=== PATIENT | female | born 1960 | race Caucasian/White ===

== ENCOUNTER 2019-05-24 13:00 | Day surgery (SDC) | payer OTHER, SELFPAY ==
--- NOTE | 2019-05-08 13:31 | PCM.HP.BLA ---
History and Physical Date of Admission: 05/24/19 HPI: The patient is a 58 year old female presenting for pre-operative visit. She is scheduled for?hysteroscopy D&C w/ possible polypectom, for?PMB and thickened endometrium on?05/24/19. ??Procedure discussed along with risks, benefits and complications. ?Other alternatives discussed for management. Consent form signed??Yes.? PAST MEDICAL HISTORY PAST MEDICAL HISTORY Diagnosis Date ? Female infertility of other specified origin ? ? 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 Hyperlipidemia LDL goal < 130 04/09/2014 ? Migraine, unspecified, with intractable migraine, so stated, without mention of status migrainosus ? ? Migraine ? Myalgia and myositis, unspecified ? ? Fibromyalgia (myalgia and myositis) ? Unspecified hemorrhoids without mention of complication ? ? Hemorrhoids ? ? PAST SURGICAL HISTORY PAST SURGICAL HISTORY Procedure Laterality Date ? APPENDECTOMY ? ? ? COLONOSCOP W/ OR W/O BRSH SPEC ? 02/05/2013 ? Colonoscopy ? HEMORRHOIDECTOMY,INT/EXT,COMPLX ? ? ? L'SCOPE DX W/WO BRUSHINGS/WASHINGS ? ? ? Laparoscopy, infertility ? REMOVE TONSILS/ADENOIDS,<12 Y/O ? ? ? REMV PILONIDAL LESION EXTENS ? ? ? Pilonidal cystectomy ? SIGMOIDOSCOPY FLEX DIAG ? 2002 ? Sigmoidoscopy, flexible ? ? CURRENT MEDICATIONS No current outpatient medications on file. ? No current facility-administered medications for this visit.? ? ALLERGIES:?Patient has no known allergies. ? PERSONAL HISTORY:? SOCIAL HISTORY Social History ? Tobacco Use ? Smoking status: Never Smoker ? Smokeless tobacco: Never Used Substance Use Topics ? Alcohol use: No ? Drug use: No ? FAMILY HISTORY:? FAMILY HISTORY FAMILY HISTORY Problem Relation Age of Onset ? Hypertension Mother ? ? Hypertension Father ? ? Colon Cancer Maternal Uncle ? ? Hypertension Maternal Grandfather ? ? Heart Maternal Grandfather ? ? other (Mitral Valve Prolapse) Other ?Mother and sister ? Hypertension Maternal Grandmother ? ? other (anorexia) Sister ? ? REVIEW OF SYMPTOMS: GENERAL: denies fevers or chills ENDOCRINOLOGY: has not been on steroids Cardiology : denies palpitations or chest pain Respiratory: denies SOB or cough Hematology: denies history of prolonged bleeding or easy bruising or VTE Allergy: Denies history of personal or family history of allergy to anesthesia ? ? PHYSICAL EXAMINATION: ? VITALS:?Last menstrual period 02/03/2011. ? GENERAL:??The patient is well nourished, well hydrated in no acute distress. ?, The patient is oriented to time, place, and person. NECK:?Supple. No lynphadenopathy, normal thyroid, no thyromegaly. LUNGS:?Clear to auscultation bilaterally. no wheezes, rhonchi or rales HEART:?Regular rate and rhythm, Normal heart sounds and No murmurs or gallops ? ? IMPRESSION:?PMB ? PLAN:??The risks/benefits/alternatives and personal involved for the planned?hysteroscopy D&C w/ possible polypectomy?were reviewed with the patient. Her questions were answered to her satisfaction and she desires to proceed. ?Consent was signed. ?I reviewed with her postop instructions and expectations. ? I have reviewed and updated past medical and surgical history, medications and allergies. This H&P was completed on 05/08/19 in my office.
[2019-05-24 13:29] VITALS: BP 158/85; PULSE 75; RESP 15; TEMP 37.1; O2SAT 98; BMI 32.2
[2019-05-24] MEDS: Lactated Ringers 1,000 ML 100 ML IV (13:44)
[2019-05-24] MEDS: Acetaminophen 500 MG Tablet 1000 MG PO (13:45)
[2019-05-24] MEDS: Ketorolac 30 MG/ML Syringe IV (13:45)
[2019-05-24 13:47] LABS: Hematocrit 42.6 % (37-47); Hemoglobin 13.7 g/dL (12.0-15.0); Mean Corp Hgb Conc 32.2 g/dL (32-36); Mean Corpuscular Volume 90.3 fL (81-99); Mean Platelet Vol. 10.4 fl (6.2-12.0); Platelet Count 233 K/mm3 (150-450); RBC Distribution Width CV 13.2 % (11.6-14.6); Red Blood Count 4.72 M/mm3 (4.2-5.4)
--- NOTE | 2019-05-24 14:55 | EMB_PTH ---
PATIENT: FRANCISCO J PERKINS LOC: [facility] U#:[id number] AGE/SX: 58/F ROOM: RE05/24/[address]: Dr. Zohreh Dumont MD : [id number] BED: DIS: 05/24/2019 SPEC #: [id number] RECD: 05/25/19 09:37 STATUS: ANTONIO REYesika #: [id number] GARFIELD: 05/24/19 14:[address]: Zohreh Dumont DEPT: SURGICAL PATHOLOGY RECD BY: Laurel Barron ENTERED: 05/25/19 10:44 SP TYPE: ENDOM BX/C OT DR: Dr. Kavon Jeff III, MD Tissues: Endometrium, NOS Procedures: Surgery Specimen Level IV HEADER OPERATION: Hysteroscopy, D & C Symphion with polyp resection PRE-OP DIAGNOSIS: Postmenopausal bleeding TISSUE SUBMITTED: Endometrial curettings MICROSCOPIC DIAGNOSIS Endometrium, curettings: Inactive endometrium with focal cystic change. Fragments of myometrium suggestive of adenomyosis. Rare fragments of benign lower uterine endometrium and endocervix. See comment. AM:levi 05/28/19 COMMENT The majority of the specimen consists of myometrial tissue. Clinical correlation is suggested. MICROSCOPIC DESCRIPTION Slides are reviewed. GROSS DESCRIPTION Received in fixative is one container labeled with the patient's name and designated endometrial curettings. The specimen consists of multiple irregular fragments of pink-vanegas soft tissue that in aggregate measure 2.5 x 1 x 0.1 cm. The specimen is totally submitted in one cassette. / AM:levi 05/25/19 TC:5 CPT: 83848
[2019-05-24] MEDS: Lubricating Jelly 60 GM Tube 30 GM TOPICAL (16:00)
--- NOTE | 2019-05-24 16:06 | DCINST_ITS ---
Discharge Diet: No Restrictions Discharge Activity: Return to Normal Activity, May Shower, May Take a Tub Bath - in 2 weeks. May resume sexual activity in: 2 weeks Call your doctor if your incision/area has: Continuous Slow Oozing, Sudden Increased Bleeding, Foul Smelling Discharge Call your doctor if you observe: Fever of 101 or Higher, Using more than one pad per hour Allergies/Adverse Reactions: Allergies No Known Allergies Allergy (Verified 05/24/19 13:29) Medications to take at Discharge NK 05/17/19 Primary Care Physician: Kavon Jeff III, MD [Primary Care Provider] - Test Results: Test results from this visit will be discussed in further detail at your follow- up appointment, if applicable. Please Follow Up With: Zohreh Dumont MD - [phone] When: in 2-4 weeks as needed
--- NOTE | 2019-05-24 16:07 | PCM.OPRPT ---
Report of Operation Date of Procedure: 05/24/19 Pre-Operative Diagnosis: PMB, thickened endometrium Post-Operative Diagnosis: same Surgery/Procedure Performed:: hsyteroscopy D&C w/ symphion device Description of Surgical Findings:: atrophic endometrium, normal cervix and vagina underwriting analyst: None Type of Anesthesia:: MAC/Supplemental/Local Anesthesiologist: Rodrick Bell Special Medications: none Specimen's removed: endometrial curettings Drains: none Estimated Blood Loss (mL): 10 Fluids Replaced: 900 cc LR Description of Procedure: The patient was taken to the OR where she was prepped and draped in dorsal lithotomy position. The weighted speculum was placed in the vagina and the anterior lip of the cervix was grasped with a single-tooth tenaculum. A paracervical block was administered with 1% lidocaine with 1-100,000 epinephrine solution. The cervix was dilated serially with Hegar dilators. The 5mm hysteroscope was placed into the uterine cavity and the above findings were noted. Bilateral tubal ostia were identified. The SYmphion device was used to do a visual d&C of the entire cavity. The instruments were removed from the vagina. The specimen was handed off and sent to pathology. All sponge and needle counts were correct. Vaginal sweep was performed by me. The patient was awakened and taken to the recovery room in stable condition. Hysteroscopic calculated fluid deficit of 350 cc of normal saline Findings: Endometrial cavity: Normal, no fibroids or polyps noted Cervix: Normal Vagina: Normal Grafts/Implants Used: none - Complications none - Admit VTE Documentation VTE Present on Admission: No VTE Mechan Device Prophylaxis: SCD's VTE Pharm Prophylaxis ordered?: No Reason prophylaxis not ordered:: Procedure Not Indicated
[2019-05-24 16:10] VITALS: BP 117/76; BP 158/85; PULSE 100; RESP 16; TEMP 36.8; O2SAT 92
[2019-05-24 16:15] VITALS: BP 132/91; BP 158/85; PULSE 88; RESP 18; O2SAT 93
[2019-05-24 16:20] VITALS: BP 152/98; BP 158/85; PULSE 84; RESP 16; O2SAT 93
[2019-05-24 16:25] VITALS: BP 157/88; BP 158/85; PULSE 84; RESP 18; TEMP 36.7
[2019-05-24 17:03] VITALS: BP 152/83; BP 158/85; PULSE 72; RESP 16; TEMP 36.4; O2SAT 96
== END 2019-05-24 17:21 | disposition home or self-care (01) ==
LOC: SDC 13:02 → AC 13:04
PROVIDERS: Family Provider Family Medicine; PCP Family Medicine; Referring Provider Obstetrics & Gynecology; Visit Provider Obstetrics & Gynecology
PROC: 0UB98ZZ Excision of Uterus, Via Natural or Artificial Opening Endoscopic (ICD-10-PCS; CPT 58558; principal; 2019-05-24 14:40)
DX: N95.0 Postmenopausal bleeding (principal); R93.89 Abnormal findings on diagnostic imaging of other specified body structures; N85.8 Other specified noninflammatory disorders of uterus; N97.9 Female infertility, unspecified; E78.5 Hyperlipidemia, unspecified; M79.7 Fibromyalgia; K64.9 Unspecified hemorrhoids
CPT/HCPCS: 58558; 36415; 85027; 88305; J7120; J2405

== ENCOUNTER → 2025-02-01 | Outpatient (CLI) | payer MEDICARE, OTHER, SELFPAY ==
--- NOTE | 2025-02-01 07:27 | CT_ITS ---
PROCEDURE: EXTREMITY LOWER WITHOUT CONTRA 02/01/2025 REASON FOR EXAM: UNILATERAL PRIMARY OSTEOARTHRITIS, LEFT KNEE TECHNIQUE: Procedure Code: CTELWO Modality: CT Procedure: EXTREMITY LOWER WITHOUT CONTRA Coronal and Sagittal reconstruction series were provided. One or more dose reduction techniques were used (e.g., Automated exposure control, adjustment of the mA and/or kV according to patient size, use of iterative reconstruction technique. RADIATION DOSE SUMMARY: CTDlvol: 56 mGy DLP: 1229.81 mGycm COMPARISON: None FINDINGS: Bones: Bone mineralization is preserved. There is no acute fracture of the knee hip or ankle. No destructive bone lesion appreciated. Joints: Left hip: No fracture. No dislocation. Joint spaces preserved. Subtle osteophytes present off the superior acetabulum. No effusion Left knee: Small suprapatellar joint effusion. Tricompartmental osteoarthritis. Narrowing of the medial compartment of the knee with subchondral sclerosis and marginal osteophytes. Osteophytes off the tibial spines and lateral femoral condyle and lateral tibial plateau. Osteophytic spurs present in the patellofemoral compartment with diffuse joint space narrowing. No dislocation or loose body. Left ankle: Old fracture through the left medial condyle. No acute fracture. Ankle mortise is preserved. Mild osteoarthritic changes. No joint effusion. The subtalar joint is normal. Enthesopathy of the insertion of the Achilles tendon. Calcaneal spurs. Soft Tissues: No abnormality of the soft tissues. CT/Extremity Lower without Contra IMPRESSION: Degenerative changes of the left knee and ankle as described above. No acute fracture. Reading Location: [id number]
== END | disposition home or self-care (01) ==
LOC: CT 07:27
PROVIDERS: PCP Family Medicine; Referring Provider Student in an Organized Health Care Education/Training Program; Visit Provider Student in an Organized Health Care Education/Training Program
DX: M25.569 Pain in unspecified knee (principal); G89.29 Other chronic pain
CPT/HCPCS: 73700

== ENCOUNTER 2025-02-28 13:57 | Observation (INO) | payer MEDICARE, OTHER, SELFPAY ==
--- NOTE | 2025-02-01 07:42 | EKG12_ITS ---
Test Reason : PREOP Blood Pressure : */* mmHG Vent. Rate : 75 BPM Atrial Rate : 75 BPM P-R Int : 148 ms QRS Dur : 74 ms QT Int : 396 ms P-R-T Axes : 20 -18 0 degrees QTcB Int : 442 ms Normal sinus rhythm Voltage criteria for left ventricular hypertrophy Abnormal ECG When compared with ECG of 01-Apr-2003 08:33, No significant change was found Confirmed by JUANA WALTER, SHYANN ([id number]), web editor STEPHAN KEITH ([id number]) on 02/04/2025 8:40:36 AM Referred By: Ciro Aguayo Confirmed By: SHYANN ARIAS MD
[2025-02-01 09:19] LABS: Hematocrit 40.6 % (37-47); Hemoglobin 13.5 g/dL (12.0-15.0); Immature Granulocytes Count 0.030 X10^3/uL (0.0-0.0); Mean Corp Hgb Conc 33.3 g/dL (32-36); Mean Corpuscular Volume 90.8 fL (81-99); Mean Platelet Vol. 10.6 fl (6.2-12.0); NRBC Flagged by Analyzer 0 % (0-5); Platelet Count 222 K/mm3 (150-450); RBC Distribution Width CV 13.2 % (11.6-14.6); RBC Distribution Width SD 43.8 fl (35.1-43.9); Red Blood Count 4.47 M/mm3 (4.2-5.4); White Blood Count 6.1 K/mm3 (4.4-11.0)
[2025-02-01 09:40] LABS: Magnesium 2.3 mg/dL (1.5-2.2)
[2025-02-01 09:44] LABS: Anion Gap 10 (5-15); BUN 24 mg/dL (4-19); BUN/Creat Ratio 20.7 RATIO (10-20); Calcium,Total 9.5 mg/dL (7.6-11.0); Carbon Dioxide 25.9 mmol/L (21.0-32.0); Chloride 104 mmol/L (98-108); Glucose 106 mg/dL (70-99); Potassium 4.6 mmol/L (3.3-5.1)
--- NOTE | 2025-02-04 16:16 | PAT.ANE_ITS ---
Pre-Assessment Diagnosis/Proposed Procedure Planned Operative Procedure(s): ROBOTIC ASSISTED LEFT TOTAL KNEE ARTHROPLASTY Anesthesia History Anesthesia History - convalescent sitter: Anesthesia History - convalescent sitter Hx Hospitalization No 01/31/25 13:59 Any Problems With Anesthesia No 01/31/25 13:59 Cholinesterase deficiency No 01/31/25 13:59 You/Your Family Experience No 01/31/25 13:59 fever (hyperthermia) with Relationship Recent Exposure to Contagious No 05/24/19 13:29 Disease Does patient have nerve No 01/31/25 13:59 stimulator Patient instructed to have device shut off --Does patient have Pacemaker or ICD? When Was Last Pacemaker Check QUESTION #4 FULL TEXT: You/Your Family Experience fever (hyperthermia) with Anesthesia Last Oral Intake Last Oral intake: Last Oral Intake NPO since Meds taken in AM with sips of water? Meds patient instructed to take am of surgery PONV PONV - convalescent sitter: PONV - convalescent sitter Female Yes 01/31/25 13:59 HX of Motion Sickness No 01/31/25 13:59 HX of N/V After Surgery No 01/31/25 13:59 Non-Smoker Yes 01/31/25 13:59 Duration of Surgery greater Yes 01/31/25 13:59 than 60 minutes Number of Risk Factors 3 01/31/25 13:59 PONV Score Moderate Risk 01/31/25 13:59 Respiratory Assessment Respiratory Assessment - convalescent sitter: Respiratory Tract Infection Hx - convalescent sitter Hx Respiratory Tract Infection No 01/31/25 13:59 STOP Sleep Apnea STOP Sleep Apnea - convalescent sitter: STOP Sleep Apnea - convalescent sitter Hx Hypertension Yes: CONTROLLED WITH 01/31/25 13:59 Hx Sleep Apnea No 01/31/25 13:59 CPAP BIPAP Do you snore loudly (louder Yes 01/31/25 13:59 than talking or can be heard Do you often feel tired/ No 01/31/25 13:59 fatigued/ sleepy during daytime? Has anyone observed you stop No 01/31/25 13:59 breathing during sleep? STOP Results Positive 01/31/25 13:59 QUESTION #5 FULL TEXT : Do you snore loudly (louder than talking or can be heard through closed doors)? 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 Specify any problems Hx of Preganancy in last 3 No 01/31/25 13:59 Months Nurse Filling Out Transfusion DSCHRIBER 01/31/25 13:59 & Questions: Date: 01/31/25 01/31/25 13:59 Time: 14:04 01/31/25 13:59 Patient unable to answer at this time (ie. confused, unrespo /Reproduction History /Reproductive History - convalescent sitter: /Reproductive Hx- convalescent sitter Hx Now No 01/31/25 13:59 Gestational Age (in weeks): EDC: Hx Hx Para Hx Section SAB No 01/31/25 13:59 PFSH Medical History (Updated 01/31/25 @ 14:08 by Latha Niño) Wears glasses Post-menopausal Arthritis High cholesterol Migraine headache Non-smoker History of pain when walking Hypertension Home Medications ?Medication ?Instructions ?Recorded ?Last Taken ?Type atorvastatin 20 mg tablet 20 mg PO QHS 01/31/25 Unknow n History losartan 100 mg tablet 100 mg PO DAILY 01/31/25 Unk nown History Allergy/AdvReac Type Severity Reaction Status Date / Time lisinopril AdvReac Mild Other Verified 01/31/25 13:57 Surgical History (Updated 01/31/25 @ 14:14 by Latha Niño) History of hysteroscopy Hx of colonoscopy Hx of hemorrhoidectomy Hx of appendectomy Hx of tonsillectomy Social History Smoking Status: Never smoker Audit: Pertinent Findings Pertinent Findings EKG Perinent findings: EKG 02/01/2025. Normal sinus rhythm. Recommendation Anesthesia Recommendation Anesthesia recommendation: OPTIMIZED for anesthesia
[2025-02-28] VITALS (13 sets, daily range): BP systolic 98–139; BP diastolic 55–88; PULSE 74–103; RESP 16–18; TEMP 36.3–37.1; O2SAT 92–100; BMI 32.3
[2025-02-28] MEDS: LR 1,000 ML - BOLUS PREOP 999 ML IV (11:02)
[2025-02-28] MEDS: Magnesium 1 GM over 15 mins IV (11:03)
--- NOTE | 2025-02-28 11:30 | PCM.PRE.AN2 ---
ASA Classification* ASA Classification ASA Classification: 2 Assessment & Plan Anesthesia* Anesthesia Assessment Anesthesia Assessment: Discussed sedation and/or anesthesia options, risks, benefits, and alternatives with patient/parents/legal guardian/POA. Questions invited. The patient/parents/legal guardian/POA seems to understand and agrees to proceed with anesthesia plan. Reviewed the physical assessment, medical history, allergy history and patient home medications list prior to surgery/procedure/anesthetic and documented any changes. Performed airway and anesthesia risk assessments. Anesthesia Type Anesthesia Type: Spinal and Block (Patient was consented for postop adductor canal block.) History Source History Obtained from:: Patient and Chart Anesthesia Focused Assessment* Temperature: 98.8 F Pulse Rate: 103 Blood Pressure: 137/88 Respiratory Rate: 18 Pulse Ox: 98 Oxygen Delivery Method: Room Air Airway Assessment Mouth opens: >3 cm Mallampati Score: III Teeth Condition: Caps/Crowns (Patient has couple crowns. They are tight.) Neck Range of motion (ROM): Full ROM Labs Anesthesia Preop lab: CBC WBC, (4.4-11.0) 6.1 K/mm3 02/01/25, 08:19 RBC, (4.2-5.4) 4.47 M/mm3 02/01/25, 08:19 Hgb, (12.0-15.0) 13.5 g/dL 02/01/25, 08:19 Hct, (37-47) 40.6 % 02/01/25, 08:19 Plt Count, (150-450) 222 K/mm3 02/01/25, 08:19 CHEMISTRY Potassium, (3.3-5.1) 4.6 mmol/L 02/01/25, 08:19 Sodium, (133-145) 140 mmol/L 02/01/25, 08:19 Magnesium, (1.5-2.2) 2.3 mg/dL H 02/01/25, 08:19 BUN, (4-19) 24 mg/dL H 02/01/25, 08:19 Creatinine, (0.70-1.20) 1.14 mg/dL 02/01/25, 08:19 Glucose, (70-99) 106 mg/dL H 02/01/25, 08:19 COAG Pre-Assessment Diagnosis/Proposed Procedure Planned Operative Procedure(s): ROBOTIC ASSISTED LEFT TOTAL KNEE ARTHROPLASTY Anesthesia History Anesthesia History - cook relief: Anesthesia History - cook relief Hx Hospitalization No 01/31/25 13:59 Any Problems With Anesthesia No 01/31/25 13:59 Cholinesterase deficiency No 01/31/25 13:59 You/Your Family Experience No 01/31/25 13:59 fever (hyperthermia) with Relationship Recent Exposure to Contagious No 02/28/25 10:40 Disease Does patient have nerve No 01/31/25 13:59 stimulator Patient instructed to have device shut off --Does patient have Pacemaker No 02/28/25 10:40 or ICD? When Was Last Pacemaker Check QUESTION #4 FULL TEXT: You/Your Family Experience fever (hyperthermia) with Anesthesia Last Oral Intake Last Oral intake: Last Oral Intake NPO since 08:30 02/28/25 10:40 Meds taken in AM with sips of Yes 02/28/25 10:40 water? Meds patient instructed to losartan 02/28/25 10:40 take am of surgery Any additional information?: Yes NPO since: 08:30 (Patient had her preop Ensure at 8:30 AM.) Meds taken in AM with sips of water?: Yes PONV PONV - cook relief: PONV - cook relief Female Yes 01/31/25 13:59 HX of Motion Sickness No 01/31/25 13:59 HX of N/V After Surgery No 01/31/25 13:59 Non-Smoker Yes 01/31/25 13:59 Duration of Surgery greater Yes 01/31/25 13:59 than 60 minutes Number of Risk Factors 3 01/31/25 13:59 PONV Score Moderate Risk 01/31/25 13:59 Height & Weight Height & Weight: Anesthesia: Height & Weight Height 5 ft 5 in 02/28/25 10:40 Weight: 88 kg 02/28/25 10:40 Body Mass Index (BMI) 32.3 02/28/25 10:40 Respiratory Assessment Respiratory Assessment - cook relief: Respiratory Tract Infection Hx - cook relief Hx Respiratory Tract Infection No 01/31/25 13:59 STOP Sleep Apnea STOP Sleep Apnea - cook relief: STOP Sleep Apnea - cook relief Hx Hypertension Yes: CONTROLLED WITH 01/31/25 13:59 Hx Sleep Apnea No 01/31/25 13:59 CPAP BIPAP Do you snore loudly (louder Yes 01/31/25 13:59 than talking or can be heard Do you often feel tired/ No 01/31/25 13:59 fatigued/ sleepy during daytime? Has anyone observed you stop No 01/31/25 13:59 breathing during sleep? STOP Results Positive 01/31/25 13:59 QUESTION #5 FULL TEXT : Do you snore loudly (louder than talking or can be heard through closed doors)? 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 Specify any problems Hx of Preganancy in last 3 No 01/31/25 13:59 Months Nurse Filling Out Transfusion DSCHRIBER 01/31/25 13:59 & Questions: Date: 01/31/25 01/31/25 13:59 Time: 14:04 01/31/25 13:59 Patient unable to answer at this time (ie. confused, unrespo /Reproduction History /Reproductive History - cook relief: /Reproductive Hx- cook relief Hx Now No 01/31/25 13:59 Gestational Age (in weeks): EDC: Hx Hx Para Hx Section SAB No 01/31/25 13:59 Active Medications Active Medications: Current Medications Generic Name Dose Route Start Last Admin Trade Name Freq PRN Reason Stop Dose Admin Acetaminophen 1,000 mg 02/28/25 12:15 02/28/25 11:03 Acetaminophen 500 Mg Tablet PO 02/28/25 12:16 1,000 mg PREOP ONE Administration Celecoxib 400 mg 02/28/25 12:15 02/28/25 11:03 Celecoxib 200 Mg Capsule PO 02/28/25 12:16 400 mg PREOP ONE Administration Sodium Chloride 77.9 ml/ 0 ml 02/28/25 12:15 Ropivacaine 200 mg/ OPERA.SITE 02/28/25 12:16 Epinephrine HCl 0.6 mg/ INTRAOP ONE Ketorolac Tromethamine 30 mg/ Morphine Sulfate 5 mg Dexamethasone Sodium Phosphate 10 mg 02/28/25 12:15 Dexamethasone 10 Mg/Ml Vial IV 02/28/25 12:16 INTRAOP ONE Gabapentin 600 mg 02/28/25 12:15 02/28/25 11:04 Gabapentin 600 Mg Tablet PO 02/28/25 12:16 600 mg PREOP ONE Administration Lactated Ringer's 1,000 mls @ 999 mls/hr 02/28/25 12:15 02/28/25 11:02 IV 02/28/25 13:15 999 mls/hr .Q1H1M EARLE Administration Cefazolin Sodium 2 gm/ Sodium 110 mls @ 150 mls/hr 02/28/25 12:15 Chloride IV 02/28/25 12:58 INTRAOP ONE Tranexamic Acid 1,000 mg/ 110 mls @ 660 mls/hr 02/28/25 12:15 Sodium Chloride IV 02/28/25 12:24 INTRAOP ONE Tranexamic Acid 1,000 mg/ 110 mls @ 660 mls/hr 02/28/25 13:15 Sodium Chloride IV 02/28/25 13:24 INTRAOP ONE Lactated Ringer's 1,000 mls @ 999 mls/hr 02/28/25 13:15 IV 02/28/25 14:15 .Q1H1M EARLE Lactated Ringer's 1,000 mls @ 125 mls/hr 02/28/25 14:15 IV 02/28/25 22:14 .Q8H EARLE Magnesium Sulfate 1 gm/ 102 mls @ 408 mls/hr 02/28/25 12:15 02/28/25 11:03 Dextrose IV 02/28/25 12:29 408 mls/hr PREOP ONE Administration Insulin Human Lispro 1 - 6 unit 02/28/25 12:15 Insulin Lispro 100 Unit/Ml Insuln.Pen SC 02/28/25 18:15 Q4H PRN PRN BG>/= 180, SEE PROTOCOL Protocol PFSH Medical History Wears glasses Post-menopausal Arthritis High cholesterol Migraine headache Non-smoker History of pain when walking Hypertension Home Medications ?Medication ?Instructions ?Recorded ?Last Taken ?Type atorvastatin 20 mg tablet 20 mg PO QHS 01/31/25 Unknown History losartan 100 mg tablet 100 mg PO DAILY 01/31/25 02/28/25 History Allergy/AdvReac Type Severity Reaction Status Date / Time lisinopril AdvReac Mild Other Verified 02/28/25 10:37 Surgical History History of hysteroscopy Hx of colonoscopy Hx of hemorrhoidectomy Hx of appendectomy Hx of tonsillectomy Social History Smoking Status: Never smoker Review of Systems (Anesthesia) ROS Narrative System reviewed and no additional complaints, except as documented.
[2025-02-28] MEDS: Midazolam 2 MG/2 ML Syringe IV (12:02)
[2025-02-28] MEDS: Cefazolin 1 GM/5 ML Vial 2 GM IV (12:25)
[2025-02-28] MEDS: TRANEXAMIC ACID 1,000 MG/10 ML ML 2000 MG IV (13:29)
[2025-02-28] MEDS: JPS (Morphine 10mg/ml) OPERA.SITE (13:30)
--- NOTE | 2025-02-28 14:12 | PCM.OPRPT ---
Operative Report (Standard) Operative Information Date of Procedure: 02/28/25 Pre-Operative Diagnosis: Left knee osteoarthritis Post-Operative Diagnosis: Left knee osteoarthritis Surgery/Procedure Performed: Left robotic arm assisted left total knee arthroplasty retail area manager: Yes Envelope Stamping Machine Operator: Terri Loob Tasks completed by financial assistant: Opening & closing, Implanting device, Hemostasis: Electrocautery and Retracting Type of Anesthesia: Spinal/Supplemental RN Documented Start/Stop Times: Operation Date: 02/28/25 12:15 Case Time Into Pre-Op 02/28/25 10:37 Anesthesia Start 02/28/25 12:19 Into Room 02/28/25 12:19 Out of Pre-Op 02/28/25 12:19 Procedure Start 02/28/25 12:39 Procedure End 02/28/25 14:03 Anesthesia End 02/28/25 14:08 Out of Room 02/28/25 14:08 Procedure Start Time: 12:23 Procedure Stop Time: 14:03 Select all DRAINS/GRAFTS/IMPLANTS that apply: Implanted device Implanted device details: Ronnie triathlon CR size #4 left femoral component press-fit, [place]aria triathlon press-fit size #3 tibial component, CS 10 mm polyethylene bearing Estimated Blood Loss: 50 cc Specimen collected: No Description of surgery: Description of procedure: Patient was identified in the preoperative holding area by name, medical record number, and date of . Informed set was confirmed with the patient. The operative knee was marked with a surgical marker. At time of his procedure, patient brought to the operative suite and positioned supine a standard operating table. Anesthesia then administered a spinal anesthetic. He was then repositioned in the supine position with all bony prominences well-padded. We then placed a well-padded pneumatic tourniquet on the left upper thigh. The left upper extremity was brought across patient's chest throughout the procedure. We then prepped and draped the left lower extremity in a normal, sterile orthopedic fashion. We performed a timeout with all parties in attendance in agreement with the side, site, operation be performed. No concerns were voiced and would like to proceed with surgery. 2 g Ancef was administered prior to the incision by anesthesia staff as well as 1 g IV TXA. First exsanguinated the left lower extremity with a Esmarch bandage. Tourniquet was inflated to 250 mmHg which remained elevated for 47 minutes. Esmarch was removed. I planned a standard midline approach to the left knee approximately 15 cm in length. Skin was sharply incised with a 10 blade scalpel developing full-thickness layers down to the retinaculum. Layers were developed identifying the VMO. I then planned a standard medial parapatellar arthrotomy performed in flexion. The anterior horn of the medial meniscus was released. Hoffa's fat pad was then released. I then everted the patella in extension and brought the knee into 90 degrees of flexion. The anterior horn of the lateral meniscus was then released. The ACL was split in its mid substance with a 10 blade. We then brought the knee back into extension. The patella was everted and examined. 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 I then reduced the patella and then subluxed it laterally. I then placed pins in the metaphyseal distal femur medial to lateral for the Jaime arrays. In similar fashion, I made a 2 cm incision approximately a handsbreadth distal to the tibial tubercle along the medial aspect of the tibia, drilling 2 bicortical pins for the tibial array. The knee was brought into flexion. The patella was subluxed laterally but not everted. Medial lateral retractors were placed. We then utilized the [employer] software to confirm our planned surgical procedure and oriented with the patient's osseous anatomy. All checks with the [employer] system were confirmed. Patient had a significant fixed varus deformity after performing stress examination utilizing the [employer] software. We elected to place the tibial baseplate in approximately 1/2 degree of varus to allow for appropriate balancing. Sawblade was then brought in. I first started with the tibial cut, ensuring protection of the MCL and patellar tendon. A tibial wafer was then excised. I then proceeded to make the posterior femoral, anterior, anterior chamfer cuts with the same blade. Ligaments were protected with [employer] retractors. Sawblade was then exchanged to perform the distal femoral and posterior chamfer cuts. The robot was then removed from the surgical field. Remaining loose bone and meniscus was excised carefully. Posterior osteophytes were removed from the distal femur with a curved osteotome and rongeur. Trial components were then placed. Balance was excellent in both extension and 90 degrees flexion. No mid flexion instability was apparent. Patella was reduced and tracking was excellent. We then marked for tibial baseplate. Distal femoral pegs were drilled. Tibial keel was punched. Trials were removed. Periarticular block was administered. The wound was copiously irrigated with normal saline solution. Tourniquet was deflated. Hemostasis was excellent. An additional 1 g TXA was administered IV. Tibial and subsequently femoral components were impacted in standard fashion with excellent pullout strength. I trialed a 10 mm polyethylene at this time and demonstrated excellent range of motion, balance and stability. I selected a size 10 mm polyethylene which was placed and impacted per grader marker recommendations. Final components appeared very well balanced with excellent range of motion. There was no significant remaining flexion contracture. 3-minute dilute sterile Betadine soak was then performed within the wound. The wound was copiously irrigated with normal saline solution. Capsule was closed watertight with #1 strata fix barbed suture. Deeper report muscle layer was reapproximated with 0 Vicryl suture. Dermis was reapproximated buried interrupted 2-0 Vicryl suture. Skin was finally reapproximated saba. Patient tolerated the procedure well without apparent complication. She was safely awakened in the operative suite, transferred to his hospital bed and subsequently to PACU in stable condition. Need for skilled addictions counselor assistant: Terri Lobo PA-C was critical to the outcome of the case. During the course of the procedure the physician addictions counselor assistant played a vital role. Her intimate knowledge of my steps in the procedure aided in safe and expedient completion of the procedure. The PA played a vital role in positioning particularly in obtaining the appropriate positioning. The PA was also vital in the retraction of soft tissues during the exposure and projecting vital structures. The PA was also vital and protecting soft tissues during times of bony cuts. She also played a vital role in closure with my direct supervision. The PA was also important during reduction and dislocation of the joint and trials intraoperatively. Post Operative Plan: Patient will be placed in observation overnight with plan for home discharge tomorrow. Weightbearing: Range of motion and weightbearing as tolerated left lower extremity. Antibiotics: Ancef 2 g every 8 hours x 3 doses DVT Prophylaxis: Multimodal with SCDs, MARIAH hose, early mobilization and aspirin 81 mg twice daily beginning postoperative day #1 [place]: None Dressing: Maintain silver dressing x7 days X-Rays: 2-week x-rays in the office. Follow-up: 2 weeks in my office for staple removal Surgical Findings: Flexible varus deformity. Good balance and good tracking after final implantation. Complications Complications: No Admit VTE Documentation VTE Present on Admission: No VTE Mechan Device Prophylaxis: SCD's and Thigh High MARIAH Hose VTE Pharm Prophylaxis ordered?: Yes
--- NOTE | 2025-02-28 14:15 | RAD_ITS ---
PROCEDURE: KNEE 1 OR 2 VIEWS 02/28/2025 REASON FOR EXAM: POST OP TECHNIQUE: Procedure Code: RADK Modality: DX Procedure: KNEE 1 OR 2 VIEWS Laterality: Left COMPARISON: None FINDINGS: Patient is postop from left knee replacement surgery. Components demonstrate anatomic alignment No plain film evidence of postoperative complication. Normal postoperative soft tissue swelling and subcutaneous emphysema. RAD/Knee 1 or 2 Views IMPRESSION: No post operative complications after left knee replacement surgery. Component s demonstrate anatomic alignment Reading Location: [id number]
--- NOTE | 2025-02-28 14:17 | PCM.POST.ANE ---
Anesthesia: Postop Eval I Current Vital Signs Temperature: 98.7 F Pulse Rate: 95 Blood Pressure: 98/55 Respiratory Rate: 16 Pulse Ox: 96 Oxygen Delivery Method: Nasal Cannula Oxygen Flow Rate (L/min): 4 Assessment Airway patent: Yes Spontaneous unlabored respirations: Yes Mental status: Awake and Calm nausea: No Vomiting: No Anesthesia Complication: No Fluid Hydration Crystalloid volume administer (ml): 1,400 Total IV fluid infused: 1,400 Progress Note Anesthesia document: Postop Eval 1 completed: Yes
[2025-02-28] MEDS: LR 1,000 ML - BOLUS POSTOP 999 ML IV (14:18)
[2025-02-28] MEDS: LR 1,000 ML - 125 ML/HR (POST BOLUS) POST OP IV (14:55)
--- NOTE | 2025-02-28 16:17 | POSTOPAN2_ITS ---
Anesthesia Postop Eval I Sum Postop Eval Completion status Anesthesia document: Postop Eval 1 completed: Yes Anesthesia Postop Eval I Summary Anesthesia Postop Eval I Summary: Anesthesia Postop Eval I: Assessment Summary Airway patent Yes 02/28/25 14:18 [email or web address] Spontaneous unlabored Yes 02/28/25 14:18 [email or web address] respirations Mental status Awake,Calm 02/28/25 14:18 [email or web address] nausea No 02/28/25 14:18 [email or web address] Vomiting No 02/28/25 14:18 [email or web address] Anesthesia Postop Eval I: Fluid Summary Crystalloid volume administer 1,400 02/28/25 14:18 [email or web address] (ml) Colloids volume administered ( ml) Blood Product volume administered (ml) Total IV fluid infused 1,400 02/28/25 14:18 [email or web address] Anesthesia Postop Eval I: Summary Notes Anesthesia Complication No 02/28/25 14:18 [email or web address] Anesthesia Complication Comment: Post-operative progress note Anesthesia: Postop Eval II Evaluation Mental status: Awake Pain Level: 0 nausea: No Vomiting: No
--- NOTE | 2025-02-28 16:17 | PCM.POSTANE2 ---
Anesthesia Postop Eval I Sum Postop Eval Completion status Anesthesia document: Postop Eval 1 completed: Yes Anesthesia Postop Eval I Summary Anesthesia Postop Eval I Summary: Anesthesia Postop Eval I: Assessment Summary Airway patent Yes 02/28/25 14:18 [email or web address] Spontaneous unlabored Yes 02/28/25 14:18 [email or web address] respirations Mental status Awake,Calm 02/28/25 14:18 [email or web address] nausea No 02/28/25 14:18 [email or web address] Vomiting No 02/28/25 14:18 [email or web address] Anesthesia Postop Eval I: Fluid Summary Crystalloid volume administer 1,400 02/28/25 14:18 [email or web address] (ml) Colloids volume administered ( ml) Blood Product volume administered (ml) Total IV fluid infused 1,400 02/28/25 14:18 [email or web address] Anesthesia Postop Eval I: Summary Notes Anesthesia Complication No 02/28/25 14:18 [email or web address] Anesthesia Complication Comment: Post-operative progress note Anesthesia: Postop Eval II Evaluation Mental status: Awake Pain Level: 0 nausea: No Vomiting: No
[2025-02-28] MEDS: Cefazolin 1 GM/50 ML BAG IV (19:56)
[2025-02-28] MEDS: Senna/Docusate Sodium 1 Tablet 2 TABLET PO (22:32)
--- OUTSIDE RECORDS SUMMARY | 2025-03-01 00:25 | XMS RPT_ITS | CCD ---
Author Organization [facility] Care Team Providers Care Educational Therapy Teacher Name Role Phone Mari Jones MD Primary Care Provider Mari Jones MD Primary Care Provider [employer] SUPERINTENDENT DIVISION.Sheryl CÁRDENAS Unavailable [place] SUPERINTENDENT DIVISION.Jim CÁRDENAS Unavailable [place] SUPERINTENDENT DIVISION.Jim CÁRDENAS Unavailable [place] SUPERINTENDENT DIVISION.Jim CÁRDENAS Unavailable [place] SUPERINTENDENT DIVISION.Jim CÁRDENAS Unavailable [place] SUPERINTENDENT DIVISION.Jim CÁRDENAS Unavailable Krishna Jones Primary Care Unavailable Ciro Aguayo Attending Unavailable Ciro Aguayo Referring Unavailable Krishna Jones Primary Care Unavailable Ciro Aguayo Attending Unavailable Ciro Aguayo Referring Unavailable LAURA MORALEZ Referring Unavailable MARI JONES Primary Care Unavailab MARI Ortiz Referring Unavailab MARI Ortiz Primary Care Unavailab JIM Samano Attending Unavailable MARI JONES Primary Care Unavailab MARI Ortiz Primary Care Unavailab le BRIAN HOWARD Referring Unavailable MARI JONES Primary Care Unavailab le SHERYL HERMOSILLO Attending Unavailable MARI JONES Primary Care Unavailab MARCELINA Perez Attending Unavailabl e MARI JONES Primary Care Unavailab MARI Ortiz Attending Unavailab MARI Ortiz Primary Care Unavailab MARI Ortiz Referring Unavailab MARI Ortiz Primary Care Unavailab MARI Ortiz Attending MARI Echavarria Primary Care Unavailab LAURA Hernandez Attending MARI Wells Primary Care Unavailab MARI Ortiz Referring Unavailab MARI Ortiz Primary Care Unavailab le Donell'BLANCA CANNON Attending MARI Wells Referring Unavailab MARI Ortiz Primary Care Unavailab selin O'BLANCA CANNON Attending Unavailable MARI JONES Referring Unavailab MARI Ortiz Primary Care Unavailab le Allergies Allergy Classification Reported Allergen(s) Allergy Type Date of Onset Reaction(s) Facility (20 sources) Lisinopril; Translations: [LISINOPRIL] Drug Allergy 04-08-2020 [facility] (1 source) Lisinopril Drug Allergy 01-31-2025 [facility] Repository Medications Current Medications Medication Drug Class(es) Dates Sig (Normalized) Sig (Original) amoxicillin 875 mg / clavulanate 125 mg oral tablet (3 sources) Penicillin-class Antibacterial Start: 03-27-2024 End: 04-06-2024 take 1 tablet by mouth twice daily amoxicillin-clavulan ate potassium (AUGMENTIN) 875-125 mg per tablet Indications: Sinus pressure Take 1 tablet by mouth two times a day for 10 days. 20 tablet 03/27/2024 04/06/2024 Active atorvastatin 20 mg oral tablet (9 sources) HMG-CoA Reductase Inhibitor Start: 07-31-2024 End: 01-27-2025 take 1 tablet by mouth once daily atorvastatin (LIPITOR) 20 mg tablet Take 1 tablet by mouth once daily. 90 tablet 1 07/31/2024 01/27/2025 Active azithromycin 250 mg oral tablet (1 source) Macrolide Antimicrobial Start: 04-10-2024 End: 04-15-2024 azithromycin (ZITHROMAX Z-WEI) 250 mg tablet Indications: Sinobronchitis Take 2 tablets day one, then, 1 tablet daily until gone. 6 tablet 04/10/2024 04/15/2024 Active cholecalciferol 0.125 mg oral tablet (20 sources) Vitamin D take 1 tablet by mouth once daily cholecalciferol (VITAMIN D-3) 5,000 unit tab Take 5,000 Units by mouth once daily. Active Comment on above: Take 5,000 Units by mouth once daily. ciprofloxacin 2 mg/ml / hydrocortisone 10 mg/ml otic suspension (2 sources) Corticosteroid, Quinolone Antimicrobial Start: 04-06-2024 End: 04-13-2024 ciprofloxacin-hydroc ortisone (CIPRO HC) otic suspension Indications: Acute otitis externa of left ear, unspecified type Use 3 Drops in the left ear two times a day for 7 days. 10 mL 04/06/2024 04/09/2024 Discontinued doxycycline hyclate 100 mg oral tablet (4 sources) Tetracycline-class Drug Start: 04-06-2024 End: 04-16-2024 take 1 tablet by mouth twice daily doxycycline (VIBRA-TABS) 100 mg tablet Indications: Sinobronchitis Take 1 tablet by mouth two times a day for 10 days. 20 tablet 04/06/2024 04/16/2024 Active Start: 07-13-2022 End: 07-20-2022 take 1 tablet by mouth twice daily doxycycline (VIBRA-TABS) 100 mg tablet Take 1 tablet by mouth twice daily for 7 days. 14 tablet 0 07/13/2022 07/20/2022 Active Comment on above: Take 1 tablet by sammi twice daily for 7 days. hydrocortisone 10 mg/ml / neomycin 3.5 mg/ml / polymyxin b [id number] unt/ml otic solution (2 sources) Aminoglycoside Antibacterial, Polymyxin-class Antibacterial, Corticosteroid Start: 04-09-20 End: 04-16-20 24 neomycin-polymyxin- hydrocortisone (CORTISPORIN) otic solution Indications: Acute otitis externa of left ear, unspecified type Use 3 Drops in the left ear four times daily for 7 days. 10 mL 04/09/2024 04/16/2024 Active losartan potassium 100 mg oral tablet (20 sources) Angiotensin 2 Receptor Samy Start: 06-21-19 24 End: 07-30-19 take 1 tablet by mouth once daily losartan (COZAAR) 100 mg tablet Take 1 tablet by mouth once daily. 90 tablet 1 01/30/2025 07/29/2025 Active Start: 12-15-2022 End: 06-05-2023 take 1 tablet by mouth once daily losartan (COZAAR) 100 mg tablet Indications: Hypertension, essential Take 1 tablet by mouth once daily. 90 tablet 0 03/07/2023 06/05/2023 Active Start: 10-29-2021 End: 12-09-2022 take 1 tablet by mouth once daily losartan (COZAAR) 100 mg tablet Indications: Hypertension, essential Take 1 tablet by mouth once daily. 90 tablet 0 09/10/2022 12/09/2022 Active Start: 10-13-2021 End: 01-11-2022 take 1 tablet by mouth once daily losartan (COZAAR) 50 mg tablet Indications: Hypertension, essential Take 1 tablet by mouth once daily. 90 tablet 0 10/13/2021 10/29/2021 Discontinued Start: 07-06-2021 End: 10-13-2021 take 1 tablet by mouth once daily losartan (COZAAR) 25 mg tablet Indications: Hypertension, essential Take 1 tablet by mouth once daily. 90 tablet 1 07/06/2021 10/13/2021 Discontinued Comment on above: [facility] nitrofurantoin, macrocrystals 25 mg / nitrofurantoin, monohydrate 75 mg oral capsule (1 source) Nitrofuran Antibacterial Start: 023 End: 023 take 1 capsule by mouth twice daily at mealtime nitrofurantoin monohydrate and macrocrystal (MACROBID) 100 mg capsule Indications: Acute cystitis without hematuria Take 1 capsule by mouth twice daily with meals for 5 days. 10 capsule 0 09/16/2022 09/21/2022 Active Comment on above: Take 1 capsule by mo [facility] twice daily with meals for 5 days. Completed/Discontinued Medications Medication Drug Class(es) Dates Sig (Normalized) Sig (Original) B Complex-Folic Acid (B COMPLEX 1, WITH FOLIC ACID,) 0.4 mg tab (3 sources) Start: 03-31-2022 B Complex-Folic Acid (B COMPLEX 1, WITH FOLIC ACID,) 0.4 mg tab Take by mouth. 0 03/31/2022 Active Comment on above: Take by mouth. B Complex-Folic Acid 0.4 mg tab (5 sources) Start: 03-31-2022 B Complex-Folic Acid 0.4 mg tab Take by mouth. 0 03/31/2022 Active Comment on above: Take by mouth. benzonatate 200 mg oral capsule (5 sources) Non-narcotic Antitussive Start: 03-23-2024 End: 03-30-2024 take 1 capsule by mouth every eight hours as needed Benzonatate 200 mg capsule Take 1 capsule by mouth every 8 hours as needed for cough for up to 7 days. 21 capsule 03/23/2024 03/30/2024 Start: 03-22-2024 End: 03-23-2024 take 1 capsule by mouth three times daily as needed benzonatate (TESSALON PERLES) 100 mg capsule Indications: Acute cough Take 1 capsule by mouth three times a day as needed for up to 12 doses. 12 capsule 03/22/2024 03/23/2024 Discontinued (Availability) biotin 1 mg chewable tablet (8 sources) Start: 03-31-2022 biotin 1,000 mcg chew Take by mouth. 0 03/31/2022 Active Comment on above: Take by mouth. calcium chloride 0.0014 meq/ml / potassium chloride 0.004 meq/ml / sodium chloride 0.103 meq/ml / sodium lactate 0.028 meq/ml injectable solution (1 source) Start: 09-26-2023 End: 09-26-2023 lactated ringers iv infusion diphenhydrAMINE (1 source) Histamine-1 Receptor Antagonist Start: 09-26-2023 End: 09-26-2023 diphenhydrAMINE 12.5-50 mg injection (BENADRYL) 1 ml fentaNYL 0.05 mg/ml injection (1 source) Opioid Agonist Start: 09-26-2023 End: 09-26-2023 fentaNYL 50 mcg/mL 25-100 mcg injection (SUBLIMAZE) 12 hr guaiFENesin 1200 mg / pseudoephedrine hydrochloride 120 mg extended release oral tablet (11 sources) alpha-Adrenergic Agonist Start: 04-06-2024 End: 08-20-2024 take 1 tablet by mouth once daily as needed for congestion Pseudoephedrine-gua iFENesin (MUCINEX D MAXIMUM STRENGTH) 120-1,200 mg tab ER 12 hr Indications: Sinobronchitis Take 1 tablet by mouth once daily as needed (congestion) for up to 24 doses. 24 tablet 04/06/2024 08/20/2024 Discontinued (Other) 5 ml midazolam 1 mg/ml injection (1 source) Benzodiazepine Start: 09-26-2023 End: 09-26-2023 midazolam (PF) 1-5 mg injection (VERSED) minoxidil 50 mg/ml topical foam (8 sources) Arteriolar Vasodilator Start: 03-31-2022 End: 09-27-2022 Minoxidil 5 % foam Indications: Female pattern hair loss Apply to affected area twice daily. 60 g 5 03/31/2022 Active Comment on above: Apply to affected ar ea twice daily. simethicone 66.7 mg/ml oral suspension (1 source) Start: 09-26-2023 End: 09-26-2023 simethicone 20-40 mg oral liquid (MYLICON) Zinc (17 sources) Zinc 50 mg tab T gladis by mouth. 0 Active Comment on above: Take by mouth. Problems Active Problems Problem Classification Problem Date Documented Date Episodic/Chronic Acquired foot deformities (3 sources) Hallux valgus; Translations: [Hallux valgus (acquired), left foot] 10-25-2023 Chronic Adjustment disorders (1 source) Grief finding; Translations: [Adjustment disorder with depressed mood] Chronic Disorders of lipid metabolism (20 sources) Hyperlipidemia; Translations: [Hyperlipidemia, unspecified] Onset: 04-09-2014 Chronic Essential hypertension (20 sources) Essential hypertension; Translations: [Essential (primary) hypertension] Onset: 07-23-2024 Chronic Headache; including migraine (16 sources) Migraine without aura, not refractory ; Translations: [Migraine without aura, not intractable, without status migrainosus] Onset: 07-23-2024 07-23-2024 Chronic Menopausal disorders (20 sources) Postmenopausal bleeding; Translations: [Postmenopausal bleeding] Onset: 05-30-2018 03-20-2021 Chronic Other circulatory disease (1 source) Abnormal peripheral pulse; Translations: [Other specified symptoms and signs involving the circulatory and respiratory systems] 10-25-2023 Episodic Other connective tissue disease (3 sources) Pain of toe of left foot; Translations: [Pain in left toe(s)] 10-10-2023 Episodic Other ear and sense organ disorders (2 sources) Acute otitis externa of left ear; Translations: [Unspecified acute noninfective otitis externa, left ear] 04-06-2024 Episodic Other ear and sense organ disorders (1 source) Impacted cerumen in left ear; Translations: [Impacted cerumen, left ear] 04-06-2024 Episodic Other lower respiratory disease (4 sources) Cough; Translations: [Acute cough] 03-22-2024 Episodic Other non-traumatic joint disorders (1 source) Pain in unspecified knee; Translations: [Pain in unspecified knee] Onset: 02-15-2025 Episodic Other nutritional; endocrine; and metabolic disorders (1 source) Obesity; Translations: [Class 1 obesity with body mass index (BMI) of 33.0 to 33.9 in adult, unspecified obesity type, unspecified whether serious comorbidity present] 07-23-2024 Chronic Other nutritional; endocrine; and metabolic disorders (1 source) Body mass index (BMI) 33.0-33.9, adult; Translations: [Class 1 obesity with body mass index (BMI) of 33.0 to 33.9 in adult, unspecified obesity type, unspecified whether serious comorbidity present] Onset: 07-23-2024 Chronic Other skin disorders (1 source) Loss of hair; Translations: [Nonscarring hair loss, unspecified] Episodic Other skin disorders (1 source) Foot callus; Translations: [Corns and callosities] 10-25-2023 Episodic Other upper respiratory infections (4 sources) Bacterial sinusitis; Translations: [Chronic sinusitis, unspecified] Onset: 04-06-2024 Chronic Residual codes; unclassified (4 sources) Menopause present; Translations: [Asymptomatic menopausal state] 07-25-2024 Episodic Unclassified (1 source) Class 1 obesity with body mass index (BMI) of 33.0 to 33.9 in adult, unspecified obesity type, unspecified whether serious comorbidity present; Translations: [Class 1 obesity with body mass index (BMI) of 33.0 to 33.9 in adult, unspecified obesity type, unspecified whether serious comorbidity present] Onset: 07-23-2024 Unclassified (1 source) Acute cough; Translations: [Acute cough] Onset: 03-22-2024 Urinary tract infections (1 source) Acute cystitis; Translations: [Acute cystitis without hematuria] Episodic Past or Other Problems Problem Classification Problem Date Documented Date Episodic/Chronic Allergic reactions (20 sources) Contact dermatitis; Translations: [Unspecified contact dermatitis, unspecified cause] Onset: 11-17-2006 Resolved: 02-23-2016 02-23-2016 Episodic Chronic obstructive pulmonary disease and bronchiectasis (1 source) Bronchitis, not specified as acute or chronic; Translations: [Sinobronchitis] Onset: 04-06-2024 Episodic Conditions associated with dizziness or vertigo (20 sources) Dizziness and giddiness; Translations: [Dizziness and giddiness] Onset: 05-18-2008 Resolved: 02-23-2016 02-23-2016 Episodic Diseases of mouth; excluding dental (20 sources) Glossodynia; Translations: [Glossodynia] Onset: 04-09-2014 Resolved: 02-23-2016 02-23-2016 Episodic Immunizations and screening for infectious disease (20 sources) Patient encounter status; Translations: [Encounter for screening for human immunodeficiency virus [HIV]] Onset: 09-26-2023 Episodic Other connective tissue disease (20 sources) Trochanteric bursitis of right hip; Translations: [Trochanteric bursitis, right hip] Onset: 02-22-2019 02-22-2019 Episodic Other ear and sense organ disorders (20 sources) Hearing loss; Translations: [Unspecified hearing loss, unspecified ear] Onset: 05-18-2008 Resolved: 02-23-2016 02-23-2016 Chronic Other ear and sense organ disorders (1 source) Unspecified acute noninfective otitis externa, left ear; Translations: [Acute otitis externa of left ear, unspecified type] Onset: 04-06-2024 Episodic Other ear and sense organ disorders (1 source) Impacted cerumen, left ear; Translations: [Impacted cerumen of left ear] Onset: 04-06-2024 Episodic Other lower respiratory disease (1 source) Cough Onset: 03-22-2024 Episodic Other screening for suspected conditions (not mental disorders or infectious disease) (20 sources) Other specified abnormal findings of blood chemistry; Translations: [Other abnormal blood chemistry] Onset: 04-13-2020 Episodic Other upper respiratory disease (2 sources) Other specified disorders of nose and nasal sinuses; Translations: [Other disease of nasal cavity and sinuses] Onset: 03-27-2024 03-27-2024 Episodic Residual codes; unclassified (1 source) Asymptomatic menopausal state; Translations: [Asymptomatic menopause] Onset: 09-03-2024 Episodic Spondylosis; intervertebral disc disorders; other back problems (20 sources) Sciatica; Translations: [Sciatica, right side] Onset: 06-24-2015 Resolved: 07-27-2018 02-22-2019 Episodic Unclassified (3 sources) Patient encounter status 07-25-2024 Results Test Name Value Interpretation Reference Range Facility [facility] 02-18-2025 CNPN Telephone (FAMPWS) FRANCISCO J EID ([id number]) 1960 F Date Time Provider Department 02/18/25 JIM MCCARTHY During your visit today, we recorded the following information about you: Derrick Sood RN 02/18/2025 9:41 AM Signed Lilli with [facility] calls to check on status of surgical clearance forms. Pre-op exam was on 02/15/2025 with Jim Mccarthy. Forms received this morning. Will fax once completed. ALEJANDRINA Carvalho Brittany, MA 02/18/2025 10:34 AM Signed Faxed as requested Rhonda Fried MA Allergies As of Date: 02/18/2025 Noted Allergy Reaction LISINOPRIL 04/08/2020 3 - Cough Date Reviewed: 02/15/2025 Reviewed by: Rhonda Fried MA - Fully Assessed Prescriptions as of 02/19/2025 - losartan (COZAAR) 100 mg tablet Take 1 tablet by mouth once daily. - atorvastatin (LIPITOR) 20 mg tablet Take 1 tablet by mouth once daily. - cholecalciferol (VITAMIN D-3) 5,000 unit tab Take 5,000 Units by mouth once daily. 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] 04/09/2014 02/23/2016 Subacute left lumbar radiculopathy [M54.16] 06/24/2015 07/27/2018 Sciatica, right side [M54.31] 02/22/2019 Trochanteric bursitis of right hip [M70.61] 02/22/2019 Elevated liver function tests [R79.89] 04/13/2020 Essential hypertension [I10] Postmenopausal bleeding [N95.0] 2018 Screening for colon cancer [Z12.11] 09/26/2023 Migraine without aura and without status migrai* Hyperlipidemia with target low density lipoprot*04/09/2014 BPPV (benign paroxysmal positional vertigo), un*08/13/2024 Encounter Status:Closed by DERRICK SOOD on 02/19/25 [facility] CNOVon 02-15-2025 CNOV Office Visit (ERUMWS ) FRANCISCO J EID ([id number]) 1960 F Date Time Provider Department 02/15/25 1:20 PM JIM MCCARTHY [facility] During your visit today, we recorded the following information about you: Pulse Blood pressure Weight 76/minute 136/83 88 kg Jim Mccarthy, SUPERINTENDENT DIVISION.PROGRAMMING COORDINATOR 02/15/2025 1:18 PM Signed Chief Complaint Patient presents with: Pre-Op Exam [facility] Francisco J Caelb Stanton is a 64 year old female who presents here today for Above Complaint. Patient presents for pre op examination. Patient is having left knee replacement on 02/[address] Aguayo at [facility]. Past medical history, appointments, medications, allergies reviewed. 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 s/p hysteroscopy with polyp removal Sciatica of right side Trochanteric bursitis of right hip Unspecified hemorrhoids without mention of complication Hemorrhoids Previous Surgical History PAST SURGICAL HISTORY Procedure Laterality Date APPENDECTOMY COLONOSCOPY FLX DX W/COLLJ SPEC WHEN PFRMD 02/05/2013 Colonoscopy EXCISION PILONIDAL CYST/SINUS EXTENSIVE Pilonidal cystectomy HEMORRHOIDECTOMY INT AND XTRNL / COLUMN/MYAH HYSTEROSCOPY BX ENDOMETRIUMAND/POLYPC W/WO DANDC 05/24/2019 LAPS ABD PRTMANDOMENTUM DX W/WO SPEC BR/WA SPX Laparoscopy, infertility SIGMOIDOSCOPY FLX DX W/COLLJ SPEC BR/WA IF PFRMD 2002 Sigmoidoscopy, flexible TONSILLECTOMY AND ADENOIDECTOMY Family History FAMILY HISTORY Problem Relation Age of Onset Hypertension Mother Hypertension Father other (anorexia) Sister Hypertension Maternal Grandmother Hypertension Maternal Grandfather Heart Maternal Grandfather Colon Cancer Maternal Uncle other (Mitral Valve Prolapse) Other Mother and sister No Known Problems Daughter No Known Problems Daughter No Known Problems Daughter Patient Allergies ALLERGIES Allergen Reactions Lisinopril Cough Current Medications Current Outpatient Medications on File Prior to Visit Medication Sig losartan (COZAAR) 100 mg tablet Take 1 tablet by mouth once daily. atorvastatin (LIPITOR) 20 mg tablet Take 1 tablet by mouth once daily. cholecalciferol (VITAMIN D-3) 5,000 unit tab Take 5,000 Units by mouth once daily. No current facility-administered medications on file prior to visit. Social History SOCIAL HISTORY[1] Review of Symptoms REVIEW OF SYSTEMS SEE HPI EXAM: BP 136/83 Pulse 76 Wt 88 kg (194 lb 0.1 oz) LMP 10/28/2006 BMI 32.79 kg/m? General Appearance: Well appearing, alert, in no acute distress, well-hydrated, well nourished. Lungs: Lungs clear to auscultation. No wheezing, rhonchi, rales.. Heart: RRR without murmur, gallop, or rubs. No ectopy. Peripheral Pulses: Normal. Health Maintenance List Depression Screening Never done Anxiety Screening Never done Medicare Annual Wellness Visit Never done Advance Directive Discussion Never done Influenza Vaccine(1) due on 01/28/2025 Shingrix Vaccine(1 of 2) due on 07/23/2025 Pneumococcal Vaccine: 50+(1 of 1 - PCV) due on 07/23/2025 Annual PCP Team Chronic Disease Visit due on 07/31/2025 Mammogram Screening due on 11/06/2025 DTaP,Tdap,Td Vaccine(2 - Td or Tdap) due on 03/28/2027 Diabetes Screening due on 07/23/2027 Lipid Screening due on 01/21/2030 Colorectal Cancer Screening due on 09/25/2033 RSV Vaccine(1 - 1-dose 75+ series) due on 2033 Bone Density Screening Completed Hepatitis C Screening Completed Cervical Cancer Screening Discontinued Data reviewed Labs and EKG completed at [facility] reviewed and WNL. ASSESSMENT/PLAN: 1. Pre-op examination - ICD9: V72.84, ICD10: Z01.818 Based on the patient's history, physical, functional status, and ACS risk score, he has an 0.4% chance of a serious adverse cardiac event. This is average risk for his age an the planned operation. The risk is below the recommended threshold for further evaluation. Therefore, I do not recommend further preoperative testing and he may proceed with the planned operation. I recommend this risk assessment be incorporated into the overall discussion on risks and benefits of this operation. EKG unchanged from previous in 2020. Jim Mccarthy, SUPERINTENDENT DIVISION.PROGRAMMING COORDINATOR [1] Social History Tobacco Use Smoking status: Never Smokeless tobacco: Never Vaping Use Vaping status: Never Used Substance Use Topics Alcohol use: No Drug use: No Allergies As of Date: 02/15/2025 Noted (more content not included)... Normal [facility] MR/PAT.ANEon 02-04-2025 MR/PAT.KARIN [facility] Medical Records Department [address] [place] [address] PAT - Anesthesia 02/04/25 1616 MR#: [id number] Acct: [id number] Name: FRANCISCO J EID Rep #: [id number] : 1960 64 From: Carroll Tran MD PCP: Dr. Krishna Jones MD Status:PRE SDC Y Race: C Location: 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 When Was Last Pacemaker Check QUESTION #4 FULL TEXT: You/Your Family Experience fever (hyperthermia) with Anesthesia Last Oral Intake Last Oral intake: Last Oral Intake NPO since Meds taken in AM with sips of water? Meds patient instructed to take am of surgery PONV PONV - wood window and door craftsman: PONV - wood window and door craftsman Female Yes 01/31/25 13:59 HX of Motion Sickness No 01/31/25 13:59 HX of N/V After Surgery No 01/31/25 13:59 Non-Smoker Yes 01/31/25 13:59 Duration of Surgery greater Yes 01/31/25 13:59 than 60 minutes Number of Risk Factors 3 01/31/25 13:59 PONV Score Moderate Risk 01/31/25 13:59 Respiratory Assessment Respiratory Assessment - wood window and door craftsman: Respiratory Tract Infection Hx - wood window and door craftsman Hx Respiratory Tract Infection No 01/31/25 13:59 STOP Sleep Apnea STOP Sleep Apnea - wood window and door craftsman: STOP Sleep Apnea - wood window and door craftsman Hx Hypertension Yes: CONTROLLED WITH 01/31/25 13:59 Hx Sleep Apnea No 01/31/25 13:59 CPAP BIPAP Do you snore loudly (louder Yes 01/31/25 13:59 than talking or can be heard Do you often feel tired/ No 01/31/25 13:59 fatigued/ sleepy during daytime? Has anyone observed you stop No 01/31/25 13:59 breathing during sleep? STOP Results Positive 01/31/25 13:59 QUESTION #5 FULL TEXT : Do you snore loudly (louder than talking or can be heard through closed doors)? 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 Hx Now No 01/31/25 13:59 Gestational Age (in weeks): EDC: Hx Hx Para Hx Section SAB No 01/31/25 13:59 PFSH Medical History (Updated 01/31/25 @ 14:08 by Latha Niño) Wears glasses Post-menopausal Arthritis High cholesterol Migraine headache Non-smoker History of pain when walking Hypertension Home Medications ???Medication ???Instructions ???Recorded ???Last Taken ???Type atorvastatin 20 mg tablet 20 mg PO QHS 01/31/25 Unknown Hist ory losartan 100 mg tablet 100 mg PO DAILY 01/31/25 Unknown H istory Allergy/AdvReac Type Severity Reaction Status Date / Time lisinopril AdvReac Mild Other Verified 01/31/25 13:57 Surgical History (Updated 01/31/25 @ 14:14 by Latha Niño) History of hysteroscopy Hx of colonoscopy Hx of hemorrhoidectomy Hx of appendectomy Hx of tonsillectomy Social History Smoking Status: Never smoker Audit: Pertinent Findings Pertinent Findings EKG Perinent findings: EKG 02/01/2025. Normal sinus rhythm. Recommendation Anesthesia Recommendation Anesthesia recommendation: OPTIMIZED for anesthesia 02/04/25 1617 Date (more content not included)... Normal [facility] MRSA/SAID NASAL SCREENon MRSA+SAID SCRN Reason for Exam: PREOP MRSA MRSA Negative S. AUREUS S. aureus Negative Normal [facility] Comment on above: Performed By: #### L 500.2500, L100.0100, M100.651 #### [facility] [address] [place], [address] 12 Lead EKGon 02-01-2025 12 Lead EKG [facility] Cardiovascular Services [address] [place] [address] 12 Lead EKG 02/01/25 0758 MR#: [id number] Acct: [id number] Name: FRANCISCO J EID Rep #: [id number] : 1960 64 From: Alivia Fernández MD Attending Dr: Dr. Ciro Aguayo DO Status: PRE [facility] Ordering Dr: Ciro Aguayo DO Date: 02/01/25 Location: [facility] Sex: F C Admitted: Test Reason : PREOP Blood Pressure : */* mmHG Vent. Rate : 75 BPM Atrial Rate : 75 BPM P-R Int : 148 ms QRS Dur : 74 ms QT Int : 396 ms P-R-T Axes : 20 -18 0 degrees QTcB Int : 442 ms Normal sinus rhythm Voltage criteria for left ventricular hypertrophy Abnormal ECG When compared with ECG of 01-Apr-2003 08:33, No significant change was found Confirmed by JUANA WALTER, SHYANN ([id number]), sports editor STEPHAN KEITH ([id number]) on 02/04/2025 8:40:36 AM Referred By: Ciro Aguayo Confirmed By: SHYANN FERNÁNDEZ MD 02/04/25 0840 Date Alivia Fernández MD CC: Dr. Krishna Jones MD; Dr. Ciro Aguayo DO Signed Normal [facility] Basic Metabolic Profile (BMP )on 02-01-2025 BUN/CRE 20.7 RATIO High 10-20 [facility] Comment on above: Performed By: #### L 500.2500, L100.0100, M100.651 #### [facility] [address] [place], [address] Calcium [Mass/Vol] 9.5 mg/dL Normal 7.6-11.[address] [facility] Comment on above: Performed By: #### L 500.2500, L100.0100, M100.651 #### [facility] [address] [place], [address] Chloride [Moles/Vol] 104 mmol/L Normal 98-108 [facility] Comment on above: Performed By: #### L 500.2500, L100.0100, M100.651 #### [facility] [address] [place], [address] CO2 [Moles/Vol] 25.9 mmol/L Normal 21.0-32.0 [facility] Comment on above: Performed By: #### L 500.2500, L100.0100, M100.651 #### [facility] [address] [place], [address] Creatinine [Mass/Vol] 1.14 mg/dL Normal 0.70-1.20 [facility] Comment on above: Performed By: #### L 500.2500, L100.0100, M100.651 #### [facility] [address] [place], [address] GAP 10 Normal 5-15 [facility] Comment on above: Performed By: #### L 500.2500, L100.0100, M100.651 #### [facility] [address] [place], [address] GFR/1.73 sq M.predicted among non-blacks MDRD (S/P/Bld) [Vol rate/Area] 53 mL/min/{1.73_m2} Low >60 [facility] Comment on above: Result Comment: mL/m in/1.73m2 CKD-EPI Creatinine Equation (2020) Performed By: #### L 500.2500, L100.0100, M100.651 #### [facility] [address] [place], [address] Glucose [Mass/Vol] 106 mg/dL High 70-[address] [facility] Comment on above: Performed By: #### L 500.2500, L100.0100, M100.651 #### [facility] [address] [place], [address] Potassium [Moles/Vol] 4.6 mmol/L Normal 3.3-5.1 [facility] Comment on above: Performed By: #### L 500.2500, L100.0100, M100.651 #### [facility] [address] [place], [address] Sodium [Moles/Vol] 140 mmol/L Normal 133-[address] [facility] Comment on above: Performed By: #### L 500.2500, L100.0100, M100.651 #### [facility] [address] [place], [address] Urea nitrogen [Mass/Vol] 24 mg/dL High 4-19 [facility] Comment on above: Performed By: #### L 500.2500, L100.0100, M100.651 #### [facility] [address] [place], [address] CBC W/Diff, Automatedon 09-0 -2024 Absolute Lymph 1.57 X10 3/uL Normal 0.83-4.51 [facility] Comment on above: Performed By: #### L 500.2500, L100.0100, M100.651 #### [facility] [address] [place], [address] Absolute Neut 3.7 X10 3/uL Normal 2.0-7.7 [facility] Comment on above: Performed By: #### L 500.2500, L100.0100, M100.651 #### [facility] [address] [place], [address] Basophils/100 WBC (Bld) 1.0 % Normal 0-[address] [facility] Comment on above: Performed By: #### L 500.2500, L100.0100, M100.651 #### [facility] [address] [place], [address] Eosinophils/100 WBC (Bld) 3.7 % Normal 0-5 [facility] Comment on above: Performed By: #### L 500.2500, L100.0100, M100.651 #### [facility] [address] [place], [address] Erythrocyte distribution width (RBC) [Ratio] 13.2 % Normal 11.6-14.6 [facility] Comment on above: Performed By: #### L 500.2500, L100.0100, M100.651 #### [facility] [address] [place], [address] Hematocrit (Bld) [Volume fraction] 40.6 % Normal 37-47 [facility] Comment on above: Performed By: #### L 500.2500, L100.0100, M100.651 #### [facility] [address] [place], [address] Hemoglobin (Bld) [Mass/Vol] 13.5 g/dL Normal 12.0-15.0 [facility] Comment on above: Performed By: #### L 500.2500, L100.0100, M100.651 #### [facility] [address] [place], [address] IG% 0.500 Normal 0.0-0.9 [facility] Comment on above: Result Comment: IG% - Immature Granulocytes (promyelocytes, myelocytes and metamyelocytes) > 1% indicates that a LEFT SHIFT is Present. Performed By: #### L 500.2500, L100.0100, M100.651 #### [facility] [address] [place], [address] Lymphocytes/100 WBC (Bld) 25.6 % Normal 19-41 [facility] Comment on above: Performed By: #### L 500.2500, L100.0100, M100.651 #### [facility] [address] [place], [address] MCH (RBC) [Entitic mass] 30.2 pg Normal 27.0-32.0 [facility] Comment on above: Performed By: #### L 500.2500, L100.0100, M100.651 #### [facility] [address] [place], [address] MCHC (RBC) [Mass/Vol] 33.3 g/dL Normal 32-36 [facility] Comment on above: Performed By: #### L 500.2500, L100.0100, M100.651 #### [facility] [address] [place], [address] MCV (RBC) [Entitic vol] 90.8 fL Normal 81-99 [facility] Comment on above: Performed By: #### L 500.2500, L100.0100, M100.651 #### [facility] [address] [place], [address] Monocytes/100 WBC (Bld) 9.6 % Normal 0-[address] [facility] Comment on above: Performed By: #### L 500.2500, L100.0100, M100.651 #### [facility] [address] [place], [address] Neutrophils/100 WBC (Bld) 59.6 % Normal 47-70 [facility] Comment on above: Performed By: #### L 500.2500, L100.0100, M100.651 #### [facility] [address] [place], [address] Nucleated RBC (Bld) [#/Vol] 0 10*3/uL Normal 0-5 [facility] Comment on above: Performed By: #### L 500.2500, L100.0100, M100.651 #### [facility] [address] [place], [address] Platelet mean volume (Bld) [Entitic vol] 10.6 fL Normal 6.2-12.0 [facility] Comment on above: Performed By: #### L 500.2500, L100.0100, M100.651 #### [facility] [address] [place], [address] Platelets (Bld) [#/Vol] 222 10*3/uL Normal 150-450 [facility] Comment on above: Performed By: #### L 500.2500, L100.0100, M100.651 #### [facility] [address] [place], [address] RBC (Bld) [#/Vol] 4.47 10*6/uL Normal 4.2-5.4 [facility] Comment on above: Performed By: #### L 500.2500, L100.0100, M100.651 #### [facility] [address] [place], [address] RDW SD 43.8 fl Normal 35.1-43.9 [facility] Comment on above: Performed By: #### L 500.2500, L100.0100, M100.651 #### [facility] [address] [place], [place], [address] WBC (Bld) [#/Vol] 6.1 10*3/uL Normal 4.4-11.[address] [facility] Comment on above: Performed By: #### L 500.2500, L100.0100, M100.651 #### [facility] [address] [place], [address] Extremity Lower without Cont raon 02-01-2025 Extremity Lower without Contra [facility] Imaging Services [address] [place], [place] [address] Extremity Lower without Contra MR#: [id number] Acct: [id number] Name: FRANCISCO J EID Rep #: [id number] : 1960 F 64 From: Jonas winston MD PCP: Dr. Krishna Jones MD Status: REG CLI Study: Extremity Lower without Contra Date of Exam: 0 02/01/25 Exam# [id number] Ordering Dr: Ciro Aguayo DO PROCEDURE: EXTREMITY LOWER WITHOUT CONTRA 02/01/2025 REASON FOR EXAM: UNILATERAL PRIMARY OSTEOARTHRITIS, LEFT KNEE TECHNIQUE: Procedure Code: CTELWO Modality: CT Procedure: EXTREMITY LOWER WITHOUT CONTRA Coronal and Sagittal reconstruction series were provided. One or more dose reduction techniques were used (e.g., Automated exposure control, adjustment of the mA and/or kV according to patient size, use of iterative reconstruction technique. RADIATION DOSE SUMMARY: CTDlvol: 56 mGy DLP: 1229.81 mGycm COMPARISON: None FINDINGS: Bones: Bone mineralization is preserved. There is no acute fracture of the knee hip or ankle. No destructive bone lesion appreciated. Joints: Left hip: No fracture. No dislocation. Joint spaces preserved. Subtle osteophytes present off the superior acetabulum. No effusion Left knee: Small suprapatellar joint effusion. Tricompartmental osteoarthritis. Narrowing of the medial compartment of the knee with subchondral sclerosis and marginal osteophytes. Osteophytes off the tibial spines and lateral femoral condyle and lateral tibial plateau. Osteophytic spurs present in the patellofemoral compartment with diffuse joint space narrowing. No dislocation or loose body. Left ankle: Old fracture through the left medial condyle. No acute fracture. Ankle mortise is preserved. Mild osteoarthritic changes. No joint effusion. The subtalar joint is normal. Enthesopathy of the insertion of the Achilles tendon. Calcaneal spurs. Soft Tissues: No abnormality of the soft tissues. CT/Extremity Lower without Contra IMPRESSION: Degenerative changes of the left knee and ankle as described above. No acute fracture. Reading Location: [id number] CC: Dr. Krishna Jones MD; Dr. Ciro Aguayo DO Rn Gyn: Signed Normal [facility] Magnesiumon 02-01-2025 Magnesium [Mass/Vol] 2.3 mg/dL High 1.5-2.2 [facility] Comment on above: Performed By: #### L 501.5200 #### [facility] [address]. [place] [id number] Lipid 1996 panelon Cholesterol [Mass/Vol] 147 mg/dL Normal <200 [facility] Comment on above: Order Comment: Speci men Type: BLOOD SPECIMENOrdering Facility: [facility] Address: [address] [place] [address] Result Comment: <200 mg/dL, Desirable 200-239 mg/dL, Borderline high >239 mg/dL, High Performed By: #### 2 4331-1 ####[facility] LABCL[facility] [id number] [place] [address] [place] [facility] [id number] [place] [address] [place] Cholesterol in HDL [Mass/Vol] 57 mg/dL Normal >39 [facility] Comment on above: Order Comment: Sreei men Type: BLOOD SPECIMENOrdering Facility: [facility] Address: [address] [place] [address] Result Comment: 40-5 9 mg/dL, Acceptable >59 mg/dL, High: Negative risk factor for coronary heart disease <40 mg/dL, Low: Positive risk factor for coronary heart disease Performed By: #### 2 4331-1 ####[facility]CLIA [id number] [address] [id number] [place] [address] Cholesterol in LDL [Mass/Vol] 68 mg/dL Normal <100 [facility] Comment on above: Order Comment: Speci men Type: BLOOD SPECIMENOrdering Facility: [facility] Address: [address] [place] [address] Result Comment: <100 mg/dL, Optimal 100-129 mg/dL, Near optimal/above optimal 130-159 mg/dL, Borderline high 160-189 mg/dL, High >189 mg/dL, Very high Secondary prevention optimal LDL Cholesterol levels are recommended to be <70 mg/dL LDL cholesterol is calculated using the Benavides-NIH equation. Performed By: #### 2 4331-1 ####[facility] LABIA [id number] [address] [id number] [place] [address] Cholesterol in LDL/Cholesterol in HDL [Mass ratio] 1.19 {ratio} Normal <2.54 [facility] Comment on above: Order Comment: Sreei men Type: BLOOD SPECIMENOrdering Facility: [facility] Address: [address] [place] [address] Result Comment: Refe rence: 1. National Cholesterol Education Program ATP III Guideline At-A-Glance Quick Desk Reference: National Heart, Lung, and Blood [place]. National Institutes of Health. 2001: NIH Publication No. 01-3305. 2. An International Atherosclerosis Society position paper: global recommendations for the management of dyslipidemia: executive summary, Atherosclerosis. 2014: 232(2):410-413. Performed By: #### 2 4331-1 ####[facility] LABCLIA [id number] [address] [address] [facility] [id number] [place] [address] [place] Cholesterol in VLDL [Mass/Vol] 19 mg/dL Normal <30 [facility] Comment on above: Order Comment: Speci men Type: BLOOD SPECIMENOrdering Facility: [facility] Address: [address] [place] [address] Performed By: #### 2 4331-1 ####[facility] LABCLIA [id number] [place] [id number] [facility] [id number] [place] [address] [place] Cholesterol non HDL [Mass/Vol] 90 mg/dL Normal <130 [facility] Comment on above: Order Comment: Speci men Type: BLOOD SPECIMENOrdering Facility: [facility] Address: [address] [place] [address] Result Comment: <130 mg/dL, Optimal 130-159 mg/dL, Near optimal/above optimal 160-189 mg/dL, Borderline high 190-219 mg/dL, High >219 mg/dL, Very high Secondary prevention optimal non HDL Cholesterol levels are recommended to be <100 mg/dL Performed By: #### 2 4331-1 ####[facility] LABCLIA [id number] [address] [id number] [place] [address] [place] Cholesterol.total/Sara sterol in HDL [Mass ratio] 2.58 {ratio} Normal <5.10 [facility] Comment on above: Order Comment: Speci men Type: BLOOD SPECIMENOrdering Facility: [facility] Address: [address] [place] [address] Performed By: #### 2 4331-1 ####[facility] LABCLIA [id number] [address] [address] [place] [facility] [id number] [place] [address] [place] FASTING TIME 12 hrs Normal [facility] Comment on above: Order Comment: Speci men Type: BLOOD SPECIMENOrdering Facility: [facility] Address: [address] [place] [address] Performed By: #### 2 4331-1 ####[facility] LABCLIA [id number] [place] [id number] [facility] [id number] [place] [address] [place] Triglyceride [Mass/Vol] 125 mg/dL Normal <150 [facility] Comment on above: Order Comment: Speci men Type: BLOOD SPECIMENOrdering Facility: [facility] Address: [address] [place] [address] Result Comment: <150 mg/dL, Normal 150-199 mg/dL, Borderline high 200-499 mg/dL, High >499 mg/dL, Very high Performed By: #### 2 4331-1 ####[facility] LABCLIA [id number] [address] [id number] [place] [address] [place] KEILA SCREENING W TOMOon 11-06 KEILA SCREENING W HARVINDER * * *Final Report* * * DATE OF EXAM: Nov 06 2024 8:28AM WR [id number] - KEILA SCREENING W HARVINDER / PROCEDURE REASON: multiple diagnoses * * * * Physician Interpretation * * * * RESULT: [facility] [address] [place] [address] #[id number] - KEILA SCREENING W HARVINDER HISTORY: 64 year-old patient presents for screening. Patient is asymptomatic in both breasts. Patient states no personal history of breast cancer. COMPARISON STUDIES: The present examination has been compared to prior imaging studies dated 02/26/2019 (mammogram), 05/20/2020 (mammogram), 05/27/2022 (mammogram) and 08/03/2023 (mammogram). MAMMOGRAM TECHNIQUE: The study was acquired using full field digital technology and interpreted from soft copy. Digital Breast Tomosynthesis (DBT) images were obtained and used to assist in the interpretation of this examination. MAMMOGRAM FINDINGS: There are scattered areas of fibroglandular density. No suspicious masses, calcifications or other abnormalities are seen in either breast. There are no significant interval changes. IMPRESSION: There is no mammographic evidence of malignancy in either breast. Routine screening mammogram is recommended. Annual mammogram will be due in 1 year. BI-RADS Category 1: Negative RISK: Based on the Tyrer-Cuzick (TC) risk assessment model, this patient has a 3.5% lifetime risk of developing breast cancer, meaning they are at average risk for developing breast cancer. However, this is only an estimate based on available history provided on the patient's questionnaire. We encourage all patients to talk with their providers about these results, further recommendations for managing breast health, and appropriate supplemental screening options if the patient has dense breast tissue. Interpreting Radiologist: Carin Hartman M.D. Electronically signed on: 11/07/2024 Rn Gyn: KINJAL Transcriro Date/Time: Nov 06 2024 8:09A Dictated by: CARIN HARTMAN MD This examination was interpreted and the report reviewed and electronically signed by: CARIN HARTMAN MD on Nov 07 2024 10:27AM EST [id number] Normal [facility] BD DXA - AXIAL SKELETONon BD DXA - AXIAL SKELETON * * *Final Repor t* * * DATE OF EXAM: Sep 03 2024 9:29AM WRB [id number] - BD DXA - AXIAL SKELETON / PROCEDURE REASON: Asymptomatic menopause * * * * Physician Interpretation * * * * EXAMINATION: DXA BONE DENSITOMETRY BD DXA - AXIAL SKELETON, BD DXA TRABECLR BONE SCORE (TBS) PATIENT DEMOGRAPHICS: Age: 63 years, Gender: Female SCANNER INFORMATION: DXA Model: eTect - Looxii C 32713 Date Scanned: 09/03/2024 9:29 AM CLINICAL HISTORY: DIAGNOSTIC Asymptomatic menopause . RISK FACTORS FOR OSTEOPOROSIS AND ASSOCIATED FRACTURES REPORTED BY THIS PATIENT: Please refer to Bone Health Questionnaire in the EMR CURRENT THERAPY: Please refer to Bone Health Questionnaire in the EMR TECHNICAL LIMITATIONS: None RESULTS: Lumbar spine (L1, L2, L3, L4): 1.287 g/cm2, T-score 2.2, Z-score 4.0 Right Femoral Neck: 0.774 g/cm2, T-score -0.7, Z-score 0.9 Right Total Hip: 0.988 g/cm2, T-score 0.4, Z-score 1.7 Left Femoral Neck: 0.726 g/cm2, T-score -1.1, Z-score 0.5 Left Total Hip: 0.973 g/cm2, T-score 0.3, Z-score 1.5 No comparison data - the patient has not had a previous bone density in the [facility] or the previous bone density was performed on a different DXA machine (new, updated model or different location) within the [facility]. VERTEBRAL FRACTURE ASSESSMENT Not performed. TRABECULAR BONE ASSESSMENT TBS score: 1.318 Bone micro-architecture: Normal (> 1.310) IMPRESSION: THE LOWEST T-SCORE IS -1.1 IN THE LEFT HIP 1) DIAGNOSIS (based on BMD alone): OSTEOPENIA Caution: Medical conditions other than osteoporosis may cause low bone density, such as osteomalacia or renal osteodystrophy. Clinical correlation is necessary. 2) FRACTURE RISK (Based on TBS adjusted FRAX): 10-year absolute fracture risk: - major osteoporotic fracture = 7.5 % - hip fracture = 0.4 % - A diagnosis of Osteoporosis, a 10 year probability of hip fracture greater than or equal to 3% or a 10 year probability of any major osteoporosis-related fracture greater than or equal to 20% should be considered for treatment. - DXA scanner generated FRAX calculations may slightly differ from online FRAX calculations due to differences in software versions. - All recommendations and calculations are to be considered as guidelines and should not replace sound clinical judgement - Caution: Fracture risk may be increased independent of BMD in patients with corticosteroid use, age greater than 65 years, or a history of prior fragility fracture. RECOMMENDATIONS: Follow-up in 2 years or as clinically indicated. Patients that are taking corticosteroids, are transplant recipients or have hyperparathyroidism should have annual follow-up. Follow-up scans should always be done on the same machine for accurate comparison. FOR MORE INFORMATION ABOUT DIAGNOSIS AND TREATMENT: [facility]oporosis and Metabolic Bone Disease:? www.ccf.org/arthritis /osteo National Osteoporosis Foundation:? www.nof.org International Society of Clinical Densitometry www.iscd.org Rn Gyn: MIRA Transcribe Date/Time: Sep 03 2024 9:59A Dictated by : SIMONA GUTIERREZ MD This examination was interpreted and the report reviewed and electronically signed by: SIMONA GUTIERREZ MD on Sep 03 2024 10:01AM EST [id number] N -1.1 Normal [facility] BD DXA TRABECLR BONE SCORE ( TBS)on 09-03-2024 BD DXA TRABECLR BONE SCORE (TBS) * * *Final Report* * * DATE OF EXAM: Sep 03 2024 9:29AM WRB 0801 - BD DXA TRABECLR BONE SCORE (TBS) / PROCEDURE REASON: Asymptomatic menopause * * * * Physician Interpretation * * * * EXAMINATION: DXA BONE DENSITOMETRY BD DXA - AXIAL SKELETON, BD DXA TRABECLR BONE SCORE (TBS) PATIENT DEMOGRAPHICS: Age: 63 years, Gender: Female SCANNER INFORMATION: DXA Model: e[employer]ect - [employer] C [id number] Date Scanned: 09/03/2024 9:29 AM CLINICAL HISTORY: DIAGNOSTIC Asymptomatic menopause . RISK FACTORS FOR OSTEOPOROSIS AND ASSOCIATED FRACTURES REPORTED BY THIS PATIENT: Please refer to Bone Health Questionnaire in the EMR CURRENT THERAPY: Please refer to Bone Health Questionnaire in the EMR TECHNICAL LIMITATIONS: None RESULTS: Lumbar spine (L1, L2, L3, L4): 1.287 g/cm2, T-score 2.2, Z-score 4.0 Right Femoral Neck: 0.774 g/cm2, T-score -0.7, Z-score 0.9 Right Total Hip: 0.988 g/cm2, T-score 0.4, Z-score 1.7 Left Femoral Neck: 0.726 g/cm2, T-score -1.1, Z-score 0.5 Left Total Hip: 0.973 g/cm2, T-score 0.3, Z-score 1.5 No comparison data - the patient has not had a previous bone density in the [facility] or the previous bone density was performed on a different DXA machine (new, updated model or different location) within the [facility]. VERTEBRAL FRACTURE ASSESSMENT Not performed. TRABECULAR BONE ASSESSMENT TBS score: 1.318 Bone micro-architecture: Normal (> 1.310) IMPRESSION: THE LOWEST T-SCORE IS -1.1 IN THE LEFT HIP 1) DIAGNOSIS (based on BMD alone): OSTEOPENIA Caution: Medical conditions other than osteoporosis may cause low bone density, such as osteomalacia or renal osteodystrophy. Clinical correlation is necessary. 2) FRACTURE RISK (Based on TBS adjusted FRAX): 10-year absolute fracture risk: - major osteoporotic fracture = 7.5 % - hip fracture = 0.4 % - A diagnosis of Osteoporosis, a 10 year probability of hip fracture greater than or equal to 3% or a 10 year probability of any major osteoporosis-related fracture greater than or equal to 20% should be considered for treatment. - DXA scanner generated FRAX calculations may slightly differ from online FRAX calculations due to differences in software versions. - All recommendations and calculations are to be considered as guidelines and should not replace sound clinical judgement - Caution: Fracture risk may be increased independent of BMD in patients with corticosteroid use, age greater than 65 years, or a history of prior fragility fracture. RECOMMENDATIONS: Follow-up in 2 years or as clinically indicated. Patients that are taking corticosteroids, are transplant recipients or have hyperparathyroidism should have annual follow-up. Follow-up scans should always be done on the same machine for accurate comparison. FOR MORE INFORMATION ABOUT DIAGNOSIS AND TREATMENT: [facility] for Osteoporosis and Metabolic Bone Disease:? www.ccf.org/arthritis /osteo National Osteoporosis Foundation:? www.nof.org International Society of Clinical Densitometry www.iscd.org Rn Gyn: MIRA Transcribe Date/Time: Sep 03 2024 9:59A Dictated by : SIMONA GUTIERREZ MD This examination was interpreted and the report reviewed and electronically signed by: SIMONA GUTIERREZ MD on Sep 03 2024 10:01AM EST [id number] N -1.1 Normal [facility] DXA Femur [T-score] Jj kaye 09-03-2024 * * *Final Report* * * DATE OF EXAM: Sep 03 2024 9:29AM WRB 0801 - BD DXA TRABECLR BONE SCORE (TBS) / PROCEDURE REASON: Asymptomatic menopause * * * * Physician Interpretation * * * * EXAMINATION: DXA BONE DENSITOMETRY BD DXA - AXIAL SKELETON, BD DXA TRABECLR BONE SCORE (TBS) PATIENT DEMOGRAPHICS: Age: 63 years, Gender: Female SCANNER INFORMATION: DXA Model: e[employer]ect [employer] C [id number] Date Scanned: 09/03/2024 9:29 AM CLINICAL HISTORY: DIAGNOSTIC Asymptomatic menopause . RISK FACTORS FOR OSTEOPOROSIS AND ASSOCIATED FRACTURES REPORTED BY THIS PATIENT: Please refer to Bone Health Questionnaire in the EMR CURRENT THERAPY: Please refer to Bone Health Questionnaire in the EMR TECHNICAL LIMITATIONS: None RESULTS: Lumbar spine (L1, L2, L3, L4): 1.287 g/cm2, T-score 2.2, Z-score 4.0 Right Femoral Neck: 0.774 g/cm2, T-score -0.7, Z-score 0.9 Right Total Hip: 0.988 g/cm2, T-score 0.4, Z-score 1.7 Left Femoral Neck: 0.726 g/cm2, T-score -1.1, Z-score 0.5 Left Total Hip: 0.973 g/cm2, T-score 0.3, Z-score 1.5 No comparison data - the patient has not had a previous bone density in the [facility] or the previous bone density was performed on a different DXA machine (new, updated model or different location) within the [facility]. VERTEBRAL FRACTURE ASSESSMENT Not performed. TRABECULAR BONE ASSESSMENT TBS score: 1.318 Bone micro-architecture: Normal (> 1.310) DIVISION OF RADIOLOGY Provider, [facility] - 09/03/2024 * * *Final Report* * * DATE OF EXAM: Sep 03 2024 9:29AM B 0801 - BD DXA TRABECLR BONE SCORE (TBS) / PROCEDURE REASON: Asymptomatic menopause * * * * Physician Interpretation * * * * EXAMINATION: DXA BONE DENSITOMETRY BD DXA - AXIAL SKELETON, BD DXA TRABECLR BONE SCORE (TBS) PATIENT DEMOGRAPHICS: Age: 63 years, Gender: Female SCANNER INFORMATION: DXA Model: eTect - [employer] C [id number] Date Scanned: 09/03/2024 9:29 AM CLINICAL HISTORY: DIAGNOSTIC Asymptomatic menopause . RISK FACTORS FOR OSTEOPOROSIS AND ASSOCIATED FRACTURES REPORTED BY THIS PATIENT: Please refer to Bone Health Questionnaire in the EMR CURRENT THERAPY: Please refer to Bone Health Questionnaire in the EMR TECHNICAL LIMITATIONS: None RESULTS: Lumbar spine (L1, L2, L3, L4): 1.287 g/cm2, T-score 2.2, Z-score 4.0 Right Femoral Neck: 0.774 g/cm2, T-score -0.7, Z-score 0.9 Right Total Hip: 0.988 g/cm2, T-score 0.4, Z-score 1.7 Left Femoral Neck: 0.726 g/cm2, T-score -1.1, Z-score 0.5 Left Total Hip: 0.973 g/cm2, T-score 0.3, Z-score 1.5 No comparison data - the patient has not had a previous bone density in the [facility] or the previous bone density was performed on a different DXA machine (new, updated model or different location) within the [facility]. VERTEBRAL FRACTURE ASSESSMENT Not performed. TRABECULAR BONE ASSESSMENT TBS score: 1.318 Bone micro-architecture: Normal (> 1.310) IMPRESSION IMPRESSION: THE LOWEST T-SCORE IS -1.1 IN THE LEFT HIP 1) DIAGNOSIS (based on BMD alone): OSTEOPENIA Caution: Medical conditions other than osteoporosis may cause low bone density, such as osteomalacia or renal osteodystrophy. Clinical correlation is necessary. 2) FRACTURE RISK (Based on TBS adjusted FRAX): 10-year absolute fracture risk: - major osteoporotic fracture = 7.5 % - hip fracture = 0.4 % - A diagnosis of Osteoporosis, a 10 year probability of hip fracture greater than or equal to 3% or a 10 year probability of any major osteoporosis-related fracture greater than or equal to 20% should be considered for treatment. - DXA scanner generated FRAX calculations may slightly differ from online FRAX calculations due to differences in software versions. - All recommendations and calculations are to be considered as guidelines and should not replace sound clinical judgement - Caution: Fracture risk may be increased independent of BMD in patients with corticosteroid use, age greater than 65 years, or a history of prior fragility fracture. RECOMMENDATIONS: Follow-up in 2 years or as clinically indicated. Patients that are taking corticosteroids, are transplant recipients or have hyperparathyroidism should have annual follow-up. Follow-up scans should always be done on the same machine for accurate comparison. FOR MORE INFORMATION ABOUT DIAGNOSIS AND TREATMENT: [facility] for Osteoporosis and Metabolic Bone Disease:? www.ccf.org/arthritis /osteo National Osteoporosis Foundation:? www.nof.org International Society of Clinical Densitometry www.iscd.org Rn Gyn: MIRA Transcribe Date/Time: Sep 03 2024 9:59A Dictated by : SIMONA GUTIERREZ MD This examination was interpreted and the report reviewed and electronically signed by: SIMONA GUTIERREZ MD on Sep 03 2024 10:01AM EST [facility] DXA Skeletal system.axial Vi ews for bone densityon 09-03-2024 * * *Final Report* * * DATE OF EXAM: Sep 03 2024 9:29AM WRB 0804 - BD DXA - AXIAL SKELETON / PROCEDURE REASON: Asymptomatic menopause * * * * Physician Interpretation * * * * EXAMINATION: DXA BONE DENSITOMETRY BD DXA - AXIAL SKELETON, BD DXA TRABECLR BONE SCORE (TBS) PATIENT DEMOGRAPHICS: Age: 63 years, Gender: Female SCANNER INFORMATION: DXA Model: [employer] C [id number] Date Scanned: 09/03/2024 9:29 AM CLINICAL HISTORY: DIAGNOSTIC Asymptomatic menopause . RISK FACTORS FOR OSTEOPOROSIS AND ASSOCIATED FRACTURES REPORTED BY THIS PATIENT: Please refer to Bone Health Questionnaire in the EMR CURRENT THERAPY: Please refer to Bone Health Questionnaire in the EMR TECHNICAL LIMITATIONS: None RESULTS: Lumbar spine (L1, L2, L3, L4): 1.287 g/cm2, T-score 2.2, Z-score 4.0 Right Femoral Neck: 0.774 g/cm2, T-score -0.7, Z-score 0.9 Right Total Hip: 0.988 g/cm2, T-score 0.4, Z-score 1.7 Left Femoral Neck: 0.726 g/cm2, T-score -1.1, Z-score 0.5 Left Total Hip: 0.973 g/cm2, T-score 0.3, Z-score 1.5 No comparison data - the patient has not had a previous bone density in the [facility] or the previous bone density was performed on a different DXA machine (new, updated model or different location) within the [facility]. VERTEBRAL FRACTURE ASSESSMENT Not performed. TRABECULAR BONE ASSESSMENT TBS score: 1.318 Bone micro-architecture: Normal (> 1.310) DIVISION OF RADIOLOGY Provider, April Sullivan - 09/03/2024 * * *Final Report* * * DATE OF EXAM: Sep 03 2024 9:29AM WRB 0804 - BD DXA - AXIAL SKELETON / PROCEDURE REASON: Asymptomatic menopause * * * * Physician Interpretation * * * * EXAMINATION: DXA BONE DENSITOMETRY BD DXA - AXIAL SKELETON, BD DXA TRABECLR BONE SCORE (TBS) PATIENT DEMOGRAPHICS: Age: 63 years, Gender: Female SCANNER INFORMATION: DXA Model: e[employer]ect - [employer] C 79050 Date Scanned: 09/03/2024 9:29 AM CLINICAL HISTORY: DIAGNOSTIC Asymptomatic menopause . RISK FACTORS FOR OSTEOPOROSIS AND ASSOCIATED FRACTURES REPORTED BY THIS PATIENT: Please refer to Bone Health Questionnaire in the EMR CURRENT THERAPY: Please refer to Bone Health Questionnaire in the EMR TECHNICAL LIMITATIONS: None RESULTS: Lumbar spine (L1, L2, L3, L4): 1.287 g/cm2, T-score 2.2, Z-score 4.0 Right Femoral Neck: 0.774 g/cm2, T-score -0.7, Z-score 0.9 Right Total Hip: 0.988 g/cm2, T-score 0.4, Z-score 1.7 Left Femoral Neck: 0.726 g/cm2, T-score -1.1, Z-score 0.5 Left Total Hip: 0.973 g/cm2, T-score 0.3, Z-score 1.5 No comparison data - the patient has not had a previous bone density in the [facility] or the previous bone density was performed on a different DXA machine (new, updated model or different location) within the [facility]. VERTEBRAL FRACTURE ASSESSMENT Not performed. TRABECULAR BONE ASSESSMENT TBS score: 1.318 Bone micro-architecture: Normal (> 1.310) IMPRESSION IMPRESSION: THE LOWEST T-SCORE IS -1.1 IN THE LEFT HIP 1) DIAGNOSIS (based on BMD alone): OSTEOPENIA Caution: Medical conditions other than osteoporosis may cause low bone density, such as osteomalacia or renal osteodystrophy. Clinical correlation is necessary. 2) FRACTURE RISK (Based on TBS adjusted FRAX): 10-year absolute fracture risk: - major osteoporotic fracture = 7.5 % - hip fracture = 0.4 % - A diagnosis of Osteoporosis, a 10 year probability of hip fracture greater than or equal to 3% or a 10 year probability of any major osteoporosis-related fracture greater than or equal to 20% should be considered for treatment. - DXA scanner generated FRAX calculations may slightly differ from online FRAX calculations due to differences in software versions. - All recommendations and calculations are to be considered as guidelines and should not replace sound clinical judgement - Caution: Fracture risk may be increased independent of BMD in patients with corticosteroid use, age greater than 65 years, or a history of prior fragility fracture. RECOMMENDATIONS: Follow-up in 2 years or as clinically indicated. Patients that are taking corticosteroids, are transplant recipients or have hyperparathyroidism should have annual follow-up. Follow-up scans should always be done on the same machine for accurate comparison. FOR MORE INFORMATION ABOUT DIAGNOSIS AND TREATMENT: [facility] for Osteoporosis and Metabolic Bone Disease:? www.ccf.org/arthritis /osteo National Osteoporosis Foundation:? www.nof.org International Society of Clinical Densitometry www.iscd.org Rn Gyn: MIRA Transcribe Date/Time: Sep 03 2024 9:59A Dictated by : SIMONA GUTIERREZ MD This examination was interpreted and the report reviewed and electronically signed by: SIMONA GUTIERREZ MD on Sep 03 2024 10:01AM EST [facility] No Panel InformationOrdered By: Cc Provider on 09-03-2024 LOWEST T-SCORE -1.1 [facility] No Panel Informationon 09-03 IMPRESSION: THE LOWEST T-SCORE IS -1.1 IN THE LEFT HIP 1) DIAGNOSIS (based on BMD alone): OSTEOPENIA Caution: Medical conditions other than osteoporosis may cause low bone density, such as osteomalacia or renal osteodystrophy. Clinical correlation is necessary. 2) FRACTURE RISK (Based on TBS adjusted FRAX): 10-year absolute fracture risk: - major osteoporotic fracture = 7.5 % - hip fracture = 0.4 % - A diagnosis of Osteoporosis, a 10 year probability of hip fracture greater than or equal to 3% or a 10 year probability of any major osteoporosis-related fracture greater than or equal to 20% should be considered for treatment. - DXA scanner generated FRAX calculations may slightly differ from online FRAX calculations due to differences in software versions. - All recommendations and calculations are to be considered as guidelines and should not replace sound clinical judgement - Caution: Fracture risk may be increased independent of BMD in patients with corticosteroid use, age greater than 65 years, or a history of prior fragility fracture. RECOMMENDATIONS: Follow-up in 2 years or as clinically indicated. Patients that are taking corticosteroids, are transplant recipients or have hyperparathyroidism should have annual follow-up. Follow-up scans should always be done on the same machine for accurate comparison. FOR MORE INFORMATION ABOUT DIAGNOSIS AND TREATMENT: [facility] for Osteoporosis and Metabolic Bone Disease:? www.ccf.org/arthritis /osteo National Osteoporosis Foundation:? www.nof.org International Society of Clinical Densitometry www.iscd.org Rn Gyn: MIRA Transcribe Date/Time: Sep 03 2024 9:59A Dictated by : SIMONA GUTIERREZ MD This examination was interpreted and the report reviewed and electronically signed by: SIMONA GUTIERREZ MD on Sep 03 2024 10:01AM [facility] DIVISION OF RADIOLOGY Radiology Study observation (narrative) [facility] 08-20-2024 CNOV Office Visit (OBGYWM ) FRANCISCO J EID ([id number]) 1960 F Date Time Provider Department 08/20/24 9:40 AM LAURA MORALEZ OBGYWM During your visit today, we recorded the following information about you: Blood pressure Weight Height Last Period 132/86 88 kg 1.638 m 10/28/06 Laura Moralez MD 08/20/2024 9:59 AM Signed Kirsten is a 63 year old who presents for an 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 C/o some constipation. Postmenopausal: yes Still get period: No Menopause symptoms: None Number of lifetime partners: 1 control frequency: Never HPV vaccine: No; Last pap smear: 2017 History of abnormal pap: No, all prior PAP smears have been normal Bothersome pelvic pain: Yes Last mammogram: 2023 normal History of abnormal mammogram: No OB History Gravida3 Para3 Term3 Preterm0 AB0 Living3 SAB0 IAB0 Ectopic0 Multiple0 Live Births0 Problem Relation Age of Onset Hypertension Mother Hypertension Father other (anorexia) Sister Hypertension Maternal Grandmother Hypertension Maternal Grandfather Heart Maternal Grandfather Colon Cancer Maternal Uncle other (Mitral Valve Prolapse) Other Mother and sister No Known Problems Daughter No Known Problems Daughter No Known Problems Daughter SOCIAL HISTORY Social History Tobacco Use Smoking status: Never Smokeless tobacco: Never Vaping Use Vaping status: Never Used Substance Use Topics Alcohol use: No Drug use: No REVIEW OF SYSTEMS Abdomen: No abdominal pain, nausea, vomiting, diarrhea No bloating, early satiety, indigestion, or increased flatulence. Bladder: No dysuria, gross hematuria, urinary frequency, urinary urgency, or incontinence Breast: No breast lumps, nipple d/c, overlying skin changes, redness or skin retraction Allergies and current medication updated:Yes SENSITIVE EXAM: Sensitive exam not performed. EXAM: BP 132/86 Ht 5' 4.5 (1.64m) Wt 194 lb (88.0kg) LMP 10/28/2006 BMI 32.80 kg/(m2). GENERAL: pleasant, female in no apparent distress HEENT: Normocephalic, atraumatic, mucus membranes moist, and no lesions NECK: Supple, full range of motion, no adenopathy, and thyroid normal DERMATOLOGY: Normal, without lesions, non-icteric, and non-hirsute BREAST: soft, non-tender, symmetric, no dominant mass, normal nipple-areolar complex, no lymphadenopathy, and no nipple discharge CHEST: Normal inspiratory effort ABDOMEN: soft, non-tender, and no masses PELVIC: external genitalia normal, normal Bartholin's glands, urethra, [place]'s glands, no vulvar lesions, no cervical lesions, good vaginal support, physiologic discharge present, normal appearing perineal body and perianal region BIMANUAL: uterus normal size, shape and consistency, no adnexal masses, and non-tender RECTOVAGINAL: deferred. NEURO: alert and oriented x3,exam grossly non-focal EXTREMITIES: normal ASSESSMENT/PLAN: 1) Health maintenance: Pap done with reflex HPV Mammogram ordered d/wh er constipation symjptomatic measures 2) Follow up one year or sooner as needed MD Heather Rogers [place], MA 08/20/2024 10:09 AM Signed Addended by: SUE MANCUSO on: 08/20/2024 10:09 AM Modules accepted: Orders Allergies As of Date: 08/20/2024 Noted Allergy Reaction LISINOPRIL 04/08/2020 3 - Cough Date Reviewed: 08/20/2024 Reviewed by: Laura Moralez MD - Fully Assessed Reason for Visit: Yearly Exam [187] Primary Visit Diagnosis:Encounter for screening for malignant neoplasm of cervix [Z12.4] Other Visit Diagnoses:Encounter for gynecological examination (general) (routine) without abnormal findings [Z01.419] Encounter for screening mammogram for breast cancer [Z12.31] Order(s):KEILA SCREENING W HARVINDER [[id number]] Order #: [id number] FUTURE PAP TEST [[id number]] Order #: [id number] Prescriptions as of 08/20/2024 - atorvastatin (LIPITOR) 20 mg tablet Take 1 tablet by mouth once daily. - losartan (COZAAR) 100 mg tablet Take 1 tablet by mouth once daily. - cholecalciferol (VITAMIN D-3) 5,000 unit tab Take 5,000 Units by mouth once daily. Problem List As Of Date 08/20/2024 Noted Resolved Contact dermatitis and other eczema, due to uns*11/17/2006 02/23/2016 Dizziness and giddiness [R42] 05/18/2008 02/23/2016 Unspecified hearing loss [H91.90] 05/18/2008 02/23/2016 Hyperlipidemia with target LDL less than 130 [E*04/09/2014 Glossodynia [K14.6] 04/09/2014 02/23/2016 Subacute left lumbar radiculopathy [M54.16] 06/24/2015 07/27/2018 Sciatica, right side [M54.31] 02/22/2019 Trochanteric bursitis of right hip [M70.61] 02/22/2019 Elevated liver function tests [R79.89] 04/13/2020 Essential hypertension [I10] Postmenopausal bleeding [N95.0] 2018 Screening for colon cancer [Z12.11] 09/26/2023 Migraine without aura and without status migrai* Hyperlipidemia wi (more content not included)... Normal [facility] CNTHERAPYon 08-20-2024 CNTHERAPY OT/PT/Speech Visit (PTWS) FRANCISCO J EID ([id number]) 1960 F Date Time Provider Department 08/20/24 8:45 AM BLANCA RODRIGUEZ PTROSIO Date Time Provider Department Center 08/20/2024 8:45 AM [id number] RODRIGUEZ PTROSIO [place] Reason for Visit: Physical Therapy [503] Primary Visit Diagnosis:BPPV (benign paroxysmal positional vertigo), unspecified laterality [H81.10] Allergies As of Date: 08/20/2024 Noted Allergy Reaction LISINOPRIL 04/08/2020 3 - Cough Date Reviewed: 07/31/2024 Reviewed by: Kayley Miles LPN - Fully Assessed Prescriptions as of 08/20/2024 - atorvastatin (LIPITOR) 20 mg tablet Take 1 tablet by mouth once daily. - losartan (COZAAR) 100 mg tablet Take 1 tablet by mouth once daily. - Pseudoephedrine-guaiF ENesin (MUCINEX D MAXIMUM STRENGTH) 120-1,200 mg tab ER 12 hr Take 1 tablet by mouth once daily as needed (congestion) for up to 24 doses. - cholecalciferol (VITAMIN D-3) 5,000 unit tab Take 5,000 Units by mouth once daily. Normal [facility] PAP TESTon 08-20-2024 ADEQUACY Normal [facility] Comment on above: Order Comment: Speci men Type: FLUID SPECIMENOrdering Facility: [facility] Address: [address] [place] [address] Result Comment: Sati sfactory for interpretation. Transformation zone present Performed By: #### L [id number] ####[facility] LABCLIA [id number] [address] [address] [place] CASE REPORT Normal [facility] Comment on above: Order Comment: Speci men Type: FLUID SPECIMENOrdering Facility: [facility] Address: [address] [place] [address] Result Comment: Gyne cologic Cytology Report Case: [id number] Authorizing Provider: Laura Moralez MD Collected: 08/20/2024 10:09 AM Ordering Location: OB/Gynecology Received: 08/20/2024 04:38 PM First Screen: Sheryl Pan, CT, ASCP Specimen: Pap Test, ThinPrep, Cervix Performed By: #### L [id number] ####[facility] LABCLIA [id number] [address] [address] [place] CLINICAL HISTORY, CYTOLOGY, PLASTIC BOAT BUFFER Routine Exam Normal [facility] Comment on above: Order Comment: Speci men Type: FLUID SPECIMENOrdering Facility: [facility] Address: [address] [place] [address] Performed By: #### L [id number] ####[facility] LABCLIA [id number] [place] [id number] [place] FINAL PERFORMING LAB Normal [facility] Comment on above: Order Comment: Speci men Type: FLUID SPECIMENOrdering Facility: [facility] Address: [address] [place], [place] [id number] Result Comment: Tech nical component, wireless telegrapher screening performed at [facility], [address] [place] [id number] CLIA# [id number] Diagnostic interpretation performed at [facility], [address] [place], [place] [id number] CLIA# [id number] Cephalometric Technician: Angel Ludwig M.D. Performed By: #### L [id number] ####[facility] LABCLIA [id number] [address] [address] [place] INTERPRETATION, CYTOLOGY, PLASTIC BOAT BUFFER Normal [facility] Comment on above: Order Comment: Speci men Type: FLUID SPECIMENOrdering Facility: [facility] Address: [address] [place] [address] Result Comment: Nega tive for intraepithelial lesion or malignancy. at 0947 EDT Performed By: #### L [id number] ####[facility] LABCLIA [id number] [place] [id number] [place] LMP 10/28/2006 Normal [facility] Comment on above: Order Comment: Speci men Type: FLUID SPECIMENOrdering Facility: [facility] Address: [address] [place] [address] Performed By: #### L [id number] ####[facility] LABCLIA [id number] [facility] [place] [id number] [place] PAP DISCLAIMER COMMENT The Pap Smear is a screening test for cervical cancer. False negative results occur with all screening tests, emphasizing the need for rescreening at recommended intervals, and clinical correlation. [facility] Hospital Comment on above: Order Comment: Speci men Type: FLUID SPECIMENOrdering Facility: [facility] Address: [address] [place] [address] Performed By: #### L [id number] ####[facility] LABCLIA [id number] [facility] [place] [id number] [place] [employer]AP [employer] EDITOR COMMENT This specimen has been analyzed by the ThinPrep Imaging System, an automated imaging and review system, which assists the laboratory in evaluating cells on ThinPrep Pap tests. Following automated imaging, selected jenkins from every slide are reviewed by a wireless telegrapher. Normal [facility] Comment on above: Order Comment: Speci men Type: FLUID SPECIMENOrdering Facility: [facility] Address: [address] [place] [address] Performed By: #### L [id number] ####[facility] LABCLIA [id number] [place] [id number] [facility] [id number] 08-13-2024 [id number] HNO ID: [id number] Author: BLANCA RODRIGUEZ PT Service: ? Author Type: Physical Therapist Type: [id number] Filed: 08/13/2024 08:44 Note Text: [facility] Rehabilitation [facility] Sports Therapy Physical Therapy Plan of Care Certification Patient Name: Francisco J Eid : 1960 [facility] #: [id number] Date: 08/13/2024 To: Mari Jones,* From Therapist: Blanca Rodriguez PT RE: Patient Certification/ Recertification Your review, approval and electronic signature are required in order to comply with Payor: MEDICARE / Plan: MEDICARE A AND B / Product Type: Medicare / regulations. The identified Physical Therapy PLAN OF CARE for the patient is as follows: H81.10 BPPV (benign paroxysmal positional vertigo), unspecified laterality (primary encounter diagnosis) PLAN OF CARE: Assessment: Francisco J Eid presents with diagnosis of BPPV that interferes with driving (head movement) . The patient presents with impairments in ADL's, independence in exercise, overall function, patient reported outcome measures, posture, sensation, and symptom management. PROMIS? (Patient-Reported Outcomes Measurement Information System) scores were reviewed and identified as within normal limits. Prognosis for therapy is Good due to: current objective clinical presentation . The patient will benefit from skilled therapy services to meet the goals established for this plan of care as noted below. Goals for Episode of Care: established 08/13/24 Patient will be able to correct postural deviations independently in order to allow for normal mechanics, to decrease current pain and prevent future recurrence. Patient will have negative positional testing for BPPV. Patient will verbalize the understanding of the diagnosis BPPV, how to recognize symptoms and what to do if they return. Patient will be independent with home exercise program and progression. Patient will return to prior level of function with all activities of daily living with trace reports of dizziness. Patient will deny dizziness with rolling right, lying down, and turning . Patient Goals: resolve dizziness Time Frame for Goals and Treatment : 09/24/24 Planned Interventions, Frequency, and Duration: Current Frequency: 1x/week Duration: 6 weeks Total Number of Visits Planned: 6 Planned Treatment Interventions: Therapeutic exercise (77043), Neuromuscular re-education (59013), Manual therapy (82391), Therapeutic activities (31436), Gait Training (58396), Self-usp management (30381), Canalith Repositioning Maneuvers (84891) PLAN FOR NEXT VISIT: assess symptom response to CRM for R posterior canalithiasis, pt. to contact physician and request his opinion on ENT consult regarding her heart beat felt/heard in her ears Patient demonstrates good understanding of plan of care and treatment. The above goals and plan of care were discussed and agreed upon by patient/family. For further details regarding this patient refer to the Physical Therapy electronically documented visit dated 08/13/2024. Provider Attestation I have reviewed the treatment plan for Francisco J Eid, [facility]# [id number] for the period of 08/13/24 -- 09/24/24, established on 08/13/2024. Signature certifies the need for therapy services. Normal [facility] CNTHERAPYon 08-13-2024 CNTHERAPY OT/PT/Speech Visit (PTWS) FRANCISCO J EID ([id number]) 1960 F Date Time Provider Department 08/13/24 8:00 AM BLANCA RODRIGUEZ PTWS Date Time Provider Department Center 08/13/2024 8:00 AM [id number] RODRIGUEZ PTROSIO [facility] Reason for Visit: PT Eval [747] Primary Visit Diagnosis:BPPV (benign paroxysmal positional vertigo), unspecified laterality [H81.10] Allergies As of Date: 08/13/2024 Noted Allergy Reaction LISINOPRIL 04/08/2020 3 - Cough Date Reviewed: 07/31/2024 Reviewed by: Kayley Miles LPN - Fully Assessed Prescriptions as of 08/13/2024 - atorvastatin (LIPITOR) 20 mg tablet Take 1 tablet by mouth once daily. - losartan (COZAAR) 100 mg tablet Take 1 tablet by mouth once daily. - Pseudoephedrine-guaiF ENesin (MUCINEX D MAXIMUM STRENGTH) 120-1,200 mg tab ER 12 hr Take 1 tablet by mouth once daily as needed (congestion) for up to 24 doses. - cholecalciferol (VITAMIN D-3) 5,000 unit tab Take 5,000 Units by mouth once daily. Channel Worker: Addendum Therapy (PT/OT/Speech/Resp) ID: [id number] 08/13/2024 8:31 AM Author: BLANCA RODRIGUEZ Signed by BLANCA RODRIGUEZ PT on 08/13/2024 at 8:31 AM * * * This document replaces document [id number] * * * Document text: Program_ID:[id number] Access Code: [email or web address] URL: [email or web address]/ Date: 08-13-2024 Prepared By: Blanca Rodriguez Program Notes Patient Education - BPPV - What Is BPPV? - BPPV ----- Normal [facility] THERAPY NTon 08-13-2024 THERAPY NT HNO ID: [id number] Author: BLANCA RODRIGUEZ PT Service: ? Author Type: Physical Therapist Type: Therapy (PT/OT/Speech/Resp) Filed: 08/13/2024 08:31 Note Text: Program_ID:[id number] Access Code: [email or web address] URL: [email or web address]/ Date: 08-13-2024 Prepared By: Blanca Rodriguez Program Notes Patient Education - BPPV - What Is BPPV? - BPPV Normal [facility] CNOVon 07-31-2024 CNOV Office Visit (FAMPWS ) FRANCISCO J EID ([id number]) 1960 F Date Time Provider Department 07/31/24 8:00 AM MARI JONES FAMPWS During your visit today, we recorded the following information about you: Pulse Respiration Blood pressure Weight 81/minute 16/minute 136/86 89.3 kg Mari Jones MD 07/31/2024 8:24 AM Signed Chief Complaint Patient presents with: Follow Up: To review labs HPI Francisco J Eid is a 63 year old female who presents here today for Above Complaints. Patient has questions regarding her high cholesterol and need for moderate intensity statin. Wanted to understand why she was recommended a statin when levels are mildly elevated. 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 Past medical history, appointments, medications, allergies reviewed. 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 s/p hysteroscopy with polyp removal Sciatica of right side Trochanteric bursitis of right hip Unspecified hemorrhoids without mention of complication Hemorrhoids Previous Surgical History PAST SURGICAL HISTORY Procedure Laterality Date APPENDECTOMY COLONOSCOPY FLX DX W/COLLJ SPEC WHEN PFRMD 02/05/2013 Colonoscopy EXCISION PILONIDAL CYST/SINUS EXTENSIVE Pilonidal cystectomy HEMORRHOIDECTOMY INT AND XTRNL 2/> COLUMN/MYAH HYSTEROSCOPY BX ENDOMETRIUMAND/POLYPC W/WO DANDC 05/24/2019 LAPS ABD PRTMANDOMENTUM DX W/WO SPEC BR/WA SPX Laparoscopy, infertility SIGMOIDOSCOPY FLX DX W/COLLJ SPEC BR/WA IF PFRMD 2003 Sigmoidoscopy, flexible TONSILLECTOMY AND ADENOIDECTOMY Family History FAMILY HISTORY Problem Relation Age of Onset Hypertension Mother Hypertension Father other (anorexia) Sister Hypertension Maternal Grandmother Hypertension Maternal Grandfather Heart Maternal Grandfather Colon Cancer Maternal Uncle other (Mitral Valve Prolapse) Other Mother and sister No Known Problems Daughter No Known Problems Daughter No Known Problems Daughter Patient Allergies ALLERGIES Allergen Reactions Lisinopril Cough Current Medications Current Outpatient Medications on File Prior to Visit Medication Sig losartan (COZAAR) 100 mg tablet Take 1 tablet by mouth once daily. Pseudoephedrine-guaiF ENesin (MUCINEX D MAXIMUM STRENGTH) 120-1,200 mg tab ER 12 hr Take 1 tablet by mouth once daily as needed (congestion) for up to 24 doses. cholecalciferol (VITAMIN D-3) 5,000 unit tab Take 5,000 Units by mouth once daily. No current facility-administered medications on file prior to visit. Social History Social History Tobacco Use Smoking status: Never Smokeless tobacco: Never Vaping Use Vaping status: Never Used Substance Use Topics Alcohol use: No Drug use: No Review of Symptoms REVIEW OF SYSTEMS GENERAL: No weight loss, malaise or fevers HEENT: Negative for frequent or significant headaches, No changes in hearing or vision, no nose bleeds or other nasal problems RESPIRATORY: Negative for cough, hemoptysis, wheezing, COPD, dyspnea or shortness of breath CARDIOVASCULAR: Negative for chest pain, leg swelling, hypertension, CHF or palpitations GI: No nausea, vomiting, or diarrhea NEURO: No history of headaches, syncope, paralysis, seizures or tremors EXAM: BP 136/86 Pulse 81 Resp 16 Wt 89.3 kg (196 lb 12.8 oz) LMP 02/03/2011 SpO2 98% BMI 33.50 kg/m? General Appearance: Well appearing, alert, in no acute distress, well-hydrated, well nourished.. Skin: Skin color, texture, turgor normal, no suspicious rashes or lesions. Lungs: Lungs clear to auscultation. No wheezing, rhonchi, rales.. Heart: RRR without murmur, gallop, or rubs. No ectopy. Health Maintenance List Depression Screening Never done Anxiety Screening Never done BP Controlled (<130/80) Never done Bone Density Screening Never done Advance Directive Discussion Never done Mammogram Screening due on 08/02/2024 Influenza Vaccine(1) due on 11/26/2024 Shingrix Vaccine(1 of 2) due on 07/23/2025 Covid-19 Vaccine( - season) due on 07/23/2025 Pneumococcal Vaccine: 50+(1 of 1 - PCV) due on 07/23/2025 Annual PCP Team Chronic Disease Visit due on 07/23/2025 DTaP,Tdap,Td Vaccine(2 - Td or Tdap) due on 03/28/2027 Diabetes Screening due on 07/23/2027 Lipid Screening due on 07/23/2029 Colorectal Cancer Screening due on 09/25/2033 RSV Vaccin (more content not included)... Normal [facility] CNPNon 07-27-2024 CNPN Telephone (FAMWS) FRANCISCO J EID ([id number]) 1960 F Date Time Provider Department 07/27/24 [facility] During your visit today, we recorded the following information about you: Danica Manrique RN 07/27/2024 9:01 AM Signed Patient calls and states that she has questions about test results and possible medication changes. Patient asking if provider can give her a call about this or does patient have to set up a follow up appointment? ALEJANDRINA Tellez Christopher B, MD 07/27/2024 9:09 AM Signed Looks like she was contacted about results and was not interested in statin treatment. If she would like to discuss in more detail, would recommend OV or VV. Kayley Miles LPN 07/27/2024 10:35 AM Signed Phoned patient and reviewed message with her. Patient voiced understanding. Kayley Laughery, DIGITAL STRATEGY SPECIALIST Allergies As of Date: 07/27/2024 Noted Allergy Reaction LISINOPRIL 04/08/2020 3 - Cough Date Reviewed: 07/23/2024 Reviewed by: Kayley Miles LPN - Fully Assessed Reason for Visit: Patient Question [2554] Prescriptions as of 07/27/2024 - losartan (COZAAR) 100 mg tablet Take 1 tablet by mouth once daily. - Pseudoephedrine-guaiF ENesin (MUCINEX D MAXIMUM STRENGTH) 120-1,200 mg tab ER 12 hr Take 1 tablet by mouth once daily as needed (congestion) for up to 24 doses. - cholecalciferol (VITAMIN D-3) 5,000 unit tab Take 5,000 Units by mouth once daily. Problem List As Of Date 07/27/2024 Noted Resolved Contact dermatitis and other eczema, due to uns*11/17/2006 02/23/2016 Dizziness and giddiness [R42] 05/18/2008 02/23/2016 Unspecified hearing loss [H91.90] 05/18/2008 02/23/2016 Hyperlipidemia with target LDL less than 130 [E*04/09/2014 Glossodynia [K14.6] 04/09/2014 02/23/2016 Subacute left lumbar radiculopathy [M54.16] 06/24/2015 07/27/2018 Sciatica, right side [M54.31] 02/22/2019 Trochanteric bursitis of right hip [M70.61] 02/22/2019 Elevated liver function tests [R79.89] 04/13/2020 Essential hypertension [I10] Postmenopausal bleeding [N95.0] 2018 Screening for colon cancer [Z12.11] 09/26/2023 Migraine without aura and without status migrai* Encounter Status:Closed by KAYLEY MILES on 07/27/24 Normal [facility] Comprehensive metabolic 2000 panelon 07-24-2024 Albumin [Mass/Vol] 4.3 g/dL 3.9 - 4.9 g/dL [facility] ALP [Catalytic activity/Vol] 81 U/L 34 - 123 U/L [facility] ALT [Catalytic activity/Vol] 19 U/L 7 - 38 U/L [facility] Anion gap [Moles/Vol] 9 mmol/L 8 - 15 mmol/L [facility] AST [Catalytic activity/Vol] 22 U/L 13 - 35 U/L [facility] Bilirubin [Mass/Vol] 0.3 mg/dL 0.2 - 1 .3 mg/dL [facility] Calcium [Mass/Vol] 10 mg/dL 8.5 - 10. 2 mg/dL [facility] Chloride [Moles/Vol] 105 mmol/L 98 - 10 7 mmol/L [facility] CO2 [Moles/Vol] 27 mmol/L 22 - 30 mmol/L [facility] Creatinine [Mass/Vol] 0.82 mg/dL 0.58 - 0.96 mg/dL [facility] GFR/1.73 sq M.predicted among non-blacks MDRD (S/P/Bld) [Vol rate/Area] 79 mL/min/{1.73_m2} - PINF [facility] Comment on above: Estimated Glomerular Filtration Rate (eGFR) is calculated using the 2020 CKD-EPI creatinine equation. This equation utilizes serum creatinine, sex, and age as parameters. The creatinine assay has traceable calibration to isotope dilution-mass spectrometry. Refer to KDIGO guidelines for clinical interpretation. In patients with unstable renal function, e.g. those with acute kidney injury, the eGFR may not accurately reflect actual GFR. Glucose [Mass/Vol] 87 mg/dL 74 - 99 mg/dL [facility] Comment on above: The [place] Diabete s Association (ADA) provides guidance for cutoff values for fasting glucose and random glucose. The ADA defines fasting as no caloric intake for at least 8 hours. Fasting plasma glucose results between 100 to 125 mg/dL indicate increased risk for diabetes (prediabetes). Fasting plasma glucose results greater than or equal to 126 mg/dL meet the criteria for diagnosis of diabetes. In the absence of unequivocal hyperglycemia, results should be confirmed by repeat testing. In a patient with classic symptoms of hyperglycemia or hyperglycemic crisis, random plasma glucose results greater than or equal to 200 mg/dL meet the criteria for diagnosis of diabetes. Reference: Standards of Medical Care in Diabetes 2016, [place] Diabetes Association. Diabetes Care. 2016.39(Suppl 1). Interpretation and review of laboratory results Normal [facility] Potassium [Moles/Vol] 4.8 mmol/L 3.7 - 5.1 mmol/L [facility] Protein [Mass/Vol] 7.4 g/dL 6.3 - 8.0 g/dL [facility] Sodium [Moles/Vol] 141 mmol/L 136 - 144 mmol/L [facility] Urea nitrogen [Mass/Vol] 17 mg/dL 7 - 21 mg/dL [facility] LIPID PANEL, NONFASTINGon Cholesterol [Mass/Vol] 211 mg/dL High NINF - 200 mg/dL [facility] Comment on above: <200 mg/dL, Desirabl e 200-239 mg/dL, Borderline high >239 mg/dL, High HDL Cholesterol, Nonfasting 60 mg/dL 39 - PINF mg/dL [facility] Comment on above: 40-59 mg/dL, Accepta ble >59 mg/dL, High: Negative risk factor for coronary heart disease <40 mg/dL, Low: Positive risk factor for coronary heart disease Interpretation and review of laboratory results Abnormal [facility] LDL Cholesterol, Nonfasting 119 mg/dL High NINF - 100 mg/dL [facility] Comment on above: <100 mg/dL, Optimal 100-129 mg/dL, Near optimal/above optimal 130-159 mg/dL, Borderline high 160-189 mg/dL, High >189 mg/dL, Very high Secondary prevention optimal LDL Cholesterol levels are recommended to be < 70 mg/dL LDL/HDL Ratio, Nonfasting 1.98 mg/dL NINF - 2.54 mg/dL [facility] Comment on above: Reference: 1. National Cholesterol Education Program ATP III Guideline At-A-Glance Quick Desk Reference: National Heart, Lung, and Blood [place]. National Institutes of Health. 2001: NIH Publication No. 01-3305. 2. An International Atherosclerosis Society position paper: global recommendations for the management of dyslipidemia: executive summary, Atherosclerosis. 2014: 232(2):410-413. Non HDL Cholesterol, Nonfasting 151 mg/dL High NINF - 130 mg/dL [facility] Comment on above: <130 mg/dL, Optimal 130-159 mg/dL, Near optimal/above optimal 160-189 mg/dL, Borderline high 190-219 mg/dL, High >219 mg/dL, Very high Secondary prevention optimal non HDL Cholesterol levels are recommended to be <100 mg/dL Total Chol/HDL Ratio, Nonfasting 3.52 mg/dL NINF - 5.10 mg/dL [facility] Triglycerides, Nonfasting 161 mg/dL High NINF - 150 mg/dL [facility] Comment on above: <150 mg/dL, Normal 150-199 mg/dL, Borderline high 200-499 mg/dL, High >499 mg/dL, Very high VLDL Cholesterol, Nonfasting 32 mg/dL High NINF - 30 mg/dL [facility] No Panel Informationon 07-24 [facility] THYROID STIMULATING HORMONEo n 07-24-2024 TSH Qn 2.91 m[IU]/L [facility] TSH Qnon 07-24-2024 Interpretation and review of laboratory results Normal [facility] CBC W Auto Differential pane l (Bld)on 07-23-2024 Basophils (Bld) [#/Vol] 0.09 10*3/uL [facility] Basophils/100 WBC (Bld) 1.6 % C [facility] Differential cell count method Nom (Bld) Auto [facility] Eosinophils (Bld) [#/Vol] 0.26 10*3/uL [facility] Eosinophils/100 WBC (Bld) 4.7 % [facility] Erythrocyte distribution width (RBC) [Ratio] 14.2 % 11.5 - 15.0 % [facility] Hematocrit (Bld) [Volume fraction] 43.6 % 36.0 - 46.0 % [facility] Hemoglobin (Bld) [Mass/Vol] 13.9 g/dL 11.5 - 15.5 g/dL [facility] Immature granulocytes (Bld) [#/Vol] [facility] Immature granulocytes/100 WBC (Bld) 0.2 % [facility] Lymphocytes (Bld) [#/Vol] 1.74 10*3/uL [facility] Lymphocytes/100 WBC (Bld) 31.5 % [facility] MCH (RBC) [Entitic mass] 29.5 pg 26.0 - 34.0 pg [facility] MCHC (RBC) [Mass/Vol] 31.9 g/dL 30.5 - 36.0 g/dL [facility] MCV (RBC) [Entitic vol] 92.6 fL 80.0 - 100.0 fL [facility] Monocytes (Bld) [#/Vol] 0.54 10*3/uL [facility] Monocytes/100 WBC (Bld) 9.8 % C [facility] Neutrophils (Bld) [#/Vol] 2.89 10*3/uL [facility] Neutrophils/100 WBC (Bld) 52.2 % [facility] Nucleated RBC (Bld) [#/Vol] NINF [facility] Nucleated RBC/100 WBC (Bld) [Ratio] 0 % /100 WBC [facility] Platelet mean volume (Bld) [Entitic vol] 11.4 fL 9.0 - 12.7 fL [facility] Platelets (Bld) [#/Vol] 237 10*3/uL [facility] RBC (Bld) [#/Vol] 4.71 10*6/uL 3.90 - 5.2 0 m/uL [facility] WBC (Bld) [#/Vol] 5.53 10*3/uL [facility] Basophils (Bld) [#/Vol] 0.09 10*3/uL Normal <0.11 [facility] Comment on above: Order Comment: Speci men Type: BLOOD SPECIMENOrdering Facility: [facility] Address: [address] [place] [address] Performed By: #### 5 7021-8 ####[facility] LABCLIA [id number] [place] [address] [place] Basophils/100 WBC (Bld) 1.6 % Normal [facility] Comment on above: Order Comment: Speci men Type: BLOOD SPECIMENOrdering Facility: [facility] Address: [address] [place] [address] Performed By: #### 5 7021-8 ####[facility] LABCLIA [id number] [place] [address] [place] Differential cell count method Nom (Bld) Auto Normal [facility] Comment on above: Order Comment: Speci men Type: BLOOD SPECIMENOrdering Facility: [facility] Address: [address] [place] [address] Performed By: #### 5 7021-8 ####[facility] LABCLIA [id number] [place] [address] [place] Eosinophils (Bld) [#/Vol] 0.26 10*3/uL Normal <0.46 [facility] Comment on above: Order Comment: Speci men Type: BLOOD SPECIMENOrdering Facility: [facility] Address: [address] [place] [address] Performed By: #### 5 7021-8 ####[facility] LABCLIA [id number] [place] [address] [place] Eosinophils/100 WBC (Bld) 4.7 % Normal [facility] Comment on above: Order Comment: Speci men Type: BLOOD SPECIMENOrdering Facility: [facility] Address: [address] [place] [address] Performed By: #### 5 7021-8 ####[facility] LABIA [id number] [place] [address] [place] Erythrocyte distribution width (RBC) [Ratio] 14.2 % Normal 11.5-15.0 [facility] Comment on above: Order Comment: Speci men Type: BLOOD SPECIMENOrdering Facility: [facility] Address: [address] [place] [address] Performed By: #### 5 7021-8 ####[facility] LABIA [id number] [place] [address] [place] Hematocrit (Bld) [Volume fraction] 43.6 % Normal 36.0-46.0 [facility] Comment on above: Order Comment: Speci men Type: BLOOD SPECIMENOrdering Facility: [facility] Address: [address] [place] [address] Performed By: #### 5 7021-8 ####[facility] LABIA [id number] [place] [address] [place] Hemoglobin (Bld) [Mass/Vol] 13.9 g/dL Normal 11.5-15.5 [facility] Comment on above: Order Comment: Speci men Type: BLOOD SPECIMENOrdering Facility: [facility] Address: [address] [place] [address] Performed By: #### 5 7021-8 ####[facility] LABCLIA [id number] [place] [address] [place] Immature granulocytes (Bld) [#/Vol] 10*3/uL Normal <0.10 [facility] Comment on above: Order Comment: Speci men Type: BLOOD SPECIMENOrdering Facility: [facility] Address: [address] [place] [address] Performed By: #### 5 7021-8 ####[facility] LABCLIA [id number] [place] [address] [place] Immature granulocytes/100 WBC (Bld) 0.2 % Normal [facility] Comment on above: Order Comment: Speci men Type: BLOOD SPECIMENOrdering Facility: [facility] Address: [address] [place] [address] Performed By: #### 5 7021-8 ####[facility] LABCLIA [id number] [place] [address] [place] Lymphocytes (Bld) [#/Vol] 1.74 10*3/uL Normal 1.00-4.00 [facility] Comment on above: Order Comment: Speci men Type: BLOOD SPECIMENOrdering Facility: [facility] Address: [address] [place] [address] Performed By: #### 5 7021-8 ####[facility] LABCLIA [id number] [place] [address] [place] Lymphocytes/100 WBC (Bld) 31.5 % Normal [facility] Comment on above: Order Comment: Speci men Type: BLOOD SPECIMENOrdering Facility: [facility] Address: [address] [place] [address] Performed By: #### 5 7021-8 ####[facility] LABCLIA [id number] [place] [address] [place] MCH (RBC) [Entitic mass] 29.5 pg Normal 26.0-34.0 [facility] Comment on above: Order Comment: Speci men Type: BLOOD SPECIMENOrdering Facility: [facility] Address: [address] [place] [address] Performed By: #### 5 7021-8 ####[facility] LABCLIA [id number] [place] [address] [place] MCHC (RBC) [Mass/Vol] 31.9 g/dL Normal 30.5-36.0 [facility] Comment on above: Order Comment: Speci men Type: BLOOD SPECIMENOrdering Facility: [facility] Address: [address] [place] [address] Performed By: #### 5 7021-8 ####[facility] LABCLIA [id number] [place] [address] [place] MCV (RBC) [Entitic vol] 92.6 fL Normal 80.0-100.0 [facility] Comment on above: Order Comment: Speci men Type: BLOOD SPECIMENOrdering Facility: [facility] Address: [address] [place] [address] Performed By: #### 5 7021-8 ####[facility] LABIA [id number] [place] [address] [place] Monocytes (Bld) [#/Vol] 0.54 10*3/uL Normal <0.87 [facility] Comment on above: Order Comment: Speci men Type: BLOOD SPECIMENOrdering Facility: [facility] Address: [address] [place] [address] Performed By: #### 5 7021-8 ####[facility] LABCLIA [id number] [place] [address] [place] Monocytes/100 WBC (Bld) 9.8 % Normal [facility] Comment on above: Order Comment: Speci men Type: BLOOD SPECIMENOrdering Facility: [facility] Address: [address] [place] [address] Performed By: #### 5 7021-8 ####[facility] LABCLIA [id number] [place] [address] [place] Neutrophils (Bld) [#/Vol] 2.89 10*3/uL Normal 1.45-7.50 [facility] Comment on above: Order Comment: Speci men Type: BLOOD SPECIMENOrdering Facility: [facility] Address: [address] [place] [address] Performed By: #### 5 7021-8 ####[facility] LABCLIA [id number] [place] [address] [place] Neutrophils/100 WBC (Bld) 52.2 % Normal [facility] Comment on above: Order Comment: Speci men Type: BLOOD SPECIMENOrdering Facility: [facility] Address: [address] [place] [address] Performed By: #### 5 7021-8 ####[facility] LABCLIA [id number] [place] [address] [place] Nucleated RBC (Bld) [#/Vol] 10*3/uL Normal <0.01 [facility] Comment on above: Order Comment: Speci men Type: BLOOD SPECIMENOrdering Facility: [facility] Address: [address] [place] [address] Performed By: #### 5 7021-8 ####[facility] LABCLIA [id number] [place] [address] [place] Nucleated RBC/100 WBC (Bld) [Ratio] 0.0 /100 WBC Normal [facility] Comment on above: Order Comment: Speci men Type: BLOOD SPECIMENOrdering Facility: [facility] Address: [address] [place] [address] Performed By: #### 5 7021-8 ####[facility] LABCLIA [id number] [place] [address] [place] Platelet mean volume (Bld) [Entitic vol] 11.4 fL Normal 9.0-12.7 [facility] Comment on above: Order Comment: Speci men Type: BLOOD SPECIMENOrdering Facility: [facility] Address: [address] [place] [address] Performed By: #### 5 7021-8 ####[facility] LABIA [id number] [place] [address] [place] Platelets (Bld) [#/Vol] 237 10*3/uL Normal 150-400 [facility] Comment on above: Order Comment: Speci men Type: BLOOD SPECIMENOrdering Facility: [facility] Address: [address] [place] [address] Performed By: #### 5 7021-8 ####[facility] LABIA [id number] [place] [address] [place] RBC (Bld) [#/Vol] 4.71 10*6/uL Normal 3.90-5.20 [facility] Comment on above: Order Comment: Speci men Type: BLOOD SPECIMENOrdering Facility: [facility] Address: [address] [place] [address] Performed By: #### 5 7021-8 ####[facility] LABIA [id number] [place] [address] [place] WBC (Bld) [#/Vol] 5.53 10*3/uL Normal 3.70-11.00 [facility] Comment on above: Order Comment: Speci men Type: BLOOD SPECIMENOrdering Facility: [facility] Address: [address] [place] [address] Performed By: #### 5 7021-8 ####[facility] LABIA [id number] [place] [address] [place] CNOVon 07-23-2024 [facility] FRANCISCO J EID ([id number]) 1960 F Date Time Provider Department 07/23/24 8:40 AM MARI JONES During your visit today, we recorded the following information about you: Pulse Respiration Blood pressure Weight 81/minute 16/minute 126/84 89.4 kg Mari Jones MD 07/25/2024 12:41 PM Signed Chief Complaint Patient presents with: Follow Up: Routine-refills HPI Francisco J Eid is a 63 year old female who presents here today for Above Complaints.. HTN: Ms. Eid indicates that she is feeling well and denies any symptoms referable to elevated blood pressure. Specifically denies headache, chest pain, palpitations, dyspnea, and peripheral edema. Patient denies any side effects of her medication(s) and is compliant with their regimen. She does not check BP's generally. Francisco J denies regular aerobic exercise. She watches her diet for sodium, low fat and low cholesterol generally not very much. Last 3 Encounter BP Readings: Date: BP: 07/23/2024 126/84 04/06/2024 132/90 03/27/2024 138/84 Notes occasional lightheadedness every couple of days in the mornings before her medication. No syncope. Episodes come and go over a minute, but can last up to half a day before resolving completely. Drinking 32 oz of water per day. Denies headache, tinnitus, hearing loss. Migraines rare. Triggered when eating chocolate. Past medical history, appointments, medications, allergies reviewed. 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 s/p hysteroscopy with polyp removal Sciatica of right side Trochanteric bursitis of right hip Unspecified hemorrhoids without mention of complication Hemorrhoids Previous Surgical History PAST SURGICAL HISTORY Procedure Laterality Date APPENDECTOMY COLONOSCOPY FLX DX W/COLLJ SPEC WHEN PFRMD 02/05/2013 Colonoscopy EXCISION PILONIDAL CYST/SINUS EXTENSIVE Pilonidal cystectomy HEMORRHOIDECTOMY INT AND XTRNL 2/> COLUMN/MYAH HYSTEROSCOPY BX ENDOMETRIUMAND/POLYPC W/WO DANDC 05/24/2019 LAPS ABD PRTMANDOMENTUM DX W/WO SPEC BR/WA SPX Laparoscopy, infertility SIGMOIDOSCOPY FLX DX W/COLLJ SPEC BR/WA IF PFRMD 2002 Sigmoidoscopy, flexible TONSILLECTOMY AND ADENOIDECTOMY Family History FAMILY HISTORY Problem Relation Age of Onset Hypertension Mother Hypertension Father other (anorexia) Sister Hypertension Maternal Grandmother Hypertension Maternal Grandfather Heart Maternal Grandfather Colon Cancer Maternal Uncle other (Mitral Valve Prolapse) Other Mother and sister No Known Problems Daughter No Known Problems Daughter No Known Problems Daughter Patient Allergies ALLERGIES Allergen Reactions Lisinopril Cough Current Medications Current Outpatient Medications on File Prior to Visit Medication Sig losartan (COZAAR) 100 mg tablet Take 1 tablet by mouth once daily. cholecalciferol (VITAMIN D-3) 5,000 unit tab Take 5,000 Units by mouth once daily. Pseudoephedrine-guaiF ENesin (MUCINEX D MAXIMUM STRENGTH) 120-1,200 mg tab ER 12 hr Take 1 tablet by mouth once daily as needed (congestion) for up to 24 doses. No current facility-administered medications on file prior to visit. Social History Social History Tobacco Use Smoking status: Never Smokeless tobacco: Never Vaping Use Vaping status: Never Used Substance Use Topics Alcohol use: No Drug use: No Review of Symptoms REVIEW OF SYSTEMS GENERAL: No weight loss, malaise or fevers RESPIRATORY: Negative for cough, hemoptysis, wheezing, COPD, dyspnea or shortness of breath CARDIOVASCULAR: Negative for chest pain, leg swelling, hypertension, CHF or palpitations GI: No nausea, vomiting, or diarrhea PLASTIC BOAT BUFFER: Negative for abnormal vaginal bleeding, abnormal vaginal discharge SKIN: Negative for lesions, rash, and itching EXAM: BP 126/84 Pulse 81 Resp 16 Wt 89.4 kg (197 lb 3.2 oz) LMP 02/03/2011 SpO2 99% BMI 33.56 kg/m? General Appearance: Well appearing, alert, in no acute distress, well-hydrated, well nourished.. Skin: Skin color, texture, turgor normal, no suspicious rashes or lesions. Lungs: Lungs clear to auscultation. No wheezing, rhonchi, rales.. Heart: RRR without murmur, gallop, or rubs. No ectopy. Abdomen: Normal abdominal exam, Abdomen soft, non-tender. Bowel sounds normal. No masses, organomegaly. Extremities: No deformities, edema, skin discoloration, (more content not included)... Normal [facility] Comprehensive metabolic 2000 panelon 07-23-2024 Albumin [Mass/Vol] 4.3 g/dL Normal 3.9-4.9 [facility] Comment on above: Order Comment: Speci men Type: BLOOD SPECIMENOrdering Facility: [facility] Address: [address] [place] [address] Performed By: #### 2 4323-8, LIPNF, 3015-3 ####[facility] LABCLIA [id number] [place] [address] [place] ALP [Catalytic activity/Vol] 81 U/L Normal 34-123 [facility] Comment on above: Order Comment: Speci men Type: BLOOD SPECIMENOrdering Facility: [facility] Address: [address] [place] [address] Performed By: #### 2 4323-8, LIPNF, 6-3 ####[facility] LABCLIA [id number] [place] [address] [place] ALT [Catalytic activity/Vol] 19 U/L Normal 7-38 [facility] Comment on above: Order Comment: Speci men Type: BLOOD SPECIMENOrdering Facility: [facility] Address: [address] [place] [address] Performed By: #### 2 4323-8, LIPNF, 6-3 ####[facility] LABCLIA [id number] [place] [id number] [place] Anion gap [Moles/Vol] 9 mmol/L Normal 8-15 [facility] Comment on above: Order Comment: Speci men Type: BLOOD SPECIMENOrdering Facility: [facility] Address: [address] [place] [address] Performed By: #### 2 4323-8, LIPNF, 3016-3 ####[facility] LABCLIA [id number] [place] [address] [place] AST [Catalytic activity/Vol] 22 U/L Normal 13-35 [facility] Comment on above: Order Comment: Speci men Type: BLOOD SPECIMENOrdering Facility: [facility] Address: [address] [place] [address] Performed By: #### 2 4323-8, LIPNF, 3015-3 ####[facility] LABCLIA [id number] [place] [address] [place] Bilirubin [Mass/Vol] 0.3 mg/dL Normal 0.2-1.3 [facility] Comment on above: Order Comment: Speci men Type: BLOOD SPECIMENOrdering Facility: [facility] Address: [address] [place] [address] Performed By: #### 2 4323-8, LIPNF, 6-3 ####[facility] LABCLIA [id number] [place] [address] [place] Calcium [Mass/Vol] 10.0 mg/dL Normal 8.5-10.2 [facility] Comment on above: Order Comment: Speci men Type: BLOOD SPECIMENOrdering Facility: [facility] Address: [address] [place] [address] Performed By: #### 2 4323-8, LIPNF, 6-3 ####[facility] LABCLIA [id number] [address] [address] [place] Chloride [Moles/Vol] 105 mmol/L Normal 98-107 [facility] Comment on above: Order Comment: Speci men Type: BLOOD SPECIMENOrdering Facility: [facility] Address: [address] [place] [address] Performed By: #### 2 4323-8, LIPJACOB, 6-3 ####[facility] LABIA [id number] [place] [id number] [place] CO2 [Moles/Vol] 27 mmol/L Normal 22-30 [facility] Comment on above: Order Comment: Speci men Type: BLOOD SPECIMENOrdering Facility: [facility] Address: [address] [place] [address] Performed By: #### 2 4323-8, LIPNF, 3015-3 ####[facility] LABIA [id number] [place] [address] [place] Creatinine [Mass/Vol] 0.82 mg/dL Normal 0.58-0.96 [facility] Comment on above: Order Comment: Speci men Type: BLOOD SPECIMENOrdering Facility: [facility] Address: [address] [place] [address] Performed By: #### 2 4323-8, LIPNF, 3015-3 ####[facility] LABIA [id number] [address] [place] Creatinine and Glomerular filtration rate.predicted panel (S/P/Bld) 79 mL/min/1.73m??? Normal >=60 [facility] Comment on above: Order Comment: Speci men Type: BLOOD SPECIMENOrdering Facility: [facility] Address: [address] [place] [address] Result Comment: Manuela mated Glomerular Filtration Rate (eGFR) is calculated using the 2020 CKD-EPI creatinine equation. This equation utilizes serum creatinine, sex, and age as parameters. The creatinine assay has traceable calibration to isotope dilution-mass spectrometry. Refer to KDIGO guidelines for clinical interpretation. In patients with unstable renal function, e.g. those with acute kidney injury, the eGFR may not accurately reflect actual GFR. Performed By: #### 2 4323-8, LIPNF, 6-3 ####[facility] LABCLIA [id number] [address] [address] [place] Glucose [Mass/Vol] 87 mg/dL Normal 74-99 [facility] Comment on above: Order Comment: Speci men Type: BLOOD SPECIMENOrdering Facility: [facility] Address: [address] [place] [address] Result Comment: The [place] Diabetes Association (ADA) provides guidance for cutoff values for fasting glucose and random glucose. The ADA defines fasting as no caloric intake for at least 8 hours. Fasting plasma glucose results between 100 to 125 mg/dL indicate increased risk for diabetes (prediabetes). Fasting plasma glucose results greater than or equal to 126 mg/dL meet the criteria for diagnosis of diabetes. In the absence of unequivocal hyperglycemia, results should be confirmed by repeat testing. In a patient with classic symptoms of hyperglycemia or hyperglycemic crisis, random plasma glucose results greater than or equal to 200 mg/dL meet the criteria for diagnosis of diabetes. Reference: Standards of Medical Care in Diabetes 2016, [place] Diabetes Association. Diabetes Care. 2016.39(Suppl 1). Performed By: #### 2 4323-8, LIPNF, 6-3 ####[facility] LABIA [id number] [place] [address] [place] Potassium [Moles/Vol] 4.8 mmol/L Normal 3.7-5.1 [facility] Comment on above: Order Comment: Speci men Type: BLOOD SPECIMENOrdering Facility: [facility] Address: [address] [place] [address] Performed By: #### 2 4323-8, LIPNF, 6-3 ####[facility] LABIA [id number] [place] [id number] [place] Protein [Mass/Vol] 7.4 g/dL Normal 6.3-8.0 [facility] Comment on above: Order Comment: Speci men Type: BLOOD SPECIMENOrdering Facility: [facility] Address: [address] [place] [address] Performed By: #### 2 4323-8, LIPNF, 3016-3 ####[facility] LABCLIA [id number] [place] [id number] [place] Sodium [Moles/Vol] 141 mmol/L Normal 136-144 [facility] Comment on above: Order Comment: Speci men Type: BLOOD SPECIMENOrdering Facility: [facility] Address: [address] [place] [address] Performed By: #### 2 4323-8, LIPNF, 3016-3 ####[facility] LABIA [id number] [place] [address] [place] Urea nitrogen [Mass/Vol] 17 mg/dL Normal 7-21 [facility] Comment on above: Order Comment: Speci men Type: BLOOD SPECIMENOrdering Facility: [facility] Address: [address] [place] [address] Performed By: #### 2 4323-8, LIPNF, 3016-3 ####[facility] LABIA [id number] [place] [address] [place] HbA1c (Bld)on 07-23-2024 Average glucose Estimated from glycated hemoglobin (Bld) [Mass/Vol] 111 mg/dL [facility] Comment on above: eAG: (Estimated aver age glucose) is a calculated value from HgbA1c and is product sales representative of the average blood glucose level in the last 2-3 month period. HbA1c (Bld) [Mass fraction] 5.5 % 4.3 - 5.6 % [facility] Comment on above: [place] Diabetes As sociation guidelines indicate that patients with HgbA1c in the range 5.7-6.4% are at increased risk for development of diabetes, and intervention by lifestyle modification may be beneficial. HgbA1c greater or equal to 6.5% is considered diagnostic of diabetes. [facility] Average glucose Estimated from glycated hemoglobin (Bld) [Mass/Vol] 111 mg/dL Normal [facility] Comment on above: Order Comment: Speci men Type: BLOOD SPECIMENOrdering Facility: [facility] Address: [address] [place] [address] Result Comment: eAG: (Estimated average glucose) is a calculated value from HgbA1c and is product sales representative of the average blood glucose level in the last 2-3 month period. Performed By: #### 5 5454-3 ####[facility] LABCLIA [id number] [place] [address] [place] HbA1c (Bld) [Mass fraction] 5.5 % Normal 4.3-5.6 [facility] Comment on above: Order Comment: Speci men Type: BLOOD SPECIMENOrdering Facility: [facility] Address: [address] [place] [address] Result Comment: [place] Diabetes Association guidelines indicate that patients with HgbA1c in the range 5.7-6.4% are at increased risk for development of diabetes, and intervention by lifestyle modification may be beneficial. HgbA1c greater or equal to 6.5% is considered diagnostic of diabetes. Performed By: #### 5 5454-3 ####[facility] LABCLIA [id number] [place] [address] [place] LIPID PANEL, NONFASTINGon Cholesterol [Mass/Vol] 211 mg/dL High <200 [facility] Comment on above: Order Comment: Sreei men Type: BLOOD SPECIMENOrdering Facility: [facility] Address: [address] [place] [address] Result Comment: <200 mg/dL, Desirable 200-239 mg/dL, Borderline high >239 mg/dL, High Performed By: #### 2 4323-8, LIPNF, 3016-3 ####[facility] LABCLIA [id number] [place] [address] [place] HDL CHOLESTEROL, NF 60 mg/dL Normal >39 [facility] Comment on above: Order Comment: Speci men Type: BLOOD SPECIMENOrdering Facility: [facility] Address: [address] [place] [address] Result Comment: 40-5 9 mg/dL, Acceptable >59 mg/dL, High: Negative risk factor for coronary heart disease <40 mg/dL, Low: Positive risk factor for coronary heart disease Performed By: #### 2 4323-8, LIPJACOB, 6-3 ####[facility] LABCLIA [id number] [address] STATES OF [facility] LDL CHOLESTEROL, NF 119 mg/dL High <100 [facility] Comment on above: Order Comment: Speci men Type: BLOOD SPECIMENOrdering Facility: [facility] Address: [address] [place] [address] Result Comment: <100 mg/dL, Optimal 100-129 mg/dL, Near optimal/above optimal 130-159 mg/dL, Borderline high 160-189 mg/dL, High >189 mg/dL, Very high Secondary prevention optimal LDL Cholesterol levels are recommended to be < 70 mg/dL Performed By: #### 2 4323-8, JOAQUINA, 3015-3 ####[facility] LABCLIA [id number] [address] [place] LDL/HDL RATIO, NF 1.98 mg/dL Normal <2.54 [facility] Comment on above: Order Comment: Speci men Type: BLOOD SPECIMENOrdering Facility: [facility] Address: [address] [place] [address] Result Comment: Refe rence: 1. National Cholesterol Education Program ATP III Guideline At-A-Glance Quick Desk Reference: National Heart, Lung, and Blood [place]. National Institutes of Health. 2001: NIH Publication No. 01-3305. 2. An International Atherosclerosis Society position paper: global recommendations for the management of dyslipidemia: executive summary, Atherosclerosis. 2014: 232(2):410-413. Performed By: #### 2 4323-8, JOAQUINA, 3015-3 ####[facility] LABCLIA [id number] [place] [address] [place] NON HDL CHOL, NF 151 mg/dL High <130 [facility] Comment on above: Order Comment: Speci men Type: BLOOD SPECIMENOrdering Facility: [facility] Address: [address] [place] [address] Result Comment: <130 mg/dL, Optimal 130-159 mg/dL, Near optimal/above optimal 160-189 mg/dL, Borderline high 190-219 mg/dL, High >219 mg/dL, Very high Secondary prevention optimal non HDL Cholesterol levels are recommended to be <100 mg/dL Performed By: #### 2 4323-8, LIPNF, 6-3 ####[facility] LABCLIA [id number] [place] [address] [place] T CHOL/HDL RATIO NF 3.52 mg/dL Normal <5.10 [facility] Comment on above: Order Comment: Speci men Type: BLOOD SPECIMENOrdering Facility: [facility] Address: [address] [place] [address] Performed By: #### 2 4323-8, LIPNF, 3015-3 ####[facility] LABCLIA [id number] [place] [address] [place] TRIGLYCERIDES, NF 161 mg/dL High <150 [facility] Comment on above: Order Comment: Speci men Type: BLOOD SPECIMENOrdering Facility: [facility] Address: [address] [place] [address] Result Comment: <150 mg/dL, Normal 150-199 mg/dL, Borderline high 200-499 mg/dL, High >499 mg/dL, Very high Performed By: #### 2 4323-8, LIPNF, 3015-3 ####[facility] LABCLIA [id number] [place] [id number] [place] VLDL CHOLESTEROL, NF 32 mg/dL High <30 [facility] Comment on above: Order Comment: Speci men Type: BLOOD SPECIMENOrdering Facility: [facility] Address: [address] [place] [address] Performed By: #### 2 4323-8, LIPNF, 6-3 ####[facility] LABCLIA [id number] [place] [id number] [place] TSH SerPl-aCncon 07-23-2024 TSH Qn 2.910 m[IU]/L Normal 0.270-4.200 [facility] Comment on above: Order Comment: Speci men Type: BLOOD SPECIMENOrdering Facility: [facility] Address: [address] [place] [address] Performed By: #### 2 4323-8, JOAQUINA, 3016-3 ####[facility] LABCLIA [id number] [place] [place] [id number] [facility] CNOVon 04-06-2024 CNOV Office Visit (JOHNNY ) FRANCISCO J EID ([id number]) 1960 F Date Time Provider Department 04/06/24 9:00 AM MARCELINA ROBBINS During your visit today, we recorded the following information about you: Temperature Pulse Respiration Blood pressure 99 degrees 97/minute 16/minute 132/90 Weight 88.6 kg Marcelina Robbins APRN.PROGRAMMING COORDINATOR 04/06/2024 10:26 AM Signed This is a 63 year old female who presents today with: Patient presents with: Follow Up: follow up sinus issures HISTORY OF PRESENT ILLNESS: Francisco J Eid is a 63 year old female. Patient presents with: Follow Up: follow up sinus issures Patient of Dr. Jones here in the office for sinus complaints. This has been on going for 5 weeks. Sinus congestion, sinus drainage, white mucus, post nasal drip, cough, ear fullness. No fever or chills. Has been using OTC mucinex, sudafed, and coricidin. Treated with Augmentin on 03/27/2024. [facility] to visit with PCP team on , normal chest x-ray. Refers that symptoms seem to be progressing. No improvement after Augmentin. PAST MEDICAL HISTORY: PAST MEDICAL HISTORY Diagnosis Date Arthritis Class 1 obesity due to excess calories without serious comorbidity with body mass index (BMI) of 33.0 to 33.9 in adult Essential hypertension Female infertility of other specified origin Glossodynia 04/09/2014 Hyperlipidemia LDL goal < 130 04/09/2014 Migraine, unspecified, with intractable migraine, so stated, without mention of status migrainosus Myalgia and myositis, unspecified resolved Postmenopausal bleeding 07/01 polpy. s/p hysteroscopy with polyp removal Sciatica of right side Trochanteric bursitis of right hip Unspecified hemorrhoids without mention of complication Hemorrhoids PAST SURGICAL HISTORY Procedure Laterality Date APPENDECTOMY COLONOSCOPY FLX DX W/COLLJ SPEC WHEN PFRMD 02/05/2013 Colonoscopy EXCISION PILONIDAL CYST/SINUS EXTENSIVE Pilonidal cystectomy HEMORRHOIDECTOMY INT AND XTRNL 2/> COLUMN/MYAH HYSTEROSCOPY BX ENDOMETRIUMAND/POLYPC W/WO DANDC 05/24/2019 LAPS ABD PRTMANDOMENTUM DX W/WO SPEC BR/WA SPX Laparoscopy, infertility SIGMOIDOSCOPY FLX DX W/COLLJ SPEC BR/WA IF PFRMD 2002 Sigmoidoscopy, flexible TONSILLECTOMY AND ADENOIDECTOMY ALLERGIES Lisinopril MEDICATIONS Current Outpatient Medications Medication Sig amoxicillin-clavulana te potassium (AUGMENTIN) 875-125 mg per tablet Take 1 tablet by mouth two times a day for 10 days. losartan (COZAAR) 100 mg tablet Take 1 tablet by mouth once daily. cholecalciferol (VITAMIN D-3) 5,000 unit tab Take 5,000 Units by mouth once daily. No current facility-administered medications for this visit. FAMILY HISTORY Problem Relation Age of Onset Hypertension Mother Hypertension Father other (anorexia) Sister Hypertension Maternal Grandmother Hypertension Maternal Grandfather Heart Maternal Grandfather Colon Cancer Maternal Uncle other (Mitral Valve Prolapse) Other Mother and sister No Known Problems Daughter No Known Problems Daughter No Known Problems Daughter Social History Tobacco Use Smoking status: Never Smokeless tobacco: Never Vaping Use Vaping status: Never Used Substance Use Topics Alcohol use: No Drug use: No REVIEW OF SYSTEMS GENERAL: No weight loss, malaise or fevers/chills HEENT: + Sinus congestion/pressure, and ear pressure NECK: Negative for lumps, goiter, pain and significant neck swelling RESPIRATORY: + Cough CARDIOVASCULAR: Negative for chest pain, leg swelling, orthopnea, or palpitations GI: No nausea, vomiting, or diarrhea/constipation . No hematochezia/melena. No heartburn or reflux symptoms. : No history of dysuria, frequency or incontinence MUSCULOSKELETAL: Negative for joint pain or swelling. SKIN: Negative for lesions, rash, and itching ENDOCRINE: Negative for cold or heat intolerance, polyuria, polydipsia and goiter NEURO: No history of headaches, syncope, paralysis, seizures or tremors MOOD: Negative for depression, anxiety, or suicidal ideation. EXAM: BP 132/90 Pulse 97 Temp 37.2 ?C (99 ?F) (Tympanic) Resp 16 Wt 88.6 kg (195 lb 5.2 oz) LMP 02/03/2011 SpO2 97% BMI 33.24 kg/m? PHYSICAL EXAM: General Appearance: Ill appearing, alert, in no acute distress, well-hydrated, well nourished. Skin: Skin color, texture, turgor normal, no suspicious rashes or lesions. Head: Normocephalic, no masses, lesions, tenderness or abnormalities. Eyes: Anicteric sclera. Extraocular movements are intact. . Ears: Positive findings: cerumen on left, amount Moderate, removed with curette and ear lavage. Erythema and edema of ear canal: on left. Difficulty visualizing left TM. Right TM pearly winslow. Nose/Sinuses: Positive findings: mucosa swollen, pale, and boggy, frontal and maxillary sinus tenderness with palpation. Oropharynx: Li (more content not included)... Normal [facility] CNOVon 03-27-2024 CNOV Office Visit (ERUMWS ) FRANCISCO J EID ([id number]) 1960 F Date Time Provider Department 03/27/24 2:20 PM PODLOGARSHERYL During your visit today, we recorded the following information about you: Temperature Pulse Respiration Blood pressure 98.9 degrees 86/minute 18/minute 138/84 Weight 88.6 kg Sheryl Hermosillo APRN.CNP 03/27/2024 2:51 PM Signed 03/27/2024 Patient presents with: Cough: X3 weeks, with sinus headaches during cough SUBJECTIVE: This is a 63 year old that is here today for Above Complaints.. Reports cough for the past three weeks. Sometimes can be productive. Reports sinus pressure for the last week.Tried some mucinex OTC but didn't seem to help. Tried some Sudafed but it gave her a headache. Tried Tessalon Perles but didn't help. Has used some Flonase but yesterday had a small bloody nose. Seen in [facility] on 03/22/2024. Normal chest xray. Did not self test for COVID-19. Denies fevers, chills, loss of taste/smell, nasal congestion, rhinorrhea, sore throat, SOB, dyspnea, nausea, vomiting or diarrhea PAST MEDICAL HISTORY Diagnosis Date Arthritis Class 1 obesity due to excess calories without serious comorbidity with body mass index (BMI) of 33.0 to 33.9 in adult Essential hypertension Female infertility of other specified origin Glossodynia 04/09/2014 Hyperlipidemia LDL goal < 130 04/09/2014 Migraine, unspecified, with intractable migraine, so stated, without mention of status migrainosus Myalgia and myositis, unspecified resolved Postmenopausal bleeding 07/01 polpy. s/p hysteroscopy with polyp removal Sciatica of right side Trochanteric bursitis of right hip Unspecified hemorrhoids without mention of complication Hemorrhoids ALLERGIES Lisinopril MEDICATIONS Current Outpatient Medications Medication Sig Benzonatate 200 mg capsule Take 1 capsule by mouth every 8 hours as needed for cough for up to 7 days. losartan (COZAAR) 100 mg tablet Take 1 tablet by mouth once daily. cholecalciferol (VITAMIN D-3) 5,000 unit tab Take 5,000 Units by mouth once daily. No current facility-administered medications for this visit. Medications and allergies reviewed by this provider. SOCIAL HISTORY Social History Tobacco Use Smoking status: Never Smokeless tobacco: Never Vaping Use Vaping status: Never Used Substance Use Topics Alcohol use: No Drug use: No REVIEW OF SYSTEMS All other reviewed and negative other than HPI. OBJECTIVE: BP 138/84 Pulse 86 Temp 37.2 ?C (98.9 ?F) Resp 18 Wt 88.6 kg (195 lb 5.2 oz) LMP 02/03/2011 SpO2 97% BMI 33.24 kg/m? . Vital signs reviewed by this provider. APPEARANCE Well appearing, alert, in no acute distress, well-hydrated, well nourished. EYES conjunctiva and sclera normal. NOSE/SINUS TTP across forehead NECK Supple, no adenopathy; thyroid symmetric, normal size, no bruits HEART RRR with normal S1 and S2, no murmurs, no gallops, no JVD appreciated LUNG clear to auscultation. No wheezes rhonchi or rales SKIN Skin color, texture, turgor normal, no suspicious rashes or lesions to exposed skin Depression Screening Never done Anxiety Screening Never done BP Controlled (<130/80) Never done Shingrix Vaccine(1 of 2) Never done Bone Density Screening Never done Advance Directive Discussion Never done Pneumococcal Vaccine: 65+(1 of 1 - PCV) Never done Influenza Vaccine(1) due on 01/29/2024 Covid-19 Vaccine( - 2023- season) due on 01/29/2024 Mammogram Screening due on 08/02/2024 Annual PCP Team Chronic Disease Visit due on 10/09/2024 Diabetes Screening due on 10/13/2024 Lipid Screening due on 01/20/2026 DTaP,Tdap,Td Vaccine(2 - Td or Tdap) due on 03/28/2027 Colorectal Cancer Screening due on 09/25/2033 RSV Vaccine(1 - 1-dose 75+ series) due on 2033 Hepatitis C Screening Completed HIV Screening Completed Cervical Cancer Screening Discontinued ASSESSMENT/PLAN: 1. Sinus pressure - ICD9: 478.19, ICD10: J34.89 (primary diagnosis) - Will begin treatment with as per antibiotic as written, see orders - The patient should also be given nasal saline gtts and suction prn and coricidin for the first 5-7 days of treatment. - Supportive care with plenty of fluids, rest, and analgesia prn. - Follow up in 3-5 days if symptoms persist or worsen. - AMOXICILLIN 875 MG-POTASSIUM CLAVULANATE 125 MG TABLET 2. Acute cough - ICD9: 786.2, ICD10: R05.1 - likely post viral. Consider PND vs reflex - no red flag symptoms or exam findings - red flag symptoms discussed, verbalizes understanding - recommend OTC Coricidin for cough - follow-up if fails to resolve Sheryl Hermosillo APRN.PROGRAMMING COORDINATOR Prescription instructions reviewed with patient as applicable. Patient advised if symptoms do not improve or if symptoms worsen sooner, to contact their primary care physician. Potential red flag symptom (more content not included)... Normal [facility] CNPNon 03-23-2024 CNPN Telephone (UCWSTR) FRANCISCO J EID ([id number]) 1960 F Date Time Provider Department 03/23/24 BRIAN HOWARD [facility] During your visit today, we recorded the following information about you: Hao Steiner LPN 03/23/2024 1:28 PM Signed Pharmacy calling, they are out of Tessalon 100 mg. Asking if this can be switched to Tessalon 200mg due to them being completely out of the 100 mg dosing. Please advise. Jonas Muller MD 03/23/2024 2:56 PM Signed Rx sent. Allergies As of Date: 03/23/2024 Noted Allergy Reaction LISINOPRIL 04/08/2020 3 - Cough Date Reviewed: 03/22/2024 Reviewed by: Brian Howard APRN.CNP - Fully Assessed Reason for Visit: Medication Question [1478] Visit Diagnosis:Acute cough [R05.1] Order(s):[] Benzonatate 200 mg capsuleTake 1 capsule by mouth every 8 hours as needed for cough for up to 7 days.Disp: 21 capsuleRfl: 0 Prescriptions as of 12/13/2024 - atorvastatin (LIPITOR) 20 mg tablet Take 1 tablet by mouth once daily. - losartan (COZAAR) 100 mg tablet Take 1 tablet by mouth once daily. - cholecalciferol (VITAMIN D-3) 5,000 unit tab Take 5,000 Units by mouth once daily. Problem List As Of Date 03/23/2024 Noted Resolved Contact dermatitis and other eczema, due to uns*11/17/2006 02/23/2016 Dizziness and giddiness [R42] 05/18/2008 02/23/2016 Unspecified hearing loss [H91.90] 05/18/2008 02/23/2016 Hyperlipidemia with target LDL less than 130 [E*04/09/2014 Glossodynia [K14.6] 04/09/2014 02/23/2016 Subacute left lumbar radiculopathy [M54.16] 06/24/2015 07/27/2018 Sciatica, right side [M54.31] 02/22/2019 Trochanteric bursitis of right hip [M70.61] 02/22/2019 Elevated liver function tests [R79.89] 04/13/2020 Essential hypertension [I10] Postmenopausal bleeding [N95.0] 2018 Screening for colon cancer [Z12.11] 09/26/2023 Prescriptions ordered this encounter Disp Refills Start End BENZONATATE 200 MG CAPSULE 21 c* 0 03/23/2024 03/30/2024 Route: PO Sig: Take 1 capsule by mouth every 8 hours as needed for cough for up to 7 days. Medications Discontinued During This Encounter Prescriptions - benzonatate (TESSALON PERLES) 100 mg capsule (Discontinued) Take 1 capsule by mouth three times a day as needed for up to 12 doses. Encounter Status:Closed by HAO STEINER on 12/13/24 [facility] CNOVnew 03-22-2024 CNOV Office Visit (UCWSTR ) FRANCISCO J EID ([id number]) 1960 F Date Time Provider Department 03/22/24 11:45 AM BRIAN HOWARD [facility] During your visit today, we recorded the following information about you: Temperature Pulse Respiration Blood pressure 98.2 degrees 80/minute 16/minute 120/98 Weight 90.2 kg Brian Howard APRN.CNP 03/22/2024 1:20 PM Signed This note was created using [employer]. Subjective Francisco J Eid is a 63 year old female. HPI Pt has had a cough for the last 10 days. Review of Systems Constitutional: Positive for chills. Negative for fatigue and fever. HENT: Negative for congestion. Respiratory: Positive for cough. Objective BP 120/98 Pulse 80 Temp 36.8 ?C (98.2 ?F) (Left Tympanic) Resp 16 Wt 90.2 kg (198 lb 13.7 oz) LMP 02/03/2011 SpO2 98% BMI 33.85 kg/m? Physical Exam Vitals and nursing note reviewed. Constitutional: General: She is not in acute distress. Appearance: Normal appearance. She is not ill-appearing. HENT: Head: Normocephalic. Mouth/Throat: Mouth: Mucous membranes are moist. Eyes: Conjunctiva/sclera: Conjunctivae normal. Cardiovascular: Rate and Rhythm: Normal rate and regular rhythm. Pulmonary: Effort: Pulmonary effort is normal. Breath sounds: Normal breath sounds. Musculoskeletal: General: Normal range of motion. Cervical back: Normal range of motion. Skin: General: Skin is warm and dry. Neurological: General: No focal deficit present. Mental Status: She is alert. Psychiatric: Mood and Affect: Mood normal. Behavior: Behavior normal. Assessment and Plan ASSESSMENT/PLAN: 1. Acute cough - ICD9: 786.2, ICD10: R05.1 Chest x-ray unremarkable showing no sign of pneumonia. She was given Tessalon Perles for cough and will follow-up with PCP. - XR CHEST 2V FRONTAL/LAT - BENZONATATE 100 MG CAPSULE Brian Howard APRN.CNP Allergies As of Date: 03/22/2024 Noted Allergy Reaction LISINOPRIL 04/08/2020 3 - Cough Date Reviewed: 03/22/2024 Reviewed by: Brian Howard APRN.CNP - Fully Assessed Reason for Visit: Cough [28] Cmt: Dealing with this since March 12 - slight productive AND deep Primary Visit Diagnosis:Acute cough [R05.1] Order(s):XR CHEST 2V FRONTAL/LAT [[id number]] Order #: [id number] FUTURE benzonatate (TESSALON PERLES) 100 mg capsuleTake 1 capsule by mouth three times a day as needed for up to 12 doses.Disp: 12 capsuleRfl: 0 Prescriptions as of 03/22/2024 - benzonatate (TESSALON PERLES) 100 mg capsule Take 1 capsule by mouth three times a day as needed for up to 12 doses. - losartan (COZAAR) 100 mg tablet Take 1 tablet by mouth once daily. - cholecalciferol (VITAMIN D-3) 5,000 unit tab Take 5,000 Units by mouth once daily. Problem List As Of Date 03/22/2024 Noted Resolved Contact dermatitis and other eczema, due to uns*11/17/2006 02/23/2016 Dizziness and giddiness [R42] 05/18/2008 02/23/2016 Unspecified hearing loss [H91.90] 05/18/2008 02/23/2016 Hyperlipidemia with target LDL less than 130 [E*04/09/2014 Glossodynia [K14.6] 04/09/2014 02/23/2016 Subacute left lumbar radiculopathy [M54.16] 06/24/2015 07/27/2018 Sciatica, right side [M54.31] 02/22/2019 Trochanteric bursitis of right hip [M70.61] 02/22/2019 Elevated liver function tests [R79.89] 04/13/2020 Essential hypertension [I10] Postmenopausal bleeding [N95.0] 2018 Screening for colon cancer [Z12.11] 09/26/2023 Prescriptions ordered this encounter Disp Refills Start End BENZONATATE 100 MG CAPSULE 12 c* 0 03/22/2024 Route: ORAL Sig: Take 1 capsule by mouth three times a day as needed for up to 12 doses. Encounter Status:Closed by BRIAN HOWARD on 03/22/24 Normal [facility] XR CHEST 2V FRONTAL/LATon XR CHEST 2V FRONTAL/LAT * * *Final Repor t* * * DATE OF EXAM: Mar 22 2024 12:20PM WOX [id number] - XR CHEST 2V FRONTAL/LAT / PROCEDURE REASON: Acute cough * * * * Physician Interpretation * * * * EXAMINATION: CHEST RADIOGRAPH (2 VIEW FRONTAL and LATERAL) CLINICAL HISTORY: Acute cough MQ: XC2_6 EXAM DATE/TIME: 03/22/2024 12:20 PM COMPARISON: No relevant prior studies available. RESULT: Lines, tubes, and devices: None. Lungs and pleura: Small lung volume. No consolidation. No lung mass. No pleural effusion. No pneumothorax. Cardiomediastinal silhouette: Normal cardiomediastinal silhouette. Bones and soft tissues: There are degenerative changes in the spine. IMPRESSION: No acute radiographic abnormality. Rn Gyn: PSCB Transcribe Date/Time: Mar 22 2024 12:24P Dictated by : BOLIVAR TESFAYE MD This examination was interpreted and the report reviewed and electronically signed by: BOLIVAR TESFAYE MD on Mar 22 2024 12:28PM EST [id number] Normal [facility] XR Chest PA and Lateralon IMPRESSION: No acute radiographic abnormality. Rn Gyn: PSC Transcribe Date/Time: Mar 22 2024 12:24P Dictated by : BOLIVAR TESFAYE MD This examination was interpreted and the report reviewed and electronically signed by: BOLIVAR TESFAYE MD on Mar 22 2024 12:28PM EST DIVISION OF RADIOLOGY * * *Final Report* * * DATE OF EXAM: Mar 22 2024 12:20PM WOX [id number] - XR CHEST 2V FRONTAL/LAT / PROCEDURE REASON: Acute cough * * * * Physician Interpretation * * * * EXAMINATION: CHEST RADIOGRAPH (2 VIEW FRONTAL & LATERAL) CLINICAL HISTORY: Acute cough MQ: XC2_6 EXAM DATE/TIME: 03/22/2024 12:20 PM COMPARISON: No relevant prior studies available. RESULT: Lines, tubes, and devices: None. Lungs and pleura: Small lung volume. No consolidation. No lung mass. No pleural effusion. No pneumothorax. Cardiomediastinal silhouette: Normal cardiomediastinal silhouette. Bones and soft tissues: There are degenerative changes in the spine. DIVISION OF RADIOLOGY Provider, [facility] - 03/22/2024 * * *Final Report* * * DATE OF EXAM: Mar 22 2024 12:20PM WOX [id number] - XR CHEST 2V FRONTAL/LAT / PROCEDURE REASON: Acute cough * * * * Physician Interpretation * * * * EXAMINATION: CHEST RADIOGRAPH (2 VIEW FRONTAL & LATERAL) CLINICAL HISTORY: Acute cough MQ: XC2_6 EXAM DATE/TIME: 03/22/2024 12:20 PM COMPARISON: No relevant prior studies available. RESULT: Lines, tubes, and devices: None. Lungs and pleura: Small lung volume. No consolidation. No lung mass. No pleural effusion. No pneumothorax. Cardiomediastinal silhouette: Normal cardiomediastinal silhouette. Bones and soft tissues: There are degenerative changes in the spine. IMPRESSION IMPRESSION: No acute radiographic abnormality. Rn Gyn: PSCB Transcribe Date/Time: Mar 22 2024 12:24P Dictated by : BOLIVAR TESFAYE MD This examination was interpreted and the report reviewed and electronically signed by: BOLIVAR TESFAYE MD on Mar 22 2024 12:28PM [facility] Radiology Study observation (narrative) [facility] XR Chest PA and LateralOrder ed By: Ccf Provider on 03-22-2024 [facility] XR Foot - left AP and Latera l and obliqueon 10-12-2023 * * *Final Report* * * DATE OF EXAM: Oct 10 2023 10:28AM WOX [id number] - XR FOOT 3V AP/LAT/OBL LT / PROCEDURE REASON: Pain of toe of left foot * * * * Physician Interpretation * * * * FOOT RADIOGRAPHS - LEFT HISTORY: Pain of toe of left foot TECHNOLOGIST PROVIDED HISTORY (if applicable): pain only in left 4th toe for a few months, not able to bend toe no inj TECHNIQUE: XR FOOT 3V AP/LAT/OBL LT COMPARISON: Radiographs 10/30/2012 RESULT: Bone mineralization appears normal. Left foot: There is mild narrowing of the first metatarsal phalangeal joint with hallux valgus and bunion and interval progression. Remaining joint spaces appear preserved. There is no articular erosion or soft tissue swelling identified. Plantar and posterior calcaneal spurs DIVISION OF RADIOLOGY Provider, April Sullivan - 10/12/2023 * * *Final Report* * * DATE OF EXAM: Oct 10 2023 10:28AM WOX [id number] - XR FOOT 3V AP/LAT/OBL LT / PROCEDURE REASON: Pain of toe of left foot * * * * Physician Interpretation * * * * FOOT RADIOGRAPHS - LEFT HISTORY: Pain of toe of left foot TECHNOLOGIST PROVIDED HISTORY (if applicable): pain only in left 4th toe for a few months, not able to bend toe no inj TECHNIQUE: XR FOOT 3V AP/LAT/OBL LT COMPARISON: Radiographs 10/30/2012 RESULT: Bone mineralization appears normal. Left foot: There is mild narrowing of the first metatarsal phalangeal joint with hallux valgus and bunion and interval progression. Remaining joint spaces appear preserved. There is no articular erosion or soft tissue swelling identified. Plantar and posterior calcaneal spurs IMPRESSION IMPRESSION: 1. Interval progression of first MTP osteoarthritis with hallux valgus and bunion Rn Gyn: PSCB Transcribe Date/Time: Oct 12 2023 6:54P Dictated by : DEVENDRA EVANS MD This examination was interpreted and the report reviewed and electronically signed by: DEVENDRA EVANS MD on Oct 12 2023 6:55PM EST [facility] XR Foot - left AP and Latera l and obliqueOrdered By: Ccf Provider on 10-12-2023 [facility] XR Foot - left AP and Latera l and obliqueon 10-10-2023 Radiology Study observation (narrative) [facility] Colonoscopy Study observatio non 09-26-2023 Lexie [facility] Gastrointestinal Endoscopy Patient Name: Francisco J Eid Procedure Date: 09/26/2023 8:54 AM Date of : 1960 Admit Type: Outpatient Age: 62 Gender: Female Note Status: Finalized Procedure: Colonoscopy Indications: Screening for colorectal malignant neoplasm Providers: Rizwan Estrada MD Patient Profile: This is a 62 year old female. Refer to note in patient chart for documentation of history and physical. Last Colonoscopy: January 2013. Referring Physician: Sheryl (avi) Podlogar (Referring MD) Medicines: Fentanyl 100 micrograms IV, Midazolam 5 mg IV, Diphenhydramine 50 mg IV Complications: No immediate complications. Estimated blood loss: Minimal. Requesting Provider: Procedure: Pre-Anesthesia Assessment: - Prior to the procedure, a History and Physical was performed, and patient medications and allergies were reviewed. The patient's tolerance of previous anesthesia was also reviewed. The risks and benefits of the procedure and the sedation options and risks were discussed with the patient. All questions were answered, and informed consent was obtained. Prior Anticoagulants: The patient has taken no anticoagulant or antiplatelet agents. ASA Grade Assessment: II - A patient with mild systemic disease. After reviewing the risks and benefits, the patient was deemed in satisfactory condition to undergo the procedure. After I obtained informed consent, the scope was passed under direct vision. Throughout the procedure, the patient's blood pressure, pulse, and oxygen saturations were monitored continuously. The Colonoscope was introduced through the anus and advanced to 3 cm into the ileum. The colonoscopy was performed without difficulty. The patient tolerated the procedure well. The quality of the bowel preparation was good. The terminal ileum, ileocecal valve, appendiceal orifice, and rectum were photographed. Moderate Sedation: The administration of moderate sedation was initiated at 09:01 AM. Moderate (conscious) sedation was personally administered by the endoscopist. The following parameters were monitored: oxygen saturation, heart rate, blood pressure, respiratory rate, EKG, adequacy of pulmonary ventilation, and response to care. Total physician intraservice time was 16 minutes. Findings: The perianal and digital rectal examinations were normal. A small polyp was found in the sigmoid colon. The polyp was sessile. The polyp was removed with a cold snare. Resection and retrieval were complete. Non-bleeding internal hemorrhoids were found during retroflexion. The hemorrhoids were mild and small. Multiple small-mouthed diverticula were found in the sigmoid colon. The terminal ileum appeared normal. The exam was otherwise without abnormality. Impression: - One small polyp in the sigmoid colon, removed with a cold snare. Resected and retrieved. - Non-bleeding internal hemorrhoids. - Diverticulosis in the sigmoid colon. - The examined portion of the ileum was normal. - The examination was otherwise normal. Recommendation: - Patient has a contact number available for emergencies. The signs and symptoms of potential delayed complications were discussed with the patient. Return to normal activities tomorrow. Written discharge instructions were provided to the patient. - Resume previous diet. - Continue present medications. - Await pathology results. - Repeat colonoscopy in 5 years for surveillance. - Return to referring physician at appointment to be scheduled. Procedure Code(s): --- Professional --- 58863, Colonoscopy, flexible; with removal of tumor(s), polyp(s), or other lesion(s) by snare technique G0500, Moderate sedati (more content not included)... PROVATION [facility] Radiology Study observation (narrative) [facility] Breast Screeningon 2023 [facility] UA DIP, URINE (POC)on 2022 BILIRUBIN UA (POCT) Small Abnormal Negative [facility] CLARITY UA (POCT) Slightly Cloudy Cl [facility] COLOR UA (POCT) Red [facility] GLUCOSE UA (POCT) 100 mg/dL Abnormal Negative mg/dL [facility] HEMOGLOBIN/BLOOD UA (POCT) Moderate Abnormal Negative [facility] KETONE UA (POCT) Trace Negative mg/dL [facility] LEUKOCYTES UA (POCT) Large Abnormal Negative [facility] NITRITE UA (POCT) Positive Abnormal Negative [facility] PH UA (POCT) 5.0 4.5 - 8.0 [facility] Protein Ql (U) 100 mg/dL Abnormal Negative mg/dL [facility] SPECIFIC GRAVITY UA (POCT) 1.020 1.005 - 1.030 [facility] UROBILINOGEN UA (POCT) 4.0 E.U./dL Abnormal Mackenzie l E.U./dL [facility] Vital Signs Date Time Vital Sign Value Performing Clinician Faci lity 08-20-2024 09:34-0400 Body height 163.8 cm Laura Moralez MD Work Phone: [facility] 08-20-2024 09:34-0400 Body mass index (BMI) [Ratio] 32.79 kg/m2 Laura Moralez MD Work Phone: [facility] 08-20-2024 09:34-0400 Body weight 88 kg Laura Moralez MD Work Phone: [facility] 08-20-2024 09:34-0400 Diastolic blood pressure 86 mm[Hg] Laura Moralez MD Work Phone: [facility] 08-20-2024 09:34-0400 Systolic blood pressure 132 mm[Hg] Laura Moralez MD Work Phone: [facility] 08-13-2024 07:00-0400 Diastolic blood pressure 82 mm[Hg] Blanca Rodriguez PT [facility] 08-13-2024 07:00-0400 Heart rate 74 /min Blanca Rodriguez PT [facility] 08-13-2024 07:00-0400 Respiratory rate 95 /min Blanca Donell'Davis PT [facility] 08-13-2024 07:00-0400 Systolic blood pressure 139 mm[Hg] Blanca O'Davis PT [facility] 07-31-2024 08:00-0500 Body mass index (BMI) [Ratio] 33.5 kg/m2 Mari Jones MD Work Phone: [facility] 07-31-2024 08:00-0500 Body weight 89.27 kg Mari Jones MD Work Phone: [facility] 07-31-2024 08:00-0500 Diastolic blood pressure 86 mm[Hg] Mari Jones MD Work Phone: [facility] 07-31-2024 08:00-0500 Heart rate 81 /min Mari Jones MD Work Phone: [facility] 07-31-2024 08:00-0500 Respiratory rate 16 /min Mari Jones MD Work Phone: [facility] 07-31-2024 08:00-0500 SaO2% (BldA) [Mass fraction] 98 % Mari Jones MD Work Phone: [facility] 07-31-2024 08:00-0500 Systolic blood pressure 136 mm[Hg] Mari Jones MD Work Phone: [facility] 07-23-2024 08:38-0500 Body mass index (BMI) [Ratio] 33.56 kg/m2 Mari Jones MD Work Phone: [facility] 07-23-2024 08:38-0500 Body weight 89.45 kg Mari Jones MD Work Phone: [facility] 07-23-2024 08:38-0500 Diastolic blood pressure 84 mm[Hg] Mari Jones MD Work Phone: [facility] 07-23-2024 08:38-0500 Heart rate 81 /min Mari Jones MD Work Phone: [facility] 07-23-2024 08:38-0500 Respiratory rate 16 /min Mari Jones MD Work Phone: [facility] 07-23-2024 08:38-0500 SaO2% (BldA) [Mass fraction] 99 % Mari Jones MD Work Phone: [facility] 07-23-2024 08:38-0500 Systolic blood pressure 126 mm[Hg] Mari Jones MD Work Phone: [facility] 04-06-2024 08:54-0500 Body mass index (BMI) [Ratio] 33.24 kg/m2 Marcelina Robbins SUPERINTENDENT DIVISION.PROGRAMMING COORDINATOR Work Phone: [facility] 04-06-2024 08:54-0500 Body temperature 99 [degF] Marcelina Robbins SUPERINTENDENT DIV[employer].PROGRAMMING COORDINATOR Work Phone: [facility] 04-06-2024 08:54-0500 Body weight 88.6 kg Marcelina Robbins [employer]PER[employer]ENDENT [employer].PROGRAMMING COORDINATOR Work Phone: [facility] 04-06-2024 08:54-0500 Diastolic blood pressure 90 mm[Hg] Marcelina Lealhof [employer]PERINTENDENT DIV[employer].PROGRAMMING COORDINATOR Work Phone: [facility] 04-06-2024 08:54-0500 Heart rate 97 /min Marcelina Duenasf [employer]PER[employer]ENT DIV[employer].PROGRAMMING COORDINATOR Work Phone: [facility] 04-06-2024 08:54-0500 Respiratory rate 16 /min Marcelina Duenasf SUPER[employer]ENDENT DIV[employer].PROGRAMMING COORDINATOR Work Phone: [facility] 04-06-2024 08:54-0500 SaO2% (BldA) [Mass fraction] 97 % Marcelina Robbins [employer]PER[employer]ENT [employer].PROGRAMMING COORDINATOR Work Phone: [facility] 04-06-2024 08:54-0500 Systolic blood pressure 132 mm[Hg] Marcelina Lealhopeter [employer]PER[employer]ENDENT DIV[employer].PROGRAMMING COORDINATOR Work Phone: [facility] 03-27-2024 14:17-0400 Body mass index (BMI) [Ratio] 33.24 kg/m2 Sheryl Podlogar [employer].PROGRAMMING COORDINATOR Work Phone: [facility] 03-27-2024 14:17-0400 Body temperature 98.91 [degF] Sheryl Podlogar [employer]PER[employer]ENT [employer].PROGRAMMING COORDINATOR Work Phone: [facility] 03-27-2024 14:17-0400 Body weight 88.6 kg Sheryl Podlogar [employer]PER[employer]ENT [employer].PROGRAMMING COORDINATOR Work Phone: [facility] 03-27-2024 14:17-0400 Diastolic blood pressure 84 mm[Hg] Sheryl Podlogar [employer]PER[employer]ENDENT [employer].PROGRAMMING COORDINATOR Work Phone: [facility] 03-27-2024 14:17-0400 Heart rate 86 /min Sheryl Podlogar [employer]PER[employer]ENT [employer].PROGRAMMING COORDINATOR Work Phone: [facility] 03-27-2024 14:17-0400 Respiratory rate 18 /min Sheryl Podlogar [employer]PER[employer]ENT [employer].PROGRAMMING COORDINATOR Work Phone: [facility] 03-27-2024 14:17-0400 SaO2% (BldA) [Mass fraction] 97 % Sheryl Podlogar [employer]PER[employer]ENT [employer].PROGRAMMING COORDINATOR Work Phone: [facility] 03-27-2024 14:17-0400 Systolic blood pressure 138 mm[Hg] Sheryl Podlogar [employer]PER[employer]ENDENT DIV[employer].PROGRAMMING COORDINATOR Work Phone: [facility] 03-22-2024 11:37-0400 Body mass index (BMI) [Ratio] 33.85 kg/m2 Brian Moomaw [employer]PER[employer]ENT [employer].PROGRAMMING COORDINATOR Work Phone: [facility] 03-22-2024 11:37-0400 Body temperature 98.2 [degF] Brian Moomaw SUPERINTENDENT DIV[employer].PROGRAMMING COORDINATOR Work Phone: [facility] 03-22-2024 11:37-0400 Body weight 90.2 kg Brian Moomaw SUPERINTENDENT DIV[employer].PROGRAMMING COORDINATOR Work Phone: [facility] 03-22-2024 11:37-0400 Diastolic blood pressure 98 mm[Hg] Brian Moomaw SUPERINTENDENT DIV[employer].PROGRAMMING COORDINATOR Work Phone: [facility] 03-22-2024 11:37-0400 Heart rate 80 /min Brian Moomaw SUPERINTENDENT DIV[employer].PROGRAMMING COORDINATOR Work Phone: [facility] 03-22-2024 11:37-0400 Respiratory rate 16 /min Brian Moomaw SUPERINTENDENT DIV[employer].PROGRAMMING COORDINATOR Work Phone: [facility] 03-22-2024 11:37-0400 SaO2% (BldA) [Mass fraction] 98 % Brian Moomaw SUPERINTENDENT DIVISION.PROGRAMMING COORDINATOR Work Phone: [facility] 03-22-2024 11:37-0400 Systolic blood pressure 120 mm[Hg] Brian Moomaw SUPER[employer]ENDENT DIV[employer].PROGRAMMING COORDINATOR Work Phone: [facility] 10-10-2023 09:14-0400 Body mass index (BMI) [Ratio] 33.9 kg/m2 Sheryl Podlogar [employer]ENT [employer].PROGRAMMING COORDINATOR Work Phone: [facility] 10-10-2023 09:14-0400 Body weight 90.36 kg Sheryl Podlogar [employer]PER[employer]ENT [employer].PROGRAMMING COORDINATOR Work Phone: [facility] 10-10-2023 09:14-0400 Diastolic blood pressure 92 mm[Hg] Sheryl Podlogar [employer]PER[employer]ENT [employer].PROGRAMMING COORDINATOR Work Phone: [facility] 10-10-2023 09:14-0400 Heart rate 76 /min Sheryl Podlogar [employer]PER[employer]ENT [employer].PROGRAMMING COORDINATOR Work Phone: [facility] 10-10-2023 09:14-0400 Respiratory rate 16 /min Sheryl Podlogar [employer]PER[employer]ENT [employer].PROGRAMMING COORDINATOR Work Phone: [facility] 10-10-2023 09:14-0400 SaO2% (BldA) [Mass fraction] 96 % Sheryl Podlogar [employer]PER[employer]ENT [employer].PROGRAMMING COORDINATOR Work Phone: [facility] 10-10-2023 09:14-0400 Systolic blood pressure 146 mm[Hg] Hseryl Podlogar SUPERINTENDENT DIVISION.PROGRAMMING COORDINATOR Work Phone: [facility] 09-26-2023 09:32-0400 Diastolic blood pressure 72 mm[Hg] Rizwan Estrada MD Work Phone: [facility] 09-26-2023 09:32-0400 Heart rate 83 /min Rizwan Estrada MD Work Phone: [facility] 09-26-2023 09:32-0400 Respiratory rate 16 /min Rizwan Estrada MD Work Phone: [facility] 09-26-2023 09:32-0400 SaO2% (BldA) [Mass fraction] 97 % Rizwan Estrada MD Work Phone: [facility] 09-26-2023 09:32-0400 Systolic blood pressure 137 mm[Hg] Rizwan Estrada MD Work Phone: [facility] 09-26-2023 08:39-0400 Body temperature 97.3 [degF] Rizwan Estrada MD Work Phone: [facility] 09-16-2022 16:18-0400 Body temperature 98.91 [degF] Mari Jones MD Work Phone: [facility] 09-16-2022 16:18-0400 Diastolic blood pressure 70 mm[Hg] Mari Jones MD Work Phone: [facility] 09-16-2022 16:18-0400 Heart rate 96 /min Mari Jones MD Work Phone: [facility] 09-16-2022 16:18-0400 Respiratory rate 16 /min Mari Jones MD Work Phone: [facility] 09-16-2022 16:18-0400 SaO2% (BldA) [Mass fraction] 94 % Mari Jones MD Work Phone: [facility] 09-16-2022 16:18-0400 Systolic blood pressure 118 mm[Hg] Mari Jones MD Work Phone: [facility] 07-13-2022 12:38-0500 Body temperature 97.9 [degF] Jordan Hauser APRN.CNP Work Phone: [facility] 07-13-2022 12:38-0500 Body weight 88.45 kg Jordan Pendlebury [employer]PERINTENDENT DIV[employer].PROGRAMMING COORDINATOR Work Phone: [facility] 07-13-2022 12:38-0500 Diastolic blood pressure 74 mm[Hg] Jordan Pendlebury SUPERINTENDENT DIV[employer].PROGRAMMING COORDINATOR Work Phone: [facility] 07-13-2022 12:38-0500 Heart rate 76 /min Jordan Pendlebury SUPERINTENDENT DIVISION.PROGRAMMING COORDINATOR Work Phone: [facility] 07-13-2022 12:38-0500 Respiratory rate 16 /min Jordan Pendlebury SUPERINTENDENT DIVISION.PROGRAMMING COORDINATOR Work Phone: [facility] 07-13-2022 12:38-0500 SaO2% (BldA) [Mass fraction] 97 % Jordan Pendlebury SUPERINTENDENT DIVISION.PROGRAMMING COORDINATOR Work Phone: [facility] 07-13-2022 12:38-0500 Systolic blood pressure 122 mm[Hg] Jordan Pendlebury SUPERINTENDENT DIVISION.PROGRAMMING COORDINATOR Work Phone: [facility] 04-14-2022 08:40-0500 Diastolic blood pressure 87 mm[Hg] Sheryl Podlogar SUPERINTENDENT DIVISION.PROGRAMMING COORDINATOR Work Phone: [facility] 04-14-2022 08:40-0500 Heart rate 81 /min Sheryl Podlogar SUPERINTENDENT DIVISION.PROGRAMMING COORDINATOR Work Phone: [facility] 04-14-2022 08:40-0500 Systolic blood pressure 133 mm[Hg] Sheryl Podlogar SUPERINTENDENT DIVISION.PROGRAMMING COORDINATOR Work Phone: [facility] 04-14-2022 08:22-0500 Body weight 89 kg Sheryl Podlogar SUPERINTENDENT DIVISION.PROGRAMMING COORDINATOR Work Phone: [facility] 04-14-2022 08:22-0500 Respiratory rate 16 /min Sheryl Podlogar SUPERINTENDENT DIVISION.PROGRAMMING COORDINATOR Work Phone: [facility] 04-14-2022 08:22-0500 SaO2% (BldA) [Mass fraction] 96 % Sheryl Podlogar SUPERINTENDENT DIV[employer].PROGRAMMING COORDINATOR Work Phone: [facility] 11-12-2021 13:23-0400 Diastolic blood pressure 79 mm[Hg] Mi Nurse Work Phone: [facility] 11-12-2021 13:23-0400 Heart rate 75 /min Mi Nurse Work Phone: [facility] 11-12-2021 13:23-0400 Systolic blood pressure 119 mm[Hg] Mi Nurse Work Phone: [facility] 10-29-2021 15:44-0400 Diastolic blood pressure 93 mm[Hg] Mi Nurse Work Phone: [facility] 10-29-2021 15:44-0400 Heart rate 75 /min Mi Nurse Work Phone: [facility] 10-29-2021 15:44-0400 Systolic blood pressure 150 mm[Hg] Mi Nurse Work Phone: [facility] 10-13-2021 13:00-0400 Diastolic blood pressure 87 mm[Hg] Mi Nurse Work Phone: [facility] 10-13-2021 13:00-0400 Heart rate 73 /min Mi Nurse Work Phone: [facility] 10-13-2021 13:00-0400 Systolic blood pressure 142 mm[Hg] Mi Nurse Work Phone: [facility] 09-24-2021 17:27-0400 Diastolic blood pressure 98 mm[Hg] Mari Jones MD Work Phone: [facility] 09-24-2021 17:27-0400 Systolic blood pressure 142 mm[Hg] Mari Jones MD Work Phone: [facility] 09-24-2021 16:46-0400 Body temperature 98.49 [degF] Mari Jones MD Work Phone: [facility] 09-24-2021 16:46-0400 Body weight 88.63 kg Mari Jones MD Work Phone: [facility] 09-24-2021 16:46-0400 Heart rate 76 /min Mari Jones MD Work Phone: [facility] 09-24-2021 16:46-0400 Respiratory rate 16 /min Mari Jones MD Work Phone: [facility] 09-24-2021 16:46-0400 SaO2% (BldA) [Mass fraction] 97 % Mari Jones MD Work Phone: [facility] Encounters Encounter Date Encounter Type Care Provider Facility Start: 02-15-2025 End: 02-15-2025 ambulatory JIM FABIO Facility:[facility] Start: 02-15-2025 Encounter for other preprocedural examination JIM FABIO [facility] Start: 02-14-2025 Encounter for other preprocedural examination [facility] Start: 02-14-2025 Encounter for preprocedural cardiovascular examination [facility] Start: 02-01-2025 End: 02-01-2025 ambulatory Krishna Jones Facility:[facility] Start: 01-29-2025 End: 01-30-2025 Refill Mari Jones MD Work Phone: [facility] Comment on above: Refill Request Start: 01-22-2025 End: 01-22-2025 Follow-up encounter Mari Jones MD Work Phone: [facility] Comment on above: Results Start: 01-21-2025 End: 01-21-2025 ambulatory MARI JONES Facility:[facility] Start: 11-06-2024 ambulatory LAURA Pascual ity:[facility] Start: 11-06-2024 Encounter for gynecological examination (general) (routine) without abnormal findings LAURA MORALEZ [facility] Start: 11-06-2024 End: 11-06-2024 Patient encounter status Screen [facility] Start: 11-06-2024 End: 11-06-2024 Subsequent hospital visit by physician [facility] Comment on above: Encounter for gyneco logical examination (general) (routine) without abnormal findings [Z01.419] Start: 09-03-2024 End: 09-03-2024 Follow-up encounter Mari Jones MD Work Phone: [facility] Start: 09-03-2024 End: 09-03-2024 ambulatory MARI JONES Facility:[facility] Start: 09-03-2024 End: 09-03-2024 Subsequent hospital visit by physician [facility] Work Phone: Radiology Comment on above: Asymptomatic menopau se [Z78.0] Start: 08-29-2024 End: 10-29-2024 Follow-up encounter Laura Moralez MD Work Phone: OB/Gynecology Start: 08-20-2024 End: 08-20-2024 Patient encounter procedure Laura Moralez MD Work Phone: OB/Gynecology Comment on above: Encounter for screen ing for malignant neoplasm of cervix (Primary Dx); Encounter for gynecological examination (general) (routine) without abnormal findings; Encounter for screening mammogram for breast cancer Start: 08-20-2024 End: 08-20-2024 Patient encounter status Laura Moralez MD Work Phone: [facility] Start: 08-20-2024 End: 08-20-2024 ambulatory Blanca O'Davis PT [facility] Physical Therapy Comment on above: BPPV (benign paroxys mal positional vertigo), unspecified laterality (Primary Dx) Start: 08-13-2024 End: 08-13-2024 ambulatory Blanca O'Davis PT [place] [facility] Physical [facility] Comment on above: BPPV (benign paroxys mal positional vertigo), unspecified laterality (Primary Dx) Start: 07-31-2024 End: 07-31-2024 ambulatory MARI JONES Facility:[facility] Start: 07-31-2024 End: 07-31-2024 Patient encounter procedure Mari Jones MD Work Phone: [facility] Comment on above: Hyperlipidemia with target low density lipoprotein (LDL) cholesterol less than 130 mg/dL (Primary Dx) Start: 07-27-2024 End: 07-27-2024 Telephone encounter Mari Jones MD Work Phone: [facility] [place] Comment on above: Patient Question Start: 07-24-2024 End: 07-25-2024 Follow-up encounter Mari Jones MD Work Phone: [facility] [place] Start: 07-23-2024 End: 07-23-2024 ambulatory MARI JONES Facility:[facility] Start: 07-23-2024 End: 07-23-2024 Patient encounter procedure Mari Jones MD Work Phone: [facility] [place] Comment on above: Hypertension, essent ial (Primary Dx); BPPV (benign paroxysmal positional vertigo), unspecified laterality; Elevated liver function tests; Hyperlipidemia with target LDL less than 130; Class 1 obesity with body mass index (BMI) of 33.0 to 33.9 in adult, unspecified obesity type, unspecified whether serious comorbidity present; Migraine without aura and without status migrainosus, not intractable; Screening mammogram for breast cancer; Asymptomatic menopause Start: 07-05-2024 End: 07-06-2024 Refill Sheryl Hermosillo APRN.CNP Work Phone: [facility] [place] Comment on above: Refill Request Start: 04-10-2024 End: 04-10-2024 ambulatory Marcelina Robbins APRN.PROGRAMMING COORDINATOR Work Phone: [facility] [place] Comment on above: Reconsider Start: 04-09-2024 End: 04-09-2024 ambulatory Marcelina Robbins APRN.PROGRAMMING COORDINATOR Work Phone: [facility] [place] Comment on above: Update Start: 04-06-2024 End: 04-06-2024 Patient encounter procedure Marcelina Robbins APRN.AVI Work Phone: [facility] [place] Comment on above: Sinobronchitis (Prim nazia Dx); Acute otitis externa of left ear, unspecified type; Impacted cerumen of left ear Start: 04-06-2024 End: 04-06-2024 ambulatory MARCELINA ROBBINS Facility:[facility] Start: 04-04-2024 End: 04-04-2024 ambulatory Sheryl Podlogar [employer]PER[employer]ENT [employer].PROGRAMMING COORDINATOR Work Phone: [facility] [place] Comment on above: Meds Start: 03-27-2024 End: 03-27-2024 Patient encounter procedure Sheryl Podlogar SUPERINTENDENT DIVISION.PROGRAMMING COORDINATOR Work Phone: [facility] [place] Comment on above: Sinus pressure (Prim nazia Dx); Acute cough Start: 03-27-2024 End: 03-27-2024 ambulatory SHERYL PODLOGAR Facility:[facility] Start: 03-23-2024 End: 12-13-2024 Telephone encounter Brian Ayalaromainkamala SUPER[employer]ENT DIV[employer].PROGRAMMING COORDINATOR Work Phone: [place] Comment on above: Medication Question Start: 03-22-2024 End: 03-22-2024 Subsequent hospital visit by physician [facility] Work Phone: Radiology Comment on above: Acute cough [R05.1] Start: 03-22-2024 End: 03-22-2024 ambulatory MARI JONES Facility:[facility] Start: 03-22-2024 End: 03-22-2024 Patient encounter procedure Brian Howard SUPERINTENDENT DIVISION.PROGRAMMING COORDINATOR Work Phone: [facility] Comment on above: Acute cough (Primary Dx) Start: 10-25-2023 End: 10-25-2023 Patient encounter procedure Warren Estephania Work Phone: Podiatry Comment on above: Hallux valgus of lef t foot (Primary Dx); Pain of toe of left foot; Hallux rigidus of left foot; Hammer toe of left foot; Callus of foot; Diminished pulses in lower extremity Start: 10-10-2023 End: 10-10-2023 Subsequent hospital visit by physician [facility] [place] Work Phone: Radiology Comment on above: Pain of toe of left foot [M79.675] Start: 10-10-2023 End: 10-10-2023 Patient encounter procedure Sheryl Podlogar SUPERINTENDENT DIVISION.PROGRAMMING COORDINATOR Work Phone: [facility] [place] Comment on above: Pain of toe of left foot (Primary Dx); Hypertension, essential Start: 10-03-2023 ambulatory Sheryl Podlogar SUPERINTENDENT DIVISION.PROGRAMMING COORDINATOR Work Phone: Family Medicine [place] Comment on above: Test Results Start: 09-26-2023 End: 09-26-2023 Subsequent hospital visit by physician Rizwan Estrada MD Work Phone: Ambulatory Surgery Comment on above: Screening for colon cancer [Z12.11] Start: 08-03-2023 Documentation procedure Mammog gm Coordinator [facility] Start: 08-03-2023 Letter encounter Mammography Coordinator [facility] Department Start: 08-03-2023 Telephone encounter Sheryl ramos [employer]PERINTENDENT DIVISION.PROGRAMMING COORDINATOR Work Phone: [facility] [place] Comment on above: Results Start: 08-03-2023 End: 08-03-2023 Subsequent hospital visit by physician [facility] Comment on above: Encounter for screen ing mammogram for breast cancer [Z12.31] Start: 03-07-2023 Refill Sheryl Podlogar SUPERINTENDENT DIVISION.PROGRAMMING COORDINATOR Work Phone: [facility] [place] Comment on above: Refill Request Start: 09-16-2022 End: 09-16-2022 Patient encounter procedure Mari Jones MD Work Phone: Family [facility] [place] Comment on above: Acute cystitis witho ut hematuria (Primary Dx) Start: 09-16-2022 ambulatory Mari Jones MD Work Phone: Family [facility] [place] Comment on above: UTI Start: 09-10-2022 Refill Sheryl Hermosillo SUPERINTENDENT DIVISION.PROGRAMMING COORDINATOR Work Phone: Family [facility] [place] Comment on above: Refill Request Start: 07-13-2022 End: 07-13-2022 Office outpatient visit 25 minutes Jordan Hauser SUPERINTENDENT DIVISION.PROGRAMMING COORDINATOR Work Phone: [place] [facility] Comment on above: Bacterial sinusitis (Primary Dx) Start: 06-08-2022 Refill Mari Jones MD Work Phone: Family [facility] [place] Comment on above: Refill Request Start: 05-31-2022 Documentation procedure Mammog gm Coordinator [facility] Start: 05-31-2022 Letter encounter Mammography Coordinator [facility] Department Start: 04-14-2022 End: 04-14-2022 Patient encounter procedure Sheryl Bay MAURO Work Phone: [facility] [place] Comment on above: Essential hypertensi on (Primary Dx) Start: 03-08-2022 Refill Mari Jones MD Work Phone: [facility] [place] Comment on above: Refill Request Start: 02-24-2022 ambulatory Mari Jones MD Work Phone: [facility] [place] Start: 11-12-2021 Telephone encounter Krishna Jones MD Work Phone: [facility] [place] Comment on above: Blood Pressure Check Start: 11-12-2021 End: 11-12-2021 Nursing evaluation of patient and report Mi Nurse Work Phone: [facility] [place] Comment on above: Hypertension, essent ial (Primary Dx) Start: 10-29-2021 End: 10-29-2021 Nursing evaluation of patient and report Mi Nurse Work Phone: [facility] [place] Comment on above: Hypertension, essent ial (Primary Dx) Start: 10-29-2021 Telephone encounter Krishna Jones MD Work Phone: [facility] [place] Comment on above: Blood Pressure Check Start: 10-13-2021 Telephone encounter Krishna Jones MD Work Phone: [facility] [place] Comment on above: Blood Pressure Check Start: 10-13-2021 End: 10-13-2021 Nursing evaluation of patient and report Mi Nurse Work Phone: [facility] [place] Comment on above: Essential hypertensi on (Primary Dx) Start: 09-24-2021 End: 09-24-2021 Patient encounter procedure Mari Jones MD Work Phone: [facility] [place] Comment on above: Grief reaction (Prim nazia Dx); Essential hypertension; Hyperlipidemia with target LDL less than 130; Elevated liver function tests; Hair loss; Screening for HIV (human immunodeficiency virus) Procedures Date Procedure Procedure Detail Performing Clinician Start: 01-21-2025 Lipid 1996 panel - S jay jay or Plasma Mari Jones MD Work Phone: Start: 09-03-2024 BD DXA TRABECULAR DAWNA NE SCORE (TBS) Mari Jones MD Work Phone: Start: 09-03-2024 Dxa bone density scooter dy 1/> sites axial skel Mari Jones MD Work Phone: Start: 07-23-2024 Lipid 1996 panel - S jay jay or Plasma Mari Jones MD Work Phone: Start: 03-22-2024 Radiologic exam ches t 2 views Brian Moomaw SUPERINTENDENT DIVISION.PROGRAMMING COORDINATOR Work Phone: Start: 10-10-2023 Radex foot complete minimum 3 views Sheryl Podlogar SUPERINTENDENT DIVISION.PROGRAMMING COORDINATOR Work Phone: Start: 09-26-2023 Colonoscopy flx dx w/collj spec when pfrmd Sheryl Podlogar SUPERINTENDENT DIVISION.PROGRAMMING COORDINATOR Work Phone: Start: 09-26-2023 Colonoscopy Rizwan martinez MD Work Phone: Start: 08-03-2023 Screening mammograph y bi 2-view breast inc cad Sheryl Podlogar SUPERINTENDENT DIVISION.PROGRAMMING COORDINATOR Work Phone: Start: 09-16-2022 Urnls dip stick/tabl et rgnt auto w/o microscopy Mari Jones MD Work Phone: Start: 05-27-2022 Mammography Mammograph y Coordinator Start: 01-20-2021 Lipid 1996 panel - S jay jay or Plasma Sheryl Podlogar SUPERINTENDENT DIVISION.PROGRAMMING COORDINATOR Work Phone: Start: 01-19-2021 Adult depression screening assessment Mari Jones MD Work Phone: Start: 05-20-2020 Mammography Krishna Jones MD Work Phone: Start: 02-05-2013 Colonoscopy Krishna Jones MD Work Phone: Plan of Treatment Date Care Activity Detail Author Start: 2033 RSV Vaccine (1 - 1-d ose 75+ series) RSV Vaccine (1 - 1-dose 75+ series) [facility] Start: 09-25-2033 Screening for malign ant neoplasm of colon [facility] Start: 01-21-2030 Lipid panel Lipid Screening [facility] Start: 07-23-2029 Lipid panel Lipid Screening [facility] Start: 07-23-2027 Diabetes Screening Diabetes Screenin g [facility] Start: 03-28-2027 Urine microalbumin profile [facility] Start: 01-20-2026 Lipid 1996 panel - Serum or Plasma Lipid Screening [facility] Start: 01-20-2026 Lipid panel Lipid Screening [facility] Start: 01-20-2026 LIPID SCREEN LIPID SCREEN [facility] Start: 11-06-2025 Screening for malign ant neoplasm of breast Mammogram Screening [facility] Start: 08-26-2025 End: 08-26-2025 Patient encounter procedure 08/26/2025 8:40 AM EDT Office Visit OB/Gynecology [address] [place], [place] [id number] Laura Moralez MD [address] [place], [place] [id number] Breast exam/ pelvic exam [facility]/Gynecology Comment on above: Breast exam/ pelvic exam Start: 07-31-2025 Annual PCP Team Marketing Finance Manager jovani Disease Visit Annual PCP Team Chronic Disease Visit [facility] Start: 07-23-2025 Annual PCP Team Marketing Finance Manager jovani Disease Visit Annual PCP Team Chronic Disease Visit [facility] Start: 07-23-2025 Covid-19 Vaccine ( season) Covid-19 Vaccine ( season) [facility] Comment on above: Postponed from 01/28 (Declined at this time) Start: 07-23-2025 Pneumococcal Vaccine : 50+ (1 of 1 - PCV) Pneumococcal Vaccine: 50+ (1 of 1 - PCV) [facility] Comment on above: Postponed from 10/08 (Declined at this time) Start: 07-23-2025 Shingrix Vaccine (1 of 2) Shingrix Vaccine (1 of 2) [facility] Comment on above: Postponed from 10/08 (Declined at this time) Start: 04-06-2025 Annual PCP Team Marketing Finance Manager jovani Disease Visit Annual PCP Team Chronic Disease Visit [facility] Start: 03-27-2025 Annual PCP Team Marketing Finance Manager jovani Disease Visit Annual PCP Team Chronic Disease Visit [facility] Start: 02-28-2025 ambulatory Ambulatory Facility:[facility] Start: 02-15-2025 End: 02-15-2025 Patient encounter procedure 02/15/2025 1:20 PM EDT Office Visit [facility] [address] [place], [place] [phone] Jim Mccarthy APRN.PROGRAMMING COORDINATOR [address] [place], [place] [id number] PRE OP SURG Feb [facility] Comment on above: PRE OP SURG Feb Start: 01-28-2025 Influenza vaccination [facility] Start: 11-26-2024 Influenza vaccination Influenza Vacc ine (#1) [facility] Comment on above: Postponed from 01/28 (Declined at this time) Start: 11-06-2024 End: 11-06-2024 Patient encounter procedure 11/06/2024 7:50 AM EDT Appointment Mammogram [address] [place], [place] [phone] Mammogram Start: 10-31-2024 End: 01-30-2025 Lipid 1996 panel - Serum or Plasma LIPID PANEL BASIC Lab Routine Hyperlipidemia with target low density lipoprotein (LDL) cholesterol less than 130 mg/dL Expected: 10/31/2024, Expires: 01/30/2025 [facility] Work Phone: Comment on above: Expected: 10/31/2024 , Expires: 01/30/2025 Start: 10-13-2024 DIABETES SCREEN DIABETES SCREEN [facility] Start: 10-13-2024 Diabetes Screening Diabetes Screenin g [facility] Start: 10-09-2024 Annual PCP Team Marketing Finance Manager jovani Disease Visit Annual PCP Team Chronic Disease Visit [facility] Start: 09-10-2024 End: 09-10-2024 ambulatory 09/10/2024 8:45 AM EDT OT/PT/Speech Visit [facility] [address] [place] [address] OBlanca Glover PT H81.10 (ICD-10-CM) - BPPV (benign paroxysmal positional vertigo), unspecified laterality [facility] Comment on above: H81.10 (ICD-10-CM) - BPPV (benign paroxysmal positional vertigo), unspecified laterality Start: 09-03-2024 End: 09-03-2024 ambulatory 09/03/2024 10:15 AM EDT OT/PT/Speech Visit [facility] [address] [place] [address] Blanca Rodriguez, PT H81.10 (ICD-10-CM) - BPPV (benign paroxysmal positional vertigo), unspecified laterality [facility] Comment on above: H81.10 (ICD-10-CM) - BPPV (benign paroxysmal positional vertigo), unspecified laterality Start: 09-03-2024 End: 09-03-2024 Patient encounter procedure 09/03/2024 8:55 AM EDT Appointment Radiology [address] [place] [id number] Asymptomatic menopause [Z78.0] Radiology Comment on above: Asymptomatic menopau se [Z78.0] Start: 08-27-2024 End: 08-27-2024 ambulatory 08/27/2024 10:15 AM EDT OT/PT/Speech Visit [facility] [address] [place] [address] O'Blanca Cannon, PT H81.10 (ICD-10-CM) - BPPV (benign paroxysmal positional vertigo), unspecified laterality [facility] Comment on above: H81.10 (ICD-10-CM) - BPPV (benign paroxysmal positional vertigo), unspecified laterality Start: 08-20-2024 End: 08-20-2024 Patient encounter procedure 08/20/2024 9:40 AM EDT Office Visit OB/Gynecology [address] [place] [address] Laura Moralez MD [address] [place] [address] annual OB/Gynecology Comment on above: annual Start: 08-20-2024 End: 08-20-2024 ambulatory 08/20/2024 8:45 AM EDT OT/PT/Speech Visit [facility] [address] [place] [address] Blanca Rodriguez, PT H81.10 (ICD-10-CM) - BPPV (benign paroxysmal positional vertigo), unspecified laterality [facility] Comment on above: H81.10 (ICD-10-CM) - BPPV (benign paroxysmal positional vertigo), unspecified laterality Start: 08-13-2024 End: 08-13-2024 Patient encounter procedure 08/13/2024 8:00 AM EDT OT/PT/Speech Visit [facility] [address] [place] [address] Blanca Rodriguez, PT consult [facility] Comment on above: consult Start: 08-02-2024 Screening for malign ant neoplasm of breast Mammogram Screening [facility] Start: 07-31-2024 End: 07-31-2024 Patient encounter procedure 07/31/2024 8:00 AM EST Office Visit [facility] [address] [place] [address] Mari Jones MD [address] [facility] [place] [address] Blood test results [facility] [place] Comment on above: Blood test results Start: 06-21-2024 Annual PCP Team Marketing Finance Manager jovani Disease Visit Annual PCP Team Chronic Disease Visit [facility] Start: 06-21-2024 Covid-19 Vaccine () Covid-19 Vaccine () [facility] Comment on above: Postponed from 01/28 (Declined at this time) Start: 05-30-2024 Advance Directive Discussion Advance Directive Discussion [facility] Start: 01-29-2024 Covid-19 Vaccine ( season) Covid-19 Vaccine () [facility] Start: 01-29-2024 Covid-19 Vaccine () Covid-19 Vaccine () [facility] Start: 01-29-2024 Influenza vaccination C [facility] Start: 01-21-2024 DIABETES SCREEN DIABETES SCREEN [facility] Start: 11-27-2023 Influenza vaccination Influenza Vacc ine (#1) [facility] Comment on above: Postponed from 01/28 (Declined at this time) Start: 11-15-2023 End: 11-15-2023 Patient encounter procedure 11/15/2023 3:30 PM EDT Office Visit Vasculary Surgery [address] [place] [address] Hallux valgus of left foot [M20.12] [facility] Comment on above: Hallux valgus of lef t foot [M20.12] Start: 10-25-2023 End: 01-24-2024 25-hydroxyvitamin D3 [Mass/volume] in Serum or Plasma [facility] Comment on above: Expected: 10/25/2023 , Expires: 01/24/2024 Start: 10-09-2023 Advance Directive Discussion Advance Directive Discussion [facility] Start: 10-09-2023 Pneumococcal Vaccine : 65+ (1 of 1 - PCV) Pneumococcal Vaccine: 65+ (1 of 1 - PCV) [facility] Start: 10-09-2023 Screening for osteoporosis Bone Density Screening [facility] Start: 09-28-2023 Medicare Annual Wellness Visit Medicare Annual Wellness Visit [facility] Start: 09-17-2023 ANNUAL PCP TEAM WAIST PLEATER JOVANI DISEASE VISIT ANNUAL PCP TEAM CHRONIC DISEASE VISIT [facility] Start: 09-17-2023 BP CONTROLLED (<130/80) BP CONTROLLE D (<130/80) [facility] Start: 07-13-2023 BP CONTROLLED (<130/80) BP CONTROLLE D (<130/80) [facility] Start: 05-30-2023 Behavioral Health Screening Behavioral Health Screening [facility] Start: 12-29-2023 Mammography [facility] Start: 04-14-2023 ANNUAL PCP TEAM WAIST PLEATER JOVANI DISEASE VISIT ANNUAL PCP TEAM CHRONIC DISEASE VISIT [facility] Start: 02-05-2023 Colonoscopy COLONOSCOPY [facility] Start: 02-05-2023 COLORECTAL CANCER SCREENING COLORECTAL CANCER SCREENING [facility] Start: 02-05-2023 Screening for malign ant neoplasm of colon [facility] Start: 01-28-2023 Covid-19 Vaccine () Covid-19 Vaccine () [facility] Start: 01-28-2023 Influenza vaccination C [facility] Start: 11-26-2022 Influenza vaccination INFLUENZA (#1) [facility] Comment on above: Postponed from 01/28 (Declined at this time) Start: 11-12-2022 BP CONTROLLED (<130/80) BP CONTROLLE D (<130/80) [facility] Start: 09-24-2022 ANNUAL PCP TEAM WAIST PLEATER JOVANI DISEASE VISIT ANNUAL PCP TEAM CHRONIC DISEASE VISIT [facility] Start: 05-30-2022 DEPRESSION ASSESSMENT DEPRESSION ASS ESSMENT [facility] Start: 03-24-2022 FECAL OCCULT BLOOD FECAL OCCULT BLOO D [facility] Start: 03-24-2022 Screening for malign ant neoplasm of colon Fecal Occult Blood [facility] Start: 01-28-2022 Influenza vaccination [facility] Start: 01-19-2022 Adult depression screening assessment DEPRESSION SCREENING [facility] Start: 09-24-2021 End: 11-24-2021 CBC panel - Blood by Automated count CBC Lab Routine Hair loss Expected: 09/24/2021, Expires: 11/24/2021 [facility] Work Phone: Comment on above: Expected: 09/24/2021 , Expires: 11/24/2021 Start: 09-24-2021 End: 11-24-2021 Comprehensive metabolic 2000 panel - Serum or Plasma COMP METABOLIC PANEL Lab Routine Elevated liver function tests Expected: 09/24/2021, Expires: 11/24/2021 [facility] Work Phone: Comment on above: Expected: 09/24/2021 , Expires: 11/24/2021 Start: 09-24-2021 End: 11-24-2021 FERRITIN BLD FERRITIN BLD Lab Routine Hair loss Expected: 09/24/2021, Expires: 11/24/2021 [facility] Work Phone: Comment on above: Expected: 09/24/2021 , Expires: 11/24/2021 Start: 09-24-2021 End: 11-24-2021 HIV 1+2 Ab [Presence] in Serum or Plasma by Immunoassay HIV 1 2 COMBO(AG/AB),WITH REFLEX TO DIFFERENTIATION Lab Routine Screening for HIV (human immunodeficiency virus) Expected: 09/24/2021, Expires: 11/24/2021 [facility] Work Phone: Comment on above: Expected: 09/24/2021 , Expires: 11/24/2021 Start: 09-24-2021 End: 11-24-2021 IRON + TIBC IRON + TIBC Lab Routine Hair loss Expected: 09/24/2021, Expires: 11/24/2021 [facility] Work Phone: Comment on above: Expected: 09/24/2021 , Expires: 11/24/2021 Start: 09-24-2021 End: 11-24-2021 Thyrotropin [Units/volume] in Serum or Plasma TSH BLD Lab Routine Hair loss Expected: 09/24/2021, Expires: 11/24/2021 [facility] Work Phone: Comment on above: Expected: 09/24/2021 , Expires: 11/24/2021 Start: 08-31-2021 COVID-19 VACCINE (4 - Booster for Moderna series) COVID-19 VACCINE (4 - Booster for Moderna series) [facility] Start: 08-23-2021 HPV TESTING HPV TESTING [facility] Start: 08-23-2021 PAP TESTING PAP TESTING [facility] Start: 08-23-2021 Screening for malign ant neoplasm of cervix [facility] Start: 06-27-2021 COVID-19 VACCINE (4 - Booster for Moderna series) COVID-19 VACCINE (4 - Booster for Moderna series) [facility] Start: 05-30-2021 DEPRESSION ASSESSMENT DEPRESSION ASS ESSMENT [facility] Start: 05-20-2021 Mammography MAMMOGRAM [facility] Start: 2018 RSV Vaccine (1 - 1-d ose 60+ series) RSV Vaccine (1 - 1-dose 60+ series) [facility] Start: 2008 Pneumococcal Vaccine : 50+ (1 of 1 - PCV) Pneumococcal Vaccine: 50+ (1 of 1 - PCV) [facility] Start: 2008 SHINGRIX VACCINE (1 of 2) SHINGRIX VACCINE (1 of 2) [facility] Start: 10-09-2003 COLOGUARD (FIT-DNA) COLOGUARD (FIT-D NA) [facility] Start: 10-09-[address] COLONOGRAPHY [facility] Start: 10-09-2003 Screening for malign ant neoplasm of colon [facility] Start: 10-09-2003 SIGMOIDOSCOPY SIGMOIDOSCOPY [facility] Start: 1976 Anxiety Screening Anxiety Screening [facility] Start: 1976 BP CONTROLLED (<130/80) BP CONTROLLE D (<130/80) [facility] Start: 1976 Depression Screening Depression Scre ening [facility] Start: 1976 HIV SCREENING HIV SCREENING [facility] Start: 1976 zzBP Controlled (<130/80) (Retired) zzBP Controlled (<130/80) (Retired) [facility] Bacteria identified in Urine by Culture URINE CULTURE Microbiology Routine Acute cystitis without hematuria 09/16/2022 4:36 PM EDT [facility] Work Phone: End: 08-22-2025 BD DXA TRABECULAR BONE SCORE (TBS) BD DXA TRABECULAR BONE SCORE (TBS) Radiology Routine Asymptomatic menopause 1 Occurrences starting 07/23/2024 until 08/22/2025 [facility] Comment on above: 1 Occurrences starti ng 07/23/2024 until 08/22/2025 End: 09-19-2025 DBT Breast - bilateral screening KEILA SCREENING W HARVINDER Radiology Routine Encounter for gynecological examination (general) (routine) without abnormal findings Encounter for screening mammogram for breast cancer 1 Occurrences starting 08/20/2024 until 09/19/2025 [facility] Work Phone: Comment on above: 1 Occurrences starti ng 08/20/2024 until 09/19/2025 DBT Breast - bilater al screening KEILA SCREENING W HARVINDER Radiology Routine Encounter for gynecological examination (general) (routine) without abnormal findings Encounter for screening mammogram for breast cancer 11/06/2024 8:29 AM EDT [facility] Work Phone: End: 08-22-2025 DXA Skeletal system.axial Views for bone density DXA-AXIAL SKELETON Radiology Routine Asymptomatic menopause 1 Occurrences starting 07/23/2024 until 08/22/2025 [facility] Comment on above: 1 Occurrences starti ng 07/23/2024 until 08/22/2025 End: 08-22-2025 MG Breast Screening KEILA SCREENING Radiology Routine Screening mammogram for breast cancer 1 Occurrences starting 07/23/2024 until 08/22/2025 [facility] Work Phone: Comment on above: 1 Occurrences starti ng 07/23/2024 until 08/22/2025 PAP TEST PAP TEST Lab Nury russell Encounter for screening for malignant neoplasm of cervix Ordered: 08/20/2024 [facility] Comment on above: Ordered: 08/20/2024 End: 03-26-2023 Screening mammography bi 2-view breast inc cad KEILA SCREENING Radiology Routine Encounter for screening mammogram for breast cancer 1 Occurrences starting 02/24/2022 until 03/26/2023 [facility] Work Phone: Comment on above: 1 Occurrences starti ng 02/24/2022 until 03/26/2023 SURGICAL PATHOLOGY [facility] Work Phone: Comment on above: Release Upon Yasminin g for 1 Occurrences starting 09/26/2023, 1 completed End: 10-24-2024 US.doppler Extremity arteries - bilateral for physiologic artery study PVR ANK PR[facility] V[facility] Lab Routine Hallux valgus of left foot Hallux rigidus of left foot Hammer toe of left foot Diminished pulses in lower extremity 1 Occurrences starting 10/25/2023 until 10/24/2024 [facility] Work Phone: Comment on above: 1 Occurrences starti ng 10/25/2023 until 10/24/2024 End: 05-06-2025 XR Chest PA and Lateral XR CHEST 2V FRONTAL/LAT Radiology STAT Sinobronchitis 1 Occurrences starting 04/06/2024 until 05/06/2025 [facility] Work Phone: Comment on above: 1 Occurrences starti ng 04/06/2024 until 05/06/2025 End: 11-08-2024 XR Foot - left AP and Lateral and oblique XR FOOT GENERAL 3V AP/LAT/OBL LEFT Radiology Routine Pain of toe of left foot 1 Occurrences starting 10/10/2023 until 11/08/2024 [facility] Work Phone: Comment on above: 1 Occurrences starti ng 10/10/2023 until 11/08/2024 XR Foot - left AP an d Lateral and oblique XR FOOT GENERAL 3V AP/LAT/OBL LEFT Radiology Routine Pain of toe of left foot 10/10/2023 10:28 AM EDT [facility] Immunizations Immunization Date Immunization Notes Care Provider [facility] 09-11-2020 COVID-19 vaccine, fu ll dose (MODERNA) Mari Jones MD Work Phone: [facility] 08-14-2020 COVID-19 vaccine, fu ll dose (MODERNA) Mari Jones MD Work Phone: [facility] 02-22-2019 influenza virus vaccine, unspecified formulation Sheryl Hermosillo APRN.PROGRAMMING COORDINATOR Work Phone: [facility] 03-28-2017 tetanus toxoid, redu dipak diphtheria toxoid, and acellular pertussis vaccine, adsorbed Mari Jones MD Work Phone: [facility] Payers Date Payer Category Payer Self-pay 2024 Unknown [id number] 2023 Medicare [id number] 2023 Medicare [id number] 2021 Unknown [employer] PPO [id number] 2021-Present [phone] [address] [place] [address] PPO [id number] 2021 Unknown [employer] PPO [id number] 2021-Present [phone] [address] [place] [address] PPO [id number] Unknown [id number] Unknown [id number] Social History Date Type Detail Facility Start: 09-04-2012 End: 03-31-2022 Tobacco smoking status NHIS Never smoked tobacco [facility] Start: 09-24-2021 End: 08-20-2024 Alcohol intake Current non-drinker of alcohol (finding) [facility] Start: 01-20-2021 End: 03-20-2021 History SDOH Alcohol Frequency 1 [facility] Start: 01-20-2021 History SDOH Alcohol Std Drinks 98 [facility] Start: 01-20-2021 History SDOH Social Connections Phone 5 [facility] Start: 01-20-2021 End: 03-20-2021 History SDOH Social Connections Get Together 2 [facility] Start: 01-20-2021 History SDOH Social Connections [employer] 3 [facility] Start: 01-20-2021 History SDOH Physica l Activity DPW 0 [facility] Start: 01-19-2021 Education 12 [facility] Start: 1960 Sex Assigned At Female C [facility] Start: 09-04-2012 End: 03-31-2022 Tobacco use and exposure Smokeless tobacco non-user [facility] Start: 01-19-2021 End: 06-19-2023 History of Social function [facility] Start: 01-19-2021 End: 06-19-2023 Social connection and isolation panel [facility] Do you belong to any clubs or organizations such as anabaptist groups, unions, fraternal or athletic groups, or school groups? Yes [facility] Are you now , , , , never or living with a partner? [facility] How often to you hav e a drink containing alcohol? Never [facility] Start: 04-30-[address] inks containing alcohol do you have on a typical day? Patient refused [facility] Do you feel stress - tense, restless, nervous, or anxious, or unable to sleep at night because your mind is troubled all the time - these days [OSQ] Only a little [facility] (I/We) worried wheth er (my/our) food would run out before (I/we) got money to buy more. Never true [facility] In the past 12 month s, was there a time when you were not able to pay the mortgage or rent on time? No [facility] Start: 04-13-2021 Gender identity Identifies as female gender (finding) [facility] (I/We) worried wheth er (my/our) food would run out before (I/we) got money to buy more. DK or Refused [facility] Functional Status Date Assessment Result Facility 07-21-2024 How often to you hav e a drink containing alcohol? Never 07/21/2024 10:02 AM EST Krystal Adair Never [facility] 07-21-2024 Functional status Patient does n ot drink 07/21/2024 10:02 AM EST Krystal Adair Patient does not drink [facility] 04-09-2014 Are you deaf, or do you have serious difficulty hearing No 04/09/2014 9:06 AM Cecily Quispe Ma No [facility] 04-09-2014 Are you blind, or do you have serious difficulty seeing, even when wearing glasses No 04/09/2014 9:06 AM Cecily Quispe Ma No [facility] 04-09-2014 Do you have serious difficulty walking or climbing stairs No 04/09/2014 9:06 AM Cecily Quispe Ma No [facility] 04-09-2014 Do you have difficul ty dressing or bathing No 04/09/2014 9:06 AM Cecily Quispe Ma No [facility] 04-09-2014 Because of a physica l, mental, or emotional condition, do you have difficulty doing errands alone such as visiting a physician's office or shopping No 04/09/2014 9:06 AM Cecily Quispe Ma No [facility] Mental Status Date Assessment Result Facility 04-09-2014 Because of a physica l, mental, or emotional condition, do you have serious difficulty concentrating, remembering, or making decisions No 04/09/2014 9:06 AM YEFRI Adrian MaCecily Lidia [facility] Clinical Notes 06-24-2015 to 02-15-2025 Telephone Encounter - Megan Sanders LPN - 01/30/2025 7:43 AM EDTTelephone Encounter - Megan Sanders LPN - 01/30/2025 7:43 AM Yulia Meraz RT(R) - 11/06/2024 7:50 AM EDT Note Date & Type Note Facility 02-15-2025 Note HNO ID: [id number] Author: JIM MCCARTHY APRN.PROGRAMMING COORDINATOR Service: ? Author Type: Nurse Practitioner Type: Progress Notes Filed: 02/15/2025 13:18 Note Text: Chief Complaint Patient presents with: Pre-Op Exam HPI Francisco J Eid is a 64 year old female who presents here today for Above Complaint. Patient presents for pre op examination. Patient is having left knee replacement on 02/[address] Aguayo at [facility]. Past medical history, appointments, medications, allergies reviewed. 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 s/p hysteroscopy with polyp removal Sciatica of right side Trochanteric bursitis of right hip Unspecified hemorrhoids without mention of complication Hemorrhoids Previous Surgical History PAST SURGICAL HISTORY Procedure Laterality Date APPENDECTOMY COLONOSCOPY FLX DX W/COLLJ SPEC WHEN PFRMD 02/05/2013 Colonoscopy EXCISION PILONIDAL CYST/SINUS EXTENSIVE Pilonidal cystectomy HEMORRHOIDECTOMY INT AND XTRNL 2/> COLUMN/MYAH HYSTEROSCOPY BX ENDOMETRIUMAND/POLYPC W/WO DANDC 05/24/2019 LAPS ABD PRTMANDOMENTUM DX W/WO SPEC BR/WA SPX Laparoscopy, infertility SIGMOIDOSCOPY FLX DX W/COLLJ SPEC BR/WA IF PFRMD 2002 Sigmoidoscopy, flexible TONSILLECTOMY AND ADENOIDECTOMY Family History FAMILY HISTORY Problem Relation Age of Onset Hypertension Mother Hypertension Father other (anorexia) Sister Hypertension Maternal Grandmother Hypertension Maternal Grandfather Heart Maternal Grandfather Colon Cancer Maternal Uncle other (Mitral Valve Prolapse) Other Mother and sister No Known Problems Daughter No Known Problems Daughter No Known Problems Daughter Patient Allergies ALLERGIES Allergen Reactions Lisinopril Cough Current Medications Current Outpatient Medications on File Prior to Visit Medication Sig losartan (COZAAR) 100 mg tablet Take 1 tablet by mouth once daily. atorvastatin (LIPITOR) 20 mg tablet Take 1 tablet by mouth once daily. cholecalciferol (VITAMIN D-3) 5,000 unit tab Take 5,000 Units by mouth once daily. No current facility-administered medications on file prior to visit. Social History SOCIAL HISTORY[1] Review of Symptoms REVIEW OF SYSTEMS SEE HPI EXAM: BP 136/83 Pulse 76 Wt 88 kg (194 lb 0.1 oz) LMP 10/28/2006 BMI 32.79 kg/m? General Appearance: Well appearing, alert, in no acute distress, well-hydrated, well nourished. Lungs: Lungs clear to auscultation. No wheezing, rhonchi, rales.. Heart: RRR without murmur, gallop, or rubs. No ectopy. Peripheral Pulses: Normal. Health Maintenance List Depression Screening Never done Anxiety Screening Never done Medicare Annual Wellness Visit Never done Advance Directive Discussion Never done Influenza Vaccine(1) due on 01/28/2025 Shingrix Vaccine(1 of 2) due on 07/23/2025 Pneumococcal Vaccine: 50+(1 of 1 - PCV) due on 07/23/2025 Annual PCP Team Chronic Disease Visit due on 07/31/2025 Mammogram Screening due on 11/06/2025 DTaP,Tdap,Td Vaccine(2 - Td or Tdap) due on 03/28/2027 Diabetes Screening due on 07/23/2027 Lipid Screening due on 01/21/2030 Colorectal Cancer Screening due on 09/25/2033 RSV Vaccine(1 - 1-dose 75+ series) due on 2033 Bone Density Screening Completed Hepatitis C Screening Completed Cervical Cancer Screening Discontinued Data reviewed Labs and EKG completed at [facility] reviewed and WNL. ASSESSMENT/PLAN: 1. Pre-op examination - ICD9: V72.84, ICD10: Z01.818 Based on the patient's history, physical, functional status, and ACS risk score, he has an 0.4% chance of a serious adverse cardiac event. This is average risk for his age an the planned operation. The risk is below the recommended threshold for further evaluation. Therefore, I do not recommend further preoperative testing and he may proceed with the planned operation. I recommend this risk assessment be incorporated into the overall discussion on risks and benefits of this operation. EKG unchanged from previous in 2020. Jim Mccarthy, KYA.PROGRAMMING COORDINATOR [1] Social History Tobacco Use Smoking status: Never Smokeless tobacco: Never Vaping Use Vaping status: Never Used Substance Use Topics Alcohol use: No Drug use: No [facility] 01-30-2025 Telephone encounter Note Prescription Refill Information The patient has been identified by name and date of : Yes Caregiver verified no other encounters exist for this prescription request: Yes Caregiver confirmed with patient/requestor that no other refills are due, in the near future, with this provider at this time: Yes The last office visit in the department: 07/31/2024 Does the patient have a future office visit with this provider/department: Yes Requested Prescriptions Pending Prescriptions Disp Refills losartan (COZAAR) 100 mg tablet 90 tablet 1 Sig: Take 1 tablet by mouth once daily. Megan Sanders LPN January 30, 2025 7:43 AM [facility] 01-30-2025 Miscellaneous Notes Prescription Refill Information The patient has been identified by name and date of : Yes Caregiver verified no other encounters exist for this prescription request: Yes Caregiver confirmed with patient/requestor that no other refills are due, in the near future, with this provider at this time: Yes The last office visit in the department: 07/31/2024 Does the patient have a future office visit with this provider/department: Yes Requested Prescriptions Pending Prescriptions Disp Refills losartan (COZAAR) 100 mg tablet 90 tablet 1 Sig: Take 1 tablet by mouth once daily. Megan Sanders LPN January 30, 2025 7:43 AM documented in this encounter [facility] 01-22-2025 Telephone encounter Note Patient informed and verbalized understanding. Virgie Byrd MA [facility] 01-22-2025 Miscellaneous Notes Patient informed and verbalized understanding. Virgie Byrd MA ----- Message from Mari Jones MD sent at 01/22/2025 7:01 AM EDT ----- Normal cholesterol. Much improved from 4 years ago. Continue current regimen. ----- Message ----- From: Lab, Background User Sent: 01/22/2025 12:02 AM EDT To: Mari Jones MD documented in this encounter [facility] 01-22-2025 Telephone encounter Note ----- Message from Mari Jones MD sent at 01/22/2025 7:01 AM EDT ----- Normal cholesterol. Much improved from 4 years ago. Continue current regimen. ----- Message ----- From: Lab, Background User Sent: 01/22/2025 12:02 AM EDT To: Mari Jones MD [facility] 11-06-2024 History of Presen t illness Narrative Radiology Service Progress Note PATIENT NAME: Francisco J Eid DATE OF SERVICE: November 06, 2024 TIME: 8:05 AM PATIENT IDENTITY VERIFICATION COMPLETED USING TWO (2) IDENTIFIERS: Name and Date of confirmed by patient verbally. FALL SCREENING: Has the patient had 2 falls in the last year or 1 fall with injury or currently using an Ambulatory Assistive Device (Walker, Cane, Wheelchair, Crutches, etc.)? No PATIENT GENDER DATA: Assigned female at . status: : No status: NO. PATIENT RELEVANT IMPLANT DATA REVIEWED: Not Applicable PATIENT PRESENTS WITH AN IMPLANTABLE OR ATTACHED CHILD PSYCHOLOGY TEACHER: No RADIOLOGY DEPARTMENT: Mammography PERIPHERAL IV DATA: Not applicable SIGNED BY: RT Shannen(Kylie) November 06, 2024 8:05 AM documented in this encounter [facility] 11-06-2024 Note HNO ID: [id number] Author: YULIA LYNN RT (R) Service: ? Author Type: Technologist Type: Progress Notes Filed: 11/06/2024 08:41 Note Text: Radiology Service Progress Note PATIENT NAME: Francisco J Eid DATE OF SERVICE: November 06, 2024 TIME: 8:05 AM PATIENT IDENTITY VERIFICATION COMPLETED USING TWO (2) IDENTIFIERS: Name and Date of confirmed by patient verbally. FALL SCREENING: Has the patient had 2 falls in the last year or 1 fall with injury or currently using an Ambulatory Assistive Device (Walker, Cane, Wheelchair, Crutches, etc.)? No PATIENT GENDER DATA: Assigned female at . status: : No status: NO. PATIENT RELEVANT IMPLANT DATA REVIEWED: Not Applicable PATIENT PRESENTS WITH AN IMPLANTABLE OR ATTACHED CHILD PSYCHOLOGY TEACHER: No RADIOLOGY DEPARTMENT: Mammography PERIPHERAL IV DATA: Not applicable SIGNED BY: RT Shannen(Kylie) November 06, 2024 8:05 AM [facility] 09-03-2024 Telephone encounter Note Telephone call placed to patient. Made aware of results and recommendations. Asked if providers message could be sent through on [employer]. Sent through to [employer] as requested. Megan Sanders LPN [facility] 09-03-2024 Miscellaneous Notes Telephone call placed to patient. Made aware of results and recommendations. Asked if providers message could be sent through on [employer]. Sent through to [employer] as requested. Megan Sanders LPN ----- Message from Mari Jones MD sent at 09/03/2024 10:27 AM EDT ----- DXA scan consistent with osteopenia. DXA scan consistent with osteoporosis. Recommend starting patient on 1,000 units of calcium +vitamin D daily and weight bearing exercise to prevent worsening bone density. Recheck DXA in 2 years. documented in this encounter [facility] 09-03-2024 Telephone encounter Note ----- Message from Mari Jones MD sent at 09/03/2024 10:27 AM EDT ----- DXA scan consistent with osteopenia. DXA scan consistent with osteoporosis. Recommend starting patient on 1,000 units of calcium +vitamin D daily and weight bearing exercise to prevent worsening bone density. Recheck DXA in 2 years. [facility] 09-03-2024 History of Presen t illness Narrative Radiology Service Progress Note PATIENT NAME: Francisco J Eid DATE OF SERVICE: September 03, 2024 TIME: 8:55 AM PATIENT IDENTITY VERIFICATION COMPLETED USING TWO (2) IDENTIFIERS: Name and Date of confirmed by patient verbally. FALL SCREENING: Has the patient had 2 falls in the last year or 1 fall with injury or currently using an Ambulatory Assistive Device (Walker, Cane, Wheelchair, Crutches, etc.)? No PATIENT GENDER DATA: Assigned female at . status: : No status: NO. PATIENT RELEVANT IMPLANT DATA REVIEWED: Not Applicable PATIENT PRESENTS WITH AN IMPLANTABLE OR ATTACHED CHILD PSYCHOLOGY TEACHER: No RADIOLOGY DEPARTMENT: Bone Density PERIPHERAL IV DATA: Not applicable SIGNED BY: RT Mirella(R) September 03, 2024 8:55 AM documented in this encounter [facility] 09-03-2024 Note HNO ID: [id number] Author: PEDRO PABLO CARDOZA RT(Kylie) Service: ? Author Type: Technologist Type: Progress Notes Filed: 09/03/2024 09:03 Note Text: Radiology Service Progress Note PATIENT NAME: Francisco J Eid DATE OF SERVICE: September 03, 2024 TIME: 8:55 AM PATIENT IDENTITY VERIFICATION COMPLETED USING TWO (2) IDENTIFIERS: Name and Date of confirmed by patient verbally. FALL SCREENING: Has the patient had 2 falls in the last year or 1 fall with injury or currently using an Ambulatory Assistive Device (Walker, Cane, Wheelchair, Crutches, etc.)? No PATIENT GENDER DATA: Assigned female at . status: : No status: NO. PATIENT RELEVANT IMPLANT DATA REVIEWED: Not Applicable PATIENT PRESENTS WITH AN IMPLANTABLE OR ATTACHED CHILD PSYCHOLOGY TEACHER: No RADIOLOGY DEPARTMENT: Bone Density PERIPHERAL IV DATA: Not applicable SIGNED BY: RT Mirella(R) September 03, 2024 8:55 AM [facility] 08-29-2024 Progress note Formatting of t his note might be different from the original. Send letter about normal pap if she does not have mychart. Laura Moralez MD [facility] 08-29-2024 Miscellaneous Notes Send letter about normal pap if she does not have mychart. Laura Moralez MD documented in this encounter [facility] 08-20-2024 Note Addended by: Bryson MANCUSO on: 08/20/2024 10:09 AM Modules accepted: Orders [facility] 08-20-2024 Miscellaneous Notes Addended by: SUE MANCUSO on: 08/20/2024 10:09 AM Modules accepted: Orders documented in this encounter [facility] 08-20-2024 Note HNO ID: [id number] Author: LAURA MORALEZ MD Service: ? 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 C/o some constipation. Postmenopausal: yes Still get period: No Menopause symptoms: None Number of lifetime partners: 1 control frequency: Never HPV vaccine: No; Last pap smear: 2016 History of abnormal pap: No, all prior PAP smears have been normal Bothersome pelvic pain: Yes Last mammogram: 2023 normal History of abnormal mammogram: No OB History Gravida3 Para3 Term3 Preterm0 AB0 Living3 SAB0 IAB0 Ectopic0 Multiple0 Live Births0 Problem Relation Age of Onset Hypertension Mother Hypertension Father other (anorexia) Sister Hypertension Maternal Grandmother Hypertension Maternal Grandfather Heart Maternal Grandfather Colon Cancer Maternal Uncle other (Mitral Valve Prolapse) Other Mother and sister No Known Problems Daughter No Known Problems Daughter No Known Problems Daughter SOCIAL HISTORY Social History Tobacco Use Smoking status: Never Smokeless tobacco: Never Vaping Use Vaping status: Never Used Substance Use Topics Alcohol use: No Drug use: No REVIEW OF SYSTEMS Abdomen: No abdominal pain, nausea, vomiting, diarrhea No bloating, early satiety, indigestion, or increased flatulence. Bladder: No dysuria, gross hematuria, urinary frequency, urinary urgency, or incontinence Breast: No breast lumps, nipple d/c, overlying skin changes, redness or skin retraction Allergies and current medication updated:Yes SENSITIVE EXAM: Sensitive exam not performed. EXAM: BP 132/86 Ht 5' 4.5 (1.64m) Wt 194 lb (88.0kg) LMP 10/28/2006 BMI 32.80 kg/(m2). GENERAL: pleasant, female in no apparent distress HEENT: Normocephalic, atraumatic, mucus membranes moist, and no lesions NECK: Supple, full range of motion, no adenopathy, and thyroid normal DERMATOLOGY: Normal, without lesions, non-icteric, and non-hirsute BREAST: soft, non-tender, symmetric, no dominant mass, normal nipple-areolar complex, no lymphadenopathy, and no nipple discharge CHEST: Normal inspiratory effort ABDOMEN: soft, non-tender, and no masses PELVIC: external genitalia normal, normal Bartholin's glands, urethra, [place]'s glands, no vulvar lesions, no cervical lesions, good vaginal support, physiologic discharge present, normal appearing perineal body and perianal region BIMANUAL: uterus normal size, shape and consistency, no adnexal masses, and non-tender RECTOVAGINAL: deferred. 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 C/o some constipation. Postmenopausal: yes Still get period: No Menopause symptoms: None Number of lifetime partners: 1 control frequency: Never HPV vaccine: No; Last pap smear: 2017 History of abnormal pap: No, all prior PAP smears have been normal Bothersome pelvic pain: Yes Last mammogram: 2023 normal History of abnormal mammogram: No OB History Gravida3 Para3 Term3 Preterm0 AB0 Living3 SAB0 IAB0 Ectopic0 Multiple0 Live Births0 Problem Relation Age of Onset Hypertension Mother Hypertension Father other (anorexia) Sister Hypertension Maternal Grandmother Hypertension Maternal Grandfather Heart Maternal Grandfather Colon Cancer Maternal Uncle other (Mitral Valve Prolapse) Other Mother and sister No Known Problems Daughter No Known Problems Daughter No Known Problems Daughter SOCIAL HISTORY Social History Tobacco Use Smoking status: Never Smokeless tobacco: Never Vaping Use Vaping status: Never Used Substance Use Topics Alcohol use: No Drug use: No REVIEW OF SYSTEMS Abdomen: No abdominal pain, nausea, vomiting, diarrhea No bloating, early satiety, indigestion, or increased flatulence. Bladder: No dysuria, gross hematuria, urinary frequency, urinary urgency, or incontinence Breast: No breast lumps, nipple d/c, overlying skin changes, redness or skin retraction Allergies and current medication updated:Yes SENSITIVE EXAM: Sensitive exam not performed. EXAM: BP 132/86 Ht 5' 4.5 (1.64m) Wt 194 lb (88.0kg) LMP 10/28/2006 BMI 32.80 kg/(m^2). GENERAL: pleasant, female in no apparent distress HEENT: Normocephalic, atraumatic, mucus membranes moist, and no lesions NECK: Supple, full range of motion, no adenopathy, and thyroid normal DERMATOLOGY: Normal, without lesions, non-icteric, and non-hirsute BREAST: soft, non-tender, symmetric, no dominant mass, normal nipple-areolar complex, no lymphadenopathy, and no nipple discharge CHEST: Normal inspiratory effort ABDOMEN: soft, non-tender, and no masses PELVIC: external genitalia normal, normal Bartholin's glands, urethra, [place]'s glands, no vulvar lesions, no cervical lesions, good vaginal support, physiologic discharge present, normal appearing perineal body and perianal region BIMANUAL: uterus normal size, shape and consistency, no adnexal masses, and non-tender RECTOVAGINAL: deferred. NEURO: alert and oriented x3,exam grossly non-focal EXTREMITIES: normal ASSESSMENT/PLAN: 1) Health maintenance: Pap done with reflex HPV Mammogram ordered d/wh er constipation symjptomatic measures 2) Follow up one year or sooner as needed Laura Moralez MD documented in this encounter [facility] 08-20-2024 Note HNO ID: [id number] Author: BLANCA RODRIGUEZ, PT Service: ? Author Type: Physical Therapist Type: Progress Notes Filed: 08/20/2024 09:18 Note Text: Episode Visit Count: 2 Therapist That Will Accept/Oversee The Plan Of Care: Blanca Rodriguez Start of Care Date: 08/13/24 Plan of Care Certification Date: 08/13/24 Next Certification Due Date: 09/24/24 REHABILITATION AND SPORTS THERAPY PHYSICAL THERAPY TREATMENT NOTE ASSESSMENT: Francisco J Eid tolerated the session with no issues. She demonstrated no nystagmus and only had complains of ear pressure and lightheadedness with positional changes. VORx1 testing negative this visit for visual changes or dizziness. Pt. Does get ear pressure and ringing. The patient will continue to benefit from ongoing skilled physical therapy to progress toward set goals. PLAN FOR NEXT VISIT: shooting pains in the L ear SUBJECTIVE: Pt. reports a few dizzy spells but with less intensity. Pt. reports she had itching inside her ear and believes this is a sign of healing. Continuous earing ringing as usual. Ear pressure both ears. Driving has been ok. Patient Goals: resolve dizziness Vestibular Tinnitus: both ears equally Tinnitus Description: ringing Tinnitus Frequency: Constant Pain: Pain Pain Level: 0 Post Treatment Pain Post Treatment Symptoms: just feel funny, like in a dentist chair. Pressure in both ears that came on upon sitting up. OBJECTIVE MEASURES WITH LEVEL OF FUNCTION: Oculomotor Testing Fixation Present X1 Viewing - Horizontal: not too bad. X1 Viewing - Vertical: more pressure felt in the ear Positional Testing Right [place]-Hallpike: Symptomatic, Less than 60 seconds, Without delay, No nystagmus (lightheaded) Left [place]-Hallpike: No nystagmus, Symptomatic (light headed) Right Ear Down: Asymptomatic, No nystagmus Left Ear Down: No nystagmus, Asymptomatic Positional Test Comments: proceeded with R CRM due to some relief with this manuever last visit and not more symptomatic L PC testing TREATMENT: Neuromuscular Re-Education: 1: seated VORx1 horizontal head movement 60 sec (denies symptoms) 2: seated VOR x1 vertical head movement 60 seconds (denies symptoms) Skilled Intervention: Skilled judgment used to assess appropriate program for balance and coordination activity. Education in proprioceptive/kinesthetic awareness during dynamic activities. Reviewed and educated patient on additions/changes for home program as noted above with an (*). Self-Prison Management: 1: discussed that light touch and inner ear are different nerves, it is unlikely that itching is related to BPPV resolve, discuss with physician if itching continues 2: discussed that pt. symptoms of lightheadedness and ringing/pressure or itching in the ear are not typical of BPPV. 3: Pt. c/o more pressure in the ear with VOR exercises but denies target bluring or dizziness -- this does not suggest that pt. is a candidate for VRT at this time, pt. may better benefit from ENT 4: advised pt. to f/u with physician regarding getting an ENT consult Skilled Intervention: Skilled judgment in the selection of proper modification for activity of daily living/home management based on clinical presentation, deficits, and needs. Provided written instruction for activities of daily living techniques to facilitate proper performance and compliance. Activity progression based on professional judgement. Canalith Repositionin: CRM for right posterior canalithiasis mckenna Skilled Intervention: Professional judgment was used to determine specific treatment interventions based on assessment of symptoms. Physically assisted patient through each step of repositioning. Verbal and tactile cues provided to patient to assist in moving between each position of maneuver in correct sequence. Patient education including handouts provided regarding self repostitioning techniques to be performed at home. Billing Neuromuscular Re-Education Treatment Minutes: 5 Self-Care/Home Management Treatment Minutes: 10 * Canalith Repositionin unit Skilled Treatment Time Minutes (timed and untimed codes): 25 Total Session Time (minutes): 25 Session Start Time : 839 Session Stop Time : 904 Blanca Rodriguez, PT [facility] 08-20-2024 History of Presen t illness Narrative Episode Visit Count: 2 Therapist That Will Accept/Oversee The Plan Of Care: Blanca Rodriguez Start of Care Date: 08/13/24 Plan of Care Certification Date: 08/13/24 Next Certification Due Date: 09/24/24 REHABILITATION AND SPORTS THERAPY PHYSICAL THERAPY TREATMENT NOTE ASSESSMENT: Francisco J Eid tolerated the session with no issues. She demonstrated no nystagmus and only had complains of ear pressure and lightheadedness with positional changes. VORx1 testing negative this visit for visual changes or dizziness. Pt. Does get ear pressure and ringing. The patient will continue to benefit from ongoing skilled physical therapy to progress toward set goals. PLAN FOR NEXT VISIT: shooting pains in the L ear SUBJECTIVE: Pt. reports a few dizzy spells but with less intensity. Pt. reports she had itching inside her ear and believes this is a sign of healing. Continuous earing ringing as usual. Ear pressure both ears. Driving has been ok. Patient Goals: resolve dizziness Vestibular Tinnitus: both ears equally Tinnitus Description: ringing Tinnitus Frequency: Constant Pain: Pain Pain Level: 0 Post Treatment Pain Post Treatment Symptoms: just feel funny, like in a dentist chair. Pressure in both ears that came on upon sitting up. OBJECTIVE MEASURES WITH LEVEL OF FUNCTION: Oculomotor Testing Fixation Present X1 Viewing - Horizontal: not too bad. X1 Viewing - Vertical: more pressure felt in the ear Positional Testing Right [place]-Hallpike: Symptomatic, Less than 60 seconds, Without delay, No nystagmus (lightheaded) Left [place]-Hallpike: No nystagmus, Symptomatic (light headed) Right Ear Down: Asymptomatic, No nystagmus Left Ear Down: No nystagmus, Asymptomatic Positional Test Comments: proceeded with R CRM due to some relief with this manuever last visit and not more symptomatic L PC testing TREATMENT: Neuromuscular Re-Education: 1: seated VORx1 horizontal head movement 60 sec (denies symptoms) 2: seated VOR x1 vertical head movement 60 seconds (denies symptoms) Skilled Intervention: Skilled judgment used to assess appropriate program for balance and coordination activity. Education in proprioceptive/kinesthetic awareness during dynamic activities. Reviewed and educated patient on additions/changes for home program as noted above with an (*). Self-Prison Management: 1: discussed that light touch and inner ear are different nerves, it is unlikely that itching is related to BPPV resolve, discuss with physician if itching continues 2: discussed that pt. symptoms of lightheadedness and ringing/pressure or itching in the ear are not typical of BPPV. 3: Pt. c/o more pressure in the ear with VOR exercises but denies target bluring or dizziness -- this does not suggest that pt. is a candidate for VRT at this time, pt. may better benefit from ENT 4: advised pt. to f/u with physician regarding getting an ENT consult Skilled Intervention: Skilled judgment in the selection of proper modification for activity of daily living/home management based on clinical presentation, deficits, and needs. Provided written instruction for activities of daily living techniques to facilitate proper performance and compliance. Activity progression based on professional judgement. Canalith Repositionin: CRM for right posterior canalithiasis mckenna Skilled Intervention: Professional judgment was used to determine specific treatment interventions based on assessment of symptoms. Physically assisted patient through each step of repositioning. Verbal and tactile cues provided to patient to assist in moving between each position of maneuver in correct sequence. Patient education including handouts provided regarding self repostitioning techniques to be performed at home. Billing Neuromuscular Re-Education Treatment Minutes: 5 Self-Care/Home Management Treatment Minutes: 10 * Canalith Repositionin unit Skilled Treatment Time Minutes (timed and untimed codes): 25 Total Session Time (minutes): 25 Session Start Time : 0840 Session Stop Time : 904 Blanca Rodriguez PT documented in this encounter [facility] 08-13-2024 History of Presen t illness Narrative Program_ID:[id number] Access Code: [email or web address] URL: [email or web address] Date: 08-13-2024 Prepared By: Blanca Rodriguez Program Notes Patient Education - BPPV - What Is BPPV? - BPPV Episode Visit Count: 1 Therapist That Will Accept/Oversee The Plan Of Care: Blanca Rodriguez Start of Care Date: 08/13/24 Plan of Care Certification Date: 08/13/24 Next Certification Due Date: 09/24/24 Patient Identified by Name and Date of : Yes REHABILITATION AND SPORTS THERAPY PHYSICAL THERAPY EVALUATION PLAN OF CARE: Assessment: Francisco J Eid presents with diagnosis of BPPV that interferes with driving (head movement) . The patient presents with impairments in ADL's, independence in exercise, overall function, patient reported outcome measures, posture, sensation, and symptom management. PROMIS (Patient-Reported Outcomes Measurement Information System) scores were reviewed and identified as within normal limits. Prognosis for therapy is Good due to: current objective clinical presentation . The patient will benefit from skilled therapy services to meet the goals established for this plan of care as noted below. Goals for Episode of Care: established 08/13/24 Patient will be able to correct postural deviations independently in order to allow for normal mechanics, to decrease current pain and prevent future recurrence. Patient will have negative positional testing for BPPV. Patient will verbalize the understanding of the diagnosis BPPV, how to recognize symptoms and what to do if they return. Patient will be independent with home exercise program and progression. Patient will return to prior level of function with all activities of daily living with trace reports of dizziness. Patient will deny dizziness with rolling right, lying down, and turning . Patient Goals: resolve dizziness Time Frame for Goals and Treatment : 09/24/24 Planned Interventions, Frequency, and Duration: Current Frequency: 1x/week Duration: 6 weeks Total Number of Visits Planned: 6 Planned Treatment Interventions: Therapeutic exercise (77534), Neuromuscular re-education (83580), Manual therapy (53545), Therapeutic activities (40932), Gait Training (85746), Self-usp management (24901), Canalith Repositioning Maneuvers (27879) PLAN FOR NEXT VISIT: assess symptom response to CRM for R posterior canalithiasis, pt. to contact physician and request his opinion on ENT consult regarding her heart beat felt/heard in her ears Patient demonstrates good understanding of plan of care and treatment. The above goals and plan of care were discussed and agreed upon by patient/family. SUBJECTIVE: for dizziness that started Mar 2024. Pt. reports she was dx with vertigo years ago. She has had a more difficult winter this year with regards to ear pain and sinus issues. Pt. had some times she felt uncomfortable driving due to dizziness. Onset described as spells such as when turning the head quickly, describes a particular episode in June. This episode resolved and pt. was able to continue to drive after taking a break for a few minutes. Getting dizziness only about 1 once a week with the exception of no dizziness last week. Denies dizziness with bed mobility. Dizziness only lasts about a minute or so but then she is left feeling unstable. Patient Goals: resolve dizziness Functional Limitations: driving (head movement) Prior Level of Function: Independent without limitations Intake Information: Prescription present Falls Interview: No positive findings with falls interview Concussion History of Concussion: No Vestibular Symptoms present for: months Symptom onset: sudden Dizziness: Yes Description: spinning (self), vertigo (that one episode in the car in ,) Rating of current symptoms: 0/10 Frequency: Weekly Duration: seconds, minutes Symptoms worsened by: turning head quickly Symptoms improved by: being still Imbalance: No Fall Assessment: No falls Nausea: denies Motion Sickness: None Headache: No Neck Symptoms: No Jaw Symptoms: No Ear Symptoms: No Hearing Changes: No recent changes Tinnitus: both ears equally Tinnitus Description: ringing (pt. can hear her heart beat the last few weeks) Tinnitus Frequency: Constant Sleep Affected by Symptoms: pain keeps from falling asleep, not affected by pain History of Syncope: No History of Migraine: Yes (no longer getting them - usually chocolate causes them) Denies: focal weakness, tremors, headaches, neurological complaints, visual changes, paresthesia, neuropathy Reports: dizziness Pain: Pain Pain Level: 0 Post Treatment Pain Post Treatment Symptoms: I just feel funny PROMIS Scales 08/12/2024 Higher is Better Self-Eff Symptom - T Score 51 (Average) Self-Eff Symptom - Percentile 54 T-scores: mean of general population = 50. 5 points is clinically meaningfully difference Percentiles provide an indication of how the patient's score ranks in relation to the general population. Higher percentile rankings indicate better function/quality of life. 50th percentile is the average of the general population and indicates half of respondents had a worse score. OBJECTIVE MEASURES WITH LEVEL OF FUNCTION: Posture / Alignment Posture: Forward head Oculomotor Testing Fixation Present Ocular ROM: WNL Spontaneous Nystagmus: No nystagmus Gaze Evoked Nystagmus: Not Present Saccadic eye movements: Horizontal, vertical and oblique all WNL. Head Thrusts: Negative VOR cancelation: Negative Convergence (Distance): WNL X1 Viewing - Horizontal: symptomatic - Cross Cover: Negative Oculomotor Testing Fixation Removed Spontaneous Nystagmus: No nystagmus Gaze Evoked Nystagmus: Not present Head Shake: Negative Tragal Pressure: negative B Positional Testing Right [place]-Hallpike: Symptomatic, Less than 60 seconds, Without delay, No nystagmus Positional Test Comments: L PC and B HC TBA Mobility Rolling: Independent Supine To Sit: Independent Sit to Supine: Independent Sit To Stand: Independent Stand To Sit: Independent Bed To Chair: Independent Gait Gait Observation: cautious Vitals BP: 139/82 Pulse: 74 Resp: (!) 95 Education: Education Learning Preferences: Demonstration, Explanation, Performance, Printed Materials Barriers: None Learning/educational needs: Plan of Care, Posture, Home exercise program Education Provided: Yes, see treatment interventions for education provided Education Provided To: Patient Education Mode/Type: Demonstration, Explanation/Discussion, Literature/Printed Materials, Performance Response to Education/Teach Back: States/Identifies, Return Demonstration TREATMENT: PT Treatment Interventions: Self-Prison Management, Canalith Repositioning Evaluation Self-Prison Management: 1: discussed what is BPPV - handouts provided 2: BPPV demonstatration using model and explaining treatment 3: explained what is the vestibular system 4: discussed other systems that can cause dizziness, 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 Provided written instruction for activities of daily living techniques to facilitate proper performance and compliance. Reviewed patient specific diagnosis in relation to activities of daily living/home management. Activity progression based on professional judgement. Moderate verbal cues for maintaining neutral spine alignment. Provided written instruction for home program to facilitate proper performance and compliance. Correct performance of home program was facilitated with verbal, visual, and tactile cueing. Canalith Repositionin: CRM for right posterior canalithiasis mckenna Skilled Intervention: Professional judgment was used to determine specific treatment interventions based on assessment of symptoms. Physically assisted patient through each step of repositioning. Verbal and tactile cues provided to patient to assist in moving between each position of maneuver in correct sequence. Patient education including handouts provided regarding self repostitioning techniques to be performed at home. Billing * Evaluation Low Complexity: 1 Unit Self-Care/Home Management Treatment Minutes: 10 * Canalith Repositionin unit Skilled Treatment Time Minutes (timed and untimed codes): 41 Total Session Time (minutes): 41 Session Start Time : 0755 Session Stop Time : 0836 Blanca Rodriguez PT documented in this encounter [facility] 08-13-2024 Note HNO ID: [id number] Author: BLANCA RODRIGUEZ PT Service: ? Author Type: Physical Therapist Type: Progress Notes Filed: 08/13/2024 08:44 Note Text: Episode Visit Count: 1 Therapist That Will Accept/Oversee The Plan Of Care: Blanca Rodriguez Start of Care Date: 08/13/24 Plan of Care Certification Date: 08/13/24 Next Certification Due Date: 09/24/24 Patient Identified by Name and Date of : Yes REHABILITATION AND SPORTS THERAPY PHYSICAL THERAPY EVALUATION PLAN OF CARE: Assessment: Francisco J Eid presents with diagnosis of BPPV that interferes with driving (head movement) . The patient presents with impairments in ADL's, independence in exercise, overall function, patient reported outcome measures, posture, sensation, and symptom management. PROMIS? (Patient-Reported Outcomes Measurement Information System) scores were reviewed and identified as within normal limits. Prognosis for therapy is Good due to: current objective clinical presentation . The patient will benefit from skilled therapy services to meet the goals established for this plan of care as noted below. Goals for Episode of Care: established 08/13/24 Patient will be able to correct postural deviations independently in order to allow for normal mechanics, to decrease current pain and prevent future recurrence. Patient will have negative positional testing for BPPV. Patient will verbalize the understanding of the diagnosis BPPV, how to recognize symptoms and what to do if they return. Patient will be independent with home exercise program and progression. Patient will return to prior level of function with all activities of daily living with trace reports of dizziness. Patient will deny dizziness with rolling right, lying down, and turning . Patient Goals: resolve dizziness Time Frame for Goals and Treatment : 09/24/24 Planned Interventions, Frequency, and Duration: Current Frequency: 1x/week Duration: 6 weeks Total Number of Visits Planned: 6 Planned Treatment Interventions: Therapeutic exercise (70858), Neuromuscular re-education (17079), Manual therapy (19209), Therapeutic activities (35881), Gait Training (76089), Self-usp management (26722), Canalith Repositioning Maneuvers (91186) PLAN FOR NEXT VISIT: assess symptom response to CRM for R posterior canalithiasis, pt. to contact physician and request his opinion on ENT consult regarding her heart beat felt/heard in her ears Patient demonstrates good understanding of plan of care and treatment. The above goals and plan of care were discussed and agreed upon by patient/family. SUBJECTIVE: for dizziness that started Mar 2024. Pt. reports she was dx with vertigo years ago. She has had a more difficult winter this year with regards to ear pain and sinus issues. Pt. had some times she felt uncomfortable driving due to dizziness. Onset described as spells such as when turning the head quickly, describes a particular episode in Februrary. This episode resolved and pt. was able to continue to drive after taking a break for a few minutes. Getting dizziness only about 1 once a week with the exception of no dizziness last week. Denies dizziness with bed mobility. Dizziness only lasts about a minute or so but then she is left feeling unstable. Patient Goals: resolve dizziness Functional Limitations: driving (head movement) Prior Level of Function: Independent without limitations Intake Information: Prescription present Falls Interview: No positive findings with falls interview Concussion History of Concussion: No Vestibular Symptoms present for: months Symptom onset: sudden Dizziness: Yes Description: spinning (self), vertigo (that one episode in the car in ,) Rating of current symptoms: 0/10 Frequency: Weekly Duration: seconds, minutes Symptoms worsened by: turning head quickly Symptoms improved by: being still Imbalance: No Fall Assessment: No falls Nausea: denies Motion Sickness: None Headache: No Neck Symptoms: No Jaw Symptoms: No Ear Symptoms: No Hearing Changes: No recent changes Tinnitus: both ears equally Tinnitus Description: ringing (pt. can hear her heart beat the last few weeks) Tinnitus Frequency: Constant Sleep Affected by Symptoms: pain keeps from falling asleep, not affected by pain History of Syncope: No History of Migraine: Yes (no longer getting them - usually chocolate causes them) Denies: focal weakness, tremors, headaches, neurological complaints, visual changes, paresthesia, neuropathy Reports: dizziness Pain: Pain Pain Level: 0 Post Treatment Pain Post Treatment Symptoms: I just feel funny PROMIS Scales 08/12/2024 Higher is Better Self-Eff Symptom - T Score 51 (Average) Self-Eff Symptom - Percentile 54 T-scores: mean of general population = 50. 5 points is clinically meaningfully difference Percentiles provide an indication of how the patient's score ranks (more content not included)... [facility] 07-31-2024 Note HNO ID: [id number] Author: MARI JONES MD Service: ? Author Type: Physician Type: Progress Notes Filed: 07/31/2024 08:24 Note Text: Chief Complaint Patient presents with: Follow Up: To review labs HPI Francisco J Eid is a 63 year old female who presents here today for Above Complaints. Patient has questions regarding her high cholesterol and need for moderate intensity statin. Wanted to understand why she was recommended a statin when levels are mildly elevated. 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 Past medical history, appointments, medications, allergies reviewed. 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 s/p hysteroscopy with polyp removal Sciatica of right side Trochanteric bursitis of right hip Unspecified hemorrhoids without mention of complication Hemorrhoids Previous Surgical History PAST SURGICAL HISTORY Procedure Laterality Date APPENDECTOMY COLONOSCOPY FLX DX W/COLLJ SPEC WHEN PFRMD 02/05/2013 Colonoscopy EXCISION PILONIDAL CYST/SINUS EXTENSIVE Pilonidal cystectomy HEMORRHOIDECTOMY INT AND XTRNL COLUMN/MYAH HYSTEROSCOPY BX ENDOMETRIUMAND/POLYPC W/WO DANDC 05/24/2019 LAPS ABD PRTMANDOMENTUM DX W/WO SPEC BR/WA SPX Laparoscopy, infertility SIGMOIDOSCOPY FLX DX W/COLLJ SPEC BR/WA IF PFRMD 2002 Sigmoidoscopy, flexible TONSILLECTOMY AND ADENOIDECTOMY Family History FAMILY HISTORY Problem Relation Age of Onset Hypertension Mother Hypertension Father other (anorexia) Sister Hypertension Maternal Grandmother Hypertension Maternal Grandfather Heart Maternal Grandfather Colon Cancer Maternal Uncle other (Mitral Valve Prolapse) Other Mother and sister No Known Problems Daughter No Known Problems Daughter No Known Problems Daughter Patient Allergies ALLERGIES Allergen Reactions Lisinopril Cough Current Medications Current Outpatient Medications on File Prior to Visit Medication Sig losartan (COZAAR) 100 mg tablet Take 1 tablet by mouth once daily. Pseudoephedrine-guaiFENesin (MUCINEX D MAXIMUM STRENGTH) 120-1,200 mg tab ER 12 hr Take 1 tablet by mouth once daily as needed (congestion) for up to 24 doses. cholecalciferol (VITAMIN D-3) 5,000 unit tab Take 5,000 Units by mouth once daily. No current facility-administered medications on file prior to visit. Social History Social History Tobacco Use Smoking status: Never Smokeless tobacco: Never Vaping Use Vaping status: Never Used Substance Use Topics Alcohol use: No Drug use: No Review of Symptoms REVIEW OF SYSTEMS GENERAL: No weight loss, malaise or fevers HEENT: Negative for frequent or significant headaches, No changes in hearing or vision, no nose bleeds or other nasal problems RESPIRATORY: Negative for cough, hemoptysis, wheezing, COPD, dyspnea or shortness of breath CARDIOVASCULAR: Negative for chest pain, leg swelling, hypertension, CHF or palpitations GI: No nausea, vomiting, or diarrhea NEURO: No history of headaches, syncope, paralysis, seizures or tremors EXAM: BP 136/86 Pulse 81 Resp 16 Wt 89.3 kg (196 lb 12.8 oz) LMP 02/03/2011 SpO2 98% BMI 33.50 kg/m? General Appearance: Well appearing, alert, in no acute distress, well-hydrated, well nourished.. Skin: Skin color, texture, turgor normal, no suspicious rashes or lesions. Lungs: Lungs clear to auscultation. No wheezing, rhonchi, rales.. Heart: RRR without murmur, gallop, or rubs. No ectopy. Health Maintenance List Depression Screening Never done Anxiety Screening Never done BP Controlled (<130/80) Never done Bone Density Screening Never done Advance Directive Discussion Never done Mammogram Screening due on 08/02/2024 Influenza Vaccine(1) due on 11/26/2024 Shingrix Vaccine(1 of 2) due on 07/23/2025 Covid-19 Vaccine( - 2023- season) due on 07/23/2025 Pneumococcal Vaccine: 50+(1 of 1 - PCV) due on 07/23/2025 Annual PCP Team Chronic Disease Visit due on 07/23/2025 DTaP,Tdap,Td Vaccine(2 - Td or Tdap) due on 03/28/2027 Diabetes Screening due on 07/23/2027 Lipid Screening due on 07/23/2029 Colorectal Cancer Screening due on 09/25/2033 RSV Vaccine(1 - 1-dose 75+ series) due on 2033 Hepatitis C Screening Completed HIV Screening Completed Cervical Cancer Screening Discontinued Data reviewed Latest Ref Rng 07/23/2024 WBC 3.70 - 11.00 k/uL 5.53 RBC 3.90 - 5.20 m/uL 4.71 Hemoglobin 11.5 - 15.5 g/dL 13.9 (more content not included)... [facility] 07-31-2024 History of Presen t illness Narrative Chief Complaint Patient presents with: Follow Up: To review labs HPI Francisco J Eid is a 63 year old female who presents here today for Above Complaints. Patient has questions regarding her high cholesterol and need for moderate intensity statin. Wanted to understand why she was recommended a statin when levels are mildly elevated. Also wanted to know about side effects of medication and if she would need to be on it shelter. Past medical history, appointments, medications, allergies reviewed. 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 s/p hysteroscopy with polyp removal Sciatica of right side Trochanteric bursitis of right hip Unspecified hemorrhoids without mention of complication Hemorrhoids Previous Surgical History PAST SURGICAL HISTORY Procedure Laterality Date APPENDECTOMY COLONOSCOPY FLX DX W/COLLJ SPEC WHEN PFRMD 02/05/2013 Colonoscopy EXCISION PILONIDAL CYST/SINUS EXTENSIVE Pilonidal cystectomy HEMORRHOIDECTOMY INT & XTRNL COLUMN/MYAH HYSTEROSCOPY BX ENDOMETRIUM&/POLYPC W/WO D&C 05/24/2019 LAPS ABD PRTM&OMENTUM DX W/WO SPEC BR/WA SPX Laparoscopy, infertility SIGMOIDOSCOPY FLX DX W/COLLJ SPEC BR/WA IF PFRMD 2003 Sigmoidoscopy, flexible TONSILLECTOMY & ADENOIDECTOMY <AGE 10 Family History FAMILY HISTORY Problem Relation Age of Onset Hypertension Mother Hypertension Father other (anorexia) Sister Hypertension Maternal Grandmother Hypertension Maternal Grandfather Heart Maternal Grandfather Colon Cancer Maternal Uncle other (Mitral Valve Prolapse) Other Mother and sister No Known Problems Daughter No Known Problems Daughter No Known Problems Daughter Patient Allergies ALLERGIES Allergen Reactions Lisinopril Cough Current Medications Current Outpatient Medications on File Prior to Visit Medication Sig losartan (COZAAR) 100 mg tablet Take 1 tablet by mouth once daily. Pseudoephedrine-guaiFENesin (MUCINEX D MAXIMUM STRENGTH) 120-1,200 mg tab ER 12 hr Take 1 tablet by mouth once daily as needed (congestion) for up to 24 doses. cholecalciferol (VITAMIN D-3) 5,000 unit tab Take 5,000 Units by mouth once daily. No current facility-administered medications on file prior to visit. Social History Social History Tobacco Use Smoking status: Never Smokeless tobacco: Never Vaping Use Vaping status: Never Used Substance Use Topics Alcohol use: No Drug use: No Review of Symptoms REVIEW OF SYSTEMS GENERAL: No weight loss, malaise or fevers HEENT: Negative for frequent or significant headaches, No changes in hearing or vision, no nose bleeds or other nasal problems RESPIRATORY: Negative for cough, hemoptysis, wheezing, COPD, dyspnea or shortness of breath CARDIOVASCULAR: Negative for chest pain, leg swelling, hypertension, CHF or palpitations GI: No nausea, vomiting, or diarrhea NEURO: No history of headaches, syncope, paralysis, seizures or tremors EXAM: BP 136/86 Pulse 81 Resp 16 Wt 89.3 kg (196 lb 12.8 oz) LMP 02/03/2011 SpO2 98% BMI 33.50 kg/m General Appearance: Well appearing, alert, in no acute distress, well-hydrated, well nourished.. Skin: Skin color, texture, turgor normal, no suspicious rashes or lesions. Lungs: Lungs clear to auscultation. No wheezing, rhonchi, rales.. Heart: RRR without murmur, gallop, or rubs. No ectopy. Health Maintenance List Depression Screening Never done Anxiety Screening Never done BP Controlled (<130/80) Never done Bone Density Screening Never done Advance Directive Discussion Never done Mammogram Screening due on 08/02/2024 Influenza Vaccine(1) due on 11/26/2024 Shingrix Vaccine(1 of 2) due on 07/23/2025 Covid-19 Vaccine( - 2023- season) due on 07/23/2025 Pneumococcal Vaccine: 50+(1 of 1 - PCV) due on 07/23/2025 Annual PCP Team Chronic Disease Visit due on 07/23/2025 DTaP,Tdap,Td Vaccine(2 - Td or Tdap) due on 03/28/2027 Diabetes Screening due on 07/23/2027 Lipid Screening due on 07/23/2029 Colorectal Cancer Screening due on 09/25/2033 RSV Vaccine(1 - 1-dose 75+ series) due on 2033 Hepatitis C Screening Completed HIV Screening Completed Cervical Cancer Screening Discontinued Data reviewed Latest Ref Rng 07/23/2024 WBC 3.70 - 11.00 k/uL 5.53 RBC 3.90 - 5.20 m/uL 4.71 Hemoglobin 11.5 - 15.5 g/dL 13.9 Hematocrit 36.0 - 46.0 % 43.6 MCV 80.0 - 100.0 fL 92.6 MCH 26.0 - 34.0 pg 29.5 MCHC 30.5 - 36.0 g/dL 31.9 RDW-CV 11.5 - 15.0 % 14.2 Platelet Count 150 - 400 k/uL 237 MPV 9.0 - 12.7 fL 11.4 Neut% % 52.2 Abs Neut (ANC) 1.45 - 7.50 k/uL 2.89 Lymph% % 31.5 Abs Lymph 1.00 - 4.00 k/uL 1.74 [place]% % 9.8 Abs [place] <0.87 k/uL 0.54 Eosin% % 4.7 Abs Eosin <0.46 k/uL 0.26 Baso% % 1.6 Abs Baso <0.11 k/uL 0.09 Immature Gran % % 0.2 IMMATURE GRANS (ABS) <0.10 k/uL <0.03 NRBC /100 WBC 0.0 Absolute nRBC <0.01 k/uL <0.01 DTYPE Auto Protein, Total 6.3 - 8.0 g/dL 7.4 Albumin 3.9 - 4.9 g/dL 4.3 Calcium 8.5 - 10.2 mg/dL 10.0 Bilirubin, Total 0.2 - 1.3 mg/dL 0.3 Alkaline Phosphatase 34 - 123 U/L 81 AST 13 - 35 U/L 22 ALT 7 - 38 U/L 19 Glucose 74 - 99 mg/dL 87 BUN 7 - 21 mg/dL 17 Creatinine 0.58 - 0.96 mg/dL 0.82 Sodium 136 - 144 mmol/L 141 Potassium 3.7 - 5.1 mmol/L 4.8 Chloride 98 - 107 mmol/L 105 CO2 22 - 30 mmol/L 27 Anion Gap 8 - 15 mmol/L 9 eGFR >=60 mL/min/1.73m 79 Total Cholesterol, Nonfasting <200 mg/dL 211 (H) Triglycerides, Nonfasting <150 mg/dL 161 (H) HDL Cholesterol, Nonfasting >39 mg/dL 60 LDL Cholesterol, Nonfasting <100 mg/dL 119 (H) Non HDL Cholesterol, Nonfasting <130 mg/dL 151 (H) VLDL Cholesterol, Nonfasting <30 mg/dL 32 (H) Total Chol/HDL Ratio, Nonfasting <5.10 mg/dL 3.52 LDL/HDL Ratio, Nonfasting <2.54 mg/dL 1.98 Hemoglobin A1C 4.3 - 5.6 % 5.5 Estimated Average Glucose mg/dL 111 TSH 0.270 - 4.200 mIU/L 2.910 Legend: (H) High The 10-year ASCVD risk score (Jet VIDES, et al., 2019) is: 8.3% Values used to calculate the score: Age: 63 years Sex: Female Is Non- : No Diabetic: No Tobacco smoker: No Systolic Blood Pressure: 136 mmHg Is BP treated: Yes HDL Cholesterol: 60 mg/dL Total Cholesterol: 211 mg/dL ASSESSMENT/PLAN: 1. Hyperlipidemia with target low density lipoprotein (LDL) cholesterol less than 130 mg/dL - ICD9: 272.4, ICD10: E78.5 - Uncontrolled - Start atorvastatin (Lipitor) - Counseled on healthy diet and regular exercise - recheck labs in 3 months. - LIPID PANEL BASIC Mari Jones MD documented in this encounter [facility] 07-27-2024 Telephone encounter Note Phoned patient and reviewed message with her. Patient voiced understanding. Kayley Miles LPN [facility] 07-27-2024 Miscellaneous Notes Phoned patient and reviewed message with her. Patient voiced understanding. Kayley Miles LPN Looks like she was contacted about results and was not interested in statin treatment. If she would like to discuss in more detail, would recommend OV or VV. Patient calls and states that she has questions about test results and possible medication changes. Patient asking if provider can give her a call about this or does patient have to set up a follow up appointment? Danica Manrique RN documented in this encounter [facility] 07-27-2024 Telephone encounter Note Looks like she was contacted about results and was not interested in statin treatment. If she would like to discuss in more detail, would recommend OV or VV. [facility] 07-27-2024 Telephone encounter Note Patient calls and states that she has questions about test results and possible medication changes. Patient asking if provider can give her a call about this or does patient have to set up a follow up appointment? Danica Manrique RN [facility] 07-25-2024 Telephone encounter Note Spoke with pt and information listed below given. Pt verbalizes understanding. Pt reports she already has muscle aches and wants to think about starting a statin. She will get back to Dr. Jones later. Ligia Leal LPN [facility] 07-25-2024 Miscellaneous Notes Spoke with pt and information listed below given. Pt verbalizes understanding. Pt reports she already has muscle aches and wants to think about starting a statin. She will get back to Dr. Jones later. Ligia Leal LPN TC to patient with no answer. Left VM to return call. AHMET Markham ----- Message from Mari Jones MD sent at 07/24/2024 3:17 PM EST ----- Normal labs aside from high cholesterol. Based on age and risk factors, patient is moderate risk for heart attack or stroke in the next 10 years. Recommend moderate intensity statin daily and recheck labs in 3 months. Most common side effect: muscle aches. If agreeable, will send rx to requested pharmacy. The 10-year ASCVD risk score (Jet VIDES, et al., 2019) is: 7.2% Values used to calculate the score: Age: 63 years Sex: Female Is Non- : No Diabetic: No Tobacco smoker: No Systolic Blood Pressure: 126 mmHg Is BP treated: Yes HDL Cholesterol: 60 mg/dL Total Cholesterol: 211 mg/dL documented in this encounter [facility] 07-24-2024 Telephone encounter Note TC to patient with no answer. Left VM to return call. AHMET Markham [facility] 07-24-2024 Telephone encounter Note ----- Message from Mari Jones MD sent at 07/24/2024 3:17 PM EST ----- Normal labs aside from high cholesterol. Based on age and risk factors, patient is moderate risk for heart attack or stroke in the next 10 years. Recommend moderate intensity statin daily and recheck labs in 3 months. Most common side effect: muscle aches. If agreeable, will send rx to requested pharmacy. The 10-year ASCVD risk score (Jet VIDES, et al., 2019) is: 7.2% Values used to calculate the score: Age: 63 years Sex: Female Is Non- : No Diabetic: No Tobacco smoker: No Systolic Blood Pressure: 126 mmHg Is BP treated: Yes HDL Cholesterol: 60 mg/dL Total Cholesterol: 211 mg/dL [facility] 07-23-2024 Instructions Mari Jones MD - 07/23/2024 8:56 AM EST BONE MINERAL DENSITY PATIENT INSTRUCTIONS ========= Bone mineral density testing measures the amount of calcium in certain parts of your bones. This information determines how strong your bones are. The test is used to detect osteoporosis, a disease in which the bone's mineral content and density are low, increasing a person's risk of fractures. The lumbar spine (lower back) and the hip are the skeletal sites usually examined. For the test, remember that: 1. You cannot take this test if you are . 2. Eat a normal diet on the day of the test. 3. Take your medications as you normally would. 4. DO NOT take calcium supplements (such as Tums) for 24 hours before the test. 5. On the day of the test, leave valuables (jewelry or credit cards) at home. 6. The test should be performed prior to oral, rectal or IV contrast studies, or at least 7 days after any of these studies. For the test, you may be asked to wear a hospital gown. You will lie on your back, on a padded table, in a comfortable position. Generally, you can resume your usual activities immediately. documented in this encounter [facility] 07-23-2024 Note HNO ID: [id number] Author: MARI JONES MD Service: ? Author Type: Physician Type: Progress Notes Filed: 07/25/2024 12:41 Note Text: Chief Complaint Patient presents with: Follow Up: Routine-refills HPI Francisco J Eid is a 63 year old female who presents here today for Above Complaints.. HTN: Ms. Eid indicates that she is feeling well and denies any symptoms referable to elevated blood pressure. Specifically denies headache, chest pain, palpitations, dyspnea, and peripheral edema. Patient denies any side effects of her medication(s) and is compliant with their regimen. She does not check BP's generally. Francisco J denies regular aerobic exercise. She watches her diet for sodium, low fat and low cholesterol generally not very much. Last 3 Encounter BP Readings: Date: BP: 07/23/2024 126/84 04/06/2024 132/90 03/27/2024 138/84 Notes occasional lightheadedness every couple of days in the mornings before her medication. No syncope. Episodes come and go over a minute, but can last up to half a day before resolving completely. Drinking 32 oz of water per day. Denies headache, tinnitus, hearing loss. Migraines rare. Triggered when eating chocolate. Past medical history, appointments, medications, allergies reviewed. 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 s/p hysteroscopy with polyp removal Sciatica of right side Trochanteric bursitis of right hip Unspecified hemorrhoids without mention of complication Hemorrhoids Previous Surgical History PAST SURGICAL HISTORY Procedure Laterality Date APPENDECTOMY COLONOSCOPY FLX DX W/COLLJ SPEC WHEN PFRMD 02/05/2013 Colonoscopy EXCISION PILONIDAL CYST/SINUS EXTENSIVE Pilonidal cystectomy HEMORRHOIDECTOMY INT AND XTRNL 2/> COLUMN/MYAH HYSTEROSCOPY BX ENDOMETRIUMAND/POLYPC W/WO DANDC 05/24/2019 LAPS ABD PRTMANDOMENTUM DX W/WO SPEC BR/WA SPX Laparoscopy, infertility SIGMOIDOSCOPY FLX DX W/COLLJ SPEC BR/WA IF PFRMD 2003 Sigmoidoscopy, flexible TONSILLECTOMY AND ADENOIDECTOMY Family History FAMILY HISTORY Problem Relation Age of Onset Hypertension Mother Hypertension Father other (anorexia) Sister Hypertension Maternal Grandmother Hypertension Maternal Grandfather Heart Maternal Grandfather Colon Cancer Maternal Uncle other (Mitral Valve Prolapse) Other Mother and sister No Known Problems Daughter No Known Problems Daughter No Known Problems Daughter Patient Allergies ALLERGIES Allergen Reactions Lisinopril Cough Current Medications Current Outpatient Medications on File Prior to Visit Medication Sig losartan (COZAAR) 100 mg tablet Take 1 tablet by mouth once daily. cholecalciferol (VITAMIN D-3) 5,000 unit tab Take 5,000 Units by mouth once daily. Pseudoephedrine-guaiFENesin (MUCINEX D MAXIMUM STRENGTH) 120-1,200 mg tab ER 12 hr Take 1 tablet by mouth once daily as needed (congestion) for up to 24 doses. No current facility-administered medications on file prior to visit. Social History Social History Tobacco Use Smoking status: Never Smokeless tobacco: Never Vaping Use Vaping status: Never Used Substance Use Topics Alcohol use: No Drug use: No Review of Symptoms REVIEW OF SYSTEMS GENERAL: No weight loss, malaise or fevers RESPIRATORY: Negative for cough, hemoptysis, wheezing, COPD, dyspnea or shortness of breath CARDIOVASCULAR: Negative for chest pain, leg swelling, hypertension, CHF or palpitations GI: No nausea, vomiting, or diarrhea PLASTIC BOAT BUFFER: Negative for abnormal vaginal bleeding, abnormal vaginal discharge SKIN: Negative for lesions, rash, and itching EXAM: BP 126/84 Pulse 81 Resp 16 Wt 89.4 kg (197 lb 3.2 oz) LMP 02/03/2011 SpO2 99% BMI 33.56 kg/m? General Appearance: Well appearing, alert, in no acute distress, well-hydrated, well nourished.. Skin: Skin color, texture, turgor normal, no suspicious rashes or lesions. Lungs: Lungs clear to auscultation. No wheezing, rhonchi, rales.. Heart: RRR without murmur, gallop, or rubs. No ectopy. Abdomen: Normal abdominal exam, Abdomen soft, non-tender. Bowel sounds normal. No masses, organomegaly. Extremities: No deformities, edema, skin discoloration, clubbing or cyanosis. Good capillary refill. Neuro: positive melani moser Health Maintenance List Depression Screening Never done Anxiety Screening Never done BP Controlled (<130/80) Never done Shingrix Vaccine(1 of 2) Never done Pneumococcal Vaccine: 50+ (more content not included)... [facility] 07-23-2024 History of Presen t illness Narrative Chief Complaint Patient presents with: Follow Up: Routine-refills HPI Francisco J Eid is a 63 year old female who presents here today for Above Complaints.. HTN: Ms. Eid indicates that she is feeling well and denies any symptoms referable to elevated blood pressure. Specifically denies headache, chest pain, palpitations, dyspnea, and peripheral edema. Patient denies any side effects of her medication(s) and is compliant with their regimen. She does not check BP's generally. Francisco J denies regular aerobic exercise. She watches her diet for sodium, low fat and low cholesterol generally not very much. Last 3 Encounter BP Readings: Date: BP: 07/23/2024 126/84 04/06/2024 132/90 03/27/2024 138/84 Notes occasional lightheadedness every couple of days in the mornings before her medication. No syncope. Episodes come and go over a minute, but can last up to half a day before resolving completely. Drinking 32 oz of water per day. Denies headache, tinnitus, hearing loss. Migraines rare. Triggered when eating chocolate. Past medical history, appointments, medications, allergies reviewed. 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 s/p hysteroscopy with polyp removal Sciatica of right side Trochanteric bursitis of right hip Unspecified hemorrhoids without mention of complication Hemorrhoids Previous Surgical History PAST SURGICAL HISTORY Procedure Laterality Date APPENDECTOMY COLONOSCOPY FLX DX W/COLLJ SPEC WHEN PFRMD 02/05/2013 Colonoscopy EXCISION PILONIDAL CYST/SINUS EXTENSIVE Pilonidal cystectomy HEMORRHOIDECTOMY INT & XTRNL 2/> COLUMN/MYAH HYSTEROSCOPY BX ENDOMETRIUM&/POLYPC W/WO D&C 05/24/2019 LAPS ABD PRTM&OMENTUM DX W/WO SPEC BR/WA SPX Laparoscopy, infertility SIGMOIDOSCOPY FLX DX W/COLLJ SPEC BR/WA IF PFRMD 2002 Sigmoidoscopy, flexible TONSILLECTOMY & ADENOIDECTOMY <AGE 10 Family History FAMILY HISTORY Problem Relation Age of Onset Hypertension Mother Hypertension Father other (anorexia) Sister Hypertension Maternal Grandmother Hypertension Maternal Grandfather Heart Maternal Grandfather Colon Cancer Maternal Uncle other (Mitral Valve Prolapse) Other Mother and sister No Known Problems Daughter No Known Problems Daughter No Known Problems Daughter Patient Allergies ALLERGIES Allergen Reactions Lisinopril Cough Current Medications Current Outpatient Medications on File Prior to Visit Medication Sig losartan (COZAAR) 100 mg tablet Take 1 tablet by mouth once daily. cholecalciferol (VITAMIN D-3) 5,000 unit tab Take 5,000 Units by mouth once daily. Pseudoephedrine-guaiFENesin (MUCINEX D MAXIMUM STRENGTH) 120-1,200 mg tab ER 12 hr Take 1 tablet by mouth once daily as needed (congestion) for up to 24 doses. No current facility-administered medications on file prior to visit. Social History Social History Tobacco Use Smoking status: Never Smokeless tobacco: Never Vaping Use Vaping status: Never Used Substance Use Topics Alcohol use: No Drug use: No Review of Symptoms REVIEW OF SYSTEMS GENERAL: No weight loss, malaise or fevers RESPIRATORY: Negative for cough, hemoptysis, wheezing, COPD, dyspnea or shortness of breath CARDIOVASCULAR: Negative for chest pain, leg swelling, hypertension, CHF or palpitations GI: No nausea, vomiting, or diarrhea PLASTIC BOAT BUFFER: Negative for abnormal vaginal bleeding, abnormal vaginal discharge SKIN: Negative for lesions, rash, and itching EXAM: BP 126/84 Pulse 81 Resp 16 Wt 89.4 kg (197 lb 3.2 oz) LMP 02/03/2011 SpO2 99% BMI 33.56 kg/m General Appearance: Well appearing, alert, in no acute distress, well-hydrated, well nourished.. Skin: Skin color, texture, turgor normal, no suspicious rashes or lesions. Lungs: Lungs clear to auscultation. No wheezing, rhonchi, rales.. Heart: RRR without murmur, gallop, or rubs. No ectopy. Abdomen: Normal abdominal exam, Abdomen soft, non-tender. Bowel sounds normal. No masses, organomegaly. Extremities: No deformities, edema, skin discoloration, clubbing or cyanosis. Good capillary refill. Neuro: positive melani halpike bilaterally Health Maintenance List Depression Screening Never done Anxiety Screening Never done BP Controlled (<130/80) Never done Shingrix Vaccine(1 of 2) Never done Pneumococcal Vaccine: 50+(1 of 1 - PCV) Never done Bone Density Screening Never done Influenza Vaccine(1) due on 01/29/2024 Covid-19 Vaccine(4 - 2023- season) due on 01/29/2024 Advance Directive Discussion Never done Mammogram Screening due on 08/02/2024 Diabetes Screening due on 10/13/2024 Annual PCP Team Chronic Disease Visit due on 04/06/2025 Lipid Screening due on 01/20/2026 DTaP,Tdap,Td Vaccine(2 - Td or Tdap) due on 03/28/2027 Colorectal Cancer Screening due on 09/25/2033 RSV Vaccine(1 - 1-dose 75+ series) due on 2033 Hepatitis C Screening Completed HIV Screening Completed Cervical Cancer Screening Discontinued ASSESSMENT/PLAN: 1. Hypertension, essential - ICD9: 401.9, ICD10: I10 (primary diagnosis) - Controlled - Continue current medications - Recommend home blood pressure monitoring, to bring results to next visit - Encouraged sodium restriction, DASH or Mediterranean diet - Recommend regular aerobic exercise - COMPLETE BLOOD COUNT AND DIFFERENTIAL - COMPREHENSIVE METABOLIC PANEL - HEMOGLOBIN A1C - THYROID STIMULATING HORMONE 2. BPPV (benign paroxysmal positional vertigo), unspecified laterality - ICD9: 386.11, ICD10: H81.10 Referral to PT for mckenna maneuvers. Recommend turning head and changing position slowly. - CONSULT TO PHYSICAL THERAPY 3. Elevated liver function tests - ICD9: 790.6, ICD10: R79.89 Repeat CMP. Will call with results. - LIPID PANEL, NONFASTING - HEMOGLOBIN A1C - THYROID STIMULATING HORMONE 4. Hyperlipidemia with target LDL less than 130 - ICD9: 272.4, ICD10: E78.5 - Control undetermined, due for labs - Continue current medications - Counseled on healthy diet and regular exercise - HEMOGLOBIN A1C - THYROID STIMULATING HORMONE 5. Class 1 obesity with body mass index (BMI) of 33.0 to 33.9 in adult, unspecified obesity type, unspecified whether serious comorbidity present - ICD9: 278.00, V85.33, ICD10: E66.811, Z68.33 Stable - Behavioral intervention - HEMOGLOBIN A1C - THYROID STIMULATING HORMONE 6. Migraine without aura and without status migrainosus, not intractable - ICD9: 346.10, ICD10: G43.009 Rare migraines. Avoid triggers. Continue current regimen. - HEMOGLOBIN A1C - THYROID STIMULATING HORMONE 7. Screening mammogram for breast cancer - ICD9: V76.12, ICD10: Z12.31 - KEILA SCREENING 8. Asymptomatic menopause - ICD9: V49.81, ICD10: Z78.0 Due for DXA scan. Will call with results. - DXA-AXIAL SKELETON - BD DXA TRABECULAR BONE SCORE (TBS) Mari Jones MD documented in this encounter [facility] 07-06-2024 Telephone encounter Note Prescription Refill Information The patient has been identified by name and date of : Yes Caregiver verified no other encounters exist for this prescription request: Yes Caregiver confirmed with patient/requestor that no other refills are due, in the near future, with this provider at this time: Yes The last office visit in the department: 04/06/24 Does the patient have a future office visit with this provider/department: No My chart message sent Requested Prescriptions Pending Prescriptions Disp Refills losartan (COZAAR) 100 mg tablet 30 tablet 0 Sig: Take 1 tablet by mouth once daily. Rtuh Wang LPN July 06, 2024 7:06 AM [facility] 07-06-2024 Miscellaneous Notes Prescription Refill Information The patient has been identified by name and date of : Yes Caregiver verified no other encounters exist for this prescription request: Yes Caregiver confirmed with patient/requestor that no other refills are due, in the near future, with this provider at this time: Yes The last office visit in the department: 04/06/24 Does the patient have a future office visit with this provider/department: No My chart message sent Requested Prescriptions Pending Prescriptions Disp Refills losartan (COZAAR) 100 mg tablet 30 tablet 0 Sig: Take 1 tablet by mouth once daily. Ruth Wang LPN July 06, 2024 7:06 AM documented in this encounter [facility] 04-10-2024 Telephone encounter Note The following approved medication requests have been transmitted electronically. Requested Prescriptions Signed Prescriptions Disp Refills azithromycin (ZITHROMAX Z-WEI) 250 mg tablet 6 tablet 0 Sig: Take 2 tablets day one, then, 1 tablet daily until gone. Marcelina Robbins APRN.CNP [facility] 04-10-2024 Miscellaneous Notes The following approved medication requests have been transmitted electronically. Requested Prescriptions Signed Prescriptions Disp Refills azithromycin (ZITHROMAX Z-WEI) 250 mg tablet 6 tablet 0 Sig: Take 2 tablets day one, then, 1 tablet daily until gone. Marcelina Robbins APRN.CNP Pt notified that Provider is out of the office today returning tomorrow. Bhavani Zhao MA documented in this encounter [facility] 04-10-2024 Telephone encounter Note Pt notified that Provider is out of the office today returning tomorrow. Bhavani Zhao MA [facility] 04-09-2024 Telephone encounter Note The following approved medication requests have been transmitted electronically. Requested Prescriptions Signed Prescriptions Disp Refills plcerewp-ssyzzwjhk-uvzyvdstxvkqp e (CORTISPORIN) otic solution 10 mL 0 Sig: Use 3 Drops in the left ear four times daily for 7 days. Marcelina Robbins APRN.CNP [facility] 04-09-2024 Miscellaneous Notes The following approved medication requests have been transmitted electronically. Requested Prescriptions Signed Prescriptions Disp Refills lakzcbqd-apptsapvw-ujwwgoublbkql e (CORTISPORIN) otic solution 10 mL 0 Sig: Use 3 Drops in the left ear four times daily for 7 days. Marcelina Robbins APRN.AVI See update from pt. Pt seen in the office on 04/06/24. Bhavani Zhao MA documented in this encounter [facility] 04-09-2024 Telephone encounter Note See update from pt. Pt seen in the office on 04/06/24. Bhavani Zhao MA [facility] 04-06-2024 Instructions Marcelina Robbins APRN.AVI - 04/06/2024 9:11 AM EST Start doxycycline, take with food May use Mucinex D as needed for chest and sinus congestion, Stay well hydrated May use OTC cold and couth medication as needed. If cough gets worse or does not improve, get chest xray completed Follow up as needed. documented in this encounter [facility] 04-06-2024 History of Presen t illness Narrative This is a 63 year old female who presents today with: Patient presents with: Follow Up: follow up sinus issures HISTORY OF PRESENT ILLNESS: Francisco J Eid is a 63 year old female. Patient presents with: Follow Up: follow up sinus issures Patient of Dr. Jones here in the office for sinus complaints. This has been on going for 5 weeks. Sinus congestion, sinus drainage, white mucus, post nasal drip, cough, ear fullness. No fever or chills. Has been using OTC mucinex, sudafed, and coricidin. Treated with Augmentin on 03/27/2024. [facility] to visit with PCP team on , normal chest x-ray. Refers that symptoms seem to be progressing. No improvement after Augmentin. PAST MEDICAL HISTORY: PAST MEDICAL HISTORY Diagnosis Date Arthritis Class 1 obesity due to excess calories without serious comorbidity with body mass index (BMI) of 33.0 to 33.9 in adult Essential hypertension Female infertility of other specified origin Glossodynia 04/09/2014 Hyperlipidemia LDL goal < 130 04/09/2014 Migraine, unspecified, with intractable migraine, so stated, without mention of status migrainosus Myalgia and myositis, unspecified resolved Postmenopausal bleeding 07/01 polpy. s/p hysteroscopy with polyp removal Sciatica of right side Trochanteric bursitis of right hip Unspecified hemorrhoids without mention of complication Hemorrhoids PAST SURGICAL HISTORY Procedure Laterality Date APPENDECTOMY COLONOSCOPY FLX DX W/COLLJ SPEC WHEN PFRMD 02/05/2013 Colonoscopy EXCISION PILONIDAL CYST/SINUS EXTENSIVE Pilonidal cystectomy HEMORRHOIDECTOMY INT & XTRNL COLUMN/MYAH HYSTEROSCOPY BX ENDOMETRIUM&/POLYPC W/WO D&C 05/24/2019 LAPS ABD PRTM&OMENTUM DX W/WO SPEC BR/WA SPX Laparoscopy, infertility SIGMOIDOSCOPY FLX DX W/COLLJ SPEC BR/WA IF PFRMD 2002 Sigmoidoscopy, flexible TONSILLECTOMY & ADENOIDECTOMY <AGE 12 ALLERGIES Lisinopril MEDICATIONS Current Outpatient Medications Medication Sig amoxicillin-clavulanate potassium (AUGMENTIN) 875-125 mg per tablet Take 1 tablet by mouth two times a day for 10 days. losartan (COZAAR) 100 mg tablet Take 1 tablet by mouth once daily. cholecalciferol (VITAMIN D-3) 5,000 unit tab Take 5,000 Units by mouth once daily. No current facility-administered medications for this visit. FAMILY HISTORY Problem Relation Age of Onset Hypertension Mother Hypertension Father other (anorexia) Sister Hypertension Maternal Grandmother Hypertension Maternal Grandfather Heart Maternal Grandfather Colon Cancer Maternal Uncle other (Mitral Valve Prolapse) Other Mother and sister No Known Problems Daughter No Known Problems Daughter No Known Problems Daughter Social History Tobacco Use Smoking status: Never Smokeless tobacco: Never Vaping Use Vaping status: Never Used Substance Use Topics Alcohol use: No Drug use: No REVIEW OF SYSTEMS GENERAL: No weight loss, malaise or fevers/chills HEENT: + Sinus congestion/pressure, and ear pressure NECK: Negative for lumps, goiter, pain and significant neck swelling RESPIRATORY: + Cough CARDIOVASCULAR: Negative for chest pain, leg swelling, orthopnea, or palpitations GI: No nausea, vomiting, or diarrhea/constipation. No hematochezia/melena. No heartburn or reflux symptoms. : No history of dysuria, frequency or incontinence MUSCULOSKELETAL: Negative for joint pain or swelling. SKIN: Negative for lesions, rash, and itching ENDOCRINE: Negative for cold or heat intolerance, polyuria, polydipsia and goiter NEURO: No history of headaches, syncope, paralysis, seizures or tremors MOOD: Negative for depression, anxiety, or suicidal ideation. EXAM: BP 132/90 Pulse 97 Temp 37.2 C (99 F) (Tympanic) Resp 16 Wt 88.6 kg (195 lb 5.2 oz) LMP 02/03/2011 SpO2 97% BMI 33.24 kg/m PHYSICAL EXAM: General Appearance: Ill appearing, alert, in no acute distress, well-hydrated, well nourished. Skin: Skin color, texture, turgor normal, no suspicious rashes or lesions. Head: Normocephalic, no masses, lesions, tenderness or abnormalities. Eyes: Anicteric sclera. Extraocular movements are intact. . Ears: Positive findings: cerumen on left, amount Moderate, removed with curette and ear lavage. Erythema and edema of ear canal: on left. Difficulty visualizing left TM. Right TM pearly winslow. Nose/Sinuses: Positive findings: mucosa swollen, pale, and boggy, frontal and maxillary sinus tenderness with palpation. Oropharynx: Lips, mucosa, and tongue normal, teeth and gums normal, oropharynx normal. Neck: Supple, no adenopathy; thyroid symmetric, normal size, no bruits. Lungs: Positive findings: rhonchi Cough. Heart: RRR without murmur, gallop, or rubs. No ectopy. Extremities: No deformities, edema, skin discoloration, clubbing or cyanosis. Good capillary refill. Peripheral Pulses: Normal, Capillary refill <2secs, strong peripheral pulses, Pulses palpable. Neurologic: Gait normal. Sensation grossly intact. ASSESSMENT/PLAN: 1. Sinobronchitis - ICD9: 473.9, 490, ICD10: J32.9, J40 (primary diagnosis) - Will begin treatment with Doxycycline - Supportive care with plenty of fluids, rest, and analgesia prn. - May use Mucinex D as needed for sinus and chest congestion. - Instructed to get chest x-ray completed if cough does not improve. - DOXYCYCLINE HYCLATE 100 MG TABLET - PSEUDOEPHEDRINE-GUAIFENESIN ER 120 MG-1,200 MG TAB,EXTEND RELEASE 12HR - XR CHEST 2V FRONTAL/LAT 2. Acute otitis externa of left ear, unspecified type - ICD9: 380.10, ICD10: H60.502 - CIPROFLOXACIN 0.2 %-HYDROCORTISONE 1 % EAR DROPS,SUSPENSION 3. Impacted cerumen of left ear - ICD9: 380.4, ICD10: H61.22 - Resolved, ear lavaged preformed in office. Follow-up if no improvement. Discussed treatment plan and patient voices understanding. Patient's questions answered appropriately. Medications and potential side effects were discussed and patient voices understanding. Marcelina Robbins APRN.AVI This note was partially generated using [employer] voice recognition system. Note was reviewed for accuracy. There may be minor misspellings or grammar miscues with [employer] voice recognition. documented in this encounter [facility] 04-06-2024 Note HNO ID: [id number] Author: MARCELINA ROBBINS APRN.CNP Service: ? Author Type: Nurse Practitioner Type: Progress Notes Filed: 04/06/2024 10:26 Note Text: This is a 63 year old female who presents today with: Patient presents with: Follow Up: follow up sinus issures HISTORY OF PRESENT ILLNESS: Francisco J Eid is a 63 year old female. Patient presents with: Follow Up: follow up sinus issures Patient of Dr. Jones here in the office for sinus complaints. This has been on going for 5 weeks. Sinus congestion, sinus drainage, white mucus, post nasal drip, cough, ear fullness. No fever or chills. Has been using OTC mucinex, sudafed, and coricidin. Treated with Augmentin on 03/27/2024. [facility] to visit with PCP team on , normal chest x-ray. Refers that symptoms seem to be progressing. No improvement after Augmentin. PAST MEDICAL HISTORY: PAST MEDICAL HISTORY Diagnosis Date Arthritis Class 1 obesity due to excess calories without serious comorbidity with body mass index (BMI) of 33.0 to 33.9 in adult Essential hypertension Female infertility of other specified origin Glossodynia 04/09/2014 Hyperlipidemia LDL goal < 130 04/09/2014 Migraine, unspecified, with intractable migraine, so stated, without mention of status migrainosus Myalgia and myositis, unspecified resolved Postmenopausal bleeding 07/01 polpy. s/p hysteroscopy with polyp removal Sciatica of right side Trochanteric bursitis of right hip Unspecified hemorrhoids without mention of complication Hemorrhoids PAST SURGICAL HISTORY Procedure Laterality Date APPENDECTOMY COLONOSCOPY FLX DX W/COLLJ SPEC WHEN PFRMD 02/05/2013 Colonoscopy EXCISION PILONIDAL CYST/SINUS EXTENSIVE Pilonidal cystectomy HEMORRHOIDECTOMY INT AND XTRNL 2/ COLUMN/MYAH HYSTEROSCOPY BX ENDOMETRIUMAND/POLYPC W/WO DANDC 05/24/2019 LAPS ABD PRTMANDOMENTUM DX W/WO SPEC BR/WA SPX Laparoscopy, infertility SIGMOIDOSCOPY FLX DX W/COLLJ SPEC BR/WA IF PFRMD 2002 Sigmoidoscopy, flexible TONSILLECTOMY AND ADENOIDECTOMY ALLERGIES Lisinopril MEDICATIONS Current Outpatient Medications Medication Sig amoxicillin-clavulanate potassium (AUGMENTIN) 875-125 mg per tablet Take 1 tablet by mouth two times a day for 10 days. losartan (COZAAR) 100 mg tablet Take 1 tablet by mouth once daily. cholecalciferol (VITAMIN D-3) 5,000 unit tab Take 5,000 Units by mouth once daily. No current facility-administered medications for this visit. FAMILY HISTORY Problem Relation Age of Onset Hypertension Mother Hypertension Father other (anorexia) Sister Hypertension Maternal Grandmother Hypertension Maternal Grandfather Heart Maternal Grandfather Colon Cancer Maternal Uncle other (Mitral Valve Prolapse) Other Mother and sister No Known Problems Daughter No Known Problems Daughter No Known Problems Daughter Social History Tobacco Use Smoking status: Never Smokeless tobacco: Never Vaping Use Vaping status: Never Used Substance Use Topics Alcohol use: No Drug use: No REVIEW OF SYSTEMS GENERAL: No weight loss, malaise or fevers/chills HEENT: + Sinus congestion/pressure, and ear pressure NECK: Negative for lumps, goiter, pain and significant neck swelling RESPIRATORY: + Cough CARDIOVASCULAR: Negative for chest pain, leg swelling, orthopnea, or palpitations GI: No nausea, vomiting, or diarrhea/constipation. No hematochezia/melena. No heartburn or reflux symptoms. : No history of dysuria, frequency or incontinence MUSCULOSKELETAL: Negative for joint pain or swelling. SKIN: Negative for lesions, rash, and itching ENDOCRINE: Negative for cold or heat intolerance, polyuria, polydipsia and goiter NEURO: No history of headaches, syncope, paralysis, seizures or tremors MOOD: Negative for depression, anxiety, or suicidal ideation. EXAM: BP 132/90 Pulse 97 Temp 37.2 ?C (99 ?F) (Tympanic) Resp 16 Wt 88.6 kg (195 lb 5.2 oz) LMP 02/03/2011 SpO2 97% BMI 33.24 kg/m? PHYSICAL EXAM: General Appearance: Ill appearing, alert, in no acute distress, well-hydrated, well nourished. Skin: Skin color, texture, turgor normal, no suspicious rashes or lesions. Head: Normocephalic, no masses, lesions, tenderness or abnormalities. Eyes: Anicteric sclera. Extraocular movements are intact. . Ears: Positive findings: cerumen on left, amount Moderate, removed with curette and ear lavage. Erythema and edema of ear canal: on left. Difficulty visualizing left TM. Right TM pearly winslow. Nose/Sinuses: Positive findings: mucosa swollen, pale, and boggy, frontal and maxillary sinus tenderness with palpation. Oropharynx: Lips, mucosa, and tongue normal, teeth and gums normal, oropharynx normal. Neck: Supple, no adenopathy; thyroid symmetric, normal size, no bruits. Lungs: Positive findings: rhonchi Cough. Heart: RRR without murmur, gallop, or rubs. No ectopy. Extremities: No deformities, edema, ski (more content not included)... [facility] 04-04-2024 Telephone encounter Note message sent. Marcelina Mathew RN [facility] 04-04-2024 Miscellaneous Notes MC message sent. Marcelina Mathew RN If not improving needs follow-up appointment Sheryl Hermosillo APRN.CNP documented in this encounter [facility] 04-04-2024 Telephone encounter Note If not improving needs follow-up appointment Sheryl Hermosillo APRN.CNP [facility] 03-27-2024 Note HNO ID: [id number] Author: SHERYL HERMOSILLO APRN.CNP Service: ? Author Type: Nurse Practitioner Type: Progress Notes Filed: 03/27/2024 14:51 Note Text: 03/27/2024 Patient presents with: Cough: X3 weeks, with sinus headaches during cough SUBJECTIVE: This is a 63 year old that is here today for Above Complaints.. Reports cough for the past three weeks. Sometimes can be productive. Reports sinus pressure for the last week.Tried some mucinex OTC but didn't seem to help. Tried some Sudafed but it gave her a headache. Tried Tessalon Perles but didn't help. Has used some Flonase but yesterday had a small bloody nose. Seen in [facility] on 03/22/2024. Normal chest xray. Did not self test for COVID-19. Denies fevers, chills, loss of taste/smell, nasal congestion, rhinorrhea, sore throat, SOB, dyspnea, nausea, vomiting or diarrhea PAST MEDICAL HISTORY Diagnosis Date Arthritis Class 1 obesity due to excess calories without serious comorbidity with body mass index (BMI) of 33.0 to 33.9 in adult Essential hypertension Female infertility of other specified origin Glossodynia 04/09/2014 Hyperlipidemia LDL goal < 130 04/09/2014 Migraine, unspecified, with intractable migraine, so stated, without mention of status migrainosus Myalgia and myositis, unspecified resolved Postmenopausal bleeding 07/01 polpy. s/p hysteroscopy with polyp removal Sciatica of right side Trochanteric bursitis of right hip Unspecified hemorrhoids without mention of complication Hemorrhoids ALLERGIES Lisinopril MEDICATIONS Current Outpatient Medications Medication Sig Benzonatate 200 mg capsule Take 1 capsule by mouth every 8 hours as needed for cough for up to 7 days. losartan (COZAAR) 100 mg tablet Take 1 tablet by mouth once daily. cholecalciferol (VITAMIN D-3) 5,000 unit tab Take 5,000 Units by mouth once daily. No current facility-administered medications for this visit. Medications and allergies reviewed by this provider. SOCIAL HISTORY Social History Tobacco Use Smoking status: Never Smokeless tobacco: Never Vaping Use Vaping status: Never Used Substance Use Topics Alcohol use: No Drug use: No REVIEW OF SYSTEMS All other reviewed and negative other than HPI. OBJECTIVE: BP 138/84 Pulse 86 Temp 37.2 ?C (98.9 ?F) Resp 18 Wt 88.6 kg (195 lb 5.2 oz) LMP 02/03/2011 SpO2 97% BMI 33.24 kg/m? . Vital signs reviewed by this provider. APPEARANCE Well appearing, alert, in no acute distress, well-hydrated, well nourished. EYES conjunctiva and sclera normal. NOSE/SINUS TTP across forehead NECK Supple, no adenopathy; thyroid symmetric, normal size, no bruits HEART RRR with normal S1 and S2, no murmurs, no gallops, no JVD appreciated LUNG clear to auscultation. No wheezes rhonchi or rales SKIN Skin color, texture, turgor normal, no suspicious rashes or lesions to exposed skin Depression Screening Never done Anxiety Screening Never done BP Controlled (<130/80) Never done Shingrix Vaccine(1 of 2) Never done Bone Density Screening Never done Advance Directive Discussion Never done Pneumococcal Vaccine: 65+(1 of 1 - PCV) Never done Influenza Vaccine(1) due on 01/29/2024 Covid-19 Vaccine( - 2023- season) due on 01/29/2024 Mammogram Screening due on 08/02/2024 Annual PCP Team Chronic Disease Visit due on 10/09/2024 Diabetes Screening due on 10/13/2024 Lipid Screening due on 01/20/2026 DTaP,Tdap,Td Vaccine(2 - Td or Tdap) due on 03/28/2027 Colorectal Cancer Screening due on 09/25/2033 RSV Vaccine(1 - 1-dose 75+ series) due on 2033 Hepatitis C Screening Completed HIV Screening Completed Cervical Cancer Screening Discontinued ASSESSMENT/PLAN: 1. Sinus pressure - ICD9: 478.19, ICD10: J34.89 (primary diagnosis) - Will begin treatment with as per antibiotic as written, see orders - The patient should also be given nasal saline gtts and suction prn and coricidin for the first 5-7 days of treatment. - Supportive care with plenty of fluids, rest, and analgesia prn. - Follow up in 3-5 days if symptoms persist or worsen. - AMOXICILLIN 875 MG-POTASSIUM CLAVULANATE 125 MG TABLET 2. Acute cough - ICD9: 786.2, ICD10: R05.1 - likely post viral. Consider PND vs reflex - no red flag symptoms or exam findings - red flag symptoms discussed, verbalizes understanding - recommend OTC Coricidin for cough - follow-up if fails to resolve Sheryl Hermosillo, [employer].PROGRAMMING COORDINATOR Prescription instructions reviewed with patient as applicable. Patient advised if symptoms do not improve or if symptoms worsen sooner, to contact their primary care physician. Potential red flag symptoms discussed with the patient. Reviewed appropriate action plan to take if red flag symptoms occur. Patient agreeable to treatment plan. Medical Decision Making: Problems: Low: Acute, uncomplicated illness or injury Risk: Low: Low risk from testing/treatment Moderate: Drug teresa (more content not included)... [facility] 03-27-2024 History of Presen t illness Narrative 03/27/2024 Patient presents with: Cough: X3 weeks, with sinus headaches during cough SUBJECTIVE: This is a 63 year old that is here today for Above Complaints.. Reports cough for the past three weeks. Sometimes can be productive. Reports sinus pressure for the last week.Tried some mucinex OTC but didn't seem to help. Tried some Sudafed but it gave her a headache. Tried Tessalon Perles but didn't help. Has used some Flonase but yesterday had a small bloody nose. Seen in [facility] on 03/22/2024. Normal chest xray. Did not self test for COVID-19. Denies fevers, chills, loss of taste/smell, nasal congestion, rhinorrhea, sore throat, SOB, dyspnea, nausea, vomiting or diarrhea PAST MEDICAL HISTORY Diagnosis Date Arthritis Class 1 obesity due to excess calories without serious comorbidity with body mass index (BMI) of 33.0 to 33.9 in adult Essential hypertension Female infertility of other specified origin Glossodynia 04/09/2014 Hyperlipidemia LDL goal < 130 04/09/2014 Migraine, unspecified, with intractable migraine, so stated, without mention of status migrainosus Myalgia and myositis, unspecified resolved Postmenopausal bleeding 07/01 polpy. s/p hysteroscopy with polyp removal Sciatica of right side Trochanteric bursitis of right hip Unspecified hemorrhoids without mention of complication Hemorrhoids ALLERGIES Lisinopril MEDICATIONS Current Outpatient Medications Medication Sig Benzonatate 200 mg capsule Take 1 capsule by mouth every 8 hours as needed for cough for up to 7 days. losartan (COZAAR) 100 mg tablet Take 1 tablet by mouth once daily. cholecalciferol (VITAMIN D-3) 5,000 unit tab Take 5,000 Units by mouth once daily. No current facility-administered medications for this visit. Medications and allergies reviewed by this provider. SOCIAL HISTORY Social History Tobacco Use Smoking status: Never Smokeless tobacco: Never Vaping Use Vaping status: Never Used Substance Use Topics Alcohol use: No Drug use: No REVIEW OF SYSTEMS All other reviewed and negative other than HPI. OBJECTIVE: BP 138/84 Pulse 86 Temp 37.2 C (98.9 F) Resp 18 Wt 88.6 kg (195 lb 5.2 oz) LMP 02/03/2011 SpO2 97% BMI 33.24 kg/m . Vital signs reviewed by this provider. APPEARANCE Well appearing, alert, in no acute distress, well-hydrated, well nourished. EYES conjunctiva and sclera normal. NOSE/SINUS TTP across forehead NECK Supple, no adenopathy; thyroid symmetric, normal size, no bruits HEART RRR with normal S1 and S2, no murmurs, no gallops, no JVD appreciated LUNG clear to auscultation. No wheezes rhonchi or rales SKIN Skin color, texture, turgor normal, no suspicious rashes or lesions to exposed skin Depression Screening Never done Anxiety Screening Never done BP Controlled (<130/80) Never done Shingrix Vaccine(1 of 2) Never done Bone Density Screening Never done Advance Directive Discussion Never done Pneumococcal Vaccine: 65+(1 of 1 - PCV) Never done Influenza Vaccine(1) due on 01/29/2024 Covid-19 Vaccine( - 2023- season) due on 01/29/2024 Mammogram Screening due on 08/02/2024 Annual PCP Team Chronic Disease Visit due on 10/09/2024 Diabetes Screening due on 10/13/2024 Lipid Screening due on 01/20/2026 DTaP,Tdap,Td Vaccine(2 - Td or Tdap) due on 03/28/2027 Colorectal Cancer Screening due on 09/25/2033 RSV Vaccine(1 - 1-dose 75+ series) due on 2033 Hepatitis C Screening Completed HIV Screening Completed Cervical Cancer Screening Discontinued ASSESSMENT/PLAN: 1. Sinus pressure - ICD9: 478.19, ICD10: J34.89 (primary diagnosis) - Will begin treatment with as per antibiotic as written, see orders - The patient should also be given nasal saline gtts and suction prn and coricidin for the first 5-7 days of treatment. - Supportive care with plenty of fluids, rest, and analgesia prn. - Follow up in 3-5 days if symptoms persist or worsen. - AMOXICILLIN 875 MG-POTASSIUM CLAVULANATE 125 MG TABLET 2. Acute cough - ICD9: 786.2, ICD10: R05.1 - likely post viral. Consider PND vs reflex - no red flag symptoms or exam findings - red flag symptoms discussed, verbalizes understanding - recommend OTC Coricidin for cough - follow-up if fails to resolve Sheryl Hermosillo APRN.PROGRAMMING COORDINATOR Prescription instructions reviewed with patient as applicable. Patient advised if symptoms do not improve or if symptoms worsen sooner, to contact their primary care physician. Potential red flag symptoms discussed with the patient. Reviewed appropriate action plan to take if red flag symptoms occur. Patient agreeable to treatment plan. Medical Decision Making: Problems: Low: Acute, uncomplicated illness or injury Risk: Low: Low risk from testing/treatment Moderate: Drug management Medical Decision Making Level: 3 - Low documented in this encounter [facility] 03-23-2024 Telephone encounter Note Rx sent. [facility] 03-23-2024 Miscellaneous Notes Rx sent. Pharmacy calling, they are out of Tessalon 100 mg. Asking if this can be switched to Tessalon 200mg due to them being completely out of the 100 mg dosing. Please advise. documented in this encounter [facility] 03-23-2024 Telephone encounter Note Pharmacy calling, they are out of Tessalon 100 mg. Asking if this can be switched to Tessalon 200mg due to them being completely out of the 100 mg dosing. Please advise. [facility] 03-22-2024 History of Presen t illness Narrative Radiology Service Progress Note PATIENT NAME: Francisco J Eid DATE OF SERVICE: March 22, 2024 TIME: 12:12 PM PATIENT IDENTITY VERIFICATION COMPLETED USING TWO (2) IDENTIFIERS: Name and Date of confirmed by patient verbally. FALL SCREENING: Has the patient had 2 falls in the last year or 1 fall with injury or currently using an Ambulatory Assistive Device (Walker, Cane, Wheelchair, Crutches, etc.)? No PATIENT GENDER DATA: Female. status: : No status: NO. PATIENT RELEVANT IMPLANT DATA REVIEWED: Yes PATIENT PRESENTS WITH AN IMPLANTABLE OR ATTACHED CHILD PSYCHOLOGY TEACHER: No RADIOLOGY DEPARTMENT: General X-ray: Exam(s) Completed: Chest X-Ray PERIPHERAL IV DATA: Not applicable SIGNED BY: RT Bethany(R) March 22, 2024 12:12 PM documented in this encounter [facility] 03-22-2024 Note HNO ID: [id number] Author: ISABEL TAVERAS RT(R) Service: ? Author Type: [place] Worker Type: Progress Notes Filed: 03/22/2024 12:20 Note Text: Radiology Service Progress Note PATIENT NAME: Francisco J Eid DATE OF SERVICE: March 22, 2024 TIME: 12:12 PM PATIENT IDENTITY VERIFICATION COMPLETED USING TWO (2) IDENTIFIERS: Name and Date of confirmed by patient verbally. FALL SCREENING: Has the patient had 2 falls in the last year or 1 fall with injury or currently using an Ambulatory Assistive Device (Walker, Cane, Wheelchair, Crutches, etc.)? No PATIENT GENDER DATA: Female. status: : No status: NO. PATIENT RELEVANT IMPLANT DATA REVIEWED: Yes PATIENT PRESENTS WITH AN IMPLANTABLE OR ATTACHED CHILD PSYCHOLOGY TEACHER: No RADIOLOGY DEPARTMENT: General X-ray: Exam(s) Completed: Chest X-Ray PERIPHERAL IV DATA: Not applicable SIGNED BY: RT Bethany(Kylie) March 22, 2024 12:12 PM [facility] 03-22-2024 Note HNO ID: [id number] Author: BRIAN HOWARD APRN.AVI Service: ? Author Type: Nurse Practitioner Type: Progress Notes Filed: 03/22/2024 13:20 Note Text: This note was created using NoteWriter. Subjective Francisco J Eid is a 63 year old female. HPI Pt has had a cough for the last 10 days. Review of Systems Constitutional: Positive for chills. Negative for fatigue and fever. HENT: Negative for congestion. Respiratory: Positive for cough. Objective BP 120/98 Pulse 80 Temp 36.8 ?C (98.2 ?F) (Left Tympanic) Resp 16 Wt 90.2 kg (198 lb 13.7 oz) LMP 02/03/2011 SpO2 98% BMI 33.85 kg/m? Physical Exam Vitals and nursing note reviewed. Constitutional: General: She is not in acute distress. Appearance: Normal appearance. She is not ill-appearing. HENT: Head: Normocephalic. Mouth/Throat: Mouth: Mucous membranes are moist. Eyes: Conjunctiva/sclera: Conjunctivae normal. Cardiovascular: Rate and Rhythm: Normal rate and regular rhythm. Pulmonary: Effort: Pulmonary effort is normal. Breath sounds: Normal breath sounds. Musculoskeletal: General: Normal range of motion. Cervical back: Normal range of motion. Skin: General: Skin is warm and dry. Neurological: General: No focal deficit present. Mental Status: She is alert. Psychiatric: Mood and Affect: Mood normal. Behavior: Behavior normal. Assessment and Plan ASSESSMENT/PLAN: 1. Acute cough - ICD9: 786.2, ICD10: R05.1 Chest x-ray unremarkable showing no sign of pneumonia. She was given Tessalon Perles for cough and will follow-up with PCP. - XR CHEST 2V FRONTAL/LAT - BENZONATATE 100 MG CAPSULE Brian Howard, KYA.PROGRAMMING COORDINATOR [facility] 03-22-2024 History of Presen t illness Narrative This note was created using [employer]. Subjective Francisco J Eid is a 63 year old female. HPI Pt has had a cough for the last 10 days. Review of Systems Constitutional: Positive for chills. Negative for fatigue and fever. HENT: Negative for congestion. Respiratory: Positive for cough. Objective BP 120/98 Pulse 80 Temp 36.8 C (98.2 F) (Left Tympanic) Resp 16 Wt 90.2 kg (198 lb 13.7 oz) LMP 02/03/2011 SpO2 98% BMI 33.85 kg/m Physical Exam Vitals and nursing note reviewed. Constitutional: General: She is not in acute distress. Appearance: Normal appearance. She is not ill-appearing. HENT: Head: Normocephalic. Mouth/Throat: Mouth: Mucous membranes are moist. Eyes: Conjunctiva/sclera: Conjunctivae normal. Cardiovascular: Rate and Rhythm: Normal rate and regular rhythm. Pulmonary: Effort: Pulmonary effort is normal. Breath sounds: Normal breath sounds. Musculoskeletal: General: Normal range of motion. Cervical back: Normal range of motion. Skin: General: Skin is warm and dry. Neurological: General: No focal deficit present. Mental Status: She is alert. Psychiatric: Mood and Affect: Mood normal. Behavior: Behavior normal. Assessment and Plan ASSESSMENT/PLAN: 1. Acute cough - ICD9: 786.2, ICD10: R05.1 Chest x-ray unremarkable showing no sign of pneumonia. She was given Tessalon Perles for cough and will follow-up with PCP. - XR CHEST 2V FRONTAL/LAT - BENZONATATE 100 MG CAPSULE Brian Howard APRN.AVI documented in this encounter [facility] 10-25-2023 Instructions Warren Best - 10/25/2023 8:37 AM EDT Powerstep Original Full length. Can purchase at [employer] and boots,shoes and more here in [place], [employer] in [place] or [place]. Also can find in [place] in [facility]. Powersteps can also be purchased online, starting around $45.00 If you have a metatarsal or dancer pad for your feet apply the pad directly to the insole so you can interchange between your shoes. Find a shoe with a removable insole and take this out and replace with your powerstep insole. Always bring powersteps with you when shopping for shoes so that you can make sure that everything fits well together documented in this encounter [facility] 10-25-2023 History of Presen t illness Narrative Images from the original note were not included. Consultation requested by Dr. Hermosillo for an opinion regarding left foot pain. My final recommendations will be communicated back to the requesting physician by way of shared Medical record or letter to requesting physician via US mail. Initial Podiatric Office Visit: Chief Complaint: This 63 year old female who presents with chief complaint:left foot pain HPI Patient presents to clinic for evaluation of left foot Complains of pain to left 2nd and 3rd toe Has painful callus between the left 2nd and 3rd toe. In addition to the callus, has difficulty moving the 2nd. Has tried toe spacer but even toe spacers cause pain. PAIN EVALUATION 10/18/2023 1402 Pain Level: 10 Pain Location: Toe Description: Burning;Sore Duration Amount of Time: 2 Duration Units: Months Frequency: Continuous Intervention/Comfort measure: Positioning No results found for: HBA1C PCP: Mari Jones MD PAST MEDICAL HISTORY Diagnosis Date Arthritis Class 1 obesity due to excess calories without serious comorbidity with body mass index (BMI) of 33.0 to 33.9 in adult Essential hypertension Female infertility of other specified origin Glossodynia 04/09/2014 Hyperlipidemia LDL goal < 130 04/09/2014 Migraine, unspecified, with intractable migraine, so stated, without mention of status migrainosus Myalgia and myositis, unspecified resolved Postmenopausal bleeding 07/01 polpy. s/p hysteroscopy with polyp removal Sciatica of right side Trochanteric bursitis of right hip Unspecified hemorrhoids without mention of complication Hemorrhoids Current Outpatient Medications Medication Sig losartan (COZAAR) 100 mg tablet Take 1 tablet by mouth once daily. cholecalciferol (VITAMIN D-3) 5,000 unit tab Take 5,000 Units by mouth once daily. No current facility-administered medications for this visit. ALLERGIES Allergen Reactions Lisinopril Cough PAST SURGICAL HISTORY Procedure Laterality Date APPENDECTOMY COLONOSCOPY FLX DX W/COLLJ SPEC WHEN PFRMD 02/05/2013 Colonoscopy EXCISION PILONIDAL CYST/SINUS EXTENSIVE Pilonidal cystectomy HEMORRHOIDECTOMY INT & XTRNL COLUMN/MYAH HYSTEROSCOPY BX ENDOMETRIUM&/POLYPC W/WO D&C 05/24/2019 LAPS ABD PRTM&OMENTUM DX W/WO SPEC BR/WA SPX Laparoscopy, infertility SIGMOIDOSCOPY FLX DX W/COLLJ SPEC BR/WA IF PFRMD 2003 Sigmoidoscopy, flexible TONSILLECTOMY & ADENOIDECTOMY <AGE 10 FAMILY HISTORY Problem Relation Age of Onset Hypertension Mother Hypertension Father other (anorexia) Sister Hypertension Maternal Grandmother Hypertension Maternal Grandfather Heart Maternal Grandfather Colon Cancer Maternal Uncle other (Mitral Valve Prolapse) Other Mother and sister No Known Problems Daughter No Known Problems Daughter No Known Problems Daughter Social History Tobacco Use Smoking status: Never Smokeless tobacco: Never Vaping Use Vaping Use: Never used Substance Use Topics Alcohol use: No Drug use: No REVIEW OF SYSTEMS GENERAL: Negative for Malaise, significant weight loss, fever RESPIRATORY: Negative for cough, wheezing and shortness of breath CARDIOVASCULAR: Negative for chest pain, leg swelling and palpitations GI: Negative for abdominal discomfort, blood in stools or black stools and change in bowel habits : Negative for dysuria, frequency and incontinence MUSCULOSKELETAL: Negative for joint pain or swelling, back pain, and muscle pain. SKIN: Negative for lesions, rash, and itching. HEMATOLOGY/LYMPHOLOGY Negative for prolonged bleeding, bruising easily, and swollen nodes. ENDOCRINE: Negative for cold or heat intolerance, polyuria, polydipsia and goiter. NEURO: negative Physical Exam: Constitutional: Pt is a well developed 63 year old female who is alert, oriented and cooperative Eyes: Following during examination. No redness or drainage. Respiratory: RR normal and nonlabored. Even breathing. No evidence of distress or shortness of breath. Psychology: Patient is engaged during conversation. Normal affect and mood. Does not appear depressed or anxious during encounter. Vascular: Dorsalis pedis and posterior tibial pulses faintly palpable b/l Capillary Fill time < 5 seconds to digits 1-5 b/l Skin temperature warm to warm proximal to distal b/l Hair growth present to digits Neurological: intact light touch/epicritic sensation b/l intact protective sensation no significant neurological deficits Dermatological: Nails 1-5 b/l appear normal. Webspaces clean and dry 1-4 b/l. Skin appears well hydrated and supple. good color, texture, turgor. No open lesions present. Callus present to right 1st metatarsal, left lateral 2nd toe and left 3rd toe medial aspect. Small pin point bleeding present to left 3rd toe Musculoskeletal/Orthopaedic: Patient has pain to palpation of left 2nd pipj and left 2nd toe Foot type is neutral structurally AJ ROM is full with knee extended and flexed 1st MPJ is decreased when loaded and no pain or crepitus are noted with ROM. MTJ, STJ are full and free of pain and crepitus. +5/5 muscle strength dorsiflexion, plantarflexion, inversion, eversion b/l Radiographs: 3 views left foot ordered October 25, 2023: I have personally reviewed and interpreted these XR myself: there is narrowing of left 1st mtpj and narrowing of left 2nd pipj. 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 History and physical examination performed. 2. XR reviewed with patient and interpreted today 3. Discussed pain in left 2nd toe. Part of her pain is due to callus between the left 2nd and left 3rd toe. The callus was reduced with 15 blade to 2nd and 3rd toe of left foot as well as first metatarsal of right foot. Will treat callus with toe spacer to avoid rubbing. Small bleed on left 3rd toe treated with band aide 4. Discussed pain in left foot. Options for the bunion and hammertoe include inserts and padding vs surgical options. Surgical options for the 2nd toe could include isolated amputation of 2nd toe vs surgical reconstruction. Surgical reconstrcution of left foot would include bunion correciton of left first ray, likely with first mtpj fusion. This would allow correction of 2nd toe with gris osteotomy, pipj fusion with fdl transfer and possible edl lengthening. This should allow the 2nd and 3rd toe to avoid rubbing. 5. If patient is interested in surgery, will check vitamin d and pvr 6. Will call with results Warren Best DPM Podiatry [address] [facility] [address] Dept: [phone] Dept AMB ROOMING INTAKE FLOWSHEET DATA Pain Pain Level: 10 Pain Location: Toe Description: Burning, Sore Duration Amount of Time: 2 Duration Units: Months Frequency: Continuous Intervention/Comfort measure: Positioning Patient presents with: Left Foot - New, Pain, Callous Patient presents for Left 2nd and 3rd toe pain that has been ongoing for a few months. States that she can not bend her toes anymore. When she moves her toes she gets a burning, searing pain. Callus to both toes in interspace with discoloration. Has tried a toe spacer, but even painful to try to place spacer. XR done 10/10/23 documented in this encounter [facility] 10-12-2023 Note IMPRESSION: 1. Interval progression of first MTP osteoarthritis with hallux valgus and bunion Rn Gyn: PSCB Transcribe Date/Time: Oct 12 2023 6:54P Dictated by : DEVENDRA EVANS MD This examination was interpreted and the report reviewed and electronically signed by: DEVENDRA EVANS MD on Oct 12 2023 6:55PM [facility] DIVISION OF RADIOLOGY 10-10-2023 History of Presen t illness Narrative Radiology Service Progress Note PATIENT NAME: Francisco J Eid DATE OF SERVICE: October 10, 2023 TIME: 10:19 AM PATIENT IDENTITY VERIFICATION COMPLETED USING TWO (2) IDENTIFIERS: Name and Date of confirmed by patient verbally. FALL SCREENING: Has the patient had 2 falls in the last year or 1 fall with injury or currently using an Ambulatory Assistive Device (Walker, Cane, Wheelchair, Crutches, etc.)? No PATIENT GENDER DATA: Female. status: : No status: NO. PATIENT RELEVANT IMPLANT DATA REVIEWED: Not Applicable PATIENT PRESENTS WITH AN IMPLANTABLE OR ATTACHED CHILD PSYCHOLOGY TEACHER: No RADIOLOGY DEPARTMENT: General X-ray: Exam(s) Completed: Lower Extremity X-Ray(s): Foot, Left and Wt. Bearing PERIPHERAL IV DATA: Not applicable SIGNED BY: RT Jt(R) October 10, 2023 10:19 AM documented in this encounter [facility] 10-10-2023 Instructions Sheryl Hermosillo APRN.CNP - 10/10/2023 9:40 AM EDT Monitor blood pressure at home. The majority should be less than 140/90- return to office if the majority are 140/90 or above documented in this encounter [facility] 10-10-2023 History of Presen t illness Narrative 10/10/2023 Patient presents with: Pain: Left foot toe pain x4 months SUBJECTIVE: This is a 63 year old that is here today for Above Complaints. ONSET: four months LOCATION: 2nd toe left foot for months. Tuesday big toe started hurting- better DURATION: intermittent CHARACTERISTICS: super, super sore. Burning pain swollen yesterday AGGRAVATING FEATURES: walking on it ALLEVIATING FEATURES:Advil, did use toe seprator RADIATION: none Denies past injury/surgery, current redness, warmth or swelling PAST MEDICAL HISTORY Diagnosis Date Arthritis Class 1 obesity due to excess calories without serious comorbidity with body mass index (BMI) of 33.0 to 33.9 in adult Essential hypertension Female infertility of other specified origin Glossodynia 04/09/2014 Hyperlipidemia LDL goal < 130 04/09/2014 Migraine, unspecified, with intractable migraine, so stated, without mention of status migrainosus Myalgia and myositis, unspecified resolved Postmenopausal bleeding 07/01 polpy. s/p hysteroscopy with polyp removal Sciatica of right side Trochanteric bursitis of right hip Unspecified hemorrhoids without mention of complication Hemorrhoids ALLERGIES Lisinopril MEDICATIONS Current Outpatient Medications Medication Sig losartan (COZAAR) 100 mg tablet Take 1 tablet by mouth once daily. cholecalciferol (VITAMIN D-3) 5,000 unit tab Take 5,000 Units by mouth once daily. No current facility-administered medications for this visit. Medications and allergies reviewed by this provider. SOCIAL HISTORY Social History Tobacco Use Smoking status: Never Smokeless tobacco: Never Vaping Use Vaping Use: Never used Substance Use Topics Alcohol use: No Drug use: No REVIEW OF SYSTEMS All other reviewed and negative other than HPI. OBJECTIVE: BP 146/92 Pulse 76 Resp 16 Wt 90.4 kg (199 lb 3.2 oz) LMP 02/03/2011 SpO2 96% BMI 33.90 kg/m . Vital signs reviewed by this provider. APPEARANCE Well appearing, alert, in no acute distress, well-hydrated, well nourished. LET FOOT: Hallux Valgus deformity otherwise no erythema, swelling or excessive warmth. 2+ pedal pulse. TTP 2nd toe- unable to flex IP joint BP Controlled (<130/80) Never done Shingrix Vaccine(1 of 2) Never done RSV Vaccine(1 - 1-dose 60+ series) Never done Behavioral Health Screening Never done Advance Directive Discussion Never done Bone Density Screening due on 10/09/2023 Pneumococcal Vaccine: 65+(1 of 1 - PCV) due on 10/09/2023 Covid-19 Vaccine() due on 06/21/2024 Influenza Vaccine(Season Ended) due on 01/29/2024 Mammogram Screening due on 08/02/2024 Annual PCP Team Chronic Disease Visit due on 10/09/2024 Diabetes Screening due on 10/13/2024 Lipid Screening due on 01/20/2026 DTaP,Tdap,Td Vaccine(2 - Td or Tdap) due on 03/28/2027 Colorectal Cancer Screening due on 09/25/2033 Hepatitis C Screening Completed HIV Screening Completed Pap Testing Discontinued ASSESSMENT/PLAN: 1. Pain of toe of left foot - ICD9: 729.5, ICD10: M79.675 (primary diagnosis) - no red flag symptoms or exam findings - red flag symptoms discussed, verbalizes understanding - may continue to use Aleve to help with pain, can also try ice or heat for 15 minutes at a time - XR FOOT GENERAL 3V AP/LAT/OBL LEFT - CONSULT TO PODIATRY 2. Hypertension, essential - ICD9: 401.9, ICD10: I10 - Uncontrolled - Continue current medications - Recommend home blood pressure monitoring, to bring results to next visit - Encouraged sodium restriction, DASH or Mediterranean diet - Recommend regular aerobic exercise - Discussed need for and benefit of weight loss. BMI 33.90 kg/(m^2) - Monitor BP at home and if majority greater or equal to 140/90 return to office - follow-up in 6 months Sheryl Hermosillo APRN.AVI Prescription instructions reviewed with patient as applicable. Patient advised if symptoms do not improve or if symptoms worsen sooner, to contact their primary care physician. Potential red flag symptoms discussed with the patient. Reviewed appropriate action plan to take if red flag symptoms occur. Patient agreeable to treatment plan. Medical Decision Making: Problems: Moderate: New problem with uncertain prognosis and 1+ chronic illnesses with change Data: Unique test(s) ordered: 1 Risk: Moderate: Moderate risk from testing/treatment Medical Decision Making Level: 4 - Moderate documented in this encounter [facility] 10-03-2023 Telephone encounter Note Please see pt message and advise. Bhavani Zhao MA [facility] 10-03-2023 Miscellaneous Notes Please see pt message and advise. Bhavani Zhao MA documented in this encounter [facility] 09-26-2023 Note Formatting of this n ote might be different from the original. The patient received a copy of Colonoscopy discharge instructions that contain information for how to contact the physician who performed the procedure and when to seek medical care. María Wilson RN [facility] 09-26-2023 Miscellaneous Notes The patient received a copy of Colonoscopy discharge instructions that contain information for how to contact the physician who performed the procedure and when to seek medical care. María Wilson RN documented in this encounter [facility] 09-26-2023 Nurse Note Arrived in phase II via cart. Left lateral position. Sedated, but responds to verbal stimuli. Color normal; skin warm and dry. Respirations wnl and unlabored. Abdomen soft and with + bowel sounds in quads X 4. Patient resting comfortably. Family at bedside. Dr. Estrada at bedside to review procedure and recommendations. María Wilson RN [facility] 09-26-2023 Nurse Note Arrived in phase II via cart. Left lateral position. Sedated, but responds to verbal stimuli. Color normal; skin warm and dry. Respirations wnl and unlabored. Abdomen soft and with + bowel sounds in quads X 4. Patient resting comfortably. Family at bedside. Dr. Estrada at bedside to review procedure and recommendations. María Wilson RN documented in this encounter [facility] 09-26-2023 History and physical note SUBJECTIVE: This is a 62 year old that is here today for Above Complaints.. Since last office visit has been in good health without ER visits or hospitalizations. No concerns today HTN: Patient is compliant with meds Yes Monitors bp at home: No Denies side effects: Yes. Chest pain: No. Dyspnea: No. Edema: No. Palpitations: No. Syncope: No. Headache: No. Dizziness: No. PAST MEDICAL HISTORY PAST MEDICAL HISTORY Diagnosis Date Class 1 obesity due to excess calories without serious comorbidity with body mass index (BMI) of 33.0 to 33.9 in adult Essential hypertension Female infertility of other specified origin Glossodynia 04/09/2014 Hyperlipidemia LDL goal < 130 04/09/2014 Migraine, unspecified, with intractable migraine, so stated, without mention of status migrainosus Myalgia and myositis, unspecified resolved Postmenopausal bleeding 07/01 polpy. s/p hysteroscopy with polyp removal Sciatica of right side Trochanteric bursitis of right hip Unspecified hemorrhoids without mention of complication Hemorrhoids ALLERGIES Lisinopril MEDICATIONS CURRENT MEDICATIONS Current Outpatient Medications Medication Sig losartan (COZAAR) 100 mg tablet Take 1 tablet by mouth once daily. cholecalciferol (VITAMIN D-3) 5,000 unit tab Take 5,000 Units by mouth once daily. biotin 1,000 mcg chew Take by mouth. (Patient not taking: Reported on 06/21/2023) B Complex-Folic Acid 0.4 mg tab Take by mouth. (Patient not taking: Reported on 09/16/2022) Minoxidil 5 % foam Apply to affected area twice daily. (Patient not taking: Reported on 09/16/2022) Zinc 50 mg tab Take by mouth. No current facility-administered medications for this visit. Medications and allergies reviewed by this provider. SOCIAL HISTORY SOCIAL HISTORY Social History Tobacco Use Smoking status: Never Smokeless tobacco: Never Vaping Use Vaping Use: Never used Substance Use Topics Alcohol use: No Drug use: No REVIEW OF SYSTEMS All other reviewed and negative other than HPI. OBJECTIVE: BP 138/88 Pulse 72 Resp 18 Wt 88.5 kg (195 lb) LMP 02/03/2011 SpO2 95% BMI 33.19 kg/m . Vital signs reviewed by this provider. APPEARANCE Well appearing, alert, in no acute distress, well-hydrated, well nourished. EYES conjunctiva and sclera normal. HEART RRR with normal S1 and S2, no murmurs, no gallops, no JVD appreciated LUNG clear to auscultation. No wheezes, rhonchi or rales EXTREMITIES Extremities normal, No deformities, No skin discoloration, and No edema SKIN Skin color, texture, turgor normal, no suspicious rashes or lesions to exposed skin Component Latest Ref Rng & Units 10/13/2021 Protein, Total 6.3 - 8.0 g/dL 7.4 Albumin 3.9 - 4.9 g/dL 4.4 Calcium 8.5 - 10.2 mg/dL 9.9 Bilirubin, Total 0.2 - 1.3 mg/dL 0.2 Alkaline Phosphatase 34 - 123 U/L 101 AST 13 - 35 U/L 23 ALT 7 - 38 U/L 34 Glucose 74 - 99 mg/dL 88 BUN 7 - 21 mg/dL 19 Creatinine 0.58 - 0.96 mg/dL 0.88 Sodium 136 - 144 mmol/L 141 Potassium 3.7 - 5.1 mmol/L 4.4 Chloride 97 - 105 mmol/L 102 CO2 22 - 30 mmol/L 29 Anion Gap 9 - 18 mmol/L 10 eGFR >=60 mL/min/1.73m 74 WBC 3.70 - 11.00 k/uL 7.78 RBC 3.90 - 5.20 m/uL 4.87 Hemoglobin 11.5 - 15.5 g/dL 13.9 Hematocrit 36.0 - 46.0 % 43.9 MCV 80.0 - 100.0 fL 90.1 MCH 26.0 - 34.0 pg 28.5 MCHC 30.5 - 36.0 g/dL 31.7 RDW-CV 11.5 - 15.0 % 14.1 Platelet Count 150 - 400 k/uL 258 MPV 9.0 - 12.7 fL 10.7 Absolute nRBC <0.01 k/uL <0.01 Iron 41 - 186 ug/dL 64 TIBC 232 - 386 ug/dL 301 Transferrin Saturation 15 - 57 % 21 TSH 0.270 - 4.200 mIU/L 1.910 Ferritin 14.7 - 205.1 ng/mL 109.0 BP Controlled (<130/80) Never done Shingrix Vaccine(1 of 2) Never done RSV Vaccine(1 - 1-dose 60+ series) Never done Pap Testing due on 08/23/2021 HPV Testing due on 08/23/2021 Colorectal Cancer Screening due on 02/05/2023 Depression Assessment Never done Mammogram Screening due on 05/27/2023 Influenza Vaccine(1) due on 11/27/2023 Covid-19 Vaccine( season) due on 06/21/2024 Annual PCP Team Chronic Disease Visit due on 06/21/2024 Diabetes Screening due on 10/13/2024 Lipid Screening due on 01/20/2026 DTaP,Tdap,Td Vaccine(2 - Td or Tdap) due on 03/28/2027 Hepatitis C Screening Completed HIV Screening Completed ASSESSMENT/PLAN: 1. Hypertension, essential - ICD9: 401.9, ICD10: I10 (primary diagnosis) - Controlled - Continue current medications - Recommend home blood pressure monitoring, to bring results to next visit - Encouraged sodium restriction, DASH or Mediterranean diet - Recommend regular aerobic exercise - Discussed need for and benefit of weight loss. BMI 33.19 kg/(m^2) - Follow up in 6 months for hypertension visit - COMP METABOLIC PANEL - LOSARTAN 100 MG TABLET 2. Encounter for screening mammogram for breast cancer - ICD9: V76.12, ICD10: Z12.31 - KEILA SCREENING 3. Screening for colon cancer - ICD9: V76.51, ICD10: Z12.11 - COLONOSCOPY SCREENING Sheryl Hermosillo APRN.PROGRAMMING COORDINATOR Prescription instructions reviewed with patient as applicable. Patient advised if symptoms do not improve or if symptoms worsen sooner, to contact their primary care physician. Potential red flag symptoms discussed with the patient. Reviewed appropriate action plan to take if red flag symptoms occur. Patient agreeable to treatment plan. Medical Decision Making: Problems: Low: Stable chronic illness Risk: Moderate: Drug management Medical Decision Making Level: 3 - Low UPDATED HISTORY AND PHYSICAL EXAMINATION SERVICE DATE: 09/26/2023 SERVICE TIME: 8:37 AM PHYSICAL EXAM MUST BE COMPLETED ON ADMISSION The History and Physical (completed in the past 30 days) has been reviewed and the patient has been examined. The contents accurately reflect the patient's condition with the following additions or revisions since the H&P was completed. Examination indicates no changes. This H&P can be found in the attached. SIGNATURE: Rizwan Estrada III, MD PATIENT NAME: Francisco J Eid DATE: September 26, 2023 TIME: 8:37 AM [facility] 09-26-2023 History and physical note SUBJECTIVE: This is a 62 year old that is here today for Above Complaints.. Since last office visit has been in good health without ER visits or hospitalizations. No concerns today HTN: Patient is compliant with meds Yes Monitors bp at home: No Denies side effects: Yes. Chest pain: No. Dyspnea: No. Edema: No. Palpitations: No. Syncope: No. Headache: No. Dizziness: No. PAST MEDICAL HISTORY PAST MEDICAL HISTORY Diagnosis Date Class 1 obesity due to excess calories without serious comorbidity with body mass index (BMI) of 33.0 to 33.9 in adult Essential hypertension Female infertility of other specified origin Glossodynia 04/09/2014 Hyperlipidemia LDL goal < 130 04/09/2014 Migraine, unspecified, with intractable migraine, so stated, without mention of status migrainosus Myalgia and myositis, unspecified resolved Postmenopausal bleeding 07/01 polpy. s/p hysteroscopy with polyp removal Sciatica of right side Trochanteric bursitis of right hip Unspecified hemorrhoids without mention of complication Hemorrhoids ALLERGIES Lisinopril MEDICATIONS CURRENT MEDICATIONS Current Outpatient Medications Medication Sig losartan (COZAAR) 100 mg tablet Take 1 tablet by mouth once daily. cholecalciferol (VITAMIN D-3) 5,000 unit tab Take 5,000 Units by mouth once daily. biotin 1,000 mcg chew Take by mouth. (Patient not taking: Reported on 06/21/2023) B Complex-Folic Acid 0.4 mg tab Take by mouth. (Patient not taking: Reported on 09/16/2022) Minoxidil 5 % foam Apply to affected area twice daily. (Patient not taking: Reported on 09/16/2022) Zinc 50 mg tab Take by mouth. No current facility-administered medications for this visit. Medications and allergies reviewed by this provider. SOCIAL HISTORY SOCIAL HISTORY Social History Tobacco Use Smoking status: Never Smokeless tobacco: Never Vaping Use Vaping Use: Never used Substance Use Topics Alcohol use: No Drug use: No REVIEW OF SYSTEMS All other reviewed and negative other than HPI. OBJECTIVE: BP 138/88 Pulse 72 Resp 18 Wt 88.5 kg (195 lb) LMP 02/03/2011 SpO2 95% BMI 33.19 kg/m . Vital signs reviewed by this provider. APPEARANCE Well appearing, alert, in no acute distress, well-hydrated, well nourished. EYES conjunctiva and sclera normal. HEART RRR with normal S1 and S2, no murmurs, no gallops, no JVD appreciated LUNG clear to auscultation. No wheezes, rhonchi or rales EXTREMITIES Extremities normal, No deformities, No skin discoloration, and No edema SKIN Skin color, texture, turgor normal, no suspicious rashes or lesions to exposed skin Component Latest Ref Rng & Units 10/13/2021 Protein, Total 6.3 - 8.0 g/dL 7.4 Albumin 3.9 - 4.9 g/dL 4.4 Calcium 8.5 - 10.2 mg/dL 9.9 Bilirubin, Total 0.2 - 1.3 mg/dL 0.2 Alkaline Phosphatase 34 - 123 U/L 101 AST 13 - 35 U/L 23 ALT 7 - 38 U/L 34 Glucose 74 - 99 mg/dL 88 BUN 7 - 21 mg/dL 19 Creatinine 0.58 - 0.96 mg/dL 0.88 Sodium 136 - 144 mmol/L 141 Potassium 3.7 - 5.1 mmol/L 4.4 Chloride 97 - 105 mmol/L 102 CO2 22 - 30 mmol/L 29 Anion Gap 9 - 18 mmol/L 10 eGFR >=60 mL/min/1.73m 74 WBC 3.70 - 11.00 k/uL 7.78 RBC 3.90 - 5.20 m/uL 4.87 Hemoglobin 11.5 - 15.5 g/dL 13.9 Hematocrit 36.0 - 46.0 % 43.9 MCV 80.0 - 100.0 fL 90.1 MCH 26.0 - 34.0 pg 28.5 MCHC 30.5 - 36.0 g/dL 31.7 RDW-CV 11.5 - 15.0 % 14.1 Platelet Count 150 - 400 k/uL 258 MPV 9.0 - 12.7 fL 10.7 Absolute nRBC <0.01 k/uL <0.01 Iron 41 - 186 ug/dL 64 TIBC 232 - 386 ug/dL 301 Transferrin Saturation 15 - 57 % 21 TSH 0.270 - 4.200 mIU/L 1.910 Ferritin 14.7 - 205.1 ng/mL 109.0 BP Controlled (<130/80) Never done Shingrix Vaccine(1 of 2) Never done RSV Vaccine(1 - 1-dose 60+ series) Never done Pap Testing due on 08/23/2021 HPV Testing due on 08/23/2021 Colorectal Cancer Screening due on 02/05/2023 Depression Assessment Never done Mammogram Screening due on 05/27/2023 Influenza Vaccine(1) due on 11/27/2023 Covid-19 Vaccine( season) due on 06/21/2024 Annual PCP Team Chronic Disease Visit due on 06/21/2024 Diabetes Screening due on 10/13/2024 Lipid Screening due on 01/20/2026 DTaP,Tdap,Td Vaccine(2 - Td or Tdap) due on 03/28/2027 Hepatitis C Screening Completed HIV Screening Completed ASSESSMENT/PLAN: 1. Hypertension, essential - ICD9: 401.9, ICD10: I10 (primary diagnosis) - Controlled - Continue current medications - Recommend home blood pressure monitoring, to bring results to next visit - Encouraged sodium restriction, DASH or Mediterranean diet - Recommend regular aerobic exercise - Discussed need for and benefit of weight loss. BMI 33.19 kg/(m^2) - Follow up in 6 months for hypertension visit - COMP METABOLIC PANEL - LOSARTAN 100 MG TABLET 2. Encounter for screening mammogram for breast cancer - ICD9: V76.12, ICD10: Z12.31 - KEILA SCREENING 3. Screening for colon cancer - ICD9: V76.51, ICD10: Z12.11 - COLONOSCOPY SCREENING Sheryl Merinologkaren, SUPERINTENDENT DIVISION.PROGRAMMING COORDINATOR Prescription instructions reviewed with patient as applicable. Patient advised if symptoms do not improve or if symptoms worsen sooner, to contact their primary care physician. Potential red flag symptoms discussed with the patient. Reviewed appropriate action plan to take if red flag symptoms occur. Patient agreeable to treatment plan. Medical Decision Making: Problems: Low: Stable chronic illness Risk: Moderate: Drug management Medical Decision Making Level: 3 - Low UPDATED HISTORY AND PHYSICAL EXAMINATION SERVICE DATE: 09/26/2023 SERVICE TIME: 8:37 AM PHYSICAL EXAM MUST BE COMPLETED ON ADMISSION The History and Physical (completed in the past 30 days) has been reviewed and the patient has been examined. The contents accurately reflect the patient's condition with the following additions or revisions since the H&P was completed. Examination indicates no changes. This H&P can be found in the attached. SIGNATURE: Rizwan Estrada III, MD PATIENT NAME: Francisco J Eid DATE: September 26, 2023 TIME: 8:37 AM documented in this encounter [facility] 08-04-2023 Miscellaneous Notes Spoke with pt and information listed below given. Pt verbalizes understanding. Ligia Leal LPN TC to patient with no answer. Left VM to return call to receive results. AHMET Markham Please call patient and let her know there is no mammographic evidence of malignancy. A 1 year screening mammogram is recommended. Sheryl Hermosillo APRN.AVI documented in this encounter [facility] 08-03-2023 Miscellaneous Notes August 03, 2023 PID: [id number] Francisco J Eid [address] [place] [address] Dear Ms. Eid, We are pleased to inform you that the results of your recent breast imaging exam on 08/03/2023 are normal. Early detection of cancer is very important. We also understand recommendations regarding breast cancer screening are controversial. Please discuss with your primary care provider which strategy is best for you and whether a mammogram is right for you. Your imaging studies and report will be kept on file at [facility] as part of your permanent medical record and are available for your continuing care. Thank you for allowing us to help in meeting your health care needs. Sincerely, Dr. Craig Interpreting Radiologist [facility] (Normal over 40) documented in this encounter [facility] 08-03-2023 History of Presen t illness Narrative Radiology Service Progress Note PATIENT NAME: Francisco J Eid DATE OF SERVICE: August 03, 2023 TIME: 7:45 AM PATIENT IDENTITY VERIFICATION COMPLETED USING TWO (2) IDENTIFIERS: Name and Date of confirmed by patient verbally. FALL SCREENING: Has the patient had 2 falls in the last year or 1 fall with injury or currently using an Ambulatory Assistive Device (Walker, Cane, Wheelchair, Crutches, etc.)? No PATIENT GENDER DATA: Female. status: : No status: NO. PATIENT RELEVANT IMPLANT DATA REVIEWED: Not Applicable PATIENT PRESENTS WITH AN IMPLANTABLE OR ATTACHED CHILD PSYCHOLOGY TEACHER: No RADIOLOGY DEPARTMENT: Mammography PERIPHERAL IV DATA: Not applicable SIGNED BY: RT Shivam(R) August 03, 2023 7:45 AM documented in this encounter [facility] 03-07-2023 Miscellaneous Notes TC to patient who is agreeable to schedule follow up. Per patient request, she is now scheduled for a routine follow up with FERNANDA on 03/14/23 at 9:00 AM. Nothing further at this time. AHMET Markham Patient is due for routine follow-up. Please assist is scheduling. Sheryl Hermosillo APRN.CNP Patient has been identified by name and date of : Yes Patient phones for refill(s): Requested Prescriptions Pending Prescriptions Disp Refills losartan (COZAAR) 100 mg tablet 90 tablet 0 Sig: Take 1 tablet by mouth once daily. Date of last office visit in primary care: JAX 09/16/22 NOV not scheduled Last 2 Encounter Wt Readings: Date: Wt: 07/13/2022 88.5 kg (195 lb) 04/14/2022 89 kg (196 lb 3.2 oz) Please advise. Thank you. AHMET Markham documented in this encounter [facility] 09-16-2022 History of Presen t illness Narrative Chief Complaint Patient presents with: UTI: S/Sx started about 24 hrs ago-frequency and burning with urination. Minimal output. HPI Francisco J Eid is a 61 year old female who presents here today for Above Complaints.. Patient complaining today of urgency, dysuria, frequency which started 24 hours ago. Treating with Azo and increased fluid intake. Denies hematuria, fever/chills, nausea, vomiting, abdominal pain, flank pain. Past medical history, appointments, medications, allergies reviewed. Previous Medical History PAST MEDICAL HISTORY Diagnosis Date Class 1 obesity due to excess calories without serious comorbidity with body mass index (BMI) of 33.0 to 33.9 in adult Essential hypertension Female infertility of other specified origin Glossodynia 04/09/2014 Hyperlipidemia LDL goal < 130 04/09/2014 Migraine, unspecified, with intractable migraine, so stated, without mention of status migrainosus Myalgia and myositis, unspecified resolved Postmenopausal bleeding 07/01 polpy. s/p hysteroscopy with polyp removal Sciatica of right side Trochanteric bursitis of right hip Unspecified hemorrhoids without mention of complication Hemorrhoids Previous Surgical History PAST SURGICAL HISTORY Procedure Laterality Date APPENDECTOMY COLONOSCOPY FLX DX W/COLLJ SPEC WHEN PFRMD 02/05/2013 Colonoscopy EXCISION PILONIDAL CYST/SINUS EXTENSIVE Pilonidal cystectomy HEMORRHOIDECTOMY INT & XTRNL 2/> COLUMN/MYAH HYSTEROSCOPY BX ENDOMETRIUM&/POLYPC W/WO D&C 05/24/2019 LAPS ABD PRTM&OMENTUM DX W/WO SPEC BR/WA SPX Laparoscopy, infertility SIGMOIDOSCOPY FLX DX W/COLLJ SPEC BR/WA IF PFRMD 2002 Sigmoidoscopy, flexible TONSILLECTOMY & ADENOIDECTOMY <AGE 12 Family History FAMILY HISTORY Problem Relation Age of Onset Hypertension Mother Hypertension Father other (anorexia) Sister Hypertension Maternal Grandmother Hypertension Maternal Grandfather Heart Maternal Grandfather Colon Cancer Maternal Uncle other (Mitral Valve Prolapse) Other Mother and sister No Known Problems Daughter No Known Problems Daughter No Known Problems Daughter Patient Allergies ALLERGIES Allergen Reactions Lisinopril Cough Current Medications Current Outpatient Medications on File Prior to Visit Medication Sig losartan (COZAAR) 100 mg tablet Take 1 tablet by mouth once daily. biotin 1,000 mcg chew Take by mouth. B Complex-Folic Acid 0.4 mg tab Take by mouth. (Patient not taking: Reported on 09/16/2022) Minoxidil 5 % foam Apply to affected area twice daily. (Patient not taking: Reported on 09/16/2022) cholecalciferol (VITAMIN D-3) 5,000 unit tab Take 5,000 Units by mouth once daily. Zinc 50 mg tab Take by mouth. No current facility-administered medications on file prior to visit. Social History Social History Tobacco Use Smoking status: Never Smokeless tobacco: Never Vaping Use Vaping Use: Never used Substance Use Topics Alcohol use: No Drug use: No Review of Symptoms REVIEW OF SYSTEMS See HPI EXAM: BP 118/70 Pulse 96 Temp 37.2 C (98.9 F) Resp 16 LMP 02/03/2011 SpO2 94% General Appearance: Well appearing, alert, in no acute distress, well-hydrated, well nourished.. Skin: Skin color, texture, turgor normal, no suspicious rashes or lesions. Abdomen: Normal abdominal exam, Abdomen soft, non-tender. Bowel sounds normal. No masses, organomegaly, Negative CVA tenderness. Health Maintenance List SHINGRIX VACCINE(1 of 2) Never done COVID-19 VACCINE(4 - Booster for Moderna series) due on 06/27/2021 PAP TESTING due on 08/23/2021 HPV TESTING due on 08/23/2021 DEPRESSION ASSESSMENT Never done INFLUENZA(Season Ended) due on 01/28/2023 COLORECTAL CANCER SCREENING due on 02/05/2023 ANNUAL PCP TEAM CHRONIC DISEASE VISIT due on 04/14/2023 MAMMOGRAM due on 05/27/2023 BP CONTROLLED (<130/80) due on 07/13/2023 DIABETES SCREEN due on 10/13/2024 LIPID SCREEN due on 01/20/2026 DTAP,TDAP,TD(2 - Td or Tdap) due on 03/28/2027 HEPATITIS C SCREENING Completed HIV SCREENING Completed Data reviewed Component Latest Ref Rng & Units 09/16/2022 GLUCOSE UA (POCT) Negative mg/dL 100 (A) BILIRUBIN UA (POCT) Negative Small (A) KETONE UA (POCT) Negative mg/dL Trace SPECIFIC GRAVITY UA (POCT) 1.005 - 1.030 1.020 HEMOGLOBIN/BLOOD UA (POCT) Negative Moderate (A) PH UA (POCT) 4.5 - 8.0 5.0 PROTEIN UA (POCT) Negative mg/dL 100 (A) UROBILINOGEN UA (POCT) Normal E.U./dL 4.0 (A) NITRITE UA (POCT) Negative Positive (A) LEUKOCYTES UA (POCT) Negative Large (A) COLOR UA (POCT) Red CLARITY UA (POCT) Slightly Cloudy ASSESSMENT/PLAN: 1. Acute cystitis without hematuria - ICD9: 595.0, ICD10: N30.00 Positive for UTI. Start macrobid x5 days. Send for culture. Push PO fluids. Red flags for re-assessment reviewed with patient in detail. - UA DIP, URINE (POC) - NITROFURANTOIN MONOHYDRATE & MACROCRYSTAL 100 MG ORAL CAP - URINE CULTURE Mari Jones MD documented in this encounter [facility] 09-10-2022 Miscellaneous Notes Patient active MyChart. Patient notified via [employer] message. Rhonda Liao MA 90 day rx sent. Due for 6 month check up/physical next month. Patient phones requesting refills as follows: Requested Prescriptions Pending Prescriptions Disp Refills losartan (COZAAR) 100 mg tablet 90 tablet 0 Sig: Take 1 tablet by mouth once daily. JAX-04/14/22 Labs-10/13/21 NOV-none med filled 06/08/22 Please review and advise. Ruth Wang LPN documented in this encounter [facility] 07-13-2022 History of Presen t illness Narrative Subjective HPI Nontoxic-appearing female presents urgent care chief complaint possible sinus infection. Duration of symptoms 1 month. Associated symptoms sinus pressure and cough. Patient states cough is only present sometimes at night. Describes it as a postnasal drip induced cough. States recently she has developed a sore throat. This has been present for about 2 days. Denies any known sick contacts. Has not used any OTC medications today. States most bothersome symptom today is sinus pressure. Denies any fever body aches chills productive cough chest pain shortness of breath pleuritic pain hemoptysis nausea vomiting abdominal pain change in bowel or bladder habits. Past medical history prescription medication use and allergies reviewed. .Patient presents with: Nasal Congestion: drainage, cough, sore throat x 1 month PAST MEDICAL HISTORY Diagnosis Date Class 1 obesity due to excess calories without serious comorbidity with body mass index (BMI) of 33.0 to 33.9 in adult Essential hypertension Female infertility of other specified origin Glossodynia 04/09/2014 Hyperlipidemia LDL goal < 130 04/09/2014 Migraine, unspecified, with intractable migraine, so stated, without mention of status migrainosus Myalgia and myositis, unspecified resolved Postmenopausal bleeding 07/01 polpy. s/p hysteroscopy with polyp removal Sciatica of right side Trochanteric bursitis of right hip Unspecified hemorrhoids without mention of complication Hemorrhoids PAST SURGICAL HISTORY Procedure Laterality Date APPENDECTOMY COLONOSCOPY FLX DX W/COLLJ SPEC WHEN PFRMD 02/05/2013 Colonoscopy EXCISION PILONIDAL CYST/SINUS EXTENSIVE Pilonidal cystectomy HEMORRHOIDECTOMY INT & XTRNL 2/> COLUMN/MYAH HYSTEROSCOPY BX ENDOMETRIUM&/POLYPC W/WO D&C 05/24/2019 LAPS ABD PRTM&OMENTUM DX W/WO SPEC BR/WA SPX Laparoscopy, infertility SIGMOIDOSCOPY FLX DX W/COLLJ SPEC BR/WA IF PFRMD 2002 Sigmoidoscopy, flexible TONSILLECTOMY & ADENOIDECTOMY <AGE 12 ALLERGIES Lisinopril MEDICATIONS losartan (COZAAR) 100 mg tablet Take 1 tablet by mouth once daily. biotin 1,000 mcg chew Take by mouth. B Complex-Folic Acid 0.4 mg tab Take by mouth. Minoxidil 5 % foam Apply to affected area twice daily. cholecalciferol (VITAMIN D-3) 5,000 unit tab Take 5,000 Units by mouth once daily. Zinc 50 mg tab Take by mouth. FAMILY HISTORY Problem Relation Age of Onset Hypertension Mother Hypertension Father other (anorexia) Sister Hypertension Maternal Grandmother Hypertension Maternal Grandfather Heart Maternal Grandfather Colon Cancer Maternal Uncle other (Mitral Valve Prolapse) Other Mother and sister No Known Problems Daughter No Known Problems Daughter No Known Problems Daughter Social History Tobacco Use Smoking status: Never Smokeless tobacco: Never Vaping Use Vaping Use: Never used Substance Use Topics Alcohol use: No Drug use: No BP 122/74 Pulse 76 Temp 36.6 C (97.9 F) Resp 16 Wt 88.5 kg (195 lb) LMP 02/03/2011 SpO2 97% BMI 33.19 kg/m Review of Systems Constitutional: Negative for chills, fever and malaise/fatigue. HENT: Positive for congestion, sinus pain and sore throat. Negative for ear discharge and ear pain. Eyes: Negative for blurred vision, pain, discharge and redness. Respiratory: Positive for cough. Negative for hemoptysis, sputum production, shortness of breath, wheezing and stridor. Cardiovascular: Negative for chest pain. Gastrointestinal: Negative for abdominal pain, diarrhea, nausea and vomiting. Musculoskeletal: Negative for myalgias. Skin: Negative for itching and rash. Neurological: Negative for dizziness and headaches. Objective Physical Exam Constitutional: General: She is not in acute distress. Appearance: She is not diaphoretic. HENT: Head: Normocephalic. Right Ear: Tympanic membrane, ear canal and external ear normal. Left Ear: Tympanic membrane, ear canal and external ear normal. Nose: Right Sinus: Maxillary sinus tenderness present. Left Sinus: Maxillary sinus tenderness present. Mouth/Throat: Lips: [place]. Mouth: Mucous membranes are moist. Pharynx: Oropharynx is clear. Posterior oropharyngeal erythema present. No pharyngeal swelling, oropharyngeal exudate or uvula swelling. Eyes: Conjunctiva/sclera: Conjunctivae normal. Pupils: Pupils are equal, round, and reactive to light. Cardiovascular: Rate and Rhythm: Normal rate and regular rhythm. Heart sounds: Normal heart sounds. Pulmonary: Effort: Pulmonary effort is normal. No tachypnea, accessory muscle usage or respiratory distress. Breath sounds: Normal breath sounds. No stridor. No wheezing, rhonchi or rales. Abdominal: Palpations: Abdomen is soft. Tenderness: There is no abdominal tenderness. There is no guarding or rebound. Musculoskeletal: Cervical back: Normal range of motion and neck supple. No rigidity or tenderness. Lymphadenopathy: Cervical: No cervical adenopathy. Skin: General: Skin is warm and dry. Neurological: Mental Status: She is alert and oriented to person, place, and time. ASSESSMENT/PLAN: 1. Bacterial sinusitis - ICD9: 473.9, 041.9, ICD10: J32.9, B96.89 Patient diagnosed with bacterial sinusitis. Placed on doxycycline. We discussed risk of secondary bacterial infection. Follow-up with PCP if symptoms not improving 2 to 3 days. Patient was educated on supportive therapies. Patient was instructed to immediately proceed to emergency room for any new, worsening, or symptoms lasting longer than anticipated. The patient's clinical presentation is otherwise unremarkable at this time. Based on exam and clinical finding, the patient is stable for discharge. Plan of care was discussed with patient. Patient verbalizes understanding and agrees to plan of care. This note was generated using [employer] software. It may contain errors in wording, punctuation, or spelling. Jordan Hauser APRN.AVI documented in this encounter [facility] 06-08-2022 Miscellaneous Notes Last office visit: 04/14/22 Follow up: none Margoth Hollis Ma documented in this encounter [facility] 05-31-2022 Miscellaneous Notes May 31, 2022 PID: [id number] Francisco J Eid [address] [facility] [place] [address] Dear Ms. Eid, We are pleased to inform you that the results of your recent breast imaging exam on 05/27/2022 are normal. Early detection of cancer is very important. We also understand recommendations regarding breast cancer screening are controversial. Please discuss with your primary care provider which strategy is best for you and whether a mammogram is right for you. Your imaging studies and report will be kept on file at [facility] as part of your permanent medical record and are available for your continuing care. Thank you for allowing us to help in meeting your health care needs. Sincerely, Dr. Catherine Interpreting Radiologist [facility] (Normal over 40) documented in this encounter [facility] 04-14-2022 History of Presen t illness Narrative 04/14/2022 Patient presents with: Blood Pressure: 2 week follow up SUBJECTIVE: This is a 61 year old that is here today for Above Complaints. BP elevated at last office visit. No medication changes made at that visit. Taking prescribed losartan and tolerating without side effects. Does not check BP at home. Denies visual changes, headaches, slurred speech, SOB, dyspnea, chest pain, leg edema, facial drooping, extremity numbness, tingling or weakness PAST MEDICAL HISTORY Diagnosis Date Class 1 obesity due to excess calories without serious comorbidity with body mass index (BMI) of 33.0 to 33.9 in adult Essential hypertension Female infertility of other specified origin Glossodynia 04/09/2014 Hyperlipidemia LDL goal < 130 04/09/2014 Migraine, unspecified, with intractable migraine, so stated, without mention of status migrainosus Myalgia and myositis, unspecified resolved Postmenopausal bleeding 07/01 polpy. s/p hysteroscopy with polyp removal Sciatica of right side Trochanteric bursitis of right hip Unspecified hemorrhoids without mention of complication Hemorrhoids ALLERGIES Lisinopril MEDICATIONS Current Outpatient Medications Medication Sig biotin 1,000 mcg chew Take by mouth. B Complex-Folic Acid (B COMPLEX 1, WITH FOLIC ACID,) 0.4 mg tab Take by mouth. Minoxidil 5 % foam Apply to affected area twice daily. losartan (COZAAR) 100 mg tablet Take 1 tablet by mouth once daily. cholecalciferol (VITAMIN D-3) 5,000 unit tab Take 5,000 Units by mouth once daily. Zinc 50 mg tab Take by mouth. No current facility-administered medications for this visit. Medications and allergies reviewed by this provider. SOCIAL HISTORY Social History Tobacco Use Smoking status: Never Smokeless tobacco: Never Vaping Use Vaping Use: Never used Substance Use Topics Alcohol use: No Drug use: No REVIEW OF SYSTEMS All other reviewed and negative other than HPI. OBJECTIVE: BP 133/87 Pulse 81 Resp 16 Wt 89 kg (196 lb 3.2 oz) LMP 02/03/2011 SpO2 96% BMI 33.39 kg/m . Vital signs reviewed by this provider. APPEARANCE Well appearing, alert, in no acute distress, well-hydrated, well nourished. BP CONTROLLED (<130/80) Never done SHINGRIX VACCINE(1 of 2) Never done MAMMOGRAM due on 05/20/2021 DEPRESSION ASSESSMENT Never done COVID-19 VACCINE(4 - Booster for Moderna series) due on 06/27/2021 PAP TESTING due on 08/23/2021 HPV TESTING due on 08/23/2021 INFLUENZA(1) due on 11/26/2022 COLORECTAL CANCER SCREENING due on 02/05/2023 ANNUAL PCP TEAM CHRONIC DISEASE VISIT due on 03/31/2023 DIABETES SCREEN due on 10/13/2024 LIPID SCREEN due on 01/20/2026 DTAP,TDAP,TD(2 - Td or Tdap) due on 03/28/2027 HEPATITIS C SCREENING Completed HIV SCREENING Completed ASSESSMENT/PLAN: 1. Essential hypertension - ICD9: 401.9, ICD10: I10 - good control - Continue current medication(s) - Encouraged dietary sodium restriction/DASH diet - Recommended regular aerobic exercise. - Recommend home blood pressure monitoring, to bring results in on next visit - Discussed need and benefit for weight loss. - Recheck in 6 months, sooner should new symptoms or problems arise. - Goal of BP <140/90 - Recommend home or pharmacy blood pressure monitoring - Recommended no refined sugar, low refined starch, healthy oil intake (olive oil), healthy protein (fish) along the lines of the Mediterranean diet. Sheryl Hermosillo, KYA.PROGRAMMING COORDINATOR Prescription instructions reviewed with patient as applicable. Patient advised if symptoms do not improve or if symptoms worsen sooner, to contact their primary care physician. Potential red flag symptoms discussed with the patient. Reviewed appropriate action plan to take if red flag symptoms occur. Patient agreeable to treatment plan. I spent a total of 20 minutes on the date of the service which included preparing to see the patient, [id number] patient care, completing clinical documentation, obtaining and/or reviewing separately obtained history, performing a medically appropriate examination, and counseling and educating the patient/family/caregiver. documented in this encounter [facility] 03-08-2022 Miscellaneous Notes Patient phones requesting refills as follows: Requested Prescriptions Pending Prescriptions Disp Refills losartan (COZAAR) 100 mg tablet 90 tablet 0 Sig: Take 1 tablet by mouth once daily. JAX 09/24/21 No upcoming appointment scheduled Please review and advise. Megan Sanders LPN documented in this encounter [facility] 11-12-2021 Miscellaneous Notes Called and left a detailed voicemail notifying patient of providers message. Hospital phone number was left in case patient had any questions. Yesi Diane RN BP in good range. Continue current regimen. Manual Readin/82 Pulse: 75 BP Alec average: 119/79 P: 75 Repeat BP Check: 123/81 P71 #1 120/80 P76 #2 120/79 P73 #3 112/74 P77 #4 121/81 P79 #5 120/80 P76 #6 Reason for blood pressure check - Last BP elevated and Medication adjustment Patient is: Taking medication as prescribed Yes Took medication today Yes If no, date medication last taken N/A Experiencing side effects No BP continued to be elevated at nurse visit 10/29/21. Losartan was increased to 100mg daily. Tolerating medication change well. Denies any chest pain, shortness of breath, dizziness, or headaches. Daily caffeine use; none today. No personal history of tobacco use; no current exposure. Alert and oriented. Pt has been identified by name and birthdate: Yes Allergies reviewed: Yes Latex allergy: no. Medication - prescribed and OTC reviewed and updated: Yes Do you need any prescription refills prior to your next visit: No Health Maintenance: Reviewed and not up to date and provider notified Patient advised to continue with current medications and would be contacted if any further instructions after review by PCP. Guillermina Baez LPN documented in this encounter [facility] 11-12-2021 History of Presen t illness Narrative Manual Readin/82 Pulse: 75 BP Alec average: 119/79 P: 75 Repeat BP Check: 123/81 P71 #1 120/80 P76 #2 120/79 P73 #3 112/74 P77 #4 121/81 P79 #5 120/80 P76 #6 Reason for blood pressure check - Last BP elevated and Medication adjustment Patient is: Taking medication as prescribed Yes Took medication today Yes If no, date medication last taken N/A Experiencing side effects No BP continued to be elevated at nurse visit 10/29/21. Losartan was increased to 100mg daily. Tolerating medication change well. Denies any chest pain, shortness of breath, dizziness, or headaches. Daily caffeine use; none today. No personal history of tobacco use; no current exposure. Alert and oriented. Pt has been identified by name and birthdate: Yes Allergies reviewed: Yes Latex allergy: no. Medication - prescribed and OTC reviewed and updated: Yes Do you need any prescription refills prior to your next visit: No Health Maintenance: Reviewed and not up to date and provider notified Patient advised to continue with current medications and would be contacted if any further instructions after review by PCP. Guillermina Baez LPN documented in this encounter [facility] 10-29-2021 Miscellaneous Notes Patient was notified and scheduled for bp check 2 weeks Monisha Rodgers Ma BP still elevated. Increase losartan to 100 mg daily and recheck in 2 weeks. Manual Readin/86 Pulse: 70 BP Alec average: 150/93 P: 75 Repeat BP Check: 152/101 P78 #1 155/83 P78 #2 153/91 P69 #3 147/95 P75 #4 146/94 P73 #5 145/92 P76 #6 Reason for blood pressure check - Last BP elevated and Medication adjustment Patient is: Taking medication as prescribed Yes Took medication today Yes If no, date medication last taken N/A Experiencing side effects No BP continued to be elevated at nurse visit 10/13/21. Losartan was increased to 50mg daily. Tolerating medication well. Does report that she had some distressing news this afternoon prior to appt.. Denies any chest pain, shortness of breath, dizziness, or headaches. Daily caffeine use. No personal history of tobacco use; no current exposure. Alert and oriented. Pt has been identified by name and birthdate: Yes Allergies reviewed: Yes Latex allergy: no. Medication - prescribed and OTC reviewed and updated: Yes Do you need any prescription refills prior to your next visit: No Health Maintenance: Reviewed and not up to date and provider notified Patient advised that she would be contacted after review by PCP. Guillermina Baez LPN documented in this encounter [facility] 10-29-2021 History of Presen t illness Narrative Manual Readin/86 Pulse: 70 BP Alec average: 150/93 P: 75 Repeat BP Check: 152/101 P78 #1 155/83 P78 #2 153/91 P69 #3 147/95 P75 #4 146/94 P73 #5 145/92 P76 #6 Reason for blood pressure check - Last BP elevated and Medication adjustment Patient is: Taking medication as prescribed Yes Took medication today Yes If no, date medication last taken N/A Experiencing side effects No BP continued to be elevated at nurse visit 10/13/21. Losartan was increased to 50mg daily. Tolerating medication well. Does report that she had some distressing news this afternoon prior to appt.. Denies any chest pain, shortness of breath, dizziness, or headaches. Daily caffeine use. No personal history of tobacco use; no current exposure. Alert and oriented. Pt has been identified by name and birthdate: Yes Allergies reviewed: Yes Latex allergy: no. Medication - prescribed and OTC reviewed and updated: Yes Do you need any prescription refills prior to your next visit: No Health Maintenance: Reviewed and not up to date and provider notified Patient advised that she would be contacted after review by PCP. Guillermina Baez LPN documented in this encounter [facility] 10-14-2021 Miscellaneous Notes Pt notified of message & states understanding. [place] appt scheduled for 10/29/21. Pt aware Rx was called to pharmacy. Kayley Valladares LPN Left message to call office. 10/13/2021 2:36 PM Chandrakant Felipe Ma BP remains high. Recommend increasing losartan to 50 mg daily and recheck in 2 weeks at [place]. Manual Readin/98 Pulse: 78 BP Alec average: 142/87 P: 73 Repeat BP Check: 147/94 P72 #1 136/87 P71 #2 137/86 P71 #3 144/84 P77 #4 146/84 P71 #5 143/84 P73 #6 Reason for blood pressure check - Last BP elevated Patient is: Taking medication as prescribed Yes Took medication today Yes If no, date medication last taken N/A Experiencing side effects No BP was elevated at last appt 09/24/21. No BP medication changes were made at that time. Taking all medications as prescribed. Denies any chest pain, shortness of breath, dizziness, or headaches. Daily caffeine use. No personal history of tobacco use; no current exposure. Alert and oriented. Pt has been identified by name and birthdate: Yes Allergies reviewed: Yes Latex allergy: no. Medication - prescribed and OTC reviewed and updated: Yes Do you need any prescription refills prior to your next visit: No Health Maintenance: Reviewed and not up to date and provider notified Patient advised that she would be contacted after review by PCP. Guillermina Baez LPN documented in this encounter [facility] 10-13-2021 History of Presen t illness Narrative Manual Readin/98 Pulse: 78 BP Alec average: 142/87 P: 73 Repeat BP Check: 147/94 P72 #1 136/87 P71 #2 137/86 P71 #3 144/84 P77 #4 146/84 P71 #5 143/84 P73 #6 Reason for blood pressure check - Last BP elevated Patient is: Taking medication as prescribed Yes Took medication today Yes If no, date medication last taken N/A Experiencing side effects No BP was elevated at last appt 09/24/21. No BP medication changes were made at that time. Taking all medications as prescribed. Denies any chest pain, shortness of breath, dizziness, or headaches. Daily caffeine use. No personal history of tobacco use; no current exposure. Alert and oriented. Pt has been identified by name and birthdate: Yes Allergies reviewed: Yes Latex allergy: no. Medication - prescribed and OTC reviewed and updated: Yes Do you need any prescription refills prior to your next visit: No Health Maintenance: Reviewed and not up to date and provider notified Patient advised that she would be contacted after review by PCP. Guillermina Baez LPN documented in this encounter [facility] 09-24-2021 History of Presen t illness Narrative Chief Complaint Patient presents with: 6 Month Exam HPI Francisco J Eid is a 60 year old female who presents here today for Above Complaints. Patient states that her 2 year old grandson about a month ago from unknown medical condition that affected his breathing. Patient coping as well as possible since his passing. She works for a [employer] and has been talking to her chief science officer. Has good family support. Does not think she wants a referral to counseling at this time or medication. Taking losartan daily as prescribed, but is not sure if she took it today. BP elevated on initial check today. Not checking BP at home. Denies recent migraines since menopause. Requesting labs for thinning hair and generalized hair loss. Hairdresser noted this at her last appointment. Denies rash or patches of hair loss. Past medical history, appointments, medications, allergies reviewed. Previous Medical History PAST MEDICAL HISTORY Diagnosis Date Class 1 obesity due to excess calories without serious comorbidity with body mass index (BMI) of 33.0 to 33.9 in adult Essential hypertension Female infertility of other specified origin Glossodynia 04/09/2014 Hyperlipidemia LDL goal < 130 04/09/2014 Migraine, unspecified, with intractable migraine, so stated, without mention of status migrainosus Myalgia and myositis, unspecified resolved Postmenopausal bleeding 07/01 polpy. s/p hysteroscopy with polyp removal Sciatica of right side Trochanteric bursitis of right hip Unspecified hemorrhoids without mention of complication Hemorrhoids Previous Surgical History PAST SURGICAL HISTORY Procedure Laterality Date APPENDECTOMY COLONOSCOPY FLX DX W/COLLJ SPEC WHEN PFRMD 02/05/2013 Colonoscopy EXCISION PILONIDAL CYST/SINUS EXTENSIVE Pilonidal cystectomy HEMORRHOIDECTOMY INT & XTRNL 2/> COLUMN/MYAH HYSTEROSCOPY BX ENDOMETRIUM&/POLYPC W/WO D&C 05/24/2019 LAPS ABD PRTM&OMENTUM DX W/WO SPEC BR/WA SPX Laparoscopy, infertility SIGMOIDOSCOPY FLX DX W/COLLJ SPEC BR/WA IF PFRMD 2003 Sigmoidoscopy, flexible TONSILLECTOMY & ADENOIDECTOMY <AGE 10 Family History FAMILY HISTORY Problem Relation Age of Onset Hypertension Mother Hypertension Father other (anorexia) Sister Hypertension Maternal Grandmother Hypertension Maternal Grandfather Heart Maternal Grandfather Colon Cancer Maternal Uncle other (Mitral Valve Prolapse) Other Mother and sister No Known Problems Daughter No Known Problems Daughter No Known Problems Daughter Patient Allergies ALLERGIES Allergen Reactions Lisinopril Cough Current Medications Current Outpatient Medications on File Prior to Visit Medication Sig losartan (COZAAR) 25 mg tablet Take 1 tablet by mouth once daily. cholecalciferol (VITAMIN D-3) 5,000 unit tab Take 5,000 Units by mouth once daily. Zinc 50 mg tab Take by mouth. No current facility-administered medications on file prior to visit. Social History Social History Tobacco Use Smoking status: Never Smoker Smokeless tobacco: Never Used Vaping Use Vaping Use: Never used Substance Use Topics Alcohol use: No Drug use: No Review of Symptoms REVIEW OF SYSTEMS GENERAL: No weight loss, malaise or fevers RESPIRATORY: Negative for cough, hemoptysis, wheezing, COPD, dyspnea or shortness of breath CARDIOVASCULAR: Negative for chest pain, leg swelling, hypertension, CHF or palpitations GI: No nausea, vomiting, or diarrhea SKIN: Negative for lesions, rash, and itching EXAM: BP 142/98 Pulse 76 Temp 36.9 C (98.5 F) (Left Tympanic) Resp 16 Wt 88.6 kg (195 lb 6.4 oz) LMP 02/03/2011 SpO2 97% BMI 33.26 kg/m General Appearance: Well appearing, alert, in no acute distress, well-hydrated, well nourished.. Head: generalized hair loss without patches of missing hair or rash. Skin: Skin color, texture, turgor normal, no suspicious rashes or lesions. Lungs: Lungs clear to auscultation. No wheezing, rhonchi, rales.. Heart: RRR without murmur, gallop, or rubs. No ectopy. Abdomen: Normal abdominal exam, Abdomen soft, non-tender. Bowel sounds normal. No masses, organomegaly. Extremities: No deformities, edema, skin discoloration, clubbing or cyanosis. Good capillary refill. . Health Maintenance List HIV SCREENING Never done BP CONTROLLED (<130/80) Never done SHINGRIX VACCINE(1 of 2) Never done MAMMOGRAM due on 05/20/2021 PAP TESTING due on 08/23/2021 HPV TESTING due on 08/23/2021 DEPRESSION SCREENING due on 01/19/2022 INFLUENZA(Season Ended) due on 01/28/2022 ANNUAL PCP TEAM CHRONIC DISEASE VISIT due on 03/20/2022 COLORECTAL CANCER SCREENING due on 02/05/2023 DIABETES SCREEN due on 01/21/2024 LIPID SCREEN due on 01/20/2026 DTAP,TDAP,TD(2 - Td or Tdap) due on 03/28/2027 HEPATITIS C SCREENING Completed COVID-19 VACCINE Completed MENINGOCOCCAL CONJUGATE Aged Out Data reviewed Component Latest Ref Rng & Units 01/20/2021 Protein, Total 6.3 - 8.0 g/dL 7.7 Albumin 3.9 - 4.9 g/dL 4.4 Calcium 8.5 - 10.2 mg/dL 10.0 Bilirubin, Total 0.2 - 1.3 mg/dL 0.2 Alkaline Phosphatase 34 - 123 U/L 93 AST 13 - 35 U/L 38 (H) Glucose 74 - 99 mg/dL 70 (L) BUN 7 - 21 mg/dL 13 Creatinine 0.58 - 0.96 mg/dL 0.86 Sodium 136 - 144 mmol/L 141 Potassium 3.7 - 5.1 mmol/L 4.1 Chloride 97 - 105 mmol/L 104 CO2 22 - 30 mmol/L 24 Anion Gap 9 - 18 mmol/L 13 ALT 7 - 38 U/L 43 (H) eGFR- >60 eGFR-All Other Races . >60 WBC 3.70 - 11.00 k/uL 7.04 RBC 3.90 - 5.20 m/uL 4.71 Hemoglobin 11.5 - 15.5 g/dL 13.8 Hematocrit 36.0 - 46.0 % 43.2 MCV 80.0 - 100.0 fL 91.7 MCH 26.0 - 34.0 pG 29.3 MCHC 30.5 - 36.0 g/dL 31.9 RDW-CV 11.5 - 15.0 % 14.2 Platelet Count 150 - 400 k/uL 287 MPV 9.0 - 12.7 fL 11.0 Absolute nRBC <0.01 k/uL <0.01 Total Cholesterol, Nonfasting <200 mg/dL 226 (H) Triglycerides, Nonfasting <150 mg/dL 118 HDL Cholesterol, Nonfasting >39 mg/dL 63 LDL Cholesterol, Nonfasting <100 mg/dL 139 (H) Non HDL Cholesterol, Nonfasting <130 mg/dL 163 (H) VLDL Cholesterol, Nonfasting <30 mg/dL 24 Total Chol/HDL Ratio, Nonfasting <5.10 mg/dL 3.59 LDL/HDL Ratio, Nonfasting <2.54 mg/dL 2.21 The 10-year ASCVD risk score (Dankdimas REVELES Jr., et al., 2013) is: 5.1% Values used to calculate the score: Age: 60 years Sex: Female Is Non- : No Diabetic: No Tobacco smoker: No Systolic Blood Pressure: 124 mmHg Is BP treated: Yes HDL Cholesterol: 63 mg/dL Total Cholesterol: 226 mg/dL ASSESSMENT/PLAN: 1. Grief reaction - ICD9: 309.0, ICD10: F43.21 (primary diagnosis) Counseled on grief and offered referral to counseling and rx. Patient refusing. Will follow up PRN. 2. Essential hypertension - ICD9: 401.9, ICD10: I10 - poor control - Continue current medication(s) - Encouraged dietary sodium restriction/DASH diet - Recommended regular aerobic exercise. - Follow up in 1 month for BP recheck. - Reviewed risks of HTN and principles of treatment - Goal of BP <140/90 3. Hyperlipidemia with target LDL less than 130 - ICD9: 272.4, ICD10: E78.5 - suboptimal control - Continue current medication. - Encouraged following a low fat, low cholesterol diet. - Discussed the benefits of regular aerobic exercise and weight loss. 4. Elevated liver function tests - ICD9: 790.6, ICD10: R79.89 Recheck CMP. - COMP METABOLIC PANEL 5. Hair loss - ICD9: 704.00, ICD10: L65.9 Obtain labs as ordered. - TSH BLD - IRON + TIBC - FERRITIN BLD - CBC 6. Screening for HIV (human immunodeficiency virus) - ICD9: V73.89, ICD10: Z11.4 - HIV 1 2 COMBO(AG/AB),WITH REFLEX TO DIFFERENTIATION Mari Jones MD documented in this encounter [facility] 06-24-2015 History of Past i llness Narrative Problem Noted Date Resolved Date Subacute left lumbar radiculopathy 06/24/2015 07/27/2018 Glossodynia 04/09/2014 02/23/2016 Dizziness and giddiness 05/18/2008 02/23/20 16 Unspecified hearing loss 05/18/2008 016 Contact dermatitis and other eczema, due to unspecified cause 11/17/2006 02/23/2016 documented as of this encounter (statuses as of 09/25/2021) [facility] History of Past illness Narrative* Problem Noted Date Resolved Date Subacute left lumbar radiculopathy 06/24/2015 07/27/2018 Glossodynia 04/09/2014 02/23/2016 Dizziness and giddiness 05/18/2008 02/23/20 16 Unspecified hearing loss 05/18/2008 016 Contact dermatitis and other eczema, due to unspecified cause 11/17/2006 02/23/2016 documented as of this encounter (statuses as of 10/13/2021) [facility] History of Past illness Narrative* Problem Noted Date Resolved Date Subacute left lumbar radiculopathy 06/24/2015 07/27/2018 Glossodynia 04/09/2014 02/23/2016 Dizziness and giddiness 05/18/2008 02/23/20 16 Unspecified hearing loss 05/18/2008 016 Contact dermatitis and other eczema, due to unspecified cause 11/17/2006 02/23/2016 documented as of this encounter (statuses as of 10/14/2021) [facility] History of Past illness Narrative* Problem Noted Date Resolved Date Subacute left lumbar radiculopathy 06/24/2015 07/27/2018 Glossodynia 04/09/2014 02/23/2016 Dizziness and giddiness 05/18/2008 02/23/20 16 Unspecified hearing loss 05/18/2008 016 Contact dermatitis and other eczema, due to unspecified cause 11/17/2006 02/23/2016 documented as of this encounter (statuses as of 10/29/2021) [facility] History of Past illness Narrative* Problem Noted Date Resolved Date Subacute left lumbar radiculopathy 06/24/2015 07/27/2018 Glossodynia 04/09/2014 02/23/2016 Dizziness and giddiness 05/18/2008 02/23/20 16 Unspecified hearing loss 05/18/2008 016 Contact dermatitis and other eczema, due to unspecified cause 11/17/2006 02/23/2016 documented as of this encounter (statuses as of 10/29/2021) [address]26-2016 History of Past illness Narrative* Problem Noted Date Resolved Date Subacute left lumbar radiculopathy 06/24/2015 07/27/2018 Glossodynia 04/09/2014 02/23/2016 Dizziness and giddiness 05/18/2008 02/23/20 16 Unspecified hearing loss 05/18/2008 016 Contact dermatitis and other eczema, due to unspecified cause 11/17/2006 02/23/2016 documented as of this encounter (statuses as of 11/12/2021) [facility] History of Past illness Narrative* Problem Noted Date Resolved Date Subacute left lumbar radiculopathy 06/24/2015 07/27/2018 Glossodynia 04/09/2014 02/23/2016 Dizziness and giddiness 05/18/2008 02/23/20 16 Unspecified hearing loss 05/18/2008 016 Contact dermatitis and other eczema, due to unspecified cause 11/17/2006 02/23/2016 documented as of this encounter (statuses as of 11/12/2021) [facility] History of Past illness Narrative* Problem Noted Date Resolved Date Subacute left lumbar radiculopathy 06/24/2015 07/27/2018 Glossodynia 04/09/2014 02/23/2016 Dizziness and giddiness 05/18/2008 02/23/20 16 Unspecified hearing loss 05/18/2008 016 Contact dermatitis and other eczema, due to unspecified cause 11/17/2006 02/23/2016 documented as of this encounter (statuses as of 03/01/2022) [facility] History of Past illness Narrative* Problem Noted Date Resolved Date Subacute left lumbar radiculopathy 06/24/2015 07/27/2018 Glossodynia 04/09/2014 02/23/2016 Dizziness and giddiness 05/18/2008 02/23/20 16 Unspecified hearing loss 05/18/2008 016 Contact dermatitis and other eczema, due to unspecified cause 11/17/2006 02/23/2016 documented as of this encounter (statuses as of 03/08/2022) [facility] History of Past illness Narrative* Problem Noted Date Resolved Date Subacute left lumbar radiculopathy 06/24/2015 07/27/2018 Glossodynia 04/09/2014 02/23/2016 Dizziness and giddiness 05/18/2008 02/23/20 16 Unspecified hearing loss 05/18/2008 016 Contact dermatitis and other eczema, due to unspecified cause 11/17/2006 02/23/2016 documented as of this encounter (statuses as of 04/14/2022) [facility] History of Past illness Narrative* Problem Noted Date Resolved Date Subacute left lumbar radiculopathy 06/24/2015 07/27/2018 Glossodynia 04/09/2014 02/23/2016 Dizziness and giddiness 05/18/2008 02/23/20 16 Unspecified hearing loss 05/18/2008 016 Contact dermatitis and other eczema, due to unspecified cause 11/17/2006 02/23/2016 documented as of this encounter (statuses as of 06/03/2022) [facility]01-26-2016 History of Past illness Narrative* Problem Noted Date Resolved Date Subacute left lumbar radiculopathy 06/24/2015 07/27/2018 Glossodynia 04/09/2014 02/23/2016 Dizziness and giddiness 05/18/2008 02/23/20 16 Unspecified hearing loss 05/18/2008 016 Contact dermatitis and other eczema, due to unspecified cause 11/17/2006 02/23/2016 documented as of this encounter (statuses as of 06/08/2022) [facility]01[facility]2016 History of Past illness Narrative* Problem Noted Date Resolved Date Subacute left lumbar radiculopathy 06/24/2015 07/27/2018 Glossodynia 04/09/2014 02/23/2016 Dizziness and giddiness 05/18/2008 02/23/20 16 Unspecified hearing loss 05/18/2008 016 Contact dermatitis and other eczema, due to unspecified cause 11/17/2006 02/23/2016 documented as of this encounter (statuses as of 07/13/2022) [facility]01[facility]2016 History of Past illness Narrative* Problem Noted Date Resolved Date Subacute left lumbar radiculopathy 06/24/2015 07/27/2018 Glossodynia 04/09/2014 02/23/2016 Dizziness and giddiness 05/18/2008 02/23/20 16 Unspecified hearing loss 05/18/2008 016 Contact dermatitis and other eczema, due to unspecified cause 11/17/2006 02/23/2016 documented as of this encounter (statuses as of 09/10/2022) [facility] History of Past illness Narrative* Problem Noted Date Resolved Date Subacute left lumbar radiculopathy 06/24/2015 07/27/2018 Glossodynia 04/09/2014 02/23/2016 Dizziness and giddiness 05/18/2008 02/23/20 16 Unspecified hearing loss 05/18/2008 016 Contact dermatitis and other eczema, due to unspecified cause 11/17/2006 02/23/2016 documented as of this encounter (statuses as of 09/16/2022) [facility]2016 History of Past illness Narrative* Problem Noted Date Resolved Date Subacute left lumbar radiculopathy 06/24/2015 07/27/2018 Glossodynia 04/09/2014 02/23/2016 Dizziness and giddiness 05/18/2008 02/23/20 16 Unspecified hearing loss 05/18/2008 016 Contact dermatitis and other eczema, due to unspecified cause 11/17/2006 02/23/2016 documented as of this encounter (statuses as of 09/17/2022) [facility] History of Past illness Narrative* Problem Noted Date Diagnosed Date Resolved Date Subacute left lumbar radiculopathy 06/24/2015 07/27/2018 Glossodynia 04/09/2014 02/23/2016 Dizziness and giddiness 05/18/200801/29 Unspecified hearing loss 05/18/2008 Contact dermatitis and other eczema, due to unspecified cause 11/17/2006 02/23/2016 documented as of this encounter (statuses as of 03/08/2023) [facility] History of Past illness Narrative* Problem Noted Date Diagnosed Date Resolved Date Subacute left lumbar radiculopathy 06/24/2015 07/27/2018 Glossodynia 04/09/2014 02/23/2016 Dizziness and giddiness 05/18/200801/29 Unspecified hearing loss 05/18/2008 Contact dermatitis and other eczema, due to unspecified cause 11/17/2006 02/23/2016 documented as of this encounter (statuses as of 08/04/2023) [facility] History of Past illness Narrative* Problem Noted Date Diagnosed Date Resolved Date Subacute left lumbar radiculopathy 06/24/2015 07/27/2018 Glossodynia 04/09/2014 02/23/2016 Dizziness and giddiness 05/18/200801/29 Unspecified hearing loss 05/18/2008 Contact dermatitis and other eczema, due to unspecified cause 11/17/2006 02/23/2016 documented as of this encounter (statuses as of 08/04/2023) [facility] History of Past illness Narrative* Problem Noted Date Diagnosed Date Resolved Date Subacute left lumbar radiculopathy 06/24/2015 07/27/2018 Glossodynia 04/09/2014 02/23/2016 Dizziness and giddiness 05/18/200801/29 Unspecified hearing loss 05/18/2008 Contact dermatitis and other eczema, due to unspecified cause 11/17/2006 02/23/2016 documented as of this encounter (statuses as of 08/05/2023) [facility]* Diagnosis Grief reaction- Primary Adjustment disorder with depressed mood Essential hypertension Unspecified essential hypertension Hyperlipidemia with target LDL less than 130 Other and unspecified hyperlipidemia Elevated liver function tests Other abnormal blood chemistry Hair loss Alopecia, unspecified Screening for HIV (human immunodeficiency virus) Special screening examination for other specified viral diseases [facility] this encounter [facility] Diagnosis Essential hypertension- Primary Unspecified essential hypertension [facility] encounter [facility] Diagnosis Hypertension, essential Unspecified essential hypertension [facility] this encounter [facility] Diagnosis Hypertension, essential- Primary Unspecified essential hypertension [facility] this encounter [facility] Diagnosis Hypertension, essential Unspecified essential hypertension [facility] this encounter [facility] Diagnosis Hypertension, essential- Primary Unspecified essential hypertension [facility] Diagnosis Encounter for screening mammogram for breast cancer [facility] Diagnosis Hypertension, essential Unspecified essential hypertension [facility] encounter [facility] Diagnosis Essential hypertension- Primary Unspecified essential hypertension documented in this encounter [facility] note* Diagnosis Hypertension, essential Unspecified essential hypertension documented in this encounter [facility] note* Diagnosis Bacterial sinusitis- Primary Unspecified sinusitis (chronic) documented in this encounter [facility] note* Diagnosis Hypertension, essential Unspecified essential hypertension documented in this encounter [facility] note* Diagnosis Acute cystitis without hematuria- Primary Acute cystitis documented in this encounter [facility] note* Diagnosis Hypertension, essential Unspecified essential hypertension documented in this encounter [facility] note* Diagnosis Encounter for screening mammogram for breast cancer documented [facility] this encounter [facility]* Diagnosis Screening for colon cancer Special screening for malignant neoplasms, colon documented in this encounter [facility] note* Diagnosis Pain of toe of left foot- Primary Pain in limb Hypertension, essential Unspecified essential hypertension documented in this encounter [facility] note* Diagnosis Hallux valgus of left foot- Primary Pain of toe of left foot Pain in limb Hallux rigidus of left foot Hallux rigidus Hammer toe of left foot Callus of foot Corns and callosities Diminished pulses in lower extremity Other symptoms involving cardiovascular system documented in this encounter [facility] note* Diagnosis Pain of toe of left foot Pain in limb documented in this encounter [facility]* Diagnosis Acute cough- Primary Acute cough documented in this encounter [facility]* Diagnosis Acute cough documented in this encounter [facility] note* Diagnosis Sinus pressure- Primary Other diseases of nasal cavity and sinuses Acute cough documented in this encounter [facility] note* Diagnosis Sinobronchitis- Primary Unspecified sinusitis (chronic) Acute otitis externa of left ear, unspecified type Impacted cerumen of left ear Impacted cerumen documented in this encounter [facility]* Diagnosis Acute otitis externa of left ear, unspecified type- Primary [facility] Diagnosis Sinobronchitis- Primary Unspecified sinusitis (chronic) [facility] this encounter [facility]* Diagnosis Hypertension, essential Unspecified essential hypertension [facility] Diagnosis Hypertension, essential- Primary Unspecified essential hypertension BPPV (benign paroxysmal positional vertigo), unspecified laterality Elevated liver function tests Other abnormal blood chemistry Hyperlipidemia with target LDL less than 130 Other and unspecified hyperlipidemia Class 1 obesity with body mass index (BMI) of 33.0 to 33.9 in adult, unspecified obesity type, unspecified whether serious comorbidity present Migraine without aura and without status migrainosus, not intractable Migraine without aura, without mention of intractable migraine without mention of status migrainosus Screening mammogram for breast cancer Asymptomatic menopause documented in this encounter [facility] note* Diagnosis Hyperlipidemia with target low density lipoprotein (LDL) cholesterol less than 130 mg/dL- Primary documented in this encounter [facility] note* Diagnosis BPPV (benign paroxysmal positional vertigo), unspecified laterality- Primary documented in this encounter [facility]* Diagnosis BPPV (benign paroxysmal positional vertigo), unspecified laterality- Primary documented in this encounter [facility] note* Diagnosis Encounter for screening for malignant neoplasm of cervix- Primary Screening for malignant neoplasm of the cervix Encounter for gynecological examination (general) (routine) without abnormal findings Encounter for screening mammogram for breast cancer documented in this encounter [facility] note* Diagnosis Asymptomatic menopause documented in this encounter [facility] note* Diagnosis Encounter for gynecological examination (general) (routine) without abnormal findings Encounter for screening mammogram for breast cancer documented in this encounter [facility] note* Diagnosis Acute cough documented in this encounter [facility] for referral (narrative)* Diagnostic Procedure Only (Routine) - Pending Review Specialty Diagnoses / Procedures Referred By Kristine jin Referred To Contact [facility] Diagnoses Encounter for screening mammogram for breast cancer Procedures KEILA SCREENING SCREENING MAMMOGRAPHY BI 2-VIEW BREAST INC CAD Mari Jones MD [address] [place] [address] [facility] [address] [place] [address] Referral ID Status Reason Start Date Expiration Date Visits Requested Visits Authorized [id number] Pending Review Auto-Generat ed Referral 02/24/2022 03/26/2023 1 1 [facility] (narrative)* Diagnostic Procedure Only (Routine) - Closed Specialty Diagnoses / Procedures Referred By Contac t Referred To Contact [facility] Diagnoses Encounter for screening mammogram for breast cancer Procedures KEILA SCREENING SCREENING MAMMOGRAPHY BI 2-VIEW BREAST INC CAD Sheryl Hermosillo APRN.PROGRAMMING COORDINATOR [address] [place] [address] [facility] [address] [place] [address] Referral ID Status Reason Start Date Expiration Date V isits Requested Visits Authorized [id number] Closed Auto-Generate d Referral 06/21/2023 07/20/2024 1 1 [facility] for referral (narrative)* Outpatient Procedure (Routine) - Closed Specialty Diagnoses / Procedures Referred By Kristine t Referred To Contact [facility] Diagnoses Screening for colon cancer Procedures COLONOSCOPY SCREENING COLONOSCOPY FLX DX W/COLLJ SPEC WHEN PFRMD Sheryl Hermosillo APRN.PROGRAMMING COORDINATOR [address] [place] [address] [facility] [address] [place] [id number] Referral ID Status Reason Start Date Expiration Date V isits Requested Visits Authorized [id number] Closed Auto-Generate d Referral 06/21/2023 06/21/2024 1 1 [facility] for referral (narrative)* Outpatient Procedure (Routine) - Authorized Specialty Diagnoses / Procedures Referred By Kristine t Referred To Contact [facility] Diagnoses Hallux valgus of left foot Hallux rigidus of left foot Hammer toe of left foot Diminished pulses in lower extremity Procedures PVR ANK PRESS MOLLY VAS LAB NON-INVAS PHYSIOLOGIC STD EXTREMITY ART 2 LEVEL Warren Best [address] [place] [address] [facility] [address] [place] [address] Referral ID Status Reason Start Date Expiration Date Visits Requested Visits Authorized [id number] Authorized Auto-Generat ed Referral 10/25/2023 10/24/2024 1 1 [facility] for referral (narrative)* Diagnostic Procedure Only (Routine) - Closed Specialty Diagnoses / Procedures Referred By Kristine t Referred To Contact [facility] Diagnoses Pain of toe of left foot Procedures XR FOOT GENERAL 3V AP/LAT/OBL LEFT RADEX FOOT COMPLETE MINIMUM 3 VIEWS AngeliquelogSheryl jones APRN.PROGRAMMING COORDINATOR [address] [place] [address] [place] [id number] Referral ID Status Reason Start Date Expiration Date V isits Requested Visits Authorized [id number] Closed Auto-Generate d Referral 10/10/2023 11/08/2024 1 1 [facility] for visit Narrative* Diagnostic Procedure Only (Routine) - Closed Specialty Diagnoses / Procedures Referred By Kristine jin Referred To Contact [facility] Diagnoses Encounter for screening mammogram for breast cancer Procedures KEILA SCREENING SCREENING MAMMOGRAPHY BI 2-VIEW BREAST INC CAD PodlogSheryl jones APRN.PROGRAMMING COORDINATOR [address] [place] [address] [facility] [address] [place] [address] Referral ID Status Reason Start Date Expiration Date V isits Requested Visits Authorized [id number] Closed Auto-Generate d Referral 06/21/2023 07/20/2024 1 1 [facility] for visit Narrative* Outpatient Procedure (Routine) - Closed Specialty Diagnoses / Procedures Referred By Kristine t Referred To Contact [facility] Diagnoses Screening for colon cancer Procedures COLONOSCOPY SCREENING COLONOSCOPY FLX DX W/COLLJ SPEC WHEN PFRMD AngeliquelogSheryl jones APRN.PROGRAMMING COORDINATOR [address] [place] [address] [facility] [address] [place] [address] Referral ID Status Reason Start Date Expiration Date V isits Requested Visits Authorized [id number] Closed Auto-Generate d Referral 06/21/2023 06/21/2024 1 1 [facility] for visit Narrative* Diagnostic Procedure Only (Routine) - Closed Specialty Diagnoses / Procedures Referred By Contac t Referred To Contact [facility] Diagnoses Pain of toe of left foot Procedures XR FOOT GENERAL 3V AP/LAT/OBL LEFT RADEX FOOT COMPLETE MINIMUM 3 VIEWS PodlogarSheryl APRN.PROGRAMMING COORDINATOR [address] [place] [address] [place] [id number] Referral ID Status Reason Start Date Expiration Date V isits Requested Visits Authorized [id number] Closed Auto-Generate d Referral 10/10/2023 11/08/2024 1 1 [facility] for visit Narrative* Diagnostic Procedure Only (Routine) - Closed Specialty Diagnoses / Procedures Referred By Contac t Referred To Contact [facility] Diagnoses Asymptomatic menopause Procedures DXA-AXIAL SKELETON DXA BONE DENSITY STUDY SITES AXIAL Mari Ling MD [address] [place] [address] Phone: tel: fax: [place] [id number] Referral ID Status Reason Start Date Expiration Date V isits Requested Visits Authorized [id number] Closed Auto-Generate d Referral 07/23/2024 08/22/2025 1 1 [facility] for visit Narrative* Diagnostic Procedure Only (Routine) - Closed Specialty Diagnoses / Procedures Referred By Contac t Referred To Contact [facility] Diagnoses Encounter for gynecological examination (general) (routine) without abnormal findings Encounter for screening mammogram for breast cancer Procedures KEILA SCREENING W HARVINDER SCREENING DIGITAL BREAST TOMOSYNTHESIS BI SCREENING MAMMOGRAPHY BI 2-VIEW BREAST INC Laura Edmond MD [address] [place] [place] [address] Phone: tel: fax: [facility] [address] [place] [address] Referral ID Status Reason Start Date Expiration Date V isits Requested Visits Authorized [id number] Closed Auto-Generate d Referral 08/20/2024 09/19/2025 1 1 [facility] Reason for Referral Specialty Diagnoses / Procedures Referred By Contac t Referred To Contact Podiatry Diagnoses Pain of toe of left foot Procedures CONSULT TO PODIATRY OFFICE/OUTPATIENT [facility] 60 MINUTES PodlogSheryl jones APRN.PROGRAMMING COORDINATOR [address] [place] [address] Referral ID Status Reason Start Date Expiration Date Visits Requested Visits Authorized [id number] Authorized PCP Requested Referral 10/10/2023 10/09/2024 1 1 Specialty Diagnoses / Procedures Referred By Kristine t Referred To Contact [facility] Diagnoses Pain of toe of left foot Procedures XR FOOT GENERAL 3V AP/LAT/OBL LEFT RADEX FOOT COMPLETE MINIMUM 3 VIEWS Podlogar, KYA Saucedo.PROGRAMMING COORDINATOR [address] [place] [address] [place] [id number] Referral ID Status Reason Start Date Expiration Date V isits Requested Visits Authorized [id number] Closed Auto-Generate d Referral 10/10/2023 11/08/2024 1 1 Summary Purpose Family History No Family History Records FoundNo Family History Records Found Advance Directives No Advanced Directives Records FoundNo Advanced Directives Records Found Additional Source Comments Source Comments (unrecognize d section and content) In the event this informatio n is protected by the Federal Confidentiality of Alcohol and Drug Abuse Patient Records regulations: The Federal rules restrict any use of the information to criminally investigate or prosecute any alcohol or drug abuse patient.[facility] the event this information is protected by the Federal Confidentiality of Alcohol and Drug Abuse Patient Records regulations: The Federal rules restrict any use of the information to criminally investigate or prosecute any alcohol or drug abuse patient.[facility] the event this information is protected by the Federal Confidentiality of Alcohol and Drug Abuse Patient Records regulations: The Federal rules restrict any use of the information to criminally investigate or prosecute any alcohol or drug abuse patient.[facility] the event this information is protected by the Federal Confidentiality of Alcohol and Drug Abuse Patient Records regulations: The Federal rules restrict any use of the information to criminally investigate or prosecute any alcohol or drug abuse patient.[facility] the event this information is protected by the Federal Confidentiality of Alcohol and Drug Abuse Patient Records regulations: The Federal rules restrict any use of the information to criminally investigate or prosecute any alcohol or drug abuse patient.[facility] the event this information is protected by the Federal Confidentiality of Alcohol and Drug Abuse Patient Records regulations: The Federal rules restrict any use of the information to criminally investigate or prosecute any alcohol or drug abuse patient.[facility] the event this information is protected by the Federal Confidentiality of Alcohol and Drug Abuse Patient Records regulations: The Federal rules restrict any use of the information to criminally investigate or prosecute any alcohol or drug abuse patient.[facility] the event this information is protected by the Federal Confidentiality of Alcohol and Drug Abuse Patient Records regulations: The Federal rules restrict any use of the information to criminally investigate or prosecute any alcohol or drug abuse patient.[facility] the event this information is protected by the Federal Confidentiality of Alcohol and Drug Abuse Patient Records regulations: The Federal rules restrict any use of the information to criminally investigate or prosecute any alcohol or drug abuse patient.[facility] the event this information is protected by the Federal Confidentiality of Alcohol and Drug Abuse Patient Records regulations: The Federal rules restrict any use of the information to criminally investigate or prosecute any alcohol or drug abuse patient.[facility] the event this information is protected by the Federal Confidentiality of Alcohol and Drug Abuse Patient Records regulations: The Federal rules restrict any use of the information to criminally investigate or prosecute any alcohol or drug abuse patient.[facility] the event this information is protected by the Federal Confidentiality of Alcohol and Drug Abuse Patient Records regulations: The Federal rules restrict any use of the information to criminally investigate or prosecute any alcohol or drug abuse patient.[facility] the event this information is protected by the Federal Confidentiality of Alcohol and Drug Abuse Patient Records regulations: The Federal rules restrict any use of the information to criminally investigate or prosecute any alcohol or drug abuse patient.[facility] the event this information is protected by the Federal Confidentiality of Alcohol and Drug Abuse Patient Records regulations: The Federal rules restrict any use of the information to criminally investigate or prosecute any alcohol or drug abuse patient.[facility] the event this information is protected by the Federal Confidentiality of Alcohol and Drug Abuse Patient Records regulations: The Federal rules restrict any use of the information to criminally investigate or prosecute any alcohol or drug abuse patient.[facility] the event this information is protected by the Federal Confidentiality of Alcohol and Drug Abuse Patient Records regulations: The Federal rules restrict any use of the information to criminally investigate or prosecute any alcohol or drug abuse patient.[facility] the event this information is protected by the Federal Confidentiality of Alcohol and Drug Abuse Patient Records regulations: The Federal rules restrict any use of the information to criminally investigate or prosecute any alcohol or drug abuse patient.[facility] the event this information is protected by the Federal Confidentiality of Alcohol and Drug Abuse Patient Records regulations: The Federal rules restrict any use of the information to criminally investigate or prosecute any alcohol or drug abuse patient.[facility] the event this information is protected by the Federal Confidentiality of Alcohol and Drug Abuse Patient Records regulations: The Federal rules restrict any use of the information to criminally investigate or prosecute any alcohol or drug abuse patient.[facility] the event this information is protected by the Federal Confidentiality of Alcohol and Drug Abuse Patient Records regulations: The Federal rules restrict any use of the information to criminally investigate or prosecute any alcohol or drug abuse patient.[facility] the event this information is protected by the Federal Confidentiality of Alcohol and Drug Abuse Patient Records regulations: The Federal rules restrict any use of the information to criminally investigate or prosecute any alcohol or drug abuse patient.[facility] CenterIn the event this information is protected by the Federal Confidentiality of Alcohol and Drug Abuse Patient Records regulations: The Federal rules restrict any use of the information to criminally investigate or prosecute any alcohol or drug abuse patient.[facility] CenterIn the event this information is protected by the Federal Confidentiality of Alcohol and Drug Abuse Patient Records regulations: The Federal rules restrict any use of the information to criminally investigate or prosecute any alcohol or drug abuse patient.[facility] CenterIn the event this information is protected by the Federal Confidentiality of Alcohol and Drug Abuse Patient Records regulations: The Federal rules restrict any use of the information to criminally investigate or prosecute any alcohol or drug abuse patient.[facility] CenterIn the event this information is protected by the Federal Confidentiality of Alcohol and Drug Abuse Patient Records regulations: The Federal rules restrict any use of the information to criminally investigate or prosecute any alcohol or drug abuse patient.[facility] CenterIn the event this information is protected by the Federal Confidentiality of Alcohol and Drug Abuse Patient Records regulations: The Federal rules restrict any use of the information to criminally investigate or prosecute any alcohol or drug abuse patient.[facility] CenterIn the event this information is protected by the Federal Confidentiality of Alcohol and Drug Abuse Patient Records regulations: The Federal rules restrict any use of the information to criminally investigate or prosecute any alcohol or drug abuse patient.[facility] CenterIn the event this information is protected by the Federal Confidentiality of Alcohol and Drug Abuse Patient Records regulations: The Federal rules restrict any use of the information to criminally investigate or prosecute any alcohol or drug abuse patient.[facility] CenterIn the event this information is protected by the Federal Confidentiality of Alcohol and Drug Abuse Patient Records regulations: The Federal rules restrict any use of the information to criminally investigate or prosecute any alcohol or drug abuse patient.[facility] CenterIn the event this information is protected by the Federal Confidentiality of Alcohol and Drug Abuse Patient Records regulations: The Federal rules restrict any use of the information to criminally investigate or prosecute any alcohol or drug abuse patient.[facility] CenterIn the event this information is protected by the Federal Confidentiality of Alcohol and Drug Abuse Patient Records regulations: The Federal rules restrict any use of the information to criminally investigate or prosecute any alcohol or drug abuse patient.[facility] CenterIn the event this information is protected by the Federal Confidentiality of Alcohol and Drug Abuse Patient Records regulations: The Federal rules restrict any use of the information to criminally investigate or prosecute any alcohol or drug abuse patient.[facility] CenterIn the event this information is protected by the Federal Confidentiality of Alcohol and Drug Abuse Patient Records regulations: The Federal rules restrict any use of the information to criminally investigate or prosecute any alcohol or drug abuse patient.[facility] CenterIn the event this information is protected by the Federal Confidentiality of Alcohol and Drug Abuse Patient Records regulations: The Federal rules restrict any use of the information to criminally investigate or prosecute any alcohol or drug abuse patient.[facility] CenterIn the event this information is protected by the Federal Confidentiality of Alcohol and Drug Abuse Patient Records regulations: The Federal rules restrict any use of the information to criminally investigate or prosecute any alcohol or drug abuse patient.[facility] CenterIn the event this information is protected by the Federal Confidentiality of Alcohol and Drug Abuse Patient Records regulations: The Federal rules restrict any use of the information to criminally investigate or prosecute any alcohol or drug abuse patient.[facility] CenterIn the event this information is protected by the Federal Confidentiality of Alcohol and Drug Abuse Patient Records regulations: The Federal rules restrict any use of the information to criminally investigate or prosecute any alcohol or drug abuse patient.[facility] CenterIn the event this information is protected by the Federal Confidentiality of Alcohol and Drug Abuse Patient Records regulations: The Federal rules restrict any use of the information to criminally investigate or prosecute any alcohol or drug abuse patient.[facility] CenterIn the event this information is protected by the Federal Confidentiality of Alcohol and Drug Abuse Patient Records regulations: The Federal rules restrict any use of the information to criminally investigate or prosecute any alcohol or drug abuse patient.[facility] CenterIn the event this information is protected by the Federal Confidentiality of Alcohol and Drug Abuse Patient Records regulations: The Federal rules restrict any use of the information to criminally investigate or prosecute any alcohol or drug abuse patient.[facility] CenterIn the event this information is protected by the Federal Confidentiality of Alcohol and Drug Abuse Patient Records regulations: The Federal rules restrict any use of the information to criminally investigate or prosecute any alcohol or drug abuse patient.[facility] CenterIn the event this information is protected by the Federal Confidentiality of Alcohol and Drug Abuse Patient Records regulations: The Federal rules restrict any use of the information to criminally investigate or prosecute any alcohol or drug abuse patient.[facility] CenterIn the event this information is protected by the Federal Confidentiality of Alcohol and Drug Abuse Patient Records regulations: The Federal rules restrict any use of the information to criminally investigate or prosecute any alcohol or drug abuse patient.[facility] CenterIn the event this information is protected by the Federal Confidentiality of Alcohol and Drug Abuse Patient Records regulations: The Federal rules restrict any use of the information to criminally investigate or prosecute any alcohol or drug abuse patient.[facility] CenterIn the event this information is protected by the Federal Confidentiality of Alcohol and Drug Abuse Patient Records regulations: The Federal rules restrict any use of the information to criminally investigate or prosecute any alcohol or drug abuse patient.[facility] CenterIn the event this information is protected by the Federal Confidentiality of Alcohol and Drug Abuse Patient Records regulations: The Federal rules restrict any use of the information to criminally investigate or prosecute any alcohol or drug abuse patient.[facility] CenterIn the event this information is protected by the Federal Confidentiality of Alcohol and Drug Abuse Patient Records regulations: The Federal rules restrict any use of the information to criminally investigate or prosecute any alcohol or drug abuse patient.[facility] Reason for Visit (unrecogniz ed section and content) Reason Comments Physical Therapy Specialty Diagnoses / Procedures Referred By Kristine jin Referred To Contact [facility] Diagnoses BPPV (benign paroxysmal positional vertigo), unspecified laterality Procedures CONSULT TO PHYSICAL THERAPY PHYSICAL THERAPY EVALUATION HIGH COMPLEX 45 MINS Mari Jones MD [address] [place] [address] Phone: tel: fax: [facility] [address] [place] [address] Referral ID Status Reason Start Date Expiration Date Visits Requested Visits Authorized [id number] Authorized PCP Requested Referral Auto-Generate d Referral 07/23/2024 07/23/2025 99 99 Reason Comments 6 Month Exam Reason Comments Blood Pressure Check Reason Onset Date Comments Refill Request 03/08/2022 Reason Comments Blood Pressure 2 week follow up Reason Onset Date Comments Refill Request 06/08/2022 Reason Comments Nasal Congestion drainage, cough, sor e throat x 1 month Reason Onset Date Comments Refill Request 09/10/2022 Reason Comments UTI S/Sx started about 2 4 hrs ago-frequency and burning with urination. Minimal output. Reason Onset Date Comments Refill Request 03/07/2023 Reason Comments Results Reason Comments Pain Left foot toe pain x 4 months Reason Comments New Pain Callous Specialty Diagnoses / Procedures Referred By Kristine t Referred To Contact Podiatry Diagnoses Pain of toe of left foot Procedures CONSULT TO PODIATRY OFFICE/OUTPATIENT NEW HIGH MDM 60 MINUTES Podlog[employer], KYA Saucedo.PROGRAMMING COORDINATOR [address] [place] [address] Referral ID Status Reason Start Date Expiration Date V isits Requested Visits Authorized [id number] Closed PCP Requested Referral 10/10/2023 10/09/2024 1 1 Reason Comments Cough Dealing with this si nce March 12 - slight productive & deep Reason Comments Cough X3 weeks, with sinus headaches during cough Reason Comments Follow Up follow up sinus issu res Reason Onset Date Comments Refill Request 07/05/2024 Reason Comments Follow Up Routine-refills Reason Comments Patient Question Reason Comments Follow Up To review labs Reason Comments PT Eval Reason Comments Yearly Exam Reason Comments Medication Question Reason Onset Date Comments Results 01/22/2025 Reason Onset Date Comments Refill Request 01/29/2025 Care Teams (unrecognized sec tion and content) Educational Therapy Teacher Relationship Specialty Start Date End Date Mari Jones MD [address] [place], [place] [id number] PCP - General Family Practice 03/20/21 Educational Therapy Teacher Relationship Specialty Start Date End Date Mari Jones MD [address] [place], [place] [id number] PCP - General Family Practice 03/20/21 Educational Therapy Teacher Relationship Specialty Start Date End Date Mari Jones MD [address] [place] [address] PCP - General Family Practice 03/20/21 Educational Therapy Teacher Relationship Specialty Start Date End Date Mari Jones MD [address] [place] [address] PCP - General Family Practice 03/20/21 Educational Therapy Teacher Relationship Specialty Start Date End Date Mari Jones MD [address] [place] [address] PCP - General Family Practice 03/20/21 Educational Therapy Teacher Relationship Specialty Start Date End Date Mari Jones MD [address] [place] [address] PCP - General Family Practice 03/20/21 Educational Therapy Teacher Relationship Specialty Start Date End Date Mari Jones MD [address] [place] [address] PCP - General Family Medicine 03/20/21 Educational Therapy Teacher Relationship Specialty Start Date End Date Mari Jones MD [address] [place] [address] PCP - General Family Medicine 03/20/21 Educational Therapy Teacher Relationship Specialty Start Date End Date Mari Jones MD [address] [place] [address] PCP - General Family Medicine 03/20/21 Educational Therapy Teacher Relationship Specialty Start Date End Date Mari Jones MD [address] [place] [address] PCP - General Family Medicine 03/20/21 Educational Therapy Teacher Relationship Specialty Start Date End Date Mari Jones MD [address] [place] [address] PCP - General Family Medicine 03/20/21 Educational Therapy Teacher Relationship Specialty Start Date End Date Mari Jones MD [address] [place] [address] PCP - General Family Medicine 03/20/21 Educational Therapy Teacher Relationship Specialty Start Date End Date Mari Jones MD [address] [place] [address] PCP - General Family Medicine 03/20/21 Educational Therapy Teacher Relationship Specialty Start Date End Date Mari Jones MD [address] [place] [address] PCP - General Family Medicine 03/20/21 Educational Therapy Teacher Relationship Specialty Start Date End Date Mari Jones MD [address] [place] [address] PCP - General Family Medicine 03/20/21 Educational Therapy Teacher Relationship Specialty Start Date End Date Mari Jones MD [address] [place] [address] PCP - General Family Medicine 03/20/21 Educational Therapy Teacher Relationship Specialty Start Date End Date aMri Jones MD [address] [place] [address] PCP - General Family Medicine 03/20/21 Educational Therapy Teacher Relationship Specialty Start Date End Date Mari Jones MD [address] [place] [address] PCP - General Family Medicine 03/20/21 Educational Therapy Teacher Relationship Specialty Start Date End Date Mari Jones MD [address] [place] [address] PCP - General Family Medicine 03/20/21 Educational Therapy Teacher Relationship Specialty Start Date End Date Mari Jones MD [address] [place] [address] PCP - General Family Medicine 03/20/21 Educational Therapy Teacher Relationship Specialty Start Date End Date Mari Jones MD [address] [place] [address] PCP - General Family Medicine 03/20/21 Educational Therapy Teacher Relationship Specialty Start Date End Date Mari Jones MD [address] [place] [address] PCP - General Family Medicine 03/20/21 Educational Therapy Teacher Relationship Specialty Start Date End Date Mari Jones MD [address] [place] [address] PCP - General Family Medicine 03/20/21 Educational Therapy Teacher Relationship Specialty Start Date End Date Mari Jones MD [address] [place] [address] PCP - General Family Medicine 03/20/21 Educational Therapy Teacher Relationship Specialty Start Date End Date Mari Jones MD [address] [place] [address] PCP - General Family Medicine 03/20/21 Educational Therapy Teacher Relationship Specialty Start Date End Date Mari Jones MD [address] [place] [address] PCP - General Family Medicine 03/20/21 Educational Therapy Teacher Relationship Specialty Start Date End Date Mari Jones MD [address] [place] [address] PCP - General Family Medicine 03/20/21 PodlogarSheryl APRN.PROGRAMMING COORDINATOR [address] [place] [address] [facility] 05/05/24 Educational Therapy Teacher Relationship Specialty Start Date End Date Mari Jones MD [address] [place] [address] PCP - General Family Medicine 03/20/21 PodlogarSheryl APRN.PROGRAMMING COORDINATOR [address] [place] [address] [facility] 05/05/24 Educational Therapy Teacher Relationship Specialty Start Date End Date Mari Jones MD [address] [place] [address] PCP - General Family Medicine 03/20/21 PodlogarSheryl, SUPERINTENDENT DIVISION.PROGRAMMING COORDINATOR [address] [place] [address] [facility] 05/05/24 Educational Therapy Teacher Relationship Specialty Start Date End Date Mari Jones MD [address] [place] [address] PCP - General Family Medicine 03/20/21 Podlogar, Sheryl SUPERINTENDENT DIVISION.PROGRAMMING COORDINATOR [address] [place] [address] [facility] 05/05/24 Educational Therapy Teacher Relationship Specialty Start Date End Date Mari Jones MD [address] [place] [address] PCP - General Family Medicine 03/20/21 PodlogarSheryl APRN.PROGRAMMING COORDINATOR [address] [place] [address] [facility] 05/05/24 Educational Therapy Teacher Relationship Specialty Start Date End Date Mari Jones MD [address] [place] [address] PCP - General Family Medicine 03/20/21 PodlogarSheryl APRN.PROGRAMMING COORDINATOR [address] [place] [address] [facility] 05/05/24 Jim Mccarthy APRN.PROGRAMMING COORDINATOR [address] [place] [address] [facility] Educational Therapy Teacher Relationship Specialty Start Date End Date Mari Jones MD [address] [place] [address] PCP - General Family Medicine 03/20/21 PodlogarSheryl APRN.PROGRAMMING COORDINATOR [address] [place] [address] [facility] 05/05/24 Jim Mccarthy APRN.PROGRAMMING COORDINATOR [address] [place] [address] [facility] 08/10/24 Educational Therapy Teacher Relationship Specialty Start Date End Date Mari Jones MD [address] [place] [address] PCP - General Family Medicine 03/20/21 PodlogarSheryl APRN.PROGRAMMING COORDINATOR [address] [place] [address] [facility] 05/05/24 Jim Mccarthy SUPERINTENDENT DIVISION.PROGRAMMING COORDINATOR [address] [place] [address] [facility] 08/10/24 Educational Therapy Teacher Relationship Specialty Start Date End Date Mari Jones MD [address] [place] [address] PCP - General Family Medicine 03/20/21 PodlogarSheryl SUPERINTENDENT DIVISION.PROGRAMMING COORDINATOR [address] [place] [address] [facility] 05/05/24 Jim Mccarthy SUPERINTENDENT DIVISION.PROGRAMMING COORDINATOR [address] [place] [address] [facility] 08/20/24 Educational Therapy Teacher Relationship Specialty Start Date End Date Mari Jones MD [address] [place] [address] PCP - General Family Medicine 03/20/21 PodlogarSheryl SUPERINTENDENT DIVISION.PROGRAMMING COORDINATOR [address] [place] [address] [facility] 05/05/24 Jim Mccarthy SUPERINTENDENT DIVISION.PROGRAMMING COORDINATOR [address] [place] [address] [facility] 08/20/24 Educational Therapy Teacher Relationship Specialty Start Date End Date Mari Jones MD [address] [facility] [place] [address] [phone] PCP - General Family Medicine 03/20/21 PodlogarSheryl APRN.PROGRAMMING COORDINATOR [address] [place] [address] [facility] 05/05/24 Jim Mccarthy APRN.PROGRAMMING COORDINATOR [address] [facility] [place] [address] [phone] [facility] 08/20/24 10/14/24 Educational Therapy Teacher Relationship Specialty Start Date End Date Mari Jones MD [address] [place] [address] PCP - General Family Medicine 03/20/21 PodlogarSheryl APRN.PROGRAMMING COORDINATOR [address] [place] [address] [facility] 05/05/24 Educational Therapy Teacher Relationship Specialty Start Date End Date Mari Jones MD [address] [place] [address] PCP - General Family Medicine 03/20/21 PodlogarSheryl APRN.PROGRAMMING COORDINATOR [address] [place] [address] [facility] 05/05/24 Jim Mccarthy APRN.PROGRAMMING COORDINATOR [address] [place] [address] [facility] 08/10/24 08/19/24 Jim Mccarthy APRN.PROGRAMMING COORDINATOR [address] [place], [place] [address] [facility] 08/20/24 10/14/24 Jim Mccarthy APRN.PROGRAMMING COORDINATOR [address] [place], [place] [address] [phone] [facility] 11/08/24 Educational Therapy Teacher Relationship Specialty Start Date End Date Mari Jones MD [address] [place], [place] [address] [phone] PCP - General Family Medicine 03/20/21 Sheryl Hermosillo APRN.PROGRAMMING COORDINATOR [address] [place] [address] [facility] 05/05/24 Jim Mccarthy APRN.PROGRAMMING COORDINATOR [address] [place] [address] [phone] [facility] 11/08/24 Educational Therapy Teacher Relationship Specialty Start Date End Date Mari Jones MD [address] [place], [place] [address] [phone] PCP - General Family Medicine 03/20/21 AngeliquelogSheryl jones SUPERINTENDENT DIVISION.PROGRAMMING COORDINATOR [address] [place] [address] [facility] 05/05/24 Jim Mccarthy APRN.PROGRAMMING COORDINATOR [address] [place] [address] [facility] 11/08/24 INFORMATION SOURCE (unrecogn ized section and content) DATE CREATED AUTHOR 02/17/2025 [facility] DATE CREATED AUTHOR AUTHOR'S SHANNAN DANIELS 02/20/2025 [facility] FOR RECORDS PERTAINING TO PATIENTS WHO ARE OR HAVE BEEN ENROLLED IN A CHEMICAL DEPENDENCY/SUBSTANCEABUSE PROGRAM, SOME INFORMATION MAY BE OMITTED. This clinical summary was aggregated from multiple sources. Caution should be exercised in using it in the provision of clinical care. This summary normalizes information from multiple sources, and as a consequence, information in this document may materially change the coding, format and clinical context of patient data. In addition, data may be omitted in some cases. CLINICAL DECISIONS SHOULD BE BASED ON THE PRIMARY CLINICAL RECORDS. [facility]. provides no warranty or guarantee of the accuracy or completeness of information in this document.
[2025-03-01 04:10] VITALS: BP 107/75; PULSE 65; RESP 16; TEMP 36.4; O2SAT 92
[2025-03-01] MEDS: Cefazolin 1 GM/50 ML BAG IV (04:25)
[2025-03-01 06:11] LABS: Hematocrit 36.4 % (37-47); Hemoglobin 11.8 g/dL (12.0-15.0); Mean Corp Hgb Conc 32.4 g/dL (32-36); Mean Corpuscular Volume 91.9 fL (81-99); Mean Platelet Vol. 10.7 fl (6.2-12.0); Platelet Count 231 K/mm3 (150-450); RBC Distribution Width CV 13.7 % (11.6-14.6); RBC Distribution Width SD 46.7 fl (35.1-43.9); Red Blood Count 3.96 M/mm3 (4.2-5.4); White Blood Count 11.5 K/mm3 (4.4-11.0)
[2025-03-01 06:50] LABS: Anion Gap 12 (5-15); BUN 13 mg/dL (4-19); BUN/Creat Ratio 15.8 RATIO (10-20); Calcium,Total 9.2 mg/dL (7.6-11.0); Carbon Dioxide 22.2 mmol/L (21.0-32.0); Chloride 105 mmol/L (98-108); Estimated Creatinine Clearance 72.18 ml/min (50-250); Glucose 133 mg/dL (70-99); Potassium 4.3 mmol/L (3.3-5.1)
[2025-03-01 08:00] VITALS: O2SAT 92
[2025-03-01 08:18] VITALS: BP 127/72; PULSE 75; RESP 18; TEMP 36.5; O2SAT 95
[2025-03-01] MEDS: Senna/Docusate Sodium 1 Tablet 2 TABLET PO (08:29)
[2025-03-01 09:36] VITALS: O2SAT 95
--- NOTE | 2025-03-01 12:09 | PN.ORTHO_ITS ---
Subjective Subjective Patient is postoperative day #1 following a left total knee arthroplasty. Her is present at time of exam. Pain has been well-controlled she did well with physical therapy. She currently denies chest pain shortness of breath dizziness or calf pain seems to be doing well overall no cough no painful urination. No signs of infection. She feels she is ready for discharge to home today. Objective Data Objective Data Patient is alert and oriented x 3 no acute distress at rest breathing easily without respiratory distress inspection of left knee is with clean dry waterproof dressing intact without active drainage erythema warmth or signs of infection. Most distal dressing is with 1 small area of bloody drainage does not appear to be actively draining at this time. Negative [place] bilaterally no signs of DVT. Patient is able to actively plantar and dorsiflex bilateral ankles against resistance sensation intact light touch capillary refill less than 3 seconds neurovascularly intact Vital Signs: Vital Signs Temp Pulse Resp BP Pulse Ox O2 Del Method O2 Flow Rate 97.7 F L 75 18 127/72 H 95 Room Air 2 03/01/25 08:18 03/01/25 08:18 03/01/25 08:18 03/01/25 08:18 03/01/25 09:36 03/01/25 09:36 03/01/25 08:00 Oxygen Flow Rate (L/min) 2 Oxygen Delivery Method Room Air Weight: 88 kg Body Mass Index (BMI) 32.3 Intake & Output: Intake and Output for Last 24 Hours 02/27/25 02/28/25 03/01/25 23:59 23:59 23:59 Intake Total 3552 / 3552 300 / 300 Output Total 350 / 350 Balance 3202 / 3202 300 / 300 Lab / Micro Data Attestation: I reviewed the patient's lab results. 03/01/25 05:44 03/01/25 05:44 Labs: Laboratory Results - last 24 hr 03/01/25 05:44: WBC 11.5 H, RBC 3.96 L, Hgb 11.8 L, Hct 36.4 L, MCV 91.9, MCH 29.8, MCHC 32.4, RDW Std Deviation 46.7 H, RDW Coeff of Teagan 13.7, Plt Count 231, MPV 10.7, Sodium 139, Potassium 4.3, Chloride 105, Carbon Dioxide 22.2, Anion Gap 12, BUN 13, Creatinine 0.84, Estim Creat Clear Calc 72.18, Est GFR (MDRD) Non-Af 77, BUN/Creatinine Ratio 15.8, Glucose 133 H, Calcium 9.2 Micro: Microbiology 02/01/25 08:19 Swab (Method) Nasal Screen MRSA/MSSA - Final Radiography Diagnostic Testing: Radiology Impression Knee X-Ray 02/28/25 14:15 IMPRESSION: No post operative complications after left knee replacement surgery. Components demonstrate anatomic alignment Reading Location: [id number] Assessment & Plan Assessment/Plan (1) Unilateral primary osteoarthritis, left knee: PLAN: Plan Postoperative x-rays were reviewed expected postoperative changes 1. Status post left total knee arthroplasty postoperative day and #1 2. Continue oxycodone as needed and scheduled Tylenol patient will be discharged with prescriptions for these medications 3. Begin PT/OT weightbearing as tolerated left lower extremity with a walker outpatient physical therapy is scheduled 4. DVT prophylaxis bilateral teds SCDs aspirin 81 mg twice daily for blood clot prevention for 1 month postoperative patient denies history of DVT or pulmonary embolism 5. Leukocytosis afebrile without acute signs of infection likely resulting from Decadron versus acute stress response anticipate resolution over the next several days no acute evidence of infection 6. Drop in hemoglobin hematocrit asymptomatic without indication for transfusion likely combination of hemodilution and acute blood loss 7. Encourage incentive spirometry 8. Continue discharge planning with case management 9. Patient is orthopedically stable and okay for discharge to home today plan to follow-up in the office 2 weeks reassessment. Postoperative prescriptions will be sent to [facility]
--- NOTE | 2025-03-01 12:15 | DCINST_ITS ---
Discharge Instructions DC O2, CPAP, BIPAP needs Home O2 Discharge instructions: No Dressing / Incision Discharge Activity: May Not Drive (while taking narcotic pain medications.) and Use Walker May shower in (days): 2 (only if incision is dry and without drainage. Do NOT soak/submerge in tub/pool/[place]/stream/hot tub.) Ice area for (Minutes): 20 (Every hour as needed for pain and swelling) Weight Bearing Status: Weight bearing as tolerated Keep extremity elevated above heart level: Operative Extremity Additional Activity Instructions:: Wear elastic stockings for 2 weeks after your surgery. Dressing / Incision Call your doctor if your incision/area has: Continuous Slow Oozing, Sudden Increased Bleeding, Increased Pain/ Swelling, Increased Redness and Foul Smelling Discharge Call your doctor if you observe: Fever of 101 or Higher, Shortness of breath, Chest pain and Calf discomfort Remove Dressing in: 5 days Cleanse incision/area with: Soap & Water Additional Dressing/Incision Instructions:: See postoperative orthopedic pink sheet Follow Up Care Please Follow Up With: Rebecca Arzola PA When: October 15, 2020 2:15 PM [facility] ([place] [facility]) Test Results: Test results from this visit will be discussed in further detail at your follow- up appointment, if applicable. Discharge Plan Admission Admit Date/Time: 02/28/25 13:57 Attending Provider: Ciro Aguayo Primary Care Provider: Krishna Jones Discharge Orders/Prescriptions Prescriptions: New sennosides-docusate sodium [Stimulant Laxative Plus] 8.6-50 mg Tablet 2 tab PO BID Qty: 0 0RF acetaminophen 500 mg Tablet 1,000 mg PO Q8 Qty: 0 0RF meloxicam 7.5 mg Tablet 7.5 mg PO BID Qty: 0 0RF famotidine 20 mg Tablet 20 mg PO DAILY Qty: 0 0RF aspirin 81 mg Tablet,Chewable 81 mg PO BIDCM Qty: 0 0RF oxycodone 5 mg Tablet 5 - 10 mg PO Q4H PRN PRN (Reason: Pain Score 4-10) Qty: 0 0RF Continued atorvastatin 20 mg tablet 20 mg PO QHS losartan 100 mg tablet 100 mg PO DAILY Disposition Disposition (needs filled in before D/C Order can be placed): Home, Self Care
--- NOTE | 2025-03-01 12:27 | CASEMGMT ---
Noted dc order in. RN CM into pt room, pt sitting up in bed eating lunch with at bedside. Pt denies any homegoing needs. Pt states she has a walker and has OP therapy set up on Tuesday at [facility].
== END 2025-03-01 14:21 | disposition home or self-care (01) ==
LOC: MS3 15:12 → SDC 15:13 → MS3 15:13
PROVIDERS: Anesthesiology; Admitting Provider Student in an Organized Health Care Education/Training Program; PCP Family Medicine; Referring Provider Student in an Organized Health Care Education/Training Program; Visit Provider Student in an Organized Health Care Education/Training Program
PROC: 0SRD0JZ Replacement of Left Knee Joint with Synthetic Substitute, Open Approach (ICD-10-PCS; CPT 27447; principal; 2025-02-28 11:45)
DX: M17.12 Unilateral primary osteoarthritis, left knee (principal); I10 Essential (primary) hypertension; Z79.899 Other long term (current) drug therapy
CPT/HCPCS: 27447; S2900; 01402; 64445; 36415; 73560; 80048; 82962; 83735; 85025; 85027; 87081; 93005; 94668; 96365; 96366; 97162; 99221; C1776; G0378; J2405; J3475